=== PATIENT | male | born 1975 | race Caucasian/White ===

== ENCOUNTER 2023-01-30 10:14 | Outpatient (REF) | payer OTHER, SELFPAY ==
[2023-01-30 10:54] LABS: MANUAL DIFF FLAG NO
[2023-01-30 10:57] LABS: Basophils Percent Auto 0.8 % (0-2); Eosinophils Absolute Auto 0.1 X10*3/uL (0.0-0.4); Hematocrit 46.6 % (42.0-52.0); Hemoglobin 15.7 g/dl (14.0-18.0); Imm Gran Abs Auto 0.02 X10*3/uL (0.00-0.03); Imm Gran Pct Auto 0.4 % (0.0-0.4); Lymphocytes Absolute Auto 1.1 X10*3/uL (1.2-4.9); Lymphocytes Percent Auto 20.7 % (20-40); Mean Corpuscular HGB Conc 33.7 g/dl (31.0-36.0); Mean Corpuscular Hemoglobin 30.3 pg (27.0-33.0); Mean Corpuscular Volume 89.8 fL (80.0-98.0); Mean Platelet Volume 9.9 fL (9.4-12.4); Monocytes Absolute Auto 0.5 X10*3/uL (0.1-1.2); Monocytes Percent Auto 10.5 % (2-11); Neutrophils Absolute Auto 3.3 x10*3/uL (2.0-8.3); Neutrophils Percent Auto 65.6 % (45-73); Platelet Count 292 X10*3/uL (160-400); Red Blood Count 5.19 X10*6/uL (4.60-5.80); Red Cell Distribution Width 12.3 % (11.0-16.0); White Blood Count 5.1 X10*3/uL (4.8-10.8)
[2023-01-30 11:05] LABS: Estimated Average Glucose 223 mg/dL; Hemoglobin A1c % 9.4 %
[2023-01-30 11:49] LABS: Alanine Aminotransferase 20 U/L (0-40); Albumin Level 3.9 g/dL (3.5-5.0); Alkaline Phosphatase 91 U/L (39-117); Anion Gap 15 (12-20); Aspartate Amino Transferase 16 U/L (5-37); Blood Urea Nitrogen 35 mg/dL (9-16); Calcium 9.4 mg/dL (8.4-10.2); Carbon Dioxide 25 mmol/L (22-29); Chloride 102 mmol/L (96-108); Cholesterol 171 mg/dL; Estimated Glomerular Filt Rate 33; Glucose Random 170 mg/dL (60-115); HDL Cholesterol 30 mg/dL; LDL Cholesterol Calculated 119 mg/dl; Potassium 4.6 mmol/L (3.3-5.1); Sodium 137 mmol/L (135-145); Triglycerides 110 mg/dL
[2023-01-30 11:52] LABS: Prostate Specific Antigen Scr 0.78 ng/mL (<0.05-4.0); Thyroid Stimulating Hormone 2.31 uIU/mL (0.32-4.0)
== END 2023-01-30 10:15 | disposition home or self-care (01) ==
LOC: HO.10HDL 10:14
PROVIDERS: Visit Provider Internal Medicine
DX: Z00.01 Encounter for general adult medical examination with abnormal findings (principal); Z12.5 Encounter for screening for malignant neoplasm of prostate; I12.9 Hypertensive chronic kidney disease with stage 1 through stage 4 chronic kidney disease, or unspecified chronic kidney disease; E11.22 Type 2 diabetes mellitus with diabetic chronic kidney disease; N18.9 Chronic kidney disease, unspecified
CPT/HCPCS: 36415; 80053; 80061; 83036; 84153; 84443; 85025

== ENCOUNTER 2023-06-26 10:01 | Outpatient (REF) | payer OTHER, SELFPAY ==
[2023-06-26 13:33] LABS: Estimated Average Glucose 117 mg/dL; Hemoglobin A1c % 5.7 % (<6.0)
[2023-06-26 13:53] LABS: Alanine Aminotransferase 15 U/L (0-40); Alkaline Phosphatase 70 U/L (39-117); Anion Gap 13 (12-20); Aspartate Amino Transferase 18 U/L (5-37); Bilirubin Total 1.5 mg/dL (0.0-1.0); Blood Urea Nitrogen 35 mg/dL (9-16); Calcium 9.5 mg/dL (8.4-10.2); Carbon Dioxide 25 mmol/L (22-29); Chloride 101 mmol/L (96-108); Cholesterol 132 mg/dL (<200); Estimated Glomerular Filt Rate 46; Glucose Random 112 mg/dL (60-115); HDL Cholesterol 37 mg/dL (>40); LDL Cholesterol Calculated 73 mg/dL (<100); Sodium 135 mmol/L (135-145); Triglycerides 111 mg/dL (<150)
== END 2023-06-26 10:02 | disposition home or self-care (01) ==
LOC: HO.10HDL 10:01
PROVIDERS: Visit Provider Internal Medicine
DX: E78.00 Pure hypercholesterolemia, unspecified (principal); I12.9 Hypertensive chronic kidney disease with stage 1 through stage 4 chronic kidney disease, or unspecified chronic kidney disease; E11.22 Type 2 diabetes mellitus with diabetic chronic kidney disease; N18.9 Chronic kidney disease, unspecified; M14.679 Charcot's joint, unspecified ankle and foot
CPT/HCPCS: 36415; 80053; 80061; 82043; 82570; 83036

== ENCOUNTER 2023-09-26 09:21 | Outpatient (REF) | payer OTHER, SELFPAY | END 2023-09-26 09:22 | disposition home or self-care (01) | LOC: HO.10HDL 09:21 | PROVIDERS: Visit Provider Internal Medicine | DX: I12.9 Hypertensive chronic kidney disease with stage 1 through stage 4 chronic kidney disease, or unspecified chronic kidney disease (principal); E11.22 Type 2 diabetes mellitus with diabetic chronic kidney disease; N18.9 Chronic kidney disease, unspecified; R80.8 Other proteinuria | CPT/HCPCS: 36415; 80053; 83036 ==

== ENCOUNTER 2023-10-30 02:35 | Emergency (ER) | payer OTHER, SELFPAY ==
--- NOTE | ~2023-10-30 | CT_ITS ---
EXAMINATION: CT ABDOMEN AND PELVIS WITHOUT CONTRAST CLINICAL INFORMATION: Right lower quadrant pain COMPARISON: None available. TECHNIQUE: Multidetector volumetric imaging was performed from the superior aspect of the liver through the pubic symphysis. Sagittal and coronal reformatted images were obtained on the technologist's workstation. This CT examination was performed using dose optimization techniques as appropriate, variously including the following: *Automated exposure control *Adjustment of mA and/or kV according to patient size (this includes techniques or standardized protocols for targeted exams where dose is matched to indication/reason for exam; i.e. extremities or head) *Use of iterative reconstruction technique DLP: 541 mGy-cm FINDINGS: LUNG BASES: The visualized lung bases are unremarkable. LIVER, GALLBLADDER, AND BILIARY TREE: The liver is normal in size, shape, and attenuation. No focal hepatic lesion or biliary ductal dilatation is present. No gallstones but there appears to be a small amount of dependent sludge in the gallbladder. PANCREAS: Unremarkable. SPLEEN: Unremarkable. ADRENAL GLANDS: Unremarkable. KIDNEYS AND URETERS: There is a 3 mm stone, at the right UVJ, causing mild right hydroureter and right hydronephrosis. Punctate vascular calcifications are seen in the right and left renal pelves and there is mild perinephric stranding about the right and left kidney. No suspicious solid mass. There is a 1 mm stone in the lower right kidney and 1 mm stone in the right mid kidney as well. The left ureter is not dilated. No left hydronephrosis. BLADDER: Unremarkable. GASTROINTESTINAL TRACT: No bowel obstruction or right or left lower quadrant inflammatory change. Large stool burden the colon. Minimal mesenteric stranding seen in the lower mesentery and right lower quadrant. Tiny tubular structure retrocecal may reflect the appendix. There is a small hiatal hernia. ABDOMINAL WALL: There is a small ventral umbilical hernia containing fat. LYMPH NODES: Normal. VASCULAR: Aorta atherosclerotic but nonaneurysmal. Vascular calcifications are seen in the upper abdomen, off the branches of the celiac axis and SMA and CHAVA. Query diabetic patient? PELVIC VISCERA: Unremarkable. OSSEOUS STRUCTURES: Degenerative changes in the lumbar spine and at the L5-S1 junction but no destructive lesion or fracture. CT/CT abdomen pelvis wo IV con IMPRESSION: Tiny stone at the right UVJ causing right-sided hydronephrosis. Fleischner guidelines were followed.
[2023-10-30 02:44] VITALS: BP 165/109; PULSE 98; RESP 18; TEMP 36.6; O2SAT 99; BMI 27.6
[2023-10-30 03:31] VITALS: BP 149/95; PULSE 99; RESP 17; TEMP 37.1; O2SAT 99
[2023-10-30 03:43] LABS: MANUAL DIFF FLAG NO
[2023-10-30 03:44] LABS: Basophils Percent Auto 0.4 % (0-2); Eosinophils Percent Auto 0.2 % (0-4); Hematocrit 42.4 % (42.0-52.0); Hemoglobin 13.9 g/dl (14.0-18.0); Imm Gran Abs Auto 0.03 X10*3/uL (0.00-0.03); Imm Gran Pct Auto 0.3 % (0.0-0.4); Lymphocytes Absolute Auto 0.7 X10*3/uL (1.2-4.9); Lymphocytes Percent Auto 6.2 % (20-40); Mean Corpuscular HGB Conc 32.8 g/dl (31.0-36.0); Mean Corpuscular Hemoglobin 30.5 pg (27.0-33.0); Mean Platelet Volume 9.9 fL (9.4-12.4); Monocytes Absolute Auto 0.7 X10*3/uL (0.1-1.2); Monocytes Percent Auto 6.1 % (2-11); Neutrophils Absolute Auto 9.5 x10*3/uL (2.0-8.3); Neutrophils Percent Auto 86.8 % (45-73); Platelet Count 303 X10*3/uL (160-400); Red Blood Count 4.56 X10*6/uL (4.60-5.80); Red Cell Distribution Width 14.1 % (11.0-16.0); White Blood Count 10.9 X10*3/uL (4.8-10.8)
--- OUTSIDE RECORDS SUMMARY | 2023-10-30 03:56 | XMS_ITS | Continuity of Care Document ---
Author Name Unknown Organization [facility] Address [address] [place] [address]- Care Team Providers Care Railway Yard Assistant Name Role Phone Not on Staff, PCP Primary Care Physician Unavail able Encounter [facility] Date(s): 12/25/22 - 01/24/23 [facility] [address] [place] [address]- Attending Physician: Admtr, Ar8 Admitting Physician: Admtr, Ar8 Referring Physician: Admtr, Ar8 Allergies, Adverse Reactions, Alerts Substance Reaction Severity Status penicillins Active Patient Care team information Care Team Personnel Name: Not on Staff, PCP Position: S Physician (General Medicine) Member Role: PCP Care Team Related Persons Name: MARILU ZUNIGA Address: home [address] [place] [address]
--- OUTSIDE RECORDS SUMMARY | 2023-10-30 03:56 | XMS_ITS | Continuity of Care Document ---
Author Name Unknown Organization [facility] Address [address] [place] [address]- Care Team Providers Care Rubber Boots And Shoes Repairer Name Role Phone Veronica Steen MD Primary Care Physician Encounter [facility] Date(s): 06/18/23 - 07/18/23 [facility] [address] [place] [address]- Allergies, Adverse Reactions, Alerts Substance Reaction Severity Status penicillins Active Medications acetaminophen 325 mg oral tablet 975 mg, By Mouth, 3 times a day, Refills 0, Maintenance, 07/08/23 14:04:00 EDT, Partial fill upon patient request if the prescription is for a schedule II opioid drug. Start Date: 07/08/23 Status: Ordered amLODIPine 10 mg oral tablet 10 mg, 1, tablet, By Mouth, Daily, Refills 0, Maintenance, 07/05/23 14:40:00 EDT, Partial fill uponpatient request if the prescription is for a schedule II opioid drug. Start Date: 07/05/23 Status: Ordered Aspirin Tablet 325 mg, By Mouth, Daily, Refills 0, Maintenance, 07/08/23 14:04:00 EDT, Partial fill upon patient request if the prescription is for a schedule II opioid drug. Start Date: 07/08/23 Status: Ordered atorvastatin 20 mg oral tablet 1 tablet = 20 mg, By Mouth, Daily, # 30 tablet, 0 Refills, Maintenance, 07/05/23 14:40:00 EDT, Tablet, Partial fill upon patient request if the prescription is for a schedule II opioid drug. Start Date: 07/05/23 Status: Ordered Januvia 100 mg oral tablet = 100 mg, By Mouth, Daily, # 30 tablet, 0 Refills, Maintenance, 07/05/23 14:39:00 EDT, Tablet, Partial fill upon patient request if the prescription is for a schedule II opioid drug. Start Date: 07/05/23 Status: Ordered metFORMIN 500 mg oral tablet 1 tablet = 500 mg, By Mouth, 2 times a day, # 60 tablet, 0 Refills, Maintenance, 07/05/23 14:39:00 EDT, Tablet, Partial fill upon patient request if the prescription is for a schedule II opioid drug. Start Date: 07/05/23 Status: Ordered oxyCODONE 5 mg oral tablet 5 mg, By Mouth, Every 4 hours, PRN, Refills 0, Tot. Refills 0, Maintenance, Pain , Mild, 07/08/23 14:05:00 EDT, Partial fill upon patient request if the prescription is for a schedule II opioid drug. Start Date: 07/08/23 Status: Ordered Vitamin D3 5000 intl units oral tablet 1 tablet = 5,000 International_Units, By Mouth, Daily, # 30 tablet, 0 Refills, Maintenance, 07/09/23 6:50:00 EDT, Tablet, Partial fill upon patient request if the prescription is for a schedule II opioid drug. Start Date: 07/09/23 Status: Ordered Patient Care team information Care Team Personnel Name: Veronica Steen MD Position: [facility] Outreach Member Role: PCP Address: Address: [address] [place] [address] [address] Veronica Steen MD [address] Name: Tg Agrawal RN Position: S RN Member Role: Primary Care Nurse Name: Brad Hernandez RN Position: S RN Member Role: Primary Care Nurse Name: Jenn Hernandez RN Position: S RN Member Role: Primary Care Nurse Care Team Related Persons Name: MARILU ZUNIGA Address: home [address] [place] [id number]
--- OUTSIDE RECORDS SUMMARY | 2023-10-30 03:56 | XMS_ITS | Continuity of Care Document ---
Author Name Unknown Organization [facility] Address [address] [place] [address]- Care Team Providers Care Test And Balance Engineer Name Role Phone Veronica Steen MD Primary Care Physician Encounter [facility] Date(s): 06/26/23 - 07/27/[address] [address] Attending Physician: Peter Newsome MD Admitting Physician: Peter Newsome MD Allergies, Adverse Reactions, Alerts Substance Reaction Severity [...] opioid drug. Start Date: 07/09/23 Status: Ordered History and physical note * Event Display: History and Physical Hospital Authored Date: Patient Care team information Care Team Personnel Name: Veronica Steen MD Position: [facility] Outreach Member Role: PCP Address: Address: [address] [place] [address] [address] [place] [address]- Name: Tg Agrawal RN Position: S RN Member Role: Primary Care Nurse Name: Brad Hernandez RN Position: S RN Member Role: Primary Care Nurse Name: Jenn Hernandez RN Position: S RN Member Role: Primary Care Nurse Care Team Related Persons Name: PAVANJOHNNIE MARILU Address: home [address] [place] [address]
--- OUTSIDE RECORDS SUMMARY | 2023-10-30 03:56 | XMS_ITS | Continuity of Care Document ---
Author Name Unknown Organization [facility] ter Address [address] [place] [id number] Care Team Providers Care Web Ui Developer Name Role Phone Veronica Steen MD Primary Care Physician Encounter [facility] Date(s): 07/08/23 - 07/09/[address] [address] Discharge Disposition: A-D/C Home Attending Physician: Peter Newsome MD Admitting Physician: Peter Newsome MD Referring Physician: Peter Newsome MD Allergies, Adverse Reactions, Alerts Substance Reaction Severity Status penicillins Active Medications acetaminophen 325 mg oral tablet 975 mg, By Mouth, 3 times a day, Refills 0, Maintenance, 07/08/23 14:04:00 EDT, Partial fill upon patient request if the prescription is for a schedule II opioid drug. Start Date: 07/08/23 Status: Ordered Acetaminophen Tablet 975 mg, Tablet, By Mouth, 07/09/23 9:00:00 EDT Start Date: 07/09/23 Stop Date: 07/09/23 Status: Completed amLODIPine 10 mg oral tablet 10 mg, Tablet, By Mouth, 07/09/23 9:00:00 EDT Start Date: 07/09/23 Stop Date: 07/09/23 Status: Completed amLODIPine 10 mg oral tablet 10 mg, [...] opioid drug. Start Date: 07/08/23 Status: Ordered OxyCODONE IR Tablet 5 mg, Tablet, By Mouth, Every 4 hours, PRN for Pain , Mild, Routine, 07/08/23 13:22:00 EDT Start Date: 07/08/23 Stop Date: 07/09/23 Status: Discontinued Vitamin D3 5000 intl units oral tablet 1 tablet = 5,000 International_Units, By Mouth, Daily, # 30 tablet, 0 Refills, Maintenance, 07/09/23 6:50:00 EDT, Tablet, Partial fill upon patient request if the prescription is for a schedule II opioid drug. Start Date: 07/09/23 Status: Ordered Vital Signs Most recent to oldest [Reference Range]: 1 2 3 Height 173 cm (07/09/23 1:26 PM) 173 cm (07/09/23 6:57 AM) 173 cm (07/09/23 5:34 AM) Weight 87.2 kg (07/08/23 3:30 PM) 86.5 kg (07/08/23 8:49 AM) 86.5 kg (07/05/23 2:53 PM) Oxygen Saturation [94-100 %] 96 % (07/09/23 1:26 PM) 95 % (07/09/23 6:57 AM) 94 % (07/09/23 5:34 AM) Pulse Rate [55-90 bpm] 92 bpm *H* (07/09/23 1:26 PM) 96 bpm *H* (07/09/23 6:57 AM) 91 bpm *H* (07/09/23 5:34 AM) Body Mass Index [18.5-24.99 kg/m2] 29.14 kg/m2 *H* (07/08/23 3:30 PM) 28.9 kg/m2 *H* (07/08/23 8:49 AM) 28.9 kg/m2 *H* (07/05/23 2:53 PM) Blood Pressure [90-138/55-84 mm Hg] 116/68mm Hg (07/09/23 1:26 PM) 137/79mm Hg (07/09/23 7:48 AM) 137/79mm Hg (07/09/23 6:57 AM) Respiratory Rate [16-30 br/min] 18 br/min (07/09/23 1:26 PM) 18 br/min (07/09/23 12:42 PM) 18 br/min (07/09/23 8:49 AM) Temperature [96.8-100.4 DegF] 99.9 DegF (07/09/23 1:26 PM) 99.1 DegF (07/09/23 6:57 AM) 97.9 DegF (07/09/23 5:34 AM) Liters per Minute 1 L/min (07/08/23 3:00 PM) 1 L/min (07/08/23 2:00 PM) 2 L/min (07/08/23 1:30 PM) Mode of Delivery (Oxygen) Room air (07/09/23 1:26 PM) Room air (07/09/23 6:57 AM) Room air (07/09/23 5:34 AM) Blood pressure sites Arm, right (07/09/23 1:26 PM) Arm, left (07/09/23 6:57 AM) Arm, left (07/09/23 5:34 AM) Temperature Route Oral (07/09/23 1:26 PM) Oral (07/09/23 6:57 AM) Oral (07/09/23 5:34 AM) Dry Weight 87.2 kg (07/08/23 3:30 PM) 87.2 kg (07/08/23 8:49 AM) 86.5 kg (07/05/23 2:53 PM) Dry Weight Obtained Via Standing scale (07/08/23 8:49 AM) Patient/family stated (07/05/23 2:53 PM) History and physical note * Event Display: History and Physical Hospital Authored Date: * Event Display: History and Physical Hospital Authored Date: Hospital Progress note * Brad Hernandez RN: PERFORM, SIGN, VERIFY Event Display: Progress Note Hospital Authored Date: [id number] Patient: DANIELA RUIZ Age: 48 years Sex: Male : 1975 Associated Diagnoses: None Author: Brad Hernandez RN Findings Problem Related to Alteration in Musculoskeletal : Alteration in Musculoskeletal Func/new 07/09/2023 10:00 EDT Alteration in Musculoskeletal Related to Mobility, Orthopedic Procedure Goals & Outcomes, Musculoskeletal Affected extremity will maintain color/motion/sensation, Pt able to perform ADL's to best of ability, Pt demonstrates precautions/exercise/ transfers per protocol, Pt will ambulate safely with assistive device, Pt will be free from complications of immobility, Pt will demonstrate ability to participate in ADL's, Pt will report acceptable level of comfort/painrelief Interventions, Musculoskeletal Monitor patients ambulation status, monitor Color/Motion/Sensation, Assist with repositioning, Encourage deep breathing & coughing exercises, Teach & Encourage use of Incentive spirometer, Teach Pt/caregiver on ADL's & adaptive equipment, Teach Pt/caregiver on exercises, Teach pt/caregiver on use of pain scale, Teach Pt/caregiver complications of immobility, Teach Pt/caregiver techniques to increase mobility, Teach Pt/caregiver on safety precautions BH Goals/Interventions, Musculoskeletal Yes Musculoskeletal, Problem Start 07/08/2023 16:52 Reviewed Plan with, Musculoskeletal Patient Patient Progression, Musculoskeletal Pt progressing according to plan . Narrative/Incidental P: Alteration in musculoskeletal I: See interventions listed above E: R foot surgery 07/08 w/ Dr. Campbell. R foot w/ HALEY & splint. +ve wiggle, +ve CMS. Last BM 07/08. NWB RLE, w/ crutches Ax1 OOB. Oxy5 given for pain. POC's monitored. . Evaluation Pt A&O x4. VSS. Medicated per NOV. R foot surgery 07/08 w/ Dr. Campbell. R foot w/ HALEY & splint, CDI. +ve wiggle, +ve CMS. Last BM 07/08. NWB RLE, w/ crutches Ax1 OOB. Oxy5 given for pain. POC's monitored. Plan for d/c home w/ services pending PT/OT eval. All safety maintained. . * Mercedez STRINGER, Peter Barrios: PERFORM Event Display: Progress Note Hospital Authored Date: [id number] Patient: ??DANIELA RUIZ ? Age:??48 Years?Sex:??Male?:??1975?? Subjective Patient comfortable. No overnight events/complaints. He is voiding well. He denies any chest pain or shortness of breath. Review of Systems Otherwise unremarkable Physical Exam Vitals & Measurements T:??97.9?F?? HR:??91??(Peripheral)?? RR:??20?? BP:??125/77?? SpO2:??94%?? HT:??173??cm?? WT:??87.2??kg?? BMI:??29.14?? HR 91-94, 94-95% (RA) RLE: splint clean/dry/intact, baseline peripheral neuropathy, able to flex/extend toes, brisk capillary refill in toes <2 seconds, no pain with passive stretch of toes Assessment/Plan POD#1 s/p right Charcot midfoot/hindfoot realignment arthrodesis, navicular excision, subtalar arthrodesis, NOE 1) PT/OOB 2) NWB/elevate RLE 3) Ecotrin 4) Tight glycemic control, ISS 5) PO pain meds 6) D/c home later today if clears PT Intake and Output Intake and Output Results?? This visit (24 hour periods starting at 07:00 EDT)? 07/08/23 *?? 07/07/23?? 07/06/23?? Total Summary?Intake mL?? 970?? --?? --?Output mL?? 825?? --?? --?Fluid Balance ?? 145?? --?? --?? Intake (2)?Oral Fluids mL?? 720?? --?? --?Other IV mL?? 250?? --?? --?Total?? 970?? --?? --?? Output (1)?Urine Voided mL?? 825?? --?? --?Total?? 825?? --?? --?? Counts (4)?Bladder Scan Volume mL?? 223?? --?? --?Oral Fluids mL?? 720?? --?? --?Post void residual mL?? 448?? --?? --?Urine Voided mL?? 825?? --?? --? * This column has not completed the indicated time period.?? Labs Last 24 Hours No qualifying data available. * Madalyn Suero RN: PERFORM, SIGN, VERIFY Event Display: Progress Note Hospital Authored Date: Patient: DANIELA RUIZ Age: 48 years Sex: Male : 1975 Associated Diagnoses: None Author: Madalyn Suero RN Findings Problem Related to Alteration in Comfort : Alteration in Comfort/new 07/08/2023 22:00 EDT Alteration in Comfort Related to Surgery Goals & Outcomes: Comfort Pt will report acceptable level of comfort & pain control, Pt will state importance of adhering to pain strategy regime, Pt will demonstrate necessary skills to manage pain, Non-verbal indicators will indicate comfort/pain control Interventions Implemented: Comfort Assess pain using appropriate pain scale/tools, Assess aggravating factors & prevent them accordingly, Assess alleviating factors & promote them accordingly Goals/Interventions, Comfort Yes Comfort, Problem Start 07/08/2023 22:24 Reviewed plan with, Comfort Patient Patient Progression, Comfort Plan Initiation Comfort, Problem Ongoing Yes . Alteration in Musculoskeletal : Alteration in Musculoskeletal Func/new 07/08/2023 22:00 EDT Alteration in Musculoskeletal Related to Mobility, Orthopedic Procedure Goals & Outcomes, Musculoskeletal Affected extremity will maintain color/motion/sensation, Pt able to perform ADL's to best of ability, Pt demonstrates precautions/exercise/ transfers per protocol, Pt will ambulate safely with assistive device, Pt will be free from complications of immobility, Pt will demonstrate ability to participate in ADL's, Pt will report acceptable level of comfort/painrelief Interventions, Musculoskeletal Monitor patients ambulation status, monitor Color/Motion/Sensation, Assist with repositioning, Encourage deep breathing & coughing exercises, Teach & Encourage use of Incentive spirometer, Teach Pt/caregiver on exercises, Teach pt/caregiver on use of pain scale, Teach Pt/caregiver complications of immobility, Teach Pt/caregiver techniques to increase mobility, Teach Pt/caregiver on safety precautions, Incision care as ordered Goals/Interventions, Musculoskeletal Yes Musculoskeletal, Problem Start 07/08/2023 16:52 Reviewed Plan with, Musculoskeletal Patient Patient Progression, Musculoskeletal Pt progressing according to plan . Nursing Data Cardiac Data. : Cardiac Data. 07/08/2023 18:40 EDT Cardiovascular WNL . Gastrointestinal Data. : Gastrointestinal Data. 07/08/2023 18:40 EDT Gastrointestinal Symptoms Nausea Last Bowel Movement 07/07/2023 GI WNL except . Genitourinary Data. : Genitourinary Data. 07/08/2023 18:40 EDT Genitourinary Symptoms Other: DTV WNL except . HEENT Data. : HEENT Assessment 07/08/2023 18:40 EDT HEENT, Adult WNL . Integumentary Data. : Integumentary Data. 07/08/2023 18:40 EDT Skin Integrity Not intact Activity Other: NWB RLE Mobility Slightly limited Integumentary WNL except . Musculoskeletal Data. : Musculoskeletal Data. 07/08/2023 18:40 EDT Special Orthopedic Devices Splint(s) Musculoskeletal WNL except . Neurological Data. : Neurological Data. 07/08/2023 18:40 EDT Pain Location Foot, right Pain Intensity 2 1 - 10 Pain Scale Score 2 Quality Aching Pain Interventions Pharmacological, PRN medication Pain relief acceptable Yes Neuro WNL . Patient Care Data. : Patient Care Data. 07/08/2023 18:40 EDT Patient's Stated Goal to go home Pain system assessment Detailed pain assessment Pain Effects on Appetite Mild Pain Effects on Concentration Mild Pain Effects on Daily Life Mild Pain Effects on Emotions Mild Pain Effects on Sleep Mild Pain Aggravating Factors Movement Pain Alleviating Factors Medication Quality Aching Behavioral indicators Facial expression . Respiratory/Pulmonary Data. : Respiratory/Pulmonary Data. 07/08/2023 18:40 EDT Respiratory WNL . Vital Signs : VITAL SIGNS SECTION 07/08/2023 20:21 EDT Early Warning Score 2.00 07/08/2023 20:21 EDT Temperature 98.1 DegF Temperature Route Oral Pulse Rate 91 bpm H Respiratory Rate 20 br/min Systolic Blood Pressure 124 mm Hg Diastolic Blood Pressure 72 mm Hg Blood pressure sites Arm, left Mean Arterial Pressure 89 mm Hg Pulse Pressure 52 mm Hg Oxygen Saturation 93 % L Mode of Delivery (Oxygen) Room air . Pain Data : PAIN SECTION 07/08/2023 18:40 EDT Pain Location Foot, right Pain Intensity 2 1 - 10 Pain Scale Score 2 Pain relief acceptable Yes . Narrative/Incidental Patient has dexcom right upper arm,POC @ 2100,113,refused lantus,claimed does'nt take insulin at home,patient educated and understands the impotance of insulin,BOLA Davis made aware.. Evaluation Right foot surgery 07/[address] Newsome,patient is alert and oriented x4,LS clear,no SOB,encouraged use of IS,abdomen SNT,(+) BS,c/o nausea,no vomiting,PRN PO zofran given with (+) effect,DTV,right lower leg splint/acewrap clean,dry and intact,leg elevated on pillows,toes still numb, (+) sensation,(+) capillary refill,pain 2/10,on scheduled tylenol and PRN oxy IR with (+) effect,C boots to left leg,NWB right leg,turn and reposition,call molina within reach.. Note * Kasey Mcgovern RN: PERFORM Event Display: Discharge/Transfer Note Hospital Authored Date: [id number] Nursing Discharge Note Entered On: 07/09/2023 13:47 EDT Performed On: 07/09/2023 13:47 EDT by Kasey Mcgovern RN Nursing Discharge Note 2 Discharge Time : 07/09/2023 13:46 EDT Discharge Level of Care at Discharge : Home/Snf/Foster Care Patient Left Unit Via : Wheelchair Patient Accompanied Off Unit with : Responsible adult DC Instructions Provided & Signed by Pt : Yes Patient Understands D/C Instructions : Yes Verbalized Understanding of D/C Plan By : Patient Patient Instructions Discharge Signed : Yes Did Pt have Specialty Bed or Wound Vac : No Kasey Mcgovern RN - 07/09/2023 13:47 EDT * Mercedez STRINGER, Peter R: PERFORM Mercedez STRINGER, Peter Barrios: PERFORM, MODIFY Mercedez STRINGER, Peter Barrios: MODIFY Event Display: Discharge/Transfer Note Hospital Authored Date: [id number] Patient: ??DANIELA RUIZ ? Age:??48 Years?Sex:??Male?:??1975?? Admit Date Admission Date: 07/08/2023 Discharge Date 07/09/23 Discharge Diagnoses 1. 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 Chronic transverse tarsal joint dorsal dislocation 3.?Right equinus contracture Hospital Course Patient underwent right midfoot/hindfoot realignment osteotomy and arthrodesis, right navicular excision, right subtalar arthrodesis, and right tendo Achilles lengthening on 07/08/23. ?? Hospital course has been unremarkable. Patient is tolerating oral pain medications and diet without difficulty. Voiding on own. Denies any nausea, vomiting, shortness of breath, or chest pain. Plan is for patient to be discharged home today.?? Objective/Physical Exam on Day of Discharge Vitals & Measurements T:??97.5?F?? HR:??94??(Monitored)?? RR:??11?? BP:??119/82?? SpO2:??94%?? HT:??173??cm?? WT:??86.5??kg?? BMI:??28.9?? Assessment/Plan ?? 1) Non weight bearing on operative extremity?? 2) Ice/elevate above heart operative extremity?? 3) Ecotrin for 30 days for DVT prophylaxis?? 4) Keep splint clean and dry, do not remove or get wet. 5) Follow-up in 1 week at [facility] for dressing/splint change.?? Future Appointments [facility] in 1 week, call for appointment Home Health Face to Face *Denotes mandatory fitzgerald ?? *I certify that this patient is under my care and that I or an allowed non- physician working with me had a face to face encounter with the patient on this date:??07/09/2023 06:52 ?? *The encounter with the patient was in whole, or in part, for the following medical condition, which is the primary diagnosis(es) for home health care:? *Select the indications for the discipline/s that are being arranged for this patient. Nursing (select all that apply): [_] None [_] Medication management (reconciliation, teaching)?? [_] Chronic disease management?? [_] Wound care and treatment?? [x] Home safety evaluation [_] Administer SQ/IM/IV medications?? [_] Cath care?? [_] Drain care?? [_] Trach or GT care?? Other _ Occupation Therapy (select all that apply): [_] None [_] ADL Management [_] Fall prevention training [_] Energy conservation [_] Cognitive training Other _ Physical Therapy (select all that apply): [_] None [x] Functional mobility training [x] Home exercise program to strengthen [_] Increase ROM?? [x] Falls prevention training [_] Home maintenance program for chronic disease Other _ Speech Therapy (select all that apply): [_] None [_] Swallow evaluation and training [_] Speech and language training [_] Cognitive training to process, organize, and/or recall information Other _ ? *Homebound due to (select all that apply): [x] Inability to leave home without assistance/supervision [_] Inability to ambulate without assistance [_] Pain [_] Decreased strength and endurance [_] Unsteady gait [_] Severe SOB and fatigue [_] Impaired transfers [_] Inability to negotiate stairs [x] Limited weight bearing [_] Mental status change? *Physician Signature: Peter Newsome MD ?? *By signing this, I certify that I have personally evaluated the patient and agree with the findings and recommendations as documented above. ? FTF Procedures Performed This Visit Arthrodesis Foot Mid, Right, Foot Fusion/Arthrodesis Subtalar, w/possible, Right, Foot Lengthening Achilles Tendon, Right, Foot Discharge Medications Acetaminophen (acetaminophen 325 mg oral tablet)?975?Milligram?By Mouth?3 times a day Amlodipine (amLODIPine 10 mg oral tablet)?10?Milligram?1?tablet?By Mouth?Daily Aspirin (Aspirin Tablet)?325?Milligram?By Mouth?Daily Atorvastatin (atorvastatin 20 mg oral tablet)?1?tab(s)?20?Milligram?By Mouth?Daily Cholecalciferol (Vitamin D3 5000 intl units oral tablet)?1?tab(s)?5,000?International Unit?By Mouth?Daily Metformin (metFORMIN 500 mg oral tablet)?1?tab(s)?500?Milligram?By Mouth?2 times a day Oxycodone (oxyCODONE 5 mg oral tablet)?5?Milligram?By Mouth?Every 4 hours?as needed?Pain , Mild sitagliptin (Januvia 100 mg oral tablet)?100?Milligram?By Mouth?Daily Labs Last 24 Hours No qualifying data available. Follow-Up Appointments Added Follow Up ?Time Frame ?Comments Peter Steen MD * Hoang FAGAN, Apple: PERFORM Event Display: Patient Education/Instruction Authored Date: [id number] Inpatient Adult Discharge Instructions [address] [address] Name: DANIELA RUIZ : 1975 Visit: 07/08/2023 08:44:00 Current Date: 07/09/2023 13:20 Account: [id number] Inpatient Adult Discharge Instructions We would like to thank you for allowing us to assist you with your healthcare needs. The following includes patient education materials and information regarding your injury/illness. Our entire staffstrives to provide an excellent experience for our patients and their families. PLEASE ENSURE YOU FOLLOW-UP PER THE INSTRUCTIONS BELOW! ?? YOUR OPINION IS IMPORTANT TO US! Please complete the survey you may receive by mail or email. Your feedback will be used to make improvements to the healthcare experiences of our patients and their families. Surveys are administered by [employer] ?? If further treatment with your primary care physician or another doctor is recommended, it is important for you to keep the appointment. Call your primary care physician or return to the Emergency Department immediately if your condition worsens, fails to improve, or new symptoms develop. If you need to find a doctor, you can call [facility] Outreach Program Link for a referral at [phone] or toll free at [phone]) or log in to [email or web address].. ?? [facility], in keeping with [facility] guidance, no longer requires face masks for staff, patientsor visitors in most situations. Similiar to time spent indoors at other locations, there is the chance that you were exposed to repiratory viruses during your time with us (such as flu or COVID-19). If you develop symptoms concerning for a viral respiratory infection, please seek testing (and treatment if indicated) from your medical provider or home test kit. ?? You can view and manage your care through the patient portal or by using a health care rebeka of your choosing. [employer] is a website that allows you to securely view your medical information including your hospital discharge summary, office visit summaries, medications and follow-up visits. You can also request appointments, renew medications, and request access to your medical information using a health care rebeka of your choosing, or just ask a question. You can enroll at [email or web address] or register during your next office visit. You have been discharged from [facility], Patient Care Unit: SW7. If you have any questions regarding these instructions after you leave, please call us and we will be happy to assist you. [facility] Your Care Team Attending Physician Mercedez STRINGER, Peter Barrios Discharging Providers Mercedez STRINGER, Peter Barrios Reason for Admission RIGHT MIDFOOT/HINDFOOT CHARCOT ARTHROPATHY WITH TA Tests Performed Below is a partial list of the tests performed during your hospitalization. You may have had other tests and procedures not included in this list. Please discuss all test results with your provider. GLUCOSE POC Primary Care Provider Enio STRINGER, Veronica Liu Advance Directive Health Care Proxy on File No Discharge Vitals Temperature: 99.1 DegF Height: 173 cm Pulse Rate:??96 bpm??High Weight: 87.2 kg Respiratory Rate: 18 br/min Body Mass Index:??29.14 kg/m2??High Systolic Blood Pressure: 137 mm Hg Body surface area: 2.05 Diastolic Blood Pressure: 79 mm Hg ?? Oxygen Saturation: 95 % ?? Studies Pending All tests and labs ordered during this hospital stay have been completed unless listed below. Please discuss all pending results with your provider listed above in these instructions. ?? No incomplete studies found What to do next Instructions From Your Doctor Discharge Orders Instructions from your Care Team 1) Non weight bearing on operative extremity?? 2) Ice/elevate above heart operative extremity?? 3) Ecotrin for 30 days for DVT prophylaxis?? 4) Keep splint clean and dry, do not remove or get wet. 5) Follow-up in 1 week at [facility] for dressing/splint change.?? You Need to Schedule the Following Appointments Follow Up with??Peter Newsome When:??In 1 week Where: [address] [facility] [place] [address]- Business (1) Follow Up with??Veronica Steen MD When:??In 0 days Where: [address] [place] [address]- Business (1) Discharge Medications DANIELA RUIZ :1975 Visit Date:07/08/2023 Medications: Please continue your medications until treatment is completed or stopped by your provider. Medications not listed below should be discontinued. Discuss any questions related to medications with your provider. What How Much When Instructions Next Dose New Acetaminophen (acetaminophen 325 mg oral tablet) 975 Milligram Oral 3 times a day 07/09 3pm New Aspirin (Aspirin Tablet) 325 Milligram Oral Daily 07/10 AM New Cholecalciferol (Vitamin D3 5000 intl units oral tablet) 1 tab(s) Oral Daily 07/10 AM New Oxycodone (oxyCODONE 5 mg oral tablet) 5 Milligram Oral Every 4 hours as needed for Pain , Mild last dose today 1245 Unchanged Amlodipine (amLODIPine 10 mg oral tablet) 1 tab(s) Oral Daily 07/10 AM Unchanged Atorvastatin (atorvastatin 20 mg oral tablet) 1 tab(s) Oral Daily 07/10 AM Unchanged Metformin (metFORMIN 500 mg oral tablet) 1 tab(s) Oral Twice a day 07/09 PM Unchanged sitagliptin (Januvia 100 mg oral tablet) 100 Milligram Oral Daily 07/10 AM Test Results Below is a partial list of the most recent Laboratory test results done prior to this discharge. You may have had other tests and procedures not included in this list. Please discuss all test resultswith your provider. GLUCOSE POC (07/09/2023) ???Glucose, POC - 149 mg/dL Allergies (NKA means No Known Allergies) penicillins Problems No qualifying data available Education Materials Below is the list of Educational Leaflet Providered with your Discharge Instructions. Valuables and Belongings I fully understand and agree that [facility] accepts no responsibility for all my personal property including clothing, toilet articles, radios, jewelry, dentures, hearing aids, rings, money, or any other property that is in my possession or is brought to me after admission. I understand certain valuables may be placed in a hospital safe for a short period of time. I understand that the hospital is not liable for loss or damage due to accident, fire, or other natural occurrence while said property is in the safe. I accept full responsibility for any personal property that I keep with me, and will not hold the hospital responsible in case of loss or disappearance. I acknowledge that i have been encouraged to send valuables and belongings home. ?? Review of Valuable and Belonging List: With patient Date for Pt to Sign Valuables/Belongings: 07/08/23 09:17:00 ?? Valuables & Belongings ?? Clothes Electronic devices Jewelry Monetary Items Personal devices Miscellaneous Medications (Valuables) Valuables at Bedside Pants, Shirt, Shoes Cell phone ?? Wallet Other: dex com on right upper arm ? Valuables Sent Home ? Valuables Sent to Security ? Other Discharge Information ? Pulmonary Rehab Status?? Pulmonary Rehab Discharge Status?? Respiratory Rate: 18 br/min ? Common Emergency Awareness Tips IS IT A STROKE? Act FAST and Check for these signs: FACE Does the face look uneven? ARM Does one arm drift down? SPEECH Does their speech sound strange? TIME Call at any sign of stroke ?? Heart Attack Signs Chest discomfort: Most heart attacks involve discomfort in the center of the chest and lasts more than a few minutes, or goes away and comes back. It can feel like uncomfortable pressure, squeezing, fullness or pain. Discomfort in upper body: Symptoms can include pain or discomfort in one or both arms, back, neck, jaw or stomach. Shortness of breath: With or without discomfort. Other signs: Breaking out in a cold sweat, nausea, or lightheaded. Remember, MINUTES DO MATTER. If you experience any of these heart attack warning signs, call to get immediate medical attention! ?? Smoking can increase your chances of developing chronic health problems and can cause harmful effects to other family members in your house. If you smoke, you are strongly encouraged to quit. Please call [facility] - [facility] Outreach Program Link at [phone] or [phone] or log in to [email or web address] for referrals to smoking cessation programs. ?? 050 Suicide & Crisis Lifeline is available 15/04 if you or someone you know needs to find a reason to keep living. By calling 427 you'll be connected to a skilled, trained counselor at a crisis center in your area. INPATIENT DISCHARGE INSTRUCTIONS SIGNATURE PAGE DANIELA RUIZ Location:[facility] Registration Date and Time:07/08/2023 08:44 EDT Primary Care Physician: Enio STRINGER, Veronica Liu, Attending Physician: Mercedez STRINGER, Peter Barrios, I DANIELA RUIZ, have received the above patient education materials/instructions and have verbalized understanding. If ambulance or transport services are being used I further acknowledge being given a choice of service. ?? If you need to contact me, please call me at this number: . Patient/Chiller Technician Name: Patient/Chiller Technician Signature: Relationship to Patient: Witness Name/Signature: Date: * Apple Bolton RN: PERFORM Event Display: Patient Education Leaflets Authored Date: [id number] Discharge Instructions for Foot Surgery ?? [id number] Discharge Instructions for Foot Surgery Arrange to have an adult drive you home after surgery. If you had general anesthesia, it may take 1or more days to fully recover. So for at least the next 24 hours: ??? Don't use machinery or power tools. ??? Don't drink alcohol. ??? Don't make any major decisions. Diet Here are some dietary suggestions following surgery:? Start with liquids and light foods, likedry toast, bananas, and applesauce. As you feel up to it, slowly return to your normal diet. ??? Drink at least??6 to??8 glasses of water or other nonalcoholic fluids a day. ??? To prevent nausea, eat before taking narcotic pain medicines. ?? Medicines It's important to follow these directions:? Take all medicines as advised. ??? Take pain medicines on time. Don't wait until the pain is bad before taking your medicines. ??? Don't drink alcoholwhile taking pain medicines. ?? Activity These instructions are to help with your recovery:? Sit or lie down when possible. Put a pillow or 2 under your heel to raise your foot above the level of your heart. ??? Wrap an ice pack or bagof frozen peas in a thin cloth. Place it over your bandaged foot for no longer than 20 minutes. Do this?? 3 times a day. ??? Ask your surgeon when you can resume driving. ??? Wear your surgical shoe as advised if you were given one. ??? Use crutches or a cane as directed. ??? Follow your surgeon's instructions about putting weight on your foot. ?? Bandage and cast care Here are tips to follow:? Ask your provider when you can take a shower. ??? When you can shower, cover the bandage, splint,??or cast with a plastic bag to keep it dry. ??? Don???t remove your bandage until your healthcare provider??tells you to. If your bandage gets wet or dirty, check with your provider. You can likely replace it with a clean, dry one. ?? What to expect It's normal to have the following: ??? Bruising and slight swelling of the foot and toes ??? A small amount of blood on the dressing ?? Call??your healthcare provider Contact your surgeon right away if you have any of the following:? Continuous bleeding throughthe bandage ??? Excessive swelling or increased bleeding ??? Warmth or redness around the dressing or surgical site ??? Fever over 100.4??F (38??C), or as advised by your surgeon ??? Chills ??? Pain u nrelieved by pain medicines ??? Foot feels cold to the touch or numb ??? Increased??pain in your leg or foot ??? Swelling in the calf above the treated foot, ??? Anything unusual that concerns you ?? Call 911 Call 911 if you have either of these: ??? Chest pain ??? Shortness of breath ?? Last Reviewed Date: 2023 ?? [id number] [employer]. All rights reserved. This information is not intended as a substitute for professional medical care. Always follow your healthcare professional's instructions. ?? * Myriam FAGAN, Talya: PERFORM, SIGN, VERIFY Event Display: Patient Education Handout Authored Date: [id number] Patient Care team information Care Team Personnel Name: Veronica Steen MD Position: [facility] Outreach Member Role: PCP Address: Address: [address] [place] [address]- Name: Tg Agrawal RN Position: S RN Member Role: Primary Care Nurse Name: Brad Hernandez RN Position: S RN Member Role: Primary Care Nurse Name: Jenn Hernandez RN Position: S RN Member Role: Primary Care Nurse Care Team Related Persons Name: MARILU ZUNIGA Address: home [address] [place] [address]
[2023-10-30 04:01] LABS: Alanine Aminotransferase 11 U/L (0-40); Alkaline Phosphatase 121 U/L (39-117); Anion Gap 16 (12-20); Aspartate Amino Transferase 16 U/L (5-37); Bilirubin Direct 0.4 mg/dL (0.0-0.5); Bilirubin Total 1.1 mg/dL (0.0-1.0); Blood Urea Nitrogen 55 mg/dL (9-16); Calcium 9.3 mg/dL (8.4-10.2); Carbon Dioxide 22 mmol/L (22-29); Chloride 103 mmol/L (96-108); Creatinine Clr Calc Pharmacy 36.5; Estimated Glomerular Filt Rate 27; Glucose Random 154 mg/dL (60-115); Lipase 26 U/L (8-78); Potassium 4.3 mmol/L (3.3-5.1); Sodium 137 mmol/L (135-145); Total Protein 7.6 g/dL (6.5-8.0)
[2023-10-30 05:16] VITALS: BP 159/108; PULSE 95; RESP 17; TEMP 37; O2SAT 98
--- NOTE | 2023-10-30 05:35 | ED.GENADULT ---
HPI - General Adult General Chief complaint: Abdominal Pain Stated complaint: stomach pain Time Seen by Provider: 10/30/23 05:23 History of Present Illness HPI narrative: The patient is a 48-year-old with type 2 diabetes who developed pain in his right lower quadrant at around 22:00 this evening. He threw up around midnight. He came to the emergency room for evaluation. No fever, sweats, chills. The pain was of abrupt onset. No flank pain or back pain. No nausea or vomiting. He describes the pain as a dull ache. Related Data Allergies Allergy/AdvReac Type Severity Reaction Status Date / Time Penicillins Allergy Hives Verified 10/30/23 02:47 Review of Systems Review of Systems: Yes all other systems are reviewed and are negative [facility] Social History Social History Alcohol intake: never Smoked in Last 30 Days: No Use of substances other than those prescribed or required for medical reasons: No Advance Directives: No Advance Directives Information Provided: No Physical Exam ED Vital Signs: Vital Signs - 24 hr 10/30/23 02:44 10/30/23 03:31 10/30/23 05:16 Temperature 98 F 98.7 F 98.6 F Pulse Rate 98 99 95 Respiratory Rate 18 17 17 Blood Pressure 165/109 H 149/95 H 159/108 H Pulse Oximetry 99 99 98 Oxygen Delivery Method Room Air Room Air Room Air BMI result Body Mass Index 27.6 Const Other: The patient is a 48-year-old man who was awake and alert. He looks somewhat chronically ill. He does not appear in obvious distress. HENMT Other: The face is symmetrical. ?Mucous membranes moist. Eyes Other: Pupils are round equal, conjunctivae are clear, extraocular movements intact Resp Effort & Inspection: normal respiratory effort Auscultation: clear to auscultation bilaterally Cardio Rate: regular rate Rhythm: regular rhythm Heart sounds: S1 normal heart sound present and S2 normal heart sound present GI Other: He has been a soft. There is mild right lower quadrant tenderness. General: Yes no CVA tenderness Back/Spine/Pelvis Back: no CVA tenderness Skin Other: Skin is pale and dry Neuro Other: The patient is awake and alert. His cooperative. He is nontoxic. Face is symmetrical. Speech is clear. Moving his extremities normally. Grossly neurologically intact. Extrem Other: No peripheral edema. Medications Administered Discontinued Medications Generic Name Dose Route Start Last Admin Trade Name Aura PRN Reason Stop Dose Admin Acetaminophen 975 mg 10/30/23 05:34 10/30/23 06:40 Acetaminophen 325 Mg Tablet PO 10/30/23 05:35 Not Given ONCE ONE Sodium Chloride 1,000 mls @ 999 mls/hr 10/30/23 05:45 10/30/23 06:40 Ns IV 10/30/23 06:45 Not Given .Q1H1M [facility] Medical Decision Making Medical Decision Making [facility] Narrative: The patient is a 48-year-old male who presents for abrupt onset right lower quadrant abdominal discomfort. There was no antecedent generalized abdominal pain. There was no migration of pain. The patient did not appear in discomfort or look particularly ill and his tenderness seems fairly mild. He has a minimal white blood count elevation and they mild left shift. CRP is slightly elevated at 1.4. Of more concern was that his creatinine was higher than on previous occasions as was his BUN. My plan had been to give the patient IV fluids. He was given acetaminophen for his discomfort. Prior to the results of the patient's CT scan the patient said that his abdominal pain had resolved and he wanted to be discharged. He did not wish to wait for the results of the CT scan. The patient did not wish to have any IV fluids. He asked to be discharged. He said he would drink fluids at home. The patient was therefore discharged. I reviewed the patient's CT results following day which showed that he had a 3 mm stone at the right UVJ with some hydronephrosis. My assumption is that he passed the stone while he was in the emergency department and this is why his pain resolved. Today (October 31) I attempted to contact the patient at his cell phone, . The call went to [employer]. I left a message explaining that he had had kidney stone and that my assumption is that the kidney stone is passed into his bladder. I encouraged him to drink lot of fluids and follow up with his regular doctor. Lab Data 10/30/23 02:53 10/30/23 02:53 Labs: Lab Results 10/30/23 Range/Units 02:53 WBC 10.9 H (4.8-10.8) X10*3/uL RBC 4.56 L (4.60-5.80) X10*6/uL Hgb 13.9 L (14.0-18.0) g/dl Hct 42.4 (42.0-52.0) % MCV 93.0 (80.0-98.0) fL MCH 30.5 (27.0-33.0) pg MCHC 32.8 (31.0-36.0) g/dl RDW 14.1 (11.0-16.0) % Plt Count 303 (160-400) X10*3/uL MPV 9.9 (9.4-12.4) fL Immature Gran % (Auto) 0.3 (0.0-0.4) % Neut % (Auto) 86.8 H (45-73) % Lymph % (Auto) 6.2 L (20-40) % [place] % (Auto) 6.1 (2-11) % Eos % (Auto) 0.2 (0-4) % Baso % (Auto) 0.4 (0-2) % Lymph # (Auto) 0.7 L (1.2-4.9) X10*3/uL [place] # (Auto) 0.7 (0.1-1.2) X10*3/uL Eos # (Auto) 0.0 (0.0-0.4) X10*3/uL Baso # (Auto) 0.0 (0.0-0.2) X10*3/uL Abs Immat Gran (auto) 0.03 (0.00-0.03) X10*3/uL Absolute Neuts (auto) 9.5 H (2.0-8.3) x10*3/uL Absolute Nucleated RBC 0.000 (0.0-0.012) X10*3/uL Nucleated RBC % (auto) 0.0 (0.0-0.2) /100WBC Sodium 137 (135-145) mmol/L Potassium 4.3 (3.3-5.1) mmol/L Chloride 103 (96-108) mmol/L Carbon Dioxide 22 (22-29) mmol/L Anion Gap 16 (12-20) BUN 55 H (9-16) mg/dL Creatinine 2.53 H (0.5-1.4) mg/dL Estim Creat Clear Calc 36.5 Estimated GFR 27 Random Glucose 154 H (60-115) mg/dL Calcium 9.3 (8.4-10.2) mg/dL Total Bilirubin 1.1 H (0.0-1.0) mg/dL Direct Bilirubin 0.4 (0.0-0.5) mg/dL AST 16 (5-37) U/L ALT 11 (0-40) U/L Alkaline Phosphatase 121 H (39-117) U/L C-Reactive Protein 1.43 H (< or = 0.50) mg/dL Total Protein 7.6 (6.5-8.0) g/dL Albumin 4.0 (3.5-5.0) g/dL Lipase 26 (8-78) U/L Discharge Plan Discharge Clinical Impression: Right sided abdominal pain, Renal insufficiency, Right ureteral calculus Patient Disposition: Home, Self-Care Additional Instructions: Try to drink a lot of fluids on a daily basis going forward. Please contact your primary care doctor's office later today and said that the emergency room physician was concerned about your kidney function and wanted you to get an earlier follow-up appointment and possibly have you referred to a agency operator (a kidney specialist). Return to the emergency room if you feel significantly worse. Referrals: Veronica Steen MD [Primary Care Provider] - (Creatinine somewhat worse.) Interventions: ED Discharge Assessment Last Done: 10/30/23 07:04 Discharge Date/Time: 10/30/23 07:08
[2023-10-30 05:49] LABS: C Reactive Protein 1.43 mg/dL (< or = 0.50)
--- NOTE | 2023-10-30 06:40 | PC.NURSE ---
Addendum entered by Karoline Pitt 10/30/23 06:41: provider made aware Original Note: Pt reports pain free, declined IV and meds ordered by provider.
== END 2023-10-30 07:08 | disposition home or self-care (01) ==
PROVIDERS: Emergency Provider Emergency Medicine; PCP Internal Medicine
DX: N13.2 Hydronephrosis with renal and ureteral calculous obstruction (principal)
CPT/HCPCS: 36415; 74176; 80048; 80076; 83690; 85025; 86140; 99284

== ENCOUNTER 2024-01-16 09:00 | Outpatient (REF) | payer OTHER, SELFPAY ==
[2024-01-16 10:46] LABS: MANUAL DIFF FLAG NO
[2024-01-16 10:53] LABS: Basophils Absolute Auto 0.1 X10*3/uL (0.0-0.2); Basophils Percent Auto 1.6 % (0-2); Eosinophils Absolute Auto 0.2 X10*3/uL (0.0-0.4); Eosinophils Percent Auto 5.6 % (0-4); Hemoglobin 13.6 g/dl (14.0-18.0); Lymphocytes Absolute Auto 0.8 X10*3/uL (1.2-4.9); Lymphocytes Percent Auto 21.1 % (20-40); Mean Corpuscular HGB Conc 33.2 g/dl (31.0-36.0); Mean Corpuscular Hemoglobin 31.1 pg (27.0-33.0); Mean Corpuscular Volume 93.8 fL (80.0-98.0); Mean Platelet Volume 9.7 fL (9.4-12.4); Monocytes Absolute Auto 0.6 X10*3/uL (0.1-1.2); Monocytes Percent Auto 16.3 % (2-11); Neutrophils Absolute Auto 2.1 x10*3/uL (2.0-8.3); Neutrophils Percent Auto 55.4 % (45-73); Platelet Count 242 X10*3/uL (160-400); Red Blood Count 4.37 X10*6/uL (4.60-5.80); Red Cell Distribution Width 15.5 % (11.0-16.0); White Blood Count 3.7 X10*3/uL (4.8-10.8)
[2024-01-16 11:00] LABS: Estimated Average Glucose 146 mg/dL; Hemoglobin A1c % 6.7 % (<6.0)
[2024-01-16 11:24] LABS: Prostate Specific Antigen Scr 0.62 ng/mL (<0.05-4.0)
[2024-01-16 11:26] LABS: Alanine Aminotransferase 17 U/L (0-40); Alkaline Phosphatase 130 U/L (39-117); Anion Gap 11 (12-20); Aspartate Amino Transferase 16 U/L (5-37); Bilirubin Total 1.5 mg/dL (0.0-1.0); Blood Urea Nitrogen 49 mg/dL (9-16); Calcium 8.9 mg/dL (8.4-10.2); Carbon Dioxide 22 mmol/L (22-29); Chloride 107 mmol/L (96-108); Estimated Glomerular Filt Rate 28; Glucose Random 116 mg/dL (60-115); Potassium 4.7 mmol/L (3.3-5.1); Sodium 135 mmol/L (135-145); Total Protein 7.3 g/dL (6.5-8.0)
[2024-01-16 11:48] LABS: Creatinine Urine 93.66 mg/dL
[2024-01-16 11:57] LABS: Microalbum/Creatinine Ratio Ur 1034.5 ug/mg cr (<30)
== END 2024-01-16 09:01 | disposition home or self-care (01) ==
LOC: HO.10HDL 09:00
PROVIDERS: Visit Provider Internal Medicine
DX: E11.22 Type 2 diabetes mellitus with diabetic chronic kidney disease (principal); E11.40 Type 2 diabetes mellitus with diabetic neuropathy, unspecified; I12.9 Hypertensive chronic kidney disease with stage 1 through stage 4 chronic kidney disease, or unspecified chronic kidney disease; R80.8 Other proteinuria; N18.9 Chronic kidney disease, unspecified; Z12.5 Encounter for screening for malignant neoplasm of prostate
CPT/HCPCS: 36415; 80053; 82043; 82570; 83036; 84153; 85025

== ENCOUNTER 2024-04-27 10:11 | Outpatient (REF) | payer OTHER, SELFPAY ==
[2024-04-27 11:01] LABS: Estimated Average Glucose 154 mg/dL
[2024-04-27 11:23] LABS: Alanine Aminotransferase 26 U/L (0-40); Albumin Level 3.8 g/dL (3.5-5.0); Alkaline Phosphatase 166 U/L (39-117); Anion Gap 11 (12-20); Aspartate Amino Transferase 21 U/L (5-37); Bilirubin Total 1.6 mg/dL (0.0-1.0); Blood Urea Nitrogen 50 mg/dL (9-16); Calcium 9.2 mg/dL (8.4-10.2); Carbon Dioxide 23 mmol/L (22-29); Chloride 108 mmol/L (96-108); Estimated Glomerular Filt Rate 27; Glucose Fasting 133 mg/dL (60-99); Potassium 4.7 mmol/L (3.3-5.1); Sodium 137 mmol/L (135-145); Total Protein 7.1 g/dL (6.5-8.0)
== END 2024-04-27 10:12 | disposition home or self-care (01) ==
LOC: HO.10HDL 10:11
PROVIDERS: Visit Provider Internal Medicine
DX: Z00.01 Encounter for general adult medical examination with abnormal findings (principal); E11.22 Type 2 diabetes mellitus with diabetic chronic kidney disease; N18.9 Chronic kidney disease, unspecified; E78.00 Pure hypercholesterolemia, unspecified; N13.0 Hydronephrosis with ureteropelvic junction obstruction; R80.8 Other proteinuria
CPT/HCPCS: 36415; 80053; 83036

== ENCOUNTER 2024-10-07 10:47 | Outpatient (REF) | payer OTHER, SELFPAY ==
--- OUTSIDE RECORDS SUMMARY | 2024-10-07 12:45 | XMS_ITS | Data Portability ---
Author Organization [facility], Main Office Address [address] [place] [address] Care Team Providers Care Homebirth Midwife Name Role Phone RAJESH TREVINO Primary Care Provider ASHA CARRANZA Chief Radiology KWADWO LITTLEJOHN Orthopedic Surgeon [facility] Sap Payroll Consultant Assessment No assessment recorded. Plan of Treatment Reminders Order Date Submit Date Provider Last Modified By Organization Details Last Modified Time Details Appointments None recorde d. Lab vitamin B12, serum 2022 023 [facility], [address], [place], [address], 3 01:08:24 lipid panel, serum 2022 023 [facility], [address], [place], [address], 3 00:43:36 CBC w/ auto diff 2022 023 [facility], [address], [place], [address], 3 16:19:21 TSH, serum or plasma 2022 023 [facility], [address], [place], [address], 3 01:08:25 CMP, serum or plasma 2022 023 [facility], [address], [address], [place], [address], 3 00:43:35 unliste d lab - troponi n T, high sensiti vity 2022 023 [facility], [address], [address], [place], [address], 3 19:53:36 magnesi um, serum or plasma 2022 023 [facility], [address], [address], [place], [address], 3 00:43:37 HbA1c (hemogl obin A1c), blood 2022 023 [facility], [address], [address], [place], [address], 3 16:39:23 microal bumin, urine 2022 023 [facility], [address], [address], [place], [address], 3 19:38:57 hepatit is C virus Ab, serum 2022 023 [facility], [address], [address], [place], [address], 3 12:07:34 Referral gastroe nterolo gist referra l - Needs colon cancer screeni ng 2022 023 qasim [facility], [address] [place], [address], 3 12:06:13 Procedures colonos copy screeni ng (PROC) 2022 023 qasim In-Office Order, Internal Use Only DO Not Attach Compendium DO Not Attach Compendium, Do Not Delete/merge, [id number] 3 12:06:13 Surgeries None recorde d. Imaging electro cardiog hilario 2022 023 qasim In-Office Order, Internal Use Only DO Not Attach Compendium DO Not Attach Compendium, Do Not Delete/merge, [id number] 3 12:06:13 Medication Orders Vitamin B-12 100 mcg tablet 2022 023 [id number], [address] [place], [address], 3 12:06:13 propran olol 10 mg tablet 2022 023 [facility], [address] [place], [address], 3 12:14:48 valsart an 40 mg tablet 2022 023 [id number], [address] [place], [address], 3 07:17:15 Patient TargetsNo targets recorded. Patient Instructions Encounter Date Encounter Id Patient Instructions Last Modified By Organization Details Last Modified Time 05/21/2023 [id number] When You Want to Lose Weight: Care Instructions nbarrows Not available 05/23/2023 15:45:15 Well Visit 50 to 65: Care Instructions nbarrows Not available 05/23/2023 15:45:15 medical record request* - pls get ecg from [facility]. 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 Screening for malignant neoplasm of colon Needs colon cancer screening Referring Physician: Rajesh Trevino, Family Medicine, Encounter Date: 05/21/2023 Results Created Date Observation Date Name Description Value Unit Range Abnormal Flag Note LastModifiedBy Organization Detail LastModifiedTime 05/21/20 23 05/21/2023 COMPL ETE CBC WITH DIFF WBC 7.5 K/mm3 (4.0-1 1.0) Not Available [facility] [address] [place], [address], 05/21/2023 16:19:21 05/21/20 23 05/21/2023 COMPL ETE CBC WITH DIFF RBC 5.46 M/mm3 (4.70- 6.10) Not Available [facility] [address] [place], [address], 05/21/2023 16:19:21 05/21/20 23 05/21/2023 COMPL ETE CBC WITH DIFF HGB 16.2 gm/dL (13.7- 17.1) Not Available [facility] [address] [place] [place], [address], 05/21/2023 16:19:21 05/21/20 23 05/21/2023 COMPL ETE CBC WITH DIFF HCT 50.0 % (40.5- 50.0) Not Available [facility] [address] [place], [address], 05/21/2023 16:19:21 05/21/20 23 05/21/2023 COMPL ETE CBC WITH DIFF MCV 91.6 fL (80.0- 94.0) Not Available [facility] [address] [place], [address], 05/21/2023 16:19:21 05/21/20 23 05/21/2023 COMPL ETE CBC WITH DIFF MCH 29.7 pg (27.0- 34.0) Not Available [facility] [address] [place] [place], [address], 05/21/2023 16:19:21 05/21/20 23 05/21/2023 COMPL ETE CBC WITH DIFF MCHC 32.4 g/dL (33.0- 37.0) low Not Available [facility] [address] [place], [address], 05/21/2023 16:19:21 05/21/20 23 05/21/2023 COMPL ETE CBC WITH DIFF plt 297 K/mm3 (150-4 60) Not Available [facility] [address] [place], [address], 05/21/2023 16:19:21 05/21/20 23 05/21/2023 COMPL ETE CBC WITH DIFF RDW-SD 45.1 fL (<47.0 ) Not Available [facility] [address] [place], [address], 05/21/2023 16:19:21 05/21/20 23 05/21/2023 COMPL ETE CBC WITH DIFF MPV 10.4 fL (9.4-1 2.4) Not Available [facility] [address] [place], [address], 05/21/2023 16:19:21 05/21/20 23 05/21/2023 COMPL ETE CBC WITH DIFF automated NRBC 0.0 #/100 _WBC' s Not Available [facility] [address] [place], [address], 05/21/2023 16:19:21 05/21/20 23 05/21/2023 COMPL ETE CBC WITH DIFF abs. NRBC 0.0 K/mm3 Not Available [facility] [address] [place], [address], 05/21/2023 16:19:21 05/21/20 23 05/21/2023 COMPL ETE CBC WITH DIFF neut # 5.1 K/mm3 (1.3-7 .0) Not Available [facility] [address] [place], [address], 05/21/2023 16:19:21 05/21/20 23 05/21/2023 COMPL ETE CBC WITH DIFF lymph # 1.4 K/mm3 (0.8-3 .1) Not Available [facility] [address] [place], [address], 05/21/2023 16:19:21 05/21/20 23 05/21/2023 COMPL ETE CBC WITH DIFF mono# 0.6 K/mm3 (0.4-1 .3) Not Available [facility] [address] [place], [address], 05/21/2023 16:19:21 05/21/20 23 05/21/2023 COMPL ETE CBC WITH DIFF eo # 0.3 K/mm3 (0.0-0 .4) Not Available [facility] [address] [place], [address], 05/21/2023 16:19:21 05/21/20 23 05/21/2023 COMPL ETE CBC WITH DIFF baso # 0.1 K/mm3 (0.0-0 .1) Not Available [facility] [address] [place], [address], 05/21/2023 16:19:21 05/21/20 23 05/21/2023 COMPL ETE CBC WITH DIFF abs. imm gran 0.0 K/mm3 Not Available [facility] [address] [place], [address], 05/21/2023 16:19:21 05/21/20 23 05/21/2023 COMPL ETE CBC WITH DIFF neut 68.1 % (44-76 ) Not Available [facility] [address] [place], [address], 05/21/2023 16:19:21 05/21/20 23 05/21/2023 COMPL ETE CBC WITH DIFF lymph 18.9 % (15-43 ) Not Available [facility] [address] [place], [address], 05/21/2023 16:19:21 05/21/20 23 05/21/2023 COMPL ETE CBC WITH DIFF monocyte 8.1 % (4.5-1 0.5) Not Available [facility] [address] [place], [address], 05/21/2023 16:19:21 05/21/20 23 05/21/2023 COMPL ETE CBC WITH DIFF eo 3.5 % (0-6) Not Available [facility] [address], [place], [address], 05/21/2023 16:19:21 05/21/20 23 05/21/2023 COMPL ETE CBC WITH DIFF baso 1.1 % (0-2) Not Available [facility] [address], [place], [address], 05/21/2023 16:19:21 05/21/20 23 05/21/2023 COMPL ETE CBC WITH DIFF imm gran 0.3 % Not Available [facility] [address], [place], [address], 05/21/2023 16:19:21 05/21/20 23 05/21/2023 HEMOG LOBIN A1C hemoglobin A1C 5.9 % (4.0-5 .6) high MONIT ORING : In known diabe tic patie nts, hemog lobin A1c targe ts shoul d be discu ssed with healt h care provi sae. DIAGN OSTIC USE: The Ameri can Diabe kim Assoc iatio n (ADA) and the World Healt h Organ izati on (WHO) recom mend the use of HbA1c to diagn ose diabe kim using a thres hold of 6.5%. Patie nts who have an HbA1c betwe en 5.7% and 6.4% are consi dered at incre ased risk for devel oping diabe kim in the futur e. CAUTI ON: False ly low HbA1c resul ts may be obser chuckie in patie nts with hemol ytic anemi a, homoz ygous forms of abnor mal hemog lobin (e.g. SS, CC, SC), pregn hardeep, recen t blood loss or hemog lobin F great er than 7%. Fruct osami ne may be used as an alter princess test in these cases . REFER ENCE: ADA: Stand ards of Medic al Care in Diabe kim 2019, The Journ al of Clini magdalena and Appli ed Resea rch and Educa tion Volum e 43, Suppl ement 1 Not Available [facility] [address] [place], [address], 05/21/2023 16:39:23 05/21/20 23 05/21/2023 URINA RY MICRO ALBUM IN micro-albumi n 1618.0 mg/L (<20) high The urine micro album in test is desig lydia to monit or renal funct ion. When scree meghan for Bence Holland prote inuri a, urine elect ropho resis is recom cristian d. Not Available [facility] [address], [place], [address], 05/21/2023 19:38:57 05/21/20 23 05/21/2023 URINA RY MICRO ALBUM IN malb/creat ratio 650.7 mg/gm (0-20) high Not Available [facility] [address] [place], [address], 05/21/2023 19:38:57 05/21/20 23 05/21/2023 URINA RY MICRO ALBUM IN urine creat for micro albumin 248.7 mg/dL Not Available [facility] [address], [place], [address], 05/21/2023 19:38:57 05/21/20 23 05/21/2023 HIGH SENSI TIVIT Y TROPO TOO T high sensitivity troponin T 101 NG/L (<22) critical high The refer ence range for high sensi tivit y Tropo too T (hs-T nT) is below the 99th perce ntile upper refer ence limit (14 ng/L for femal es and 22 ng/L for males ). The eleva austin resul t above upper refer ence limit is not alway s consi stent with myoca rdial infar ction or injur y. High Sensi tivit y Tropo too T has a non-s pecif ic/no n-sara gnost ic eleva tion in the range of 14 ng/L- 52 ng/L. Inter preta tion is highl y depen dent on clini magdalena prese ntati on and patie nt histo ry. Patie nts with activ e sympt oms, dynam ic EKG mason es and/o r johnie rning clini magdalena prese ntati ons shoul d be consi dered for urgen t evalu ation irres pecti ve of tropo too resul ts. Clear eleva tion of hs-Tn T (> or EQ 53 ng/L) with posit stephanie delta mason e is consi stent with myoca rdial injur y or infar ction . Inter preta tion is highl y depen dent on clini magdalena prese ntati on and patie nt histo ry. Patie nts with renal failu re, chron ic heart failu re, chron ic infec tions and sepsi s tend to run highe r basel ine hs-Tn T level s with signi fican t eleva tions or posit stephanie delta per the ED and In-pa tient bev cols havin g clini magdalena relev ance. Not Available [facility] [address] [place], [address], 05/21/2023 19:53:36 05/21/20 23 05/22/2023 COMPR EHENS STEPHANIE METAB OLIC PANL glucose 144 mg/dL (70-99 ) high Not Available [facility] [address] [place], [address], 05/22/2023 00:43:35 05/21/20 23 05/22/2023 COMPR EHENS STEPHANIE METAB OLIC PANL BUN 37 mg/dL (6-20) high Not Available [facility] [address] [place], [address], 05/22/2023 00:43:35 05/21/20 23 05/22/2023 COMPR EHENS STEPHANIE METAB OLIC PANL creatinine 2.0 mg/dL (0.7-1 .2) high Not Available [facility] [address] [place], [address], 05/22/2023 00:43:35 05/21/20 23 05/22/2023 COMPR EHENS STEPHANIE METAB OLIC PANL sodium 138 mmol/ L (133-1 45) Not Available [facility] [address] [place], [address], 05/22/2023 00:43:35 05/21/2005/22/2023 COMPR EHENS STEPHAINE METAB OLIC PANL potassium 4.1 mmol/ L (3.6-5 .2) Not Available [facility] [address] [place], [address], 05/22/2023 00:43:35 05/21/20 23 05/22/2023 COMPR EHENS STEPHANIE METAB OLIC PANL chloride 101 mmol/ L (98-10 7) Not Available [facility] [address] [place], [address], 05/22/2023 00:43:35 05/21/2005/22/2023 COMPR EHENS STEPHANIE METAB OLIC PANL bicarbonate 25 mmol/ L (22-29 ) Not Available [facility] [address] [place], [address], 05/22/2023 00:43:35 05/21/2005/22/2023 COMPR EHENS STEPHANIE METAB OLIC PANL anion gap 12 (4-17) Not Available [facility] [address] [place], [address], 05/22/2023 00:43:35 05/21/2005/22/2023 COMPR EHENS STEPHANIE METAB OLIC PANL albumin 4.5 gm/dL (3.4-4 .8) Not Available [facility] [address] [place], [address], 05/22/2023 00:43:35 05/21/2005/22/2023 COMPR EHENS STEPHANIE METAB OLIC PANL calcium 9.3 mg/dL (8.6-1 0.5) Not Available [facility] [address] [place], [address], 05/22/2023 00:43:35 05/21/20 23 05/22/2023 COMPR EHENS STEPHANIE METAB OLIC PANL bilirubin,to radha 0.8 mg/dL (0-1.2 ) Not Available [facility] [address], [address], 05/22/2023 00:43:35 05/21/20 23 05/22/2023 COMPR EHENS STEPHANIE METAB OLIC PANL total protein 6.8 gm/dL (6.2-8 .2) Not Available [facility] [address], [address], 05/22/2023 00:43:35 05/21/20 23 05/22/2023 COMPR EHENS STEPHANIE METAB OLIC PANL Ag ratio 2.0 Not Available [facility] [address] [place], [address], 05/22/2023 00:43:35 05/21/20 23 05/22/2023 COMPR EHENS STEPHANIE METAB OLIC PANL AST 13 U/L (0-40) Not Available [facility] [address] [place], [address], 05/22/2023 00:43:35 05/21/20 23 05/22/2023 COMPR EHENS STEPHANIE METAB OLIC PANL alk phos 78 U/L (40-12 9) Not Available [facility] [address], [address], 05/22/2023 00:43:35 05/21/20 23 05/22/2023 COMPR EHENS STEPHANIE METAB OLIC PANL ALT 12 U/L (0-41) Not Available [facility] [address] [place], [address], 05/22/2023 00:43:35 05/21/20 23 05/22/2023 COMPR EHENS STEPHANIE METAB OLIC PANL estimated GFR creatinine 40 mL/mi n/1.7 3_M2 Creat inine based estim ated glome rular filtr ation (eGFR ) in adult s is calcu lated using the Natio nal Kidne y Found ation recom cristian d 2020 CKD-E PI equat ion. Estim ates GFR from serum creat inine , age and sex. Not Available [facility] [address] [place], [address], 05/22/2023 00:43:35 05/21/20 23 05/22/2023 LIPID PANEL cholesterol, total 149 mg/dL (<200) Not Available [facility] [address] [place], [address], 05/22/2023 00:43:36 05/21/20 23 05/22/2023 LIPID PANEL triglyceride 136 mg/dL (<150) Not Available [facility] [address] [place], [address], 05/22/2023 00:43:36 05/21/20 23 05/22/2023 LIPID PANEL HDL chol 39 mg/dL (>39) low Not Available [facility] [address] [place], [address], 05/22/2023 00:43:36 05/21/20 23 05/22/2023 LIPID PANEL LDL cholesterol, calculated 83 mg/dL (0-130 ) Not Available [facility] [address] [place], [address], 05/22/2023 00:43:36 05/21/20 23 05/22/2023 LIPID PANEL non HDL cholesterol (calc) 110 mg/dL (<160) Not Available [facility] [address] [place], [address], 05/22/2023 00:43:36 05/21/20 23 05/22/2023 MAGNE SIUM magnesium 1.7 mg/dL (1.6-2 .3) Not Available [facility] [address] [place], [address], 05/22/2023 00:43:37 05/21/20 23 05/22/2023 VITAM IN B12 vitamin B12 442 pg/mL (232-1 245) Not Available [facility] [address] [place], [address], 05/22/2023 01:08:24 05/21/20 23 05/22/2023 TSH WITH REFLE X TO FT4 TSH 2.50 uIU/m L (0.4-4 .2) Not Available [facility] [address] [place], [address], 05/22/2023 01:08:25 05/21/20 23 05/23/2023 ANTI- HEPAT ITIS C anti-hepatit is C (neg) Non React stephanie Refer ence range : Non React stephanie (NOTE ) HCV antib jayjay alone does not diffe renti ate betwe en previ ously resol chuckie infec tion and activ e infec tion. Equiv ocal and React stephanie HCV antib jayjay resul ts shoul d be follo wed up with an HCV RNA test to suppo rt the diagn osis of activ e HCV infec tion. Test perfo rmed by [facility], [address], [place] [address] Not Available [facility] [address], [place], [address], 05/23/2023 12:07:34 05/21/20 23 05/21/[address] [facility] am No observ ation record ed. ckokar In-Office Order Internal Use Only DO Not Attach Compendium DO Not Attach Compendium, Do Not Delete/merge, [id number] 05/21/2023 17:15:39 05/21/20 elect rocar diogr am No observ ation record ed. ckokar In-Office Order Internal Use Only DO Not Attach Compendium DO Not Attach Compendium, Do Not Delete/merge, [id number] 05/21/2023 17:15:39 Result Notes None recorded. Problems Name Problem SNOMED Code Status Onset Date Resolution Date Notes Provider Name and Address Organization Details Recorded Time Type 2 diabetes mellitus 70965198 Active 2022 EFREN Snider [place] - [facility] 3 10:13:28 Essential hypertension 36518257 Active 2022 Rajesh Trevino MD [address], [place], [address], [facility] 3 10:27:05 Hyperlipidemia 02382380 Active 2022 Rajesh Trevino MD [address], [place], [address], [facility] 3 10:27:59 Body mass index 25-29 - overweight 428798831 Active 2022 Rajesh Trevino MD [address], [place], [address], [facility] 3 10:54:17 Overweight 742514813 Active 2022 Rajesh Trevino MD [address], [place], [address], [facility] 3 10:54:18 Needle phobia 900886388 Active 2022 Rajesh Trevino MD [address], [place], [address], [facility] 3 12:06:55 Problem Notes None recorded. Procedures Surgical History Date Name Laterality Status Provider Name and Address Organization Details Recorded Time 05/21/20 23 Diabetic Foot Exam (Monofilament) completed Rajesh Trevino MD [address], [place], [address], [facility] 05/21/2023 12:08:52 01/08/19 86 Tonsillectomy completed Wilda ng [place] [facility] 05/21/2023 10:15:08 01/08/19 86 Adenoidectomy completed Wilda ng [place] [facility] 05/21/2023 10:15:08 Imaging Results Imaging Date Name Status LastModified by Organization Details LastModified Time 05/21/2023 electrocardiogram completed qasim In-Offi ce Order Internal Use Only DO Not Attach Compendium DO Not Attach Compendium, Do Not Delete/merge, [id number] 05/21/2023 17:15:39 05/21/2023 electrocardiogram completed ckokar In-Offi ce Order Internal Use Only DO Not Attach Compendium DO Not Attach Compendium, Do Not Delete/merge, [id number] 05/21/2023 17:15:39 Procedure Notes None recorded. Medical Equipment None Reported. Allergies Allergen ID Allergen Name Allergen Category Reaction Reaction Severity Criticality Documentation Date Start Date Code Code System Note Provider Name and Address Organization Details Recorded Time 22445 Penicilli n Not available hives Not available Not available 05/21/2023 86525 RxNorm Wilda jiménez MA [facility] 3 10:15:06 Medications Name Sig Start Date Stop Date Status Note LastModified by Organization Details LastModified Time losartan 50 mg tablet TAKE 1 TABLET BY MOUTH DAILY active Not Available Not Available No t Available doxycycli ne hyclate 100 mg capsule TAKE ONE CAPSULE BY MOUTH TWICE A DAY FOR SEVEN DAYS 05/21 completed Not Available Not Available Not Available atorvasta tin 20 mg tablet TAKE 1 TABLET BY MOUTH EVERY DAY active Not Available Not Available No t Available cyanocoba mahnaz (vit B-12) 100 mcg tablet TAKE 1 TABLET BY MOUTH DAILY 2022 active Not Available Not Available Not Avai lable clindamyc in HCl 300 mg capsule TAKE 1 CAPSULE BY MOUTH 4 TIMES A DAY active Not Available Not Available No t Available benzonata te 200 mg capsule TAKE 1 CAPSULE BY MOUTH 3 TIMES A DAY NEEDED FOR COUGH 05/21 completed Not Available Not Available Not Available FreeStyle Lancets 28 gauge USE TO CHECK SUGARS TWICE A DAY 05/21 completed Not Available Not Available Not Available prednison e 20 mg tablet TAKE 1 TABLET BY MOUTH TWICE A DAY 05/21 completed Not Available Not Available Not Available amlodipin e 5 mg tablet TAKE 1 TABLET BY MOUTH EVERY DAY active Not Available Not Available No t Available sulfameth oxazole 800 mg-trimet hoprim 160 mg tablet TAKE 1 TABLET BY MOUTH EVERY 12 HOURS FOR 10 DAYS 05/21 completed Not Available Not Available Not Available acetamino phen 500 mg tablet TAKE 2 TABLETS EVERY 8 HOURS BY ORAL ROUTE FOR 15 DAYS. active Not Available Not Available No t Available propranol ol 10 mg tablet Take 1 tablet every day by oral route as needed for 30 days. 05/21 completed provider changed his mind Not Available Not Available Not Available aspirin 325 mg tablet,de layed release TAKE 1 TABLET BY MOUTH EVERY DAY FOR 30 DAYS active Not Available Not Available No t Available amlodipin e 10 mg tablet TAKE 1 TABLET BY MOUTH EVERY DAY active Not Available Not Available No t Available cephalexi n 500 mg capsule 05/21 completed Not Available Not Available Not Available mupirocin 2 % topical ointment APPLY 3 TIMES A DAY TO AFFECTED AREA X5 DAYS 05/21 completed Not Available Not Available Not Available furosemid e 20 mg tablet TAKE 1 TABLET BY MOUTH DAILY active Not Available Not Available No t Available albuterol sulfate HFA 90 mcg/actua tion aerosol inhaler INHALE 2 PUFFS BY MOUTH 4 TIMES A DAY NEEDED FOR WHEEZING 05/21 completed Not Available Not Available Not Available metformin ER 500 mg tablet,ex tended release 24 hr TAKE 1 TABLET BY MOUTH TWICE A DAY active Not Available Not Available No t Available oxycodone 5 mg tablet TAKE 1 TABLET BY MOUTH EVERY 4 TO 6 HOURS NEEDED FOR 5 DAYS active Not Available Not Available No t Available valsartan 40 mg tablet TAKE 1 TABLET EVERY DAY BY MOUTH IN THE EVENING FOR 60 DAYS. 2022 active Not Available Not Available Not Avai lable Januvia 100 mg tablet TAKE 1 TABLET BY MOUTH EVERY DAY active Not Available Not Available No t Available FreeStyle Lite Meter kit USE TO CHECK SUGARS TWICE A DAY 05/21 completed Not Available Not Available Not Available FreeStyle Lite Strips CHECK SUGARS DAILY DAILY 05/21 completed Not Available Not Available Not Available Tradjenta 5 mg tablet 05/21 completed took for 30 days, but no longer covered Not Available Not Available Not Available Jardiance 25 mg tablet TAKE 1 TABLET BY MOUTH EVERY DAY IN THE MORNING active Not Available Not Available No t Available FreeStyle Dulce 2 Sensor kit APPLY SENSOR DIRECTED . REPLACE EVERY 14 DAYS 05/21 completed Not Available Not Available Not Available Dexcom G7 Sensor device USE TO TEST BLOOD SUGAR. CHANGE SENSOR EVERY 10 DAYS FOR 30 DAYS. active Not Available Not Available No t Available Vitals Date Recorded Body weight Body mass index (BMI) Body height Heart rate Oxygen saturation Oxygen saturation in Arterial blood by Pulse oximetry Body temperature Systolic blood pressure Diastolic blood pressure Systolic blood pressure Diastolic blood pressure Provider Name and Address Organization Details Last Updated DateTime 3 46048.8 1 g 27.7 kg/m2 172.72 cm 109 /min 98 % 98 % 97.8 [degF] 182 mm[Hg] 123 mm[Hg] 152 mm[Hg] 98 mm[Hg] Wilda jiménez MA [facility] 11:01:25 Social History Question Answer Notes LastModified by Organizat ion Details LastModified Time Tobacco Smoking Status Never Smoker EFREN Mcneal [facility] 05/21/2023 10:15:08 What Is Your Level Of Alcohol Consumption? None Information not available 05/21/2023 Is Blood Transfusion Acceptable In An Emergency? Yes Information not available 05/21/2023 What Is Your Level Of Caffeine Consumption? Occasional Sugar-free Soda Information not available 05/21/2023 How Much Tobacco Do You Chew? None Information not available 05/21/2023 Are You Currently Employed? Yes Information not available 05/21/2023 What Type Of Diet Are You Following? DIABETIC Low Carb Diet Information not available 05/21/2023 Which Illicit Or Recreational Drugs Have You Used? 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 Yes Information not available 05/21/2023 How Often Do You Need To Have Someone Help You When You Read Instructions, Pamphlets, Or Other Written Material From Your Doctor Or Pharmacy? Never Information not available 05/21/2023 Have You Served In The ? No Information not available 05/21/2023 How Many Children Do You Have? 1 Jermaine Information not available 05/21/2023 Do You Use Protection During Sex? Always Information not available 05/21/2023 Do You Use Your Seat Belt Or Car Seat Routinely? Yes Information not available 05/21/2023 Are You Sexually Active? Yes Information not available 05/21/2023 Do You Have Smoke And Carbon Monoxide Detectors In Your Home? Yes Information not available 05/21/2023 Are You Passively Exposed To Smoke? No Information not available 05/21/2023 Do You Or Have You Ever Used Smokeless Tobacco? Never Used Smokeless Tobacco Information not available 05/21/2023 How Much Tobacco Do You Smoke? No Information not available 05/21/2023 Do You Use Any Illicit Or Recreational Drugs? No Information not available 05/21/2023 Do You Or Have You Ever Used Any Other Forms Of Tobacco Or Nicotine? No Information not available 05/21/2023 Sex: Male Functional Status Question Answer Note LastModified by Organizat ion Details LastModified Time Are you able to walk? YESASSIST crutches Information not available 05/21/2023 Are you able to care for yourself? Yes Information not available 05/21/2023 What is your exercise level? Occasional on crutches currently; awaiting surgery Information not available 05/21/2023 Mental Status None recorded. Family History Relationship Description Onset Age of this Age Resolved Age Notes LastModified by Organization Details LastModified Time Mother Hypertensive disorder [email or web address] s Not available 05/21/2023 10:15:06 Medical History Condition Response Diabetes Y Hypertension Y Chicken Pox Y Immunizations Vaccine Type Date Status Note Provider Name and Address Organization Details Recorded Time Tdap 01/31/20 19 completed EFREN English [facility] 05/21/2023 11:22:54 COVID-19 vaccine, vector-nr, rS-Ad26, PF, 0.5 mL 05/10/20 21 completed [facility] 11:22:[facility] zoster recombinant 05/21/20 23 cancelled patient objection Rajesh Trevino MD [id number] [address], [place], [phone], [facility] 05/21/2023 12:14:49 Pneumococcal conjugate PCV20, polysaccharide [id number] conjugate, adjuvant, PF 05/21/20 23 cancelled patient objection Rajesh Trevino MD [address] [address], [place], [phone], [facility] 05/21/2023 12:14:49 Past Encounters Encounter ID Performer Location Encounter Start Date Encounter Closed Date Diagnosis/Indication Diagnosis SNOMED-CT Code Diagnosis ICD10 Code Diagnosis Note [id number] Gertrudis Parker Main Office [address] [id number] 05/21/2023 09:53:27 05/21/2023 11:14:59 Fatigue 66179596 R53.83 Z00.00 Hyperlipidemia 52378757 E78.5 Z00.00 Hepatitis C screening 41 2219999 Z11.59 Type 2 sara betes mellitus without complication 294157929 E11.9 Will continue tx for now till a1c follow up 1 mo. Screening for malignant neoplasm of colon 076684737 Z12.11 Long-term drug therapy 255325019 Z79.84 Metformin Use Patient ne w to provider [id number] 57957 Z76.89 Vaccine de clined by patient [id number] 02 Z28.20 Panic attack 088141211 F 41.0 Script for pricillao mat leos. Essential hypertension 92021343 I10 Discussed the importance of a low-sodium diet with the patient, with an emphasis on its role in managing hypertensi on. We also reviewed medication adherence. Interestin gly, the patient was previously prescribed a calcium channel francisco for hypertensi on management , but it's not clear why he isn't on an HALEY inhibitor or ARB, especially given his diabetes. The patient will undergo lab tests today to evaluate renal function. Assuming normal renal function, I plan to initiate treatment with an ARB. We discussed potential side effects, and the patient has been advised to start the ARB tomorrow evening. If his blood pressure remains elevated, he can continue to take his calcium channel francisco (amlodipin e) in addition to the ARB. The patient has been advised to regularly monitor his blood pressure, and I will schedule a follow-up appointmen t in a month. Further counseling on diet and exercise was provided to aid in hypertensi on management . I also advised him to maintain a daily log of his blood pressure readings and provided guidance on proper measuremen t techniques . Lastly, we discussed the red flags indicative of a hypertensi ve emergency and when to seek immediate care at an emergency department . Tachycardia 2975535 R00. 0 The patient presented today with tachycardi a and hypertensi on, which led to an EKG. The EKG showed T-wave inversions , but the patient is currently asymptomat ic. In light of these EKG changes, I plan to order a troponin test to further evaluate any potential cardiac issues. Given that the patient denies calf pain, shortness of breath, and has an oxygen saturation of 98% on room air, the suspicion for a pulmonary embolism (PE) remains low. However, considerin g he has a boot on his leg for a Charcot fracture, I maintain a cautious stance regarding the possibilit y of deep vein thrombosis (DVT), although his mobility and absence of calf tenderness argue against this. I've advised the patient to seek immediate medical attention at the nearest emergency room should he experience symptoms like chest pain, palpitatio ns, or shortness of breath. I don't see a need for a D-dimer test at this time, given his relatively asymptomat ic status. I've requested his previous EKG from [facility] for comparison . If it aligns with today's EKG, it would reduce the likelihood of ischemia, and I would proceed to prescribe propranolo l for his panic attacks, which could also assist in managing his elevated blood pressure and heart rate. For now, we will focus on mind fullness for panic attacks. The patient has been advised to monitor his blood pressure and heart rate at home, and I will provide a prescripti on for a home blood pressure cuff. Body mass index 25-29 - overweight 599950680 Z68.27 Overweight 826325970 E66 .3 - Diet and exercise discussed- Encouraged to loose weight.- Avoid starchy and fatty food- Encouraged use of green vegetables and fruits Adult heal th examination 099072857 Z00.00 Patient was counseled on healthy diet, exercise and nutrition due to Body mass index is 27.7 kg/m??. Last PSADate:Re sult:Plan: will screen per usptf Last Colonoscop y:Date:Res ult:Plan: due, order placed. Vaccines:T dAP: 01/30/19Zos ter rec: declined understand [id number]: declined understand riskInflue nza: yearly flu encouraged Covid: 05/10/2021 JLefty, then Pfizer Bivalent Routine labs today Immunizati on status reviewed. Will screen based on risk factors. Regular dental and ophtho care advised as well as seat belt and sunscreen use. Distracted driving discussed. Medication reconciled .Previous record reviewed. Health Concerns Section Related Observation LastModified by Organization Detai ls LastModified Time None Recorded Concern Status LastModified by Organization Details LastModified Time None Recorded Advance Directives Directive None Recorded Payers Encounter Date Sequence Insurance Name Policy Number Policy Licona Covered Member ID Licona Member ID Guarantor Name 05/21/2023 1 [facility] (O) [id number] [facility] [id number] [facility] Notes Date Note Type Note Provider Name and Address Organization Details Recorded Time 05/21/2023 text/html Patient present for new adult visit The patient is a male who has recently lost 40 pounds by adhering to a low-carbohydrate diet. According to his Dexcom device, his blood sugar levels have remained under 130. Currently, he is wearing a boot on his right lower extremity due to a Charcot fracture and plans to undergo surgery within the next one to two months. During today's visit, the patient is noted to be tachycardic and hypertensive. He attributes these symptoms to significant anxiety when visiting the doctor's office, compounded by a phobia of needles. Despite the elevated heart rate and blood pressure, he denies experiencing any chest pain, palpitations, or shortness of breath. He refers to his symptoms as white coat syndrome. Is not using ASA. OTC/Herbal supplements use: MV, Coq10 Sex hx: active 1 F partner.STI: deniesDrug use: deniesEtoh use: deniestobacco use: deniesspf/derm: uses spf, denies abnormal mole. Dental: Follows every 6mo, tells me up to date.Eye: Follows yearly, has glasses.Diet: low carb.Activity: Limited due, charcot foot fracture on right side follow neos. Gertrudis [facility] 05/23/2023 15:45:18
--- OUTSIDE RECORDS SUMMARY | 2024-10-07 12:45 | XMS_ITS ---
[facility] Name [facility] Organization Unknown History of Medication Use Medication Directions Dispensed Refills Start Date End Date Stat amLODIPine (NORVASC) 5 MG tablet Take 1 tablet (5 mg total) by mouth daily. 01/24/2023 active Januvia 100 MG tablet Take 1 tablet (100 mg total) by mouth daily. 02/17/2023 active FREESTYLE LITE strip CHECK SUGARS DAILY DAILY 02/17/2023 active metFORMIN (GLUCOPHAGE-XR) 500 MG 24 hr tablet 02/17/2023 active cephALEXin (KEFLEX) 500 MG capsule Take 1 capsule (500 mg total) by mouth every 8 (eight) hours around the clock. 01/24/2023 active linagliptin (TRADJENTA) 5 MG Tab Take 1 tablet (5 mg total) by mouth daily. 01/24/2023 aborted atorvastatin (LIPITOR) 20 MG tablet 02/17/2023 active Problems Problem Status Onset Date Problem Type Date of Resoluti on Source Charcot's joint of right foot active 2023-01-30 ProblemAct CCT Gait difficulty active 2023-01-10 ProblemAct CCT Ulcerated, foot, right, with fat layer exposed active 2023-01-30 ProblemAct [facility] Diabetic peripheral neuropathy associated with type 2 diabetes mellitus active 2023-01-17 ProblemAct [facility] CT Traumatic avulsion of nail plate of toe active 2023-03-07 ProblemAct CCT Foot fracture, right, closed, initial encounter active 2023-01-09 ProblemAct CCT
[2024-10-07 12:56] LABS: MANUAL DIFF FLAG NO
[2024-10-07 13:06] LABS: Basophils Absolute Auto 0.1 X10*3/uL (0.0-0.2); Basophils Percent Auto 2.1 % (0-2); Eosinophils Absolute Auto 0.2 X10*3/uL (0.0-0.4); Hematocrit 37.3 % (42.0-52.0); Hemoglobin 12.2 g/dl (14.0-18.0); Imm Gran Abs Auto 0.01 X10*3/uL (0.00-0.03); Imm Gran Pct Auto 0.3 % (0.0-0.4); Lymphocytes Absolute Auto 0.4 X10*3/uL (1.2-4.9); Lymphocytes Percent Auto 11.1 % (20-40); Mean Corpuscular HGB Conc 32.7 g/dl (31.0-36.0); Mean Corpuscular Hemoglobin 30.5 pg (27.0-33.0); Mean Corpuscular Volume 93.3 fL (80.0-98.0); Mean Platelet Volume 9.8 fL (9.4-12.4); Monocytes Absolute Auto 0.5 X10*3/uL (0.1-1.2); Neutrophils Absolute Auto 2.6 x10*3/uL (2.0-8.3); Neutrophils Percent Auto 68.5 % (45-73); Platelet Count 255 X10*3/uL (160-400); Red Cell Distribution Width 16.4 % (11.0-16.0); White Blood Count 3.8 X10*3/uL (4.8-10.8)
[2024-10-07 13:10] LABS: Estimated Average Glucose 134 mg/dL; Hemoglobin A1c % 6.3 % (<6.0); Total Hemoglobin (HGBA1C) 3225.2192 umol/L
[2024-10-07 13:13] LABS: Alanine Aminotransferase 22 U/L (0-40); Albumin Level 3.5 g/dL (3.5-5.0); Alkaline Phosphatase 127 U/L (39-117); Anion Gap 12 (12-20); Aspartate Amino Transferase 30 U/L (5-37); Bilirubin Total 1.2 mg/dL (0.0-1.0); Blood Urea Nitrogen 77 mg/dL (9-16); Calcium 8.6 mg/dL (8.4-10.2); Carbon Dioxide 22 mmol/L (22-29); Chloride 108 mmol/L (96-108); Cholesterol 99 mg/dL (<200); Estimated Glomerular Filt Rate 19; Glucose Random 107 mg/dL (60-115); HDL Cholesterol 45 mg/dL (>40); LDL Cholesterol Calculated 41 mg/dL (<100); Potassium 4.8 mmol/L (3.3-5.1); Sodium 137 mmol/L (135-145); Total Protein 6.6 g/dL (6.5-8.0); Triglycerides 65 mg/dL (<150)
== END 2024-10-07 10:48 | disposition home or self-care (01) ==
LOC: HO.10HDL 10:47
PROVIDERS: Visit Provider Internal Medicine
DX: E11.22 Type 2 diabetes mellitus with diabetic chronic kidney disease (principal); N13.0 Hydronephrosis with ureteropelvic junction obstruction; R60.1 Generalized edema; R80.8 Other proteinuria; Z89.511 Acquired absence of right leg below knee
CPT/HCPCS: 36415; 80053; 80061; 83036; 85025

== ENCOUNTER 2024-10-13 15:53 | Inpatient (IN) | payer OTHER, SELFPAY ==
--- NOTE | ~2024-10-13 | XR_ITS ---
CLINICAL HISTORY: anasarca 1 view chest x-ray Comparison: None Findings: There is pulmonary hypoinflation with adjacent areas of airspace filling within the bilateral lower lungs. The mid and upper lungs are clear. Limited evaluation for pleural fluid. Normal size heart. No acute fracture. IMPRESSION: Pulmonary hypoinflation with adjacent atelectasis and/or infiltrate. This document has been electronically signed by: Michelle Prado MD on 10/13/2024 16:39:43
[2024-10-13 16:04] VITALS: BP 109/68; PULSE 76; RESP 18; TEMP 36.3; O2SAT 95; BMI 39.2
--- NOTE | 2024-10-13 16:05 | ED.GENADULT ---
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 Reports over the past 2-3 weeks he has been experiencing edema to bilateral upper lower extremities as well as his scrotum. Denies any scrotal pain, abdominal pain, nausea or vomiting. Reports that he saw his primary care doctor and was given a new prescription for Lasix 40 mg daily. He states he has not noticed any increase in the amount that he is urinating nor the frequency. He states he typically drinks 3 regular-sized water bottles daily. He denies any associated chest pain or shortness of breath. Related Data Allergies Allergy/AdvReac Type Severity Reaction Status Date / Time Penicillins Allergy Hives Verified 10/13/24 16:06 Review of Systems Review of Systems: Yes all other systems are reviewed and are negative [facility] Past Medical History Attestation statement: The following information was validated with the patient. Source: old records reviewed Social History Social History Alcohol intake: never Advance Directives: No Advance Directives Information Provided: Yes Physical Exam ED Vital Signs: Vital Signs - 24 hr 10/13/24 16:04 10/13/24 20:45 10/14/24 01:19 Temperature 97.4 F 97.7 F 98.2 F Pulse Rate 76 74 72 Respiratory Rate 18 18 18 Blood Pressure 109/68 116/67 127/74 Pulse Oximetry 95 94 93 Oxygen Delivery Method Room Air Room Air Room Air 10/14/24 01:55 Temperature Pulse Rate Respiratory Rate Blood Pressure 125/73 Pulse Oximetry Oxygen Delivery Method BMI result Body Mass Index 39.2 Appearance: Alert.?Oriented to person, place and time. No acute distress.?Normal affect. Eyes: Pupils equal, round and reactive to light.? ENT: Pharynx normal.?? Neck: Normal inspection.? Neck supple.?? CVS: Heart sounds normal. Normal heart rate and rhythm.? Pulses normal.?? Respiratory: No respiratory distress.? Lung sounds with mild expiratory wheezing bilaterally Abdomen: Soft and non-tender. Normoactive bowel sounds. Skin: Skin warm and dry.? Normal skin color.? Normal skin turgor.?? Extremities: Anasarca? No calf ttp? Neuro: Moves all extremities spontaneously. Sensation intact bilaterally. Ambulates with normal steady gait. Course Course Course Narrative: This is a Rapid Medical Examination (RME) performed by Darren Lees PA-C in triage. Full HPI, ROS, assessment and treatment plan per primary provider in the Main ED. 49 yo male with history of DM2, HTN, CKD (baseline SCr 2.5), right BKA who presents to the ER for evaluation of diffuse edema of all extremities and in his scrotum for the last couple of weeks. recently prescribed lasix 40 mg by his PCP with no improvement. no SOB or chest pain. anasarca on exam. recent labs last week showed worsening BUN/Cr 77/3.42. 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 On review he has RYAN on CKD, serum labs from 10/07/2024 with BUN/creatinine 77/3.42, in comparison to today 73/3.55 respectively with GFR of 18, albumin is slightly low at 3.2, BNP 1578 chest x-ray is without pulmonary edema, non auscultation he does not have rales, rather some faint expiratory wheezing. He does admit that he was experiencing some mild cold symptoms yesterday denies underlying history of asthma or COPD. He is not short of breath. He is not experiencing chest pain. He endorses having scrotal edema, but declines physical examination pharmacy self he denies associated pain and this is in conjunction with anasarca, I have lower suspicion for acute testicular emergency. Suspect that his anasarca secondary to progressive renal failure rather than heart failure. He was due to be evaluated by Nephrology today but unfortunately he was late to the appointment and missed this. I feel that he would benefit from IV diuresis given his degree of anasarca. Will speak with hospitalist Dr. Roe regarding hospital admission. Differential Diagnosis Differential Diagnoses: The differential diagnosis associated with the presentation includes (See narrative above) Admission/Observation Consideration of admission/observation: Escalation of care including admission/observation considered (See narrative above) Lab Data MDM Lab Attestation statement: I reviewed the patient's lab results. (See narrative above) 10/13/24 16:47 10/13/24 16:47 Labs: Lab Results 10/13/24 Range/Units 16:47 WBC 2.0 L (4.8-10.8) X10*3/uL RBC 4.05 L (4.60-5.80) X10*6/uL Hgb 12.5 L (14.0-18.0) g/dl Hct 37.6 L (42.0-52.0) % MCV 92.8 (80.0-98.0) fL MCH 30.9 (27.0-33.0) pg MCHC 33.2 (31.0-36.0) g/dl RDW 16.0 (11.0-16.0) % Plt Count 205 (160-400) X10*3/uL MPV 9.2 L (9.4-12.4) fL Immature Gran % (Auto) 0.5 H (0.0-0.4) % Neut % (Auto) 52.1 (45-73) % Lymph % (Auto) 12.2 L (20-40) % [place] % (Auto) 30.6 H (2-11) % Eos % (Auto) 2.6 (0-4) % Baso % (Auto) 2.0 (0-2) % Lymph # (Auto) 0.2 L (1.2-4.9) X10*3/uL [place] # (Auto) 0.6 (0.1-1.2) X10*3/uL Eos # (Auto) 0.1 (0.0-0.4) X10*3/uL Baso # (Auto) 0.0 (0.0-0.2) X10*3/uL Abs Immat Gran (auto) 0.01 (0.00-0.03) X10*3/uL Absolute Neuts (auto) 1.0 L (2.0-8.3) x10*3/uL Absolute Nucleated RBC 0.000 (0.0-0.012) X10*3/uL Nucleated RBC % (auto) 0.0 (0.0-0.2) /100WBC Smear Tech's Comments VERIFIED Sodium 135 (135-145) mmol/L Potassium 4.7 (3.3-5.1) mmol/L Chloride 105 (96-108) mmol/L Carbon Dioxide 18 L (22-29) mmol/L Anion Gap 17 (12-20) BUN 73 H (9-16) mg/dL Creatinine 3.55 H (0.5-1.4) mg/dL Estim Creat Clear Calc 32.4 Estimated GFR 18 Random Glucose 94 (60-115) mg/dL Calcium 8.5 (8.4-10.2) mg/dL Magnesium 2.4 (1.6-2.6) mg/dL Total Bilirubin 0.6 (0.0-1.0) mg/dL Direct Bilirubin 0.4 (0.0-0.5) mg/dL AST 34 (5-37) U/L ALT 18 (0-40) U/L Alkaline Phosphatase 142 H (39-117) U/L Troponin I High Sens 33.1 (<3.5-35.0) ng/L B-Natriuretic Peptide 1578 H (<100) pg/mL Total Protein 6.5 (6.5-8.0) g/dL Albumin 3.2 L (3.5-5.0) g/dL Independent Interpretation I performed an independent interpretation of an: Plain X-Ray (No consolidation or infiltrate, no pleural effusion) Radiology Impression Discussion of test interpretation with radiology: I have reviewed the radiologist's reading. Radiologist Impression: 1 view chest x-ray Comparison: None Findings: There is pulmonary hypoinflation with adjacent areas of airspace filling within the bilateral lower lungs. The mid and upper lungs are clear. Limited evaluation for pleural fluid. Normal size heart. No acute fracture. IMPRESSION: Pulmonary hypoinflation with adjacent atelectasis and/or infiltrate. Independent Historian Clinical information obtained from an independent historian. History obtained from or confirmed by: Parent External Record Review External record reviewed: Outpatient record Discharge Plan Discharge Clinical Impression: Acute kidney injury superimposed on CKD, Renal anasarca Patient Disposition: Admitted As Inpatient Print Language: Kyrgyz
--- NOTE | 2024-10-13 16:06 | ECG_ITS ---
Test Reason : weakness Blood Pressure : */* mmHG Vent. Rate : 73 BPM Atrial Rate : 73 BPM P-R Int : 196 ms QRS Dur : 90 ms QT Int : 420 ms P-R-T Axes : 36 -28 148 degrees QTcB Int : 462 ms Normal sinus rhythm Low voltage QRS Possible Anterolateral infarct , age undetermined Abnormal ECG No previous ECGs available Referred By: Freda Lees Electronically Signed By: FACUNDO OROZCO MD
[2024-10-13 16:51] LABS: Eosinophils Absolute Auto 0.1 X10*3/uL (0.0-0.4); Eosinophils Percent Auto 2.6 % (0-4); Hematocrit 37.6 % (42.0-52.0); Hemoglobin 12.5 g/dl (14.0-18.0); Imm Gran Abs Auto 0.01 X10*3/uL (0.00-0.03); Imm Gran Pct Auto 0.5 % (0.0-0.4); Lymphocytes Absolute Auto 0.2 X10*3/uL (1.2-4.9); Lymphocytes Percent Auto 12.2 % (20-40); MANUAL DIFF FLAG SCAN; Mean Corpuscular HGB Conc 33.2 g/dl (31.0-36.0); Mean Corpuscular Hemoglobin 30.9 pg (27.0-33.0); Mean Corpuscular Volume 92.8 fL (80.0-98.0); Mean Platelet Volume 9.2 fL (9.4-12.4); Monocytes Absolute Auto 0.6 X10*3/uL (0.1-1.2); Monocytes Percent Auto 30.6 % (2-11); Neutrophils Percent Auto 52.1 % (45-73); Platelet Count 205 X10*3/uL (160-400); Red Blood Count 4.05 X10*6/uL (4.60-5.80); SCAN SMEAR FLAG 1
[2024-10-13 17:11] LABS: B Type Natriuretic Peptide 1578 pg/mL (<100)
[2024-10-13 17:12] LABS: Alanine Aminotransferase 18 U/L (0-40); Albumin Level 3.2 g/dL (3.5-5.0); Alkaline Phosphatase 142 U/L (39-117); Anion Gap 17 (12-20); Aspartate Amino Transferase 34 U/L (5-37); Bilirubin Direct 0.4 mg/dL (0.0-0.5); Bilirubin Total 0.6 mg/dL (0.0-1.0); Blood Urea Nitrogen 73 mg/dL (9-16); Calcium 8.5 mg/dL (8.4-10.2); Carbon Dioxide 18 mmol/L (22-29); Chloride 105 mmol/L (96-108); Creatinine Clr Calc Pharmacy 32.4; Estimated Glomerular Filt Rate 18; Glucose Random 94 mg/dL (60-115); Magnesium 2.4 mg/dL (1.6-2.6); Potassium 4.7 mmol/L (3.3-5.1); Sodium 135 mmol/L (135-145); Total Protein 6.5 g/dL (6.5-8.0); Troponin-I High Sensitivity 33.1 ng/L (<3.5-35.0)
[2024-10-13 17:37] LABS: SLIDE REVIEW VERIFIED
[2024-10-13 20:45] VITALS: BP 116/67; PULSE 74; RESP 18; TEMP 36.5; O2SAT 94
[2024-10-14] VITALS (12 sets, daily range): BP systolic 104–135; BP diastolic 62–86; PULSE 67–72; RESP 12–20; TEMP 36.1–36.8; O2SAT 89–95
[2024-10-14] MEDS: Furosemide 100 MG/10 ML VIAL 80 MG IVPUSH (01:55)
[2024-10-14 02:03] LABS: Influenza A PCR POSITIVE (Negative); Influenza B PCR NEGATIVE (Negative); Resp Syncy Virus RNA Qual PCR NEGATIVE (Negative); SARS COV2 PCR INHOUSE NEGATIVE (Negative)
--- NOTE | 2024-10-14 05:54 | P.HPHOSP_ITS ---
History of Present Illness Date of Service: 10/14/24 Attending physician on admission: Steven Roe Chief Complaint: edema Patient is a 49-year-old male with a past medical history significant for type 2 diabetes, HTN, CKD (baseline creatinine 2.5), s/p right BKA for Charcot's foot, who presented to the ED due to increased edema in the upper and lower extremities as well as scrotum for the past 2-3 weeks. He reports he has size PCP recently for this on the and was prescribed Lasix 40 mg p.o. q.d.. He reports no increased urination and no change in the edema since starting this. He did have an appointment with Nephrology yesterday but missed this. He was supposed to follow up with his PCP today regarding the Lasix. He does complain of a mild productive cough with yellow sputum starting yesterday but denies any fever, chills, nausea, vomiting, sore throat or body aches. He does have some mild nasal congestion. He denies any urinary symptoms including dysuria, frequency or urgency. Review of Systems 2 Constitutional: Constitutional: Denies body ache(s), Denies chills, Denies fatigue, Denies fever(s) and Denies headache(s) Eyes: Eyes: Denies change in vision ENT: Denies headache(s), Reports nasal congestion, Denies nasal discharge and Denies sore throat Cardiovascular: Cardiovascular: Denies chest pain, Denies rapid heart rate, Reports leg edema, Denies lightheadedness, Denies dyspnea and Denies dyspnea on exertion Respiratory: Respiratory: Reports chest congestion, Reports cough, Denies dyspnea, Denies dyspnea on exertion and Denies wheezing Gastrointestinal: Gastrointestinal: Denies constipation, Denies diarrhea, Denies nausea and Denies vomiting Genitourinary: Genitourinary: Denies dysuria, Reports scrotal swelling, Denies urinary frequency and Denies urinary urgency Musculoskeletal: Musculoskeletal: Denies myalgias Integumentary/Breasts: Skin/Breast: Denies rash Neurologic: Denies confusion and Denies headache(s) Psychiatric: Psychiatric: Denies confusion Endocrine: Endocrine: Denies fatigue Hematologic/Lymphatic: Hematologic/Lymphatic: Denies easy bleeding and Denies easy bruising Allergic/Immunologic: Allergic/Immunologic: Denies wheezing [facility] Medical History (Updated 10/14/24 @ 06:02 by Ayleen Marie PA-C) Obesity (BMI 35.0-39.9 without comorbidity) Charcot's joint of right foot CKD (chronic kidney disease) HTN (hypertension) T2DM (type 2 diabetes mellitus) Surgical History (Updated 10/14/24 @ 06:00 by Ayleen Marie PA-C) Status post below knee amputation of right lower extremity Social History Alcohol intake: never Advance Directives: No Advance Directives Information Provided: Yes Narrative: No smoking, alcohol or drug use Meds Allergies Allergy/AdvReac Type Severity Reaction Status Date / Time Penicillins Allergy Hives Verified 10/13/24 16:06 Active Medications: Current Medications Acetaminophen (Acetaminophen 325 Mg Tablet) 650 mg PO Q6H PRN PRN Reason: Pain, Mild 1-3,fever,headache Albuterol/Ipratropium (Albuterol/Iprat 2.5/0.5mg 3 Ml Ampul.Neb) 3 ml INHALE Q4H PRN PRN Reason: Shortness of Breath/Wheezing Benzonatate (Benzonatate 100 Mg Capsule) 100 mg PO TID PRN PRN Reason: Cough Calcium Carbonate (Calcium Carbonate 750 Mg Tab.Chew) 750 mg PO Q4H PRN PRN Reason: Heartburn Enoxaparin Sodium (Enoxaparin Sodium 40 Mg/0.4 Ml Syringe) 40 mg SUBCUT Q24H TOI Magnesium Hydroxide (Milk Of Magnesia 30 Ml Oral.Susp) 30 ml PO DAILY PRN PRN Reason: Constipation Melatonin (Melatonin 3 Mg Tablet) 6 mg PO BEDTIME PRN PRN Reason: Insomnia Ondansetron HCl (Ondansetron Hcl 4 Mg/2 Ml Vial) 4 mg IVPUSH Q8H PRN PRN Reason: Nausea and Vomiting Sodium Chloride (0.9 % Sodium Chloride Flush 3 Ml Syringe) 3 ml IVFLUSH QSHIFT [facility] Physical Exam 2 Vital Signs and Narrative: Vital Signs: Last Vital Signs Temp 98.3 F 10/14/24 04:29 Pulse 67 10/14/24 04:29 Resp 14 10/14/24 04:29 BP 109/62 10/14/24 04:29 Pulse Ox 93 10/14/24 04:29 O2 Del Method Room Air 10/14/24 04:29 BMI result Body Mass Index 39.2 General: AOx3, no acute distress Resp: diminished throughout, mild wheezing upper lung ftizgerald bilaterally CVS: S1, S2, RRR GI: +BS, NT, no distention Skin: Warm, dry Neuro: Cranial nerves II-XII grossly intact bilaterally. Motor grossly intact bilaterally Extremities: 1-2+ pitting edema BUE and LLE, RLE s/p BKA Psych: Appropriate affect Const: General: No confusion Orientation/consciousness: No confusion Neuro: General: No confusion Results Labs 10/13/24 16:47 10/13/24 16:47 Labs: Laboratory Results - last 24 hr 10/13/24 10/14/24 16:47 01:22 MCV 92.8 MCH 30.9 MCHC 33.2 RDW 16.0 Plt Count 205 MPV 9.2 L Immature Gran % (Auto) 0.5 H Neut % (Auto) 52.1 Lymph % (Auto) 12.2 L [place] % (Auto) 30.6 H Eos % (Auto) 2.6 Baso % (Auto) 2.0 Lymph # (Auto) 0.2 L [place] # (Auto) 0.6 Eos # (Auto) 0.1 Baso # (Auto) 0.0 Abs Immat Gran (auto) 0.01 Absolute Neuts (auto) 1.0 L Absolute Nucleated RBC 0.000 Nucleated RBC % (auto) 0.0 Smear Tech's Comments VERIFIED Anion Gap 17 Estim Creat Clear Calc 32.4 Estimated GFR 18 Random Glucose 94 Calcium 8.5 Magnesium 2.4 Total Bilirubin 0.6 Direct Bilirubin 0.4 AST 34 ALT 18 Alkaline Phosphatase 142 H Troponin I High Sens 33.1 B-Natriuretic Peptide 1578 H Total Protein 6.5 Albumin 3.2 L Influenza Type A (PCR) POSITIVE A Influenza Type B (PCR) NEGATIVE RSV RNA Qual (PCR) NEGATIVE SARS-CoV-2 RNA (RT-PCR) NEGATIVE Assessment and Plan (1) Anasarca: Status: Acute (2) Acute kidney injury superimposed on CKD: Status: Acute (3) Influenza A: Status: Acute (4) Obesity (BMI 35.0-39.9 without comorbidity): Status: Acute Plan Patient is a 49-year-old male with a past medical history significant for type 2 diabetes, HTN, CKD (baseline creatinine 2.5), s/p right BKA for Charcot's foot, who presented to the ED due to increased edema in the upper and lower extremities as well as scrotum for the past 2-3 weeks. Differential diagnoses includes renal anasarca versus CHF. Anasarca - BNP elevated at 1578 - chest x-ray without pulmonary edema - creatinine elevated at 3.55 (baseline 2.5) - given Lasix 80 mg IV in ED - check UA - echocardiogram - nephrology consult, patient of [facility] - consider cardiology consult based on echocardiogram RYAN on CKD - secondary to hypoperfusion - monitor BMP Influenza A, mildly symptomatic - contact precautions - supportive care Type 2 diabetes - hold p.o. meds (metformin, Januvia, Jardiance) - sliding scale insulin - low sodium/diabetic diet HTN - hold losartan - monitor BPs - patient receiving diuretics Obesity - BMI 39.2 - weight loss encouraged Full code VTE prophylaxis: Lovenox Patient with anasarca and failed outpatient treatment, complicated by RYAN on CKD and influenza a requiring admission for at least 2 midnights stay for IV diuresis, further workup and monitoring. Quality Stroke Does the patient have a stroke diagnosis?: No VTE Prior VTE?: No VTE Risk Level:: Medical - moderate - high VTE Device Contraindication: Treatment Not Indicated VTE Drug Contraindication: N/A - Med Ordered
[2024-10-14 05:59] LABS: Basophils Percent Auto 1.4 % (0-2); Eosinophils Percent Auto 2.7 % (0-4); Hematocrit 37.4 % (42.0-52.0); Hemoglobin 12.4 g/dl (14.0-18.0); Lymphocytes Absolute Auto 0.2 X10*3/uL (1.2-4.9); Lymphocytes Percent Auto 13.5 % (20-40); MANUAL DIFF FLAG SCAN; Mean Corpuscular HGB Conc 33.2 g/dl (31.0-36.0); Mean Corpuscular Hemoglobin 30.8 pg (27.0-33.0); Mean Corpuscular Volume 92.8 fL (80.0-98.0); Mean Platelet Volume 9.8 fL (9.4-12.4); Monocytes Absolute Auto 0.4 X10*3/uL (0.1-1.2); Monocytes Percent Auto 27.7 % (2-11); Neutrophils Absolute Auto 0.8 x10*3/uL (2.0-8.3); Neutrophils Percent Auto 54.7 % (45-73); Platelet Count 205 X10*3/uL (160-400); Red Blood Count 4.03 X10*6/uL (4.60-5.80); SCAN SMEAR FLAG 1
[2024-10-14 06:00] LABS: White Blood Count 1.5 X10*3/uL (4.8-10.8)
[2024-10-14 06:15] LABS: Anion Gap 17 (12-20); Blood Urea Nitrogen 73 mg/dL (9-16); Calcium 8.3 mg/dL (8.4-10.2); Carbon Dioxide 17 mmol/L (22-29); Chloride 106 mmol/L (96-108); Creatinine Clr Calc Pharmacy 33.9; Estimated Glomerular Filt Rate 19; Glucose Random 89 mg/dL (60-115); Potassium 4.6 mmol/L (3.3-5.1); Sodium 135 mmol/L (135-145)
--- NOTE | 2024-10-14 07:00 | CA_ITS ---
Transthoracic Echocardiogram Patient (Last, First, Middle): Michael Garsia, Gender: Male Date of : 1975 Age: 49 Procedure Date: 10/14/2024 Procedure Type: Transthoracic Echocardiogram Location: ER Height: 177.8 cm Weight: 123.38 kg BSA: 2.38 m2 Heart Rate: 71 bpm BP: 120 / 73 mmHg Shank Piece Tacker: ANUJ Referring MD: Steven Roe MD Supervisor [employer]: Alejandro Puga MD Symptoms: CHF Study Quality: Adequate ECG Rhythm: Sinus Conclusions: - 1. Severely reduced LV ejection fraction of 20-25% with grade 2 diastolic dysfunction 2. Moderately dilated right ventricle with visually reduced RV systolic function 3. Biatrial enlargement, right greater than left 4. RV systolic pressure within normal limits with significantly elevated right atrial pressures 5. [id number] pericardial effusion Findings Left Ventricle Normal left ventricular cavity size. There is normal left ventricular wall thickness. The left ventricular systolic function is severely decreased. The visually estimated ejection fraction is between 20-25%. There is severe global hypokinesis. Spectral Doppler is indicative of a restrictive filling pattern. E/E prime ratio is >15, consistent with elevated filling pressures. Evidence suggests grade III (severe) diastolic dysfunction. Right Ventricle Moderately increased right ventricular cavity size. RV systolic function appears depressed Atria The left atrium is mildly dilated. There is no evidence of interatrial shunt. The right atrium is moderately dilated. Aortic Valve Normal aortic valve structure and function. There is no aortic valve stenosis. There is no aortic valve regurgitation. Mitral Valve Normal mitral valve structure and function. There is trace mitral valve regurgitation. There is no mitral valve stenosis. Pulmonic Valve The pulmonic valve is likely normal. Tricuspid Valve Normal tricuspid valve structure. There is mild tricuspid valve regurgitation. Significantly elevated right atrial pressure. There is no evidence of pulmonary hypertension. Great Vessels All visible segments of the aorta are normal in size. The pulmonary artery was not well visualized. Venous The inferior vena cava is severely dilated and does not collapse with inspiration. Pericardium/Pleural There is a circumferential pericardial effusion. There is a left sided pleural effusion. small to moderate pericardial effusion without clear evidence of tamponade Prior Study Comparison No prior study available for comparison. Measurements 2D Linear Measurements IVSd: 1.06 0.6-0.9/0.6-1.0 cm LVIDd: 6.03 3.9-5.3/4.2-5.9 cm LVIDd Index: 2.53 2.4-3.2/2.2-3.1 cm/m2 LVIDs: 5.19 2.0-3.6 cm LVPWd: 0.81 0.7-1.1 cm LA Diam: 4.60 2.7-3.8/3.0-4.0 cm LAIDs Index: 1.93 1.5-2.3 cm/m2 LV Mass: 284.93 67-162/88-224 g LV Mass Index: 119.72 43-95/49-115 g/m2 LVOT Diam: 2.30 3.0+(-)1.3 cm 2D Systolic Function EF 4C: 26.60 >55% EF 2C: 23.80 >55% EF BiP: 24.70 >55% Mitral Valve MV Pk E: 1.05 MV PK A: 0.28 MV Decel Time: 115.00 E/A: 3.70 E'Lateral: 8.51 E'Medial: 4.46 E/E' Med: 23.50 E/E' Lat: 12.30 PHT: 34.00 MVA PHT: 6.47 Decel [place]: 9.11 Aortic Valve AoV Pk [place]: 0.85 AoV Pk Grad: 3.00 SMITH: 2.87 LVOT LVOT Pk [place]: 0.59 LVOT Mn [place]: 0.43 LVOT VTI: 0.14 LVOT Pk Grad: 1.00 LVOT Mn Grad: 1.00 LVOT Diam: 2.30 LVOT Area: 4.15 Diastolic Function MV Pk E: 1.05 MV Pk A: 0.28 E/A: 3.70 E'Medial: 4.46 E/E' Med: 23.50 E' Laterial: 8.51 E/E' Lat: 12.30 Tricuspid Valve TR Pk [place]: 2.43 TR Pk Grad: 24.00 RA Press: 15.00 RVSP: 39.00 Great Vessels Aorta Sinus of Valsalva: 3.70 2.0-3.5 cm Ao Asc: 3.80 2.1-3.4 cm Pulmonary Valve PV Pk [place]: 0.68 Peak PV Grad: 2.00 Updated in Other Vendor System with Status of Final Alejandro Puga MD electronically signed on 10/14/2024 10:12:22 AM with status of Final
[2024-10-14] MEDS: Enoxaparin Sodium 40 MG/0.4 ML SYRINGE SUBCUT (07:24)
[2024-10-14 08:10] LABS: Glucose, Whole Blood 99 mg/dL (60-115)
[2024-10-14 08:51] LABS: SLIDE REVIEW VERIFIED
--- NOTE | 2024-10-14 08:57 | P.CONNP_ITS ---
History of Present Illness Reason for Consult Consult date: 10/14/24 Reason for consult: RYAN Chief Complaint Chief complaint: Pedal Edema History of Present Illness Narrative: 49-year-old male with a history significant for type 2 diabetes, HTN, CKD (baseline creatinine 2.5), s/p right BKA for Charcot's foot, who presented to the ED due to increased edema in the upper and lower extremities as well as scrotum for the past 2-3 weeks. He reports he has size PCP recently for this on the and was prescribed Lasix 40 mg p.o. q.d.. He reports no increased urination and no change in the edema since starting this. He did have an appointment with Nephrology yesterday but missed this. He was supposed to follow up with his PCP today regarding the Lasix. He does complain of a mild productive cough with yellow sputum starting yesterday but denies any fever, chills, nausea, vomiting, sore throat or body aches. He does have some mild nasal congestion. He denies any urinary symptoms including dysuria, frequency or urgency. Review of Systems Constitutional: Denies fever(s) and Denies weight loss Cardiovascular: Denies chest pain Respiratory: Denies cough and Denies hemoptysis Gastrointestinal: Denies abdominal pain, Denies diarrhea and Denies nausea Musculoskeletal: Denies back pain Denies focal weakness PMFSH Past Medical History Medical History Obesity (BMI 35.0-39.9 without comorbidity) Charcot's joint of right foot CKD (chronic kidney disease) HTN (hypertension) T2DM (type 2 diabetes mellitus) Surgical History Surgical History Status post below knee amputation of right lower extremity Social History Social History Household Members: Family Housing: House Do you presently have visiting nurse or other home services: No Alcohol intake: never Patient Tobacco Use Status: Never used Tobacco service: No Meds Allergies Allergy/AdvReac Type Severity Reaction Status Date / Time Penicillins Allergy Hives Verified 10/13/24 16:06 Active Medications: Current Medications Acetaminophen (Acetaminophen 325 Mg Tablet) 650 mg PO Q6H PRN PRN Reason: Pain, Mild 1-3,fever,headache Albuterol/Ipratropium (Albuterol/Iprat 2.5/0.5mg 3 Ml Ampul.Neb) 3 ml INHALE Q4H PRN PRN Reason: Shortness of Breath/Wheezing Benzonatate (Benzonatate 100 Mg Capsule) 100 mg PO TID PRN PRN Reason: Cough Calcium Carbonate (Calcium Carbonate 750 Mg Tab.Chew) 750 mg PO Q4H PRN PRN Reason: Heartburn Enoxaparin Sodium (Enoxaparin Sodium 40 Mg/0.4 Ml Syringe) 40 mg SUBCUT Q24H [facility] Last Admin: 10/14/24 07:24 Dose: 40 mg Glucose (Glucose Gel 15 Gm Gel..Gram.) 15 gm PO Q15M PRN; Protocol PRN Reason: per Hypoglycemia Standing Ord. Dextrose (D10) 250 mls @ 750 mls/hr IV Q15M PRN; Protocol PRN Reason: per Hypoglycemia Standing Ord. Insulin Human Lispro (Insulin Lispro 100 Unit/Ml 3 Ml Vial) [facility]; Protocol Last Admin: 10/14/24 08:11 Dose: Not Given Magnesium Hydroxide (Milk Of Magnesia 30 Ml Oral.Susp) 30 ml PO DAILY PRN PRN Reason: Constipation Melatonin (Melatonin 3 Mg Tablet) 6 mg PO BEDTIME PRN PRN Reason: Insomnia Ondansetron HCl (Ondansetron Hcl 4 Mg/2 Ml Vial) 4 mg IVPUSH Q8H PRN PRN Reason: Nausea and Vomiting Sodium Chloride (0.9 % Sodium Chloride Flush 3 Ml Syringe) 3 ml IVFLUSH [facility] Home Medications ?Medication ?Instructions ?Recorded ?Confirmed ?Last Taken ?Type amlodipine 10 mg tablet 10 mg PO DAILY 10/14/24 10/14/24 10/13/24 History atorvastatin 20 mg tablet 20 mg PO DAILY 10/14/24 10/14/24 10/13/24 History empagliflozin 25 mg tablet 25 mg PO DAILY 10/14/24 10/14/24 10/13/24 History (Jardiance) furosemide 40 mg tablet 40 mg PO DAILY 10/14/24 10/14/24 10/13/24 History losartan 50 mg tablet 50 mg PO DAILY 10/14/24 10/14/24 10/13/24 History metformin 500 mg tablet,extended 500 mg PO DAILY 10/14/24 10/14/24 10/13/24 History release 24 hr sitagliptin 100 mg tablet (Zituvio) 100 mg PO DAILY 10/14/24 10/14/24 10/13/24 History Physical Exam Vital Signs: Last Vital Signs Temp 98.2 F 10/14/24 08:24 Pulse 70 10/14/24 08:24 Resp 20 10/14/24 08:24 BP 111/72 10/14/24 08:24 Pulse Ox 92 10/14/24 08:24 O2 Del Method Room Air 10/14/24 08:24 BMI result Body Mass Index 39.2 Const General: comfortable; No acute distress Orientation/consciousness: patient oriented x3 Eyes General: appearance normal, both eyes and all related structures Visual Fitzgerald: normal visual fitzgerald by confrontation Neck Neck: Yes supple and Yes no JVD Resp Effort & Inspection: normal respiratory effort and respiratory effort not decreased Auscultation: rhonchi Cardio Palpation: no palpable S3 and no palpable S4 Heart sounds: no rubs GI Inspection: Yes normal to inspection Palpation (GI): Soft to palpation Percussion: Yes normal to percussion Auscultation: normal bowel sounds General: Yes no CVA tenderness Back/Spine/Pelvis Back: no CVA tenderness Skin General skin exam: no petechiae and no purpura Neuro General: patient oriented x3 and no focal motor deficits Extrem General: No clubbing and Yes edema Results Lab Results 10/15/24 04:48 10/15/24 04:48 Lab results: Chemistry 10/13/24 10/14/24 16:47 05:47 Sodium 135 135 Potassium 4.7 4.6 Carbon Dioxide 18 L 17 L BUN 73 H 73 H Creatinine 3.55 H 3.40 H Calcium 8.5 8.3 L Hematology 10/13/24 10/14/24 16:47 05:47 WBC 2.0 L 1.5 L Hgb 12.5 L 12.4 L Plt Count 205 205 Assessment and Plan (1) Anasarca: Status: Acute (2) CKD (chronic kidney disease): Status: Acute (3) Acute kidney injury superimposed on CKD: Status: Acute Plan Acute kidney injury superimposed on CKD. He has non nephrotic range proteinuria. Differential diagnosis would include a FSGS/membranous nephropathy. Other possibility including IgA nephropathy should be ruled out. Although he has had diabetes mellitus I doubt that he has diabetic nephropathy to explain the rapid decline in EGFR. He is currently fluid overloaded. No signs or symptoms of uremia. Recommendations Agree with IV Lasix. Keep output more than intake. Keep on low sodium diet. Serologies ordered. He will need a kidney biopsy for a definite diagnosis. Procedures Date of Service Date of Service: 10/15/24
--- NOTE | 2024-10-14 10:39 | PHA.MEDREC ---
Pharmacy Consult ? Medication Reconciliation Pharmacy has completed the medication reconciliation. Spoke to patient who knew medications. He only only takes metformin once daily
--- NOTE | 2024-10-14 10:50 | PC.NURSE ---
Awaiting Lasix gtt per pharmacy at this time.
[2024-10-14] MEDS: Furosemide 40 MG/4 ML VIAL IVPUSH (11:38)
[2024-10-14 11:40] LABS: HBc Num1 0.11 S/CO (0.00-0.79); HBsAGNum1 0.48 S/CO (0.00-0.99); HIV AB/AG Nonreactive (Nonreactive); HIV Num 1 0.13 S/CO (0.00-0.99); Hepatitis B Core Antibody Nonreactive (Nonreactive); Hepatitis B Surface Antigen Negative (Negative); ~HepC Num1 0.11 S/CO (0.00-0.79); ~Hepatitis B Surface Antibody NONREACTIVE (Nonreactive); ~Hepatitis C Antibody Nonreactive (Nonreactive)
[2024-10-14] MEDS: Furosemide 200 MG in 0.9 % Sodium Chloride 80 ML IVCONT (12:29)
[2024-10-14 12:39] LABS: Glucose, Whole Blood 78 mg/dL (60-115)
[2024-10-14 13:24] LABS: Appearance Urine Clear; Color Urine Yellow; Glucose Urine UA 250 mg/dL (Negative); Leukocyte Esterase Urine Negative (Negative); Nitrite Urine Negative (Negative); Urine Blood Negative (Negative); Urine Ketones Negative (Negative); Urine Protein Trace mg/dL (Neg-Trace)
[2024-10-14 13:29] LABS: Bacteria Urine None Seen (None Seen); RBC Urine 0-2 /HPF (0-2); Squamous Epithelial Cell Urine 0-2 /HPF (0-2); WBC Urine 0-5 /HPF (0-5)
[2024-10-14 13:34] LABS: Creatinine Urine 40.57 mg/dL; Total Protein Urine Random 14 mg/dL (<12)
--- NOTE | 2024-10-14 14:04 | P.CONCA_ITS ---
History of Present Illness History of Present Illness Date of Service: 10/14/24 Requesting physician: Simone Couch Consult reason: congestive heart failure Chief complaint: Pedal Edema Narrative: I was consulted to see Michael in cardiology consultation today due to generalized swelling as well as shortness of breath with new findings of severe LV systolic dysfunction. Patient was 49-year-old male who said he was diagnose with diabetes in 2022 and then subsequently had surgery for Charcot foot on the right leg but subsequently had injury and had to have amputation. He has been immobile or minimally active since his surgery in June 2023. He was gained weight. However over the last several weeks he has noticed increasing leg swelling as well as increasing abdominal distension as arm swelling and has notice some shortness of breath on exertion. He thought this was all related to kidney failure. He has had prior history of chronic kidney disease but not further able to elucidate that. He came to the hospital and noted to have flu also noted to have generalized edema and significantly elevated BNP. His renal functions are abnormal with worsening creatinine suggestive of acute kidney injury. Patient is hemodynamically stable. No chest pain. Echocardiogram was done at bedside which she was severely reduced LV ejection fraction which is a new finding. He has no prior history of cardiovascular disease or myocardial infarction. He was also tested positive for flu Review of Systems 2 Constitutional: Constitutional: Reports poor appetite and Reports weight gain Eyes: Eyes: Reports no additional eye complaints Cardiovascular: Cardiovascular: Reports Abdominal Distension, Denies chest pain, Reports leg edema, Denies palpitations and Reports dyspnea on exertion Respiratory: Respiratory: Reports cough and Reports dyspnea on exertion Gastrointestinal: Gastrointestinal: Reports bloating Genitourinary: Genitourinary: Reports no additional male genitourinary complaints Musculoskeletal: Musculoskeletal: Reports other (Diffuse edema) Neurologic: Reports system reviewed and no additional complaints, except as documented Psychiatric: Psychiatric: Reports no additional psychiatric complaints Endocrine: Endocrine: Reports no additional endocrine complaints and Denies palpitations PMFSH Past Medical History Medical History Obesity (BMI 35.0-39.9 without comorbidity) Charcot's joint of right foot CKD (chronic kidney disease) HTN (hypertension) T2DM (type 2 diabetes mellitus) Surgical History Surgical History Status post below knee amputation of right lower extremity Social History Social History Alcohol intake: never Patient Tobacco Use Status: Never used Tobacco Smoked in Last 30 Days: No Use of substances other than those prescribed or required for medical reasons: No Advance Directives: No Advance Directives Information Provided: Yes Nutrition Risks: No Nutritional Risk Meds Allergies Allergy/AdvReac Type Severity Reaction Status Date / Time Penicillins Allergy Hives Verified 10/13/24 16:06 Active Medications: Current Medications Acetaminophen (Acetaminophen 325 Mg Tablet) 650 mg PO Q6H PRN PRN Reason: Pain, Mild 1-3,fever,headache Albuterol/Ipratropium (Albuterol/Iprat 2.5/0.5mg 3 Ml Ampul.Neb) 3 ml INHALE Q4H PRN PRN Reason: Shortness of Breath/Wheezing Atorvastatin Calcium (Atorvastatin Calcium 20 Mg Tablet) 20 mg PO DAILY [facility] Benzonatate (Benzonatate 100 Mg Capsule) 100 mg PO TID PRN PRN Reason: Cough Calcium Carbonate (Calcium Carbonate 750 Mg Tab.Chew) 750 mg PO Q4H PRN PRN Reason: Heartburn Glucose (Glucose Gel 15 Gm Gel..Gram.) 15 gm PO Q15M PRN; Protocol PRN Reason: per Hypoglycemia Standing Ord. Dextrose (D10) 250 mls @ 750 mls/hr IV Q15M PRN; Protocol PRN Reason: per Hypoglycemia Standing Ord. Furosemide 200 mg/ Sodium (Chloride) 100 mls @ 2.5 mls/hr IVCONT .Q24H [facility] Last Admin: 10/14/24 12:29 Dose: 5 mg/hr, 2.5 mls/hr Insulin Human Lispro (Insulin Lispro 100 Unit/Ml 3 Ml Vial) 0 unit SUBCUT QIDACHS [facility]; Protocol Last Admin: 10/14/24 12:38 Dose: Not Given Magnesium Hydroxide (Milk Of Magnesia 30 Ml Oral.Susp) 30 ml PO DAILY PRN PRN Reason: Constipation Melatonin (Melatonin 3 Mg Tablet) 6 mg PO BEDTIME PRN PRN Reason: Insomnia Ondansetron HCl (Ondansetron Hcl 4 Mg/2 Ml Vial) 4 mg IVPUSH Q8H PRN PRN Reason: Nausea and Vomiting Sodium Chloride (0.9 % Sodium Chloride Flush 3 Ml Syringe) 3 ml IVFLUSH QSHIFT TOI Last Admin: 10/14/24 08:57 Dose: Not Given Home Medications ?Medication ?Instructions ?Recorded ?Confirmed ?Last Taken ?Type amlodipine 10 mg tablet 10 mg PO DAILY 10/14/24 10/14/24 10/13/24 History atorvastatin 20 mg tablet 20 mg PO DAILY 10/14/24 10/14/24 10/13/24 History empagliflozin 25 mg tablet 25 mg PO DAILY 10/14/24 10/14/24 10/13/24 History (Jardiance) furosemide 40 mg tablet 40 mg PO DAILY 10/14/24 10/14/24 10/13/24 History losartan 50 mg tablet 50 mg PO DAILY 10/14/24 10/14/24 10/13/24 History metformin 500 mg tablet,extended 500 mg PO DAILY 10/14/24 10/14/24 10/13/24 History release 24 hr sitagliptin 100 mg tablet (Zituvio) 100 mg PO DAILY 10/14/24 10/14/24 10/13/24 History Physical Exam 2 Vital Signs: Vital Signs: Last Vital Signs Temp 98.3 F 10/14/24 12:44 Pulse 72 10/14/24 12:44 Resp 16 10/14/24 12:44 BP 118/80 10/14/24 12:44 Pulse Ox 93 10/14/24 12:44 O2 Del Method Room Air 10/14/24 12:44 BMI result Body Mass Index 39.2 Const: General: cooperative, alert, awake and in distress moderate and respiratory Nutritional Appearance: obese Orientation/consciousness: p atient oriented x3 HEENT: Head: Yes normocephalic and Yes atraumatic Neck: Neck: Yes trachea midline, Yes supple and Yes JVD Resp: Effort & Inspection: decreased respiratory effort Auscultation: c rackles and diminished lung sounds Cardio: Jugular venous distension: JVD Rate: regular rate Rhythm: r egular rhythm Heart sounds: S1 normal heart sound present, S2 normal heart sound present, no click, Gallop heart sound present S3 gallop, no murmurs and no rubs GI: Inspection: Yes distended Auscultation: normal bowel sounds Skin: General skin exam: no rashes or lesions noted Neuro: General: patient oriented x3 and no focal motor deficits Extrem: General: No clubbing, No cyanosis and Yes edema Objective Labs and Meds 10/14/24 05:47 10/14/24 05:47 Lab results: Laboratory Results - last 24 hr 10/13/24 10/14/24 10/14/24 16:47 01:22 05:47 WBC 2.0 L 1.5 L RBC 4.05 L 4.03 L Hgb 12.5 L 12.4 L Hct 37.6 L 37.4 L MCV 92.8 92.8 MCH 30.9 30.8 MCHC 33.2 33.2 RDW 16.0 16.0 Plt Count 205 205 MPV 9.2 L 9.8 Immature Gran % (Auto) 0.5 H 0.0 Neut % (Auto) 52.1 54.7 Lymph % (Auto) 12.2 L 13.5 L [place] % (Auto) 30.6 H 27.7 H Eos % (Auto) 2.6 2.7 Baso % (Auto) 2.0 1.4 Lymph # (Auto) 0.2 L 0.2 L [place] # (Auto) 0.6 0.4 Eos # (Auto) 0.1 0.0 Baso # (Auto) 0.0 0.0 Abs Immat Gran (auto) 0.01 0.00 Absolute Neuts (auto) 1.0 L 0.8 L Absolute Nucleated RBC 0.000 0.000 Nucleated RBC % (auto) 0.0 0.0 Smear Tech's Comments VERIFIED VERIFIED Sodium 135 135 Potassium 4.7 4.6 Chloride 105 106 Carbon Dioxide 18 L 17 L Anion Gap 17 17 BUN 73 H 73 H Creatinine 3.55 H 3.40 H Estim Creat Clear Calc 32.4 33.9 Estimated GFR 18 19 POC Glucose Random Glucose 94 89 Calcium 8.5 8.3 L Magnesium 2.4 Total Bilirubin 0.6 Direct Bilirubin 0.4 AST 34 ALT 18 Alkaline Phosphatase 142 H Troponin I High Sens 33.1 B-Natriuretic Peptide 1578 H Total Protein 6.5 Albumin 3.2 L Urine Color Urine Appearance Urine pH Ur Specific [place] Urine Protein Urine Glucose (UA) Urine Ketones Urine Blood Urine Nitrite Ur Leukocyte Esterase Urine RBC Urine WBC Ur Squamous Epith Cells Urine Bacteria Hyaline Casts U Random Total Protein Ur Random Sodium Urine Creatinine Hep Bs Antigen Hep Bs Antibody Hep B Core Total Ab Hepatitis C Ab (EIA) HIV 1&2 Ab/P24 Ag 4thGn Influenza Type A (PCR) POSITIVE A Influenza Type B (PCR) NEGATIVE RSV RNA Qual (PCR) NEGATIVE SARS-CoV-2 RNA (RT-PCR) NEGATIVE 10/14/24 10/14/24 10/14/24 08:03 10:55 12:35 WBC RBC Hgb Hct MCV MCH MCHC RDW Plt Count MPV Immature Gran % (Auto) Neut % (Auto) Lymph % (Auto) [place] % (Auto) Eos % (Auto) Baso % (Auto) Lymph # (Auto) [place] # (Auto) Eos # (Auto) Baso # (Auto) Abs Immat Gran (auto) Absolute Neuts (auto) Absolute Nucleated RBC Nucleated RBC % (auto) Smear Tech's Comments Sodium Potassium Chloride Carbon Dioxide Anion Gap BUN Creatinine Estim Creat Clear Calc Estimated GFR POC Glucose 99 78 Random Glucose Calcium Magnesium Total Bilirubin Direct Bilirubin AST ALT Alkaline Phosphatase Troponin I High Sens B-Natriuretic Peptide Total Protein Albumin Urine Color Urine Appearance Urine pH Ur Specific [place] Urine Protein Urine Glucose (UA) Urine Ketones Urine Blood Urine Nitrite Ur Leukocyte Esterase Urine RBC Urine WBC Ur Squamous Epith Cells Urine Bacteria Hyaline Casts U Random Total Protein Ur Random Sodium Urine Creatinine Hep Bs Antigen Negative Hep Bs Antibody NONREACTIVE Hep B Core Total Ab Nonreactive Hepatitis C Ab (EIA) Nonreactive HIV 1&2 Ab/P24 Ag 4thGn Nonreactive Influenza Type A (PCR) Influenza Type B (PCR) RSV RNA Qual (PCR) SARS-CoV-2 RNA (RT-PCR) 10/14/24 13:16 WBC RBC Hgb Hct MCV MCH MCHC RDW Plt Count MPV Immature Gran % (Auto) Neut % (Auto) Lymph % (Auto) [place] % (Auto) Eos % (Auto) Baso % (Auto) Lymph # (Auto) [place] # (Auto) Eos # (Auto) Baso # (Auto) Abs Immat Gran (auto) Absolute Neuts (auto) Absolute Nucleated RBC Nucleated RBC % (auto) Smear Tech's Comments Sodium Potassium Chloride Carbon Dioxide Anion Gap BUN Creatinine Estim Creat Clear Calc Estimated GFR POC Glucose Random Glucose Calcium Magnesium Total Bilirubin Direct Bilirubin AST ALT Alkaline Phosphatase Troponin I High Sens B-Natriuretic Peptide Total Protein Albumin Urine Color Yellow Urine Appearance Clear Urine pH 5.0 Ur Specific [place] 1.010 Urine Protein Trace Urine Glucose (UA) 250 H Urine Ketones Negative Urine Blood Negative Urine Nitrite Negative Ur Leukocyte Esterase Negative Urine RBC 0-2 Urine WBC 0-5 Ur Squamous Epith Cells 0-2 Urine Bacteria None Seen Hyaline Casts 3-5 U Random Total Protein 14 H Ur Random Sodium 61.0 Urine Creatinine 40.57 Hep Bs Antigen Hep Bs Antibody Hep B Core Total Ab Hepatitis C Ab (EIA) HIV 1&2 Ab/P24 Ag 4thGn Influenza Type A (PCR) Influenza Type B (PCR) RSV RNA Qual (PCR) SARS-CoV-2 RNA (RT-PCR) Conclusions: - 1. Severely reduced LV ejection fraction of 20-25% with grade 2 diastolic dysfunction 2. Moderately dilated right ventricle with visually reduced RV systolic function 3. Biatrial enlargement, right greater than left 4. RV systolic pressure within normal limits with significantly elevated right atrial pressures 5. [id number] pericardial effusio EKG shows normal sinus rhythm with low-voltage QRS Assessment and Plan (1) Heart failure, systolic, with acute decompensation: Status: Acute Patient comes with diffuse anasarca most likely related to decompensated systolic heart failure with severely reduced LV ejection fraction. Etiology of LV systolic dysfunction unclear could be ischemic given his diabetes and risk factors. However he is markedly fluid overloaded at this point time and in some respiratory compromise. Continue oxygen supplementation therapy. Requires more aggressive diuresis. His renal dysfunction and worsening renal function may be due to cardiorenal syndrome with renal venous congestion as well as poor perfusion. Start on IV Lasix drip with strict intake and output chart needs to be pursued. Would avoid any other change in medications that would avoid beta- francisco to provide worsening of LV function at this point time. Strict intake and output chart needs to be pursued. Monitor renal function closely. Management discussed with him. He understands agrees. Will follow with you Procedures Date of Service Date of Service: 10/14/24
--- NOTE | 2024-10-14 14:26 | PM.EVENT ---
Event Note Date of Service: 10/14/24 Event Note: Patient seen and evaluated Echo showing low EF of 20-25% start Lasix drip Cardiology and nephrology following monitor I\O and BMP he might end up needing dialysis; to do kidney biopsy Leukopenia will need further work up; negative for HIV and Hep./ Time Spent With Patient Time: Total time managing care of this patient today ____ minutes.
--- NOTE | 2024-10-14 19:50 | PC.NURSE ---
patient awake and alert. skin pwd, resp even and non labored. speaking in full, clear sentences. IV lasix infusing per order. awaiting bed assignment for admission
[2024-10-14 20:03] LABS: Glucose, Whole Blood 86 mg/dL (60-115)
[2024-10-14 20:03] LABS: Glucose, Whole Blood 73 mg/dL (60-115)
--- NOTE | 2024-10-14 20:08 | MHC.EDTECH ---
PT given one turkey sandwich, one 7.5oz sugar free jose maria yusuf, and one 4oz cranberry juice
--- NOTE | 2024-10-14 21:42 | MHC.EDTECH ---
PT was 2 person assist to br. PT with unsteady gait. PT voided 500ml in hat places in toilet. PT assisted back to bed, readjusted, boosted in bed and fresh set of vitals taken.
[2024-10-15] VITALS (8 sets, daily range): BP systolic 110–131; BP diastolic 60–77; PULSE 71–78; RESP 14–20; TEMP 36.2–36.5; O2SAT 88–95; BMI 39.2
[2024-10-15 00:52] LABS: Glucose, Whole Blood 87 mg/dL (60-115)
[2024-10-15 05:39] LABS: Basophils Percent Auto 1.2 % (0-2); Eosinophils Absolute Auto 0.3 X10*3/uL (0.0-0.4); Eosinophils Percent Auto 16.4 % (0-4); Hematocrit 37.3 % (42.0-52.0); Hemoglobin 12.3 g/dl (14.0-18.0); Imm Gran Abs Auto 0.01 X10*3/uL (0.00-0.03); Imm Gran Pct Auto 0.6 % (0.0-0.4); Lymphocytes Absolute Auto 0.2 X10*3/uL (1.2-4.9); Lymphocytes Percent Auto 11.7 % (20-40); MANUAL DIFF FLAG SCAN; Mean Corpuscular Hemoglobin 30.8 pg (27.0-33.0); Mean Corpuscular Volume 93.5 fL (80.0-98.0); Mean Platelet Volume 10.1 fL (9.4-12.4); Monocytes Absolute Auto 0.4 X10*3/uL (0.1-1.2); Monocytes Percent Auto 22.2 % (2-11); Neutrophils Absolute Auto 0.8 x10*3/uL (2.0-8.3); Neutrophils Percent Auto 47.9 % (45-73); Platelet Count 190 X10*3/uL (160-400); Red Blood Count 3.99 X10*6/uL (4.60-5.80); Red Cell Distribution Width 15.7 % (11.0-16.0); SCAN SMEAR FLAG 1; White Blood Count 1.7 X10*3/uL (4.8-10.8)
[2024-10-15 05:55] LABS: Anion Gap 15 (12-20); Blood Urea Nitrogen 73 mg/dL (9-16); Carbon Dioxide 19 mmol/L (22-29); Chloride 106 mmol/L (96-108); Creatinine Clr Calc Pharmacy 35.2; Estimated Glomerular Filt Rate 20; Glucose Random 79 mg/dL (60-115); Sodium 136 mmol/L (135-145)
[2024-10-15 05:59] LABS: B Type Natriuretic Peptide 1486 pg/mL (<100)
[2024-10-15 06:02] LABS: SLIDE REVIEW VERIFIED
[2024-10-15 07:45] LABS: Glucose, Whole Blood 72 mg/dL (60-115)
--- NOTE | 2024-10-15 08:01 | PM.HEMONCCN ---
Subjective - Subjective Chief complaint: Consult for: Leukopenia. Patient: new to practice Consult date: 10/15/24 Requesting Physician: Khoa. Primary Care Provider: Veronica Steen MD Family Provider: Veronica Steen MD Medical Summary: DIAGNOSIS: LEUKOPENIA. HPI - Consult Narrative Reason for consult: Consult for: Leukopenia. Narrative: Michael Garsia is a 49 year old gentleman, with a past medical history significant for type 2 diabetes, HTN, CKD (baseline creatinine 2.5), s/p right BKA for Charcot's foot. He presented to the ED due to increased edema in the upper and lower extremities as well as scrotum for the past 2-3 weeks. He reports he has seen PCP recently for this on the and was prescribed Lasix 40 mg p.o. q.d.. He reports no increased urination and no change in the edema since starting this. He did have an appointment with Nephrology yesterday but missed this. He does complain of a mild productive cough with yellow sputum starting yesterday but denies any fever, chills, nausea, vomiting, sore throat or body aches. He does have some mild nasal congestion. He denies any urinary symptoms including dysuria, frequency or urgency. DATABASE: Serial CBC: 10/13/24. WBC 2, HGB 12.5, HCT 37.6, PLT 205. 10/14/2024. WBC 1.5, HGB 12.4, HCT 37.4, PLT 205. 10/15/2024. WBC 1.7, HGB 12.3, HCT 37.3, PLT 190. Peripheral smear: Significant monocytosis. LFTs: 0.6/142/34/18. Medical History: Obesity (BMI 35.0-39.9 without comorbidity) Charcot's joint of right foot CKD (chronic kidney disease) HTN (hypertension) T2DM (type 2 diabetes mellitus) Surgical History: Status post below knee amputation of right lower extremity Social History Alcohol intake: never Advance Directives: No Advance Directives Information Provided: Yes Review of Systems Constitutional: Constitutional: Denies body ache(s), Denies chills, Denies fatigue, Denies fever(s) and Denies headache(s) Eyes: Eyes: Denies change in vision ENT: Denies headache(s), Reports nasal congestion, Denies nasal discharge and Denies sore throat Cardiovascular: Cardiovascular: Denies chest pain, Denies rapid heart rate, Reports leg edema, Denies lightheadedness, Denies dyspnea and Denies dyspnea on exertion Respiratory: Respiratory: Reports chest congestion, Reports cough, Denies dyspnea, Denies dyspnea on exertion and Denies wheezing Gastrointestinal: Gastrointestinal: Denies constipation, Denies diarrhea, Denies nausea and Denies vomiting Genitourinary: Genitourinary: Denies dysuria, Reports scrotal swelling, Denies urinary frequency and Denies urinary urgency Musculoskeletal: Musculoskeletal: Denies myalgias Integumentary/Breasts: Skin/Breast: Denies rash Neurologic: Denies confusion and Denies headache(s) Psychiatric: Psychiatric: Denies confusion Endocrine: Endocrine: Denies fatigue Hematologic/Lymphatic: Hematologic/Lymphatic: Denies easy bleeding and Denies easy bruising Allergic/Immunologic: Allergic/Immunologic: Denies wheezing Review of Systems - Constitutional Reports system reviewed and no additional complaints, except as documented, Reports lack of energy, Reports weight loss - Eyes Reports system reviewed and no additional complaints, except as documented - ENT Reports system reviewed and no additional complaints, except as documented - Cardiovascular Reports system reviewed and no additional complaints, except as documented - Respiratory Reports no additional respiratory complaints - Gastrointestinal Reports system reviewed and no additional complaints, except as documented - Genitourinary Genitourinary: Reports no additional male genitourinary complaints - Musculoskeletal Reports system reviewed and no additional complaints, except as documented - Integumentary/Breasts Skin/Breast: Reports no additional skin complaints - Neurologic Reports system reviewed and no additional complaints, except as documented, Denies confusion, Denies headache(s), Denies focal weakness - Psychiatric Reports system reviewed and no additional complaints, except as documented - Endocrine Reports no additional endocrine complaints - Hematologic/Lymphatic Reports system reviewed and no additional complaints, except as documented - Allergic/Immunologic Reports system reviewed and no additional complaints, except as documented Oncology Screenings - ECOG Performance Status ECOG Performance Status: 2 [facility] Medical History: Medical History (Last Reviewed 10/15/24 @ 08:13 by Heather Mauricio RN) Charcot's joint of right foot CKD (chronic kidney disease) HTN (hypertension) Obesity (BMI 35.0-39.9 without comorbidity) T2DM (type 2 diabetes mellitus) Functional capacity: wheelchair bound Patient : No Surgical History: Surgical History (Last Reviewed 10/15/24 @ 08:13 by Heather Mauricio RN) Status post below knee amputation of right lower extremity Social History: Social History (Last Reviewed 10/14/24 @ 14:10 by Alejandro Puga MD) Living Situation History: Household Members: Family Housing: House Do you presently have visiting nurse or other home services: No Tobacco History: Patient Tobacco Use Status: Never used Tobacco Occupation Assessmet: service: No Home Medications and Allergies Current Medications: Current Medications Acetaminophen (Acetaminophen 325 Mg Tablet) 650 mg PO Q6H PRN PRN Reason: Pain, Mild 1-3,fever,headache Albuterol/Ipratropium (Albuterol/Iprat 2.5/0.5mg 3 Ml Ampul.Neb) 3 ml INHALE Q4H PRN PRN Reason: Shortness of Breath/Wheezing Atorvastatin Calcium (Atorvastatin Calcium 20 Mg Tablet) 20 mg PO DAILY [facility] Benzonatate (Benzonatate 100 Mg Capsule) 100 mg PO TID PRN PRN Reason: Cough Calcium Carbonate (Calcium Carbonate 750 Mg Tab.Chew) 750 mg PO Q4H PRN PRN Reason: Heartburn Glucose (Glucose Gel 15 Gm Gel..Gram.) 15 gm PO Q15M PRN; Protocol PRN Reason: per Hypoglycemia Standing Ord. Dextrose (D10) 250 mls @ 750 mls/hr IV Q15M PRN; Protocol PRN Reason: per Hypoglycemia Standing Ord. Furosemide 200 mg/ Sodium (Chloride) 100 mls @ 2.5 mls/hr IVCONT .Q24H [facility] Last Admin: 10/14/24 12:29 Dose: 5 mg/hr, 2.5 mls/hr Insulin Human Lispro (Insulin Lispro 100 Unit/Ml 3 Ml Vial) 0 unit SUBCUT QIDACHS [facility]; Protocol Last Admin: 10/15/24 07:35 Dose: Not Given Magnesium Hydroxide (Milk Of Magnesia 30 Ml Oral.Susp) 30 ml PO DAILY PRN PRN Reason: Constipation Melatonin (Melatonin 3 Mg Tablet) 6 mg PO BEDTIME PRN PRN Reason: Insomnia Ondansetron HCl (Ondansetron Hcl 4 Mg/2 Ml Vial) 4 mg IVPUSH Q8H PRN PRN Reason: Nausea and Vomiting Sodium Chloride (0.9 % Sodium Chloride Flush 3 Ml Syringe) 3 ml IVFLUSH QSHIFT TOI Last Admin: 10/15/24 01:09 Dose: Not Given Home Medications ?Medication ?Instructions ?Recorded ?Confirmed ?Type amlodipine 10 mg tablet 10 mg PO DAILY 10/14/24 10/14/24 History atorvastatin 20 mg tablet 20 mg PO DAILY 10/14/24 10/14/24 History empagliflozin 25 mg tablet 25 mg PO DAILY 10/14/24 10/14/24 History (Jardiance) furosemide 40 mg tablet 40 mg PO DAILY 10/14/24 10/14/24 History losartan 50 mg tablet 50 mg PO DAILY 10/14/24 10/14/24 History metformin 500 mg tablet,extended 500 mg PO DAILY 10/14/24 10/14/24 History release 24 hr sitagliptin 100 mg tablet (Zituvio) 100 mg PO DAILY 10/14/24 10/14/24 History Allergies Allergy/AdvReac Type Severity Reaction Status Date / Time Penicillins Allergy Hives Verified 10/13/24 16:06 Physical Exam Vital signs: Vital Signs Temp 97.5 F 10/15/24 04:09 Pulse 75 10/15/24 04:09 Resp 15 10/15/24 04:09 BP 114/77 10/15/24 04:09 Pulse Ox 94 10/15/24 04:09 O2 Del Method Nasal Cannula 10/15/24 04:09 O2 Flow Rate 2 10/15/24 04:09 Intake & Output 10/14/24 10/15/24 10/15/24 18:59 06:59 18:59 Intake Total 457 / 457 Output Total 1050 / 2400 1350 / 2400 Balance -1050 / -1943 -893 / -1943 Urine Output (Average ml/kg/hr) 0.71 0.91 Intake: Intake, Oral Amount 457 / 457 Output: Output, Urine Amount 1050 / 2400 1350 / 2400 Other: Urine Bathroom Urine Color Yellow Weight 123.8 kg - Constitutional Present: mild distress - Routine HEENT Exam Head: Present: normal inspection, normocephalic ENT: Present: mucous membranes moist - Routine Neck Exam Present: supple - Routine Respiratory Exam Present: CTAB - Routine Cardiovascular Exam Cardiovascular: Present: RRR, S1, S2 - Routine Abdominal Exam Present: soft, nontender - Routine Extremities Exam Present: nontender Hem/Onc Consult Result - Labs CBC & Chem 7: 10/16/24 06:31 10/18/24 08:15 Labs: Short CBC 10/14/24 10/15/24 Range/Units 05:47 04:48 WBC 1.5 L 1.7 L (4.8-10.8) X10*3/uL Hgb 12.4 L 12.3 L (14.0-18.0) g/dl Hct 37.4 L 37.3 L (42.0-52.0) % Plt Count 205 190 (160-400) X10*3/uL BMP 10/15/24 04:48 Sodium 136 Potassium 4.0 Chloride 106 Carbon Dioxide 19 L BUN 73 H Creatinine 3.27 H Calcium 8.0 L Urine 10/14/24 Range/Units 13:16 Urine Color Yellow Urine Appearance Clear Urine pH 5.0 (5.0-9.0) Ur Specific [place] 1.010 (1.005-1.025) Urine Protein Trace (Neg-Trace) mg/dL Urine Glucose (UA) 250 H (Negative) mg/dL Assessment and Plan Patient Active problem list reviewed?: Yes (1) Leukopenia Status: Acute Assessment and plan: This is a 49-year-old gentleman with history of Charcot's arthropathy and CKD. He presented with generalized edema and a productive cough. He is positive for influenza A. He has been noted to be leukopenic. 10/15/2024. WBC 1.7, HGB 12.3, HCT 37.3, PLT 190. Peripheral smear: Significant monocytosis. LFTs: 0.6/142/34/18. DIFFERENTIAL DIAGNOSIS: 1. AN ACUTE INFECTION: He has a viral infection with influenza A, HIV and hepatitis profiles have been checked and are negative. 2. RELATED TO MEDICATIONS: No obvious meds that could be implicated. 3. COLLAGEN VASCULAR DISORDER: Rheumatoid arthritis or SLE. Lupus can cause leukopenia as well as nephritis. 4. UNDERLYING MYELO INFILTRATIVE DISORDER: MDS versus acute leukemia versus lymphoma versus multiple myeloma. Myeloma can cause leukopenia as well as renal dysfunction. PLAN: I will proceed with further evaluation. Check ESR: 5, and rheumatoid factor:<13. JADE has been drawn. Check an SIEP, and serum free light chain ratio. Check LDH: 225. I will monitor his count carefully over the next couple of days, will proceed with a bone marrow exam if it declines further or does not improve. Thank you for the consult, I will follow along with you, CC: Veronica Steen MD 10/08: Flu symptoms improved. WBC 1.9. Showing an upward trend. Will continue to monitor it. - Time Spent With Patient Time Spent with Patient (in minutes): 30
[2024-10-15 08:56] LABS: Thyroid Stimulating Hormone 3.56 uIU/mL (0.32-4.0)
[2024-10-15 09:10] LABS: Folate 14.4 ng/mL (> or = 4.0); Vitamin B12 1627 pg/mL (200-900)
--- NOTE | 2024-10-15 09:22 | MHC.CM.PN ---
CM met with Patient at bedside. Patient lives in a house with his Parents and he is receiving outpatient PT @ [facility]. Home/resume said services is the Patient's goal and CM has initiated and will follow for dc planning. PCP is Dr. Veronica Steen and Son/Jermaine is HCP. Parents will transport to home at dc.
[2024-10-15] MEDS: 0.9 % Sodium Chloride Flush 3 ML SYRINGE IVFLUSH (09:28)
[2024-10-15] MEDS: Atorvastatin Calcium 20 MG TABLET PO (09:28)
--- NOTE | 2024-10-15 10:03 | PM.PNCARD ---
Subjective Subjective Date of Service: 10/15/24 Principal diagnosis: Decompensated congestive heart failure Interval history: Patient says he has been diuresing well. Negative balance of about 2 L. Hemodynamically stable. No arrhythmias noted. Breathing a little bit better. Renal function shows marginal improvement Review of Systems Constitutional: Reports no additional constitutional complaints Cardiovascular: Reports Abdominal Distension, Reports leg edema, Denies lightheadedness, Denies Loss of Consciousness, Denies palpitations and Reports dyspnea on exertion Respiratory: Reports dyspnea on exertion Endocrine: Denies palpitations Physical Exam Vital Signs: Last Vital Signs Temp 97.6 F 10/15/24 08:00 Pulse 72 10/15/24 08:00 Resp 18 10/15/24 08:00 BP 117/68 10/15/24 08:00 Pulse Ox 95 10/15/24 08:00 O2 Del Method Nasal Cannula 10/15/24 08:00 O2 Flow Rate 2 10/15/24 08:00 BMI result Body Mass Index 39.2 Const General: cooperative, alert, awake and in distress moderate and respiratory Nutritional Appearance: obese Orientation/consciousness: patient oriented x3 HEENT Head: Yes normocephalic and Yes atraumatic Neck Neck: Yes trachea midline, Yes supple and Yes JVD Resp Effort & Inspection: decreased respiratory effort Auscultation: crackles and diminished lung sounds Cardio Jugular venous distension: JVD Rate: regular rate Rhythm: regular rhythm Heart sounds: S1 normal heart sound present, S2 normal heart sound present, no click, Gallop heart sound present S3 gallop, no murmurs and no rubs GI Inspection: Yes distended Auscultation: normal bowel sounds Skin General skin exam: no rashes or lesions noted Neuro General: patient oriented x3 and no focal motor deficits Extrem General: No clubbing, No cyanosis and Yes edema Objective Labs and Meds 10/15/24 04:48 10/15/24 04:48 Lab results: Laboratory Results - last 24 hr 10/13/24 10/14/24 10/14/24 16:47 10:55 10:59 WBC RBC Hgb Hct MCV MCH MCHC RDW Plt Count MPV Immature Gran % (Auto) Neut % (Auto) Lymph % (Auto) [place] % (Auto) Eos % (Auto) Baso % (Auto) Lymph # (Auto) [place] # (Auto) Eos # (Auto) Baso # (Auto) Abs Immat Gran (auto) Absolute Neuts (auto) Absolute Nucleated RBC Nucleated RBC % (auto) Smear Tech's Comments Smear Path Review Sodium Potassium Chloride Carbon Dioxide Anion Gap BUN Creatinine Estim Creat Clear Calc Estimated GFR POC Glucose Random Glucose Calcium B-Natriuretic Peptide Vitamin B12 1627 H Folate 14.4 TSH Urine Color Urine Appearance Urine pH Ur Specific [place] Urine Protein Urine Glucose (UA) Urine Ketones Urine Blood Urine Nitrite Ur Leukocyte Esterase Urine RBC Urine WBC Ur Squamous Epith Cells Urine Bacteria Hyaline Casts U Random Total Protein Ur Random Sodium Urine Creatinine Hep Bs Antigen Negative Hep Bs Antibody NONREACTIVE Hep B Core Total Ab Nonreactive Hepatitis C Ab (EIA) Nonreactive HIV 1&2 Ab/P24 Ag 4thGn Nonreactive 10/14/24 10/14/24 10/14/24 12:35 13:16 17:34 WBC RBC Hgb Hct MCV MCH MCHC RDW Plt Count MPV Immature Gran % (Auto) Neut % (Auto) Lymph % (Auto) [place] % (Auto) Eos % (Auto) Baso % (Auto) Lymph # (Auto) [place] # (Auto) Eos # (Auto) Baso # (Auto) Abs Immat Gran (auto) Absolute Neuts (auto) Absolute Nucleated RBC Nucleated RBC % (auto) Smear Tech's Comments Smear Path Review Sodium Potassium Chloride Carbon Dioxide Anion Gap BUN Creatinine Estim Creat Clear Calc Estimated GFR POC Glucose 78 86 Random Glucose Calcium B-Natriuretic Peptide Vitamin B12 Folate TSH Urine Color Yellow Urine Appearance Clear Urine pH 5.0 Ur Specific [place] 1.010 Urine Protein Trace Urine Glucose (UA) 250 H Urine Ketones Negative Urine Blood Negative Urine Nitrite Negative Ur Leukocyte Esterase Negative Urine RBC 0-2 Urine WBC 0-5 Ur Squamous Epith Cells 0-2 Urine Bacteria None Seen Hyaline Casts 3-5 U Random Total Protein 14 H Ur Random Sodium 61.0 Urine Creatinine 40.57 Hep Bs Antigen Hep Bs Antibody Hep B Core Total Ab Hepatitis C Ab (EIA) HIV 1&2 Ab/P24 Ag 4thGn 10/14/24 10/15/24 10/15/24 19:58 00:45 04:48 WBC 1.7 L RBC 3.99 L Hgb 12.3 L Hct 37.3 L MCV 93.5 MCH 30.8 MCHC 33.0 RDW 15.7 Plt Count 190 MPV 10.1 Immature Gran % (Auto) 0.6 H Neut % (Auto) 47.9 Lymph % (Auto) 11.7 L [place] % (Auto) 22.2 H Eos % (Auto) 16.4 H Baso % (Auto) 1.2 Lymph # (Auto) 0.2 L [place] # (Auto) 0.4 Eos # (Auto) 0.3 Baso # (Auto) 0.0 Abs Immat Gran (auto) 0.01 Absolute Neuts (auto) 0.8 L Absolute Nucleated RBC 0.000 Nucleated RBC % (auto) 0.0 Smear Tech's Comments VERIFIED Smear Path Review Sodium 136 Potassium 4.0 Chloride 106 Carbon Dioxide 19 L Anion Gap 15 BUN 73 H Creatinine 3.27 H Estim Creat Clear Calc 35.2 Estimated GFR 20 POC Glucose 73 87 Random Glucose 79 Calcium 8.0 L B-Natriuretic Peptide Vitamin B12 Folate TSH 3.56 Urine Color Urine Appearance Urine pH Ur Specific [place] Urine Protein Urine Glucose (UA) Urine Ketones Urine Blood Urine Nitrite Ur Leukocyte Esterase Urine RBC Urine WBC Ur Squamous Epith Cells Urine Bacteria Hyaline Casts U Random Total Protein Ur Random Sodium Urine Creatinine Hep Bs Antigen Hep Bs Antibody Hep B Core Total Ab Hepatitis C Ab (EIA) HIV 1&2 Ab/P24 Ag 4thGn 10/15/24 10/15/24 04:49 07:31 WBC RBC Hgb Hct MCV MCH MCHC RDW Plt Count MPV Immature Gran % (Auto) Neut % (Auto) Lymph % (Auto) [place] % (Auto) Eos % (Auto) Baso % (Auto) Lymph # (Auto) [place] # (Auto) Eos # (Auto) Baso # (Auto) Abs Immat Gran (auto) Absolute Neuts (auto) Absolute Nucleated RBC Nucleated RBC % (auto) Smear Tech's Comments Smear Path Review Sodium Potassium Chloride Carbon Dioxide Anion Gap BUN Creatinine Estim Creat Clear Calc Estimated GFR POC Glucose 72 Random Glucose Calcium B-Natriuretic Peptide 1486 H Vitamin B12 Folate TSH Urine Color Urine Appearance Urine pH Ur Specific [place] Urine Protein Urine Glucose (UA) Urine Ketones Urine Blood Urine Nitrite Ur Leukocyte Esterase Urine RBC Urine WBC Ur Squamous Epith Cells Urine Bacteria Hyaline Casts U Random Total Protein Ur Random Sodium Urine Creatinine Hep Bs Antigen Hep Bs Antibody Hep B Core Total Ab Hepatitis C Ab (EIA) HIV 1&2 Ab/P24 Ag 4thGn Progress Note: A&P Assessment and plan (1) Heart failure, systolic, with acute decompensation: Status: Acute Assessment and Plan: Heart failure with reduced ejection fraction with severely reduced LV ejection fraction of unclear etiology question ischemic. Responding well to IV diuresis with Lasix drip. Continue Lasix drip. Continue IV diuresis up to 1.5-2 L. continue to monitor his renal function. Continue monitor electrolytes and replace as needed. Continue strict intake output chart management. Once kidney function started improving as expected will probably initiate other neurohormonal modulators for now continue medical therapy. He is significantly fluid overloaded and require few days for IV diuresis. Will continue to follow with you Time Spent With Patient Time: Total time managing care of this patient today ____ minutes. Progress Note: Quality Stroke Does the patient have a stroke diagnosis?: No Procedures Date of Service Date of Service: 10/15/24
[2024-10-15 11:31] LABS: Glucose, Whole Blood 82 mg/dL (60-115)
[2024-10-15] MEDS: Furosemide 200 MG in 0.9 % Sodium Chloride 80 ML IVCONT (11:48)
--- NOTE | 2024-10-15 12:11 | P.PNIM_ITS ---
Subjective Subjective Date of Service: 10/15/24 Physical Exam 2 Vital Signs: Vital Signs: Last Vital Signs Temp 97.6 F 10/15/24 08:00 Pulse 72 10/15/24 08:00 Resp 18 10/15/24 08:00 BP 117/68 10/15/24 08:00 Pulse Ox 95 10/15/24 08:00 O2 Del Method Nasal Cannula 10/15/24 08:00 O2 Flow Rate 2 10/15/24 08:00 BMI result Body Mass Index 39.2 Objective Data Active Medications Acetaminophen (Acetaminophen 325 Mg Tablet) 650 mg PO Q6H PRN PRN Reason: Pain, Mild 1-3,fever,headache Albuterol/Ipratropium (Albuterol/Iprat 2.5/0.5mg 3 Ml Ampul.Neb) 3 ml INHALE Q4H PRN PRN Reason: Shortness of Breath/Wheezing Atorvastatin Calcium (Atorvastatin Calcium 20 Mg Tablet) 20 mg PO DAILY [facility] Last Admin: 10/15/24 09:28 Dose: 20 mg Documented By: YASMEEN Benzonatate (Benzonatate 100 Mg Capsule) 100 mg PO TID PRN PRN Reason: Cough Calcium Carbonate (Calcium Carbonate 750 Mg Tab.Chew) 750 mg PO Q4H PRN PRN Reason: Heartburn Glucose (Glucose Gel 15 Gm Gel..Gram.) 15 gm PO Q15M PRN; Protocol PRN Reason: per Hypoglycemia Standing Ord. Dextrose (D10) 250 mls @ 750 mls/hr IV Q15M PRN; Protocol PRN Reason: per Hypoglycemia Standing Ord. Furosemide 200 mg/ Sodium (Chloride) 100 mls @ 2.5 mls/hr IVCONT .Q24H [facility] Last Admin: 10/15/24 11:48 Dose: 5 mg/hr, 2.5 mls/hr Documented By: YASMEEN Insulin Human Lispro (Insulin Lispro 100 Unit/Ml 3 Ml Vial) 0 unit SUBCUT QIDACHS [facility]; Protocol Last Admin: 10/15/24 11:34 Dose: Not Given Documented By: YASMEEN Non-Admin Reason: No Insulin Coverage Magnesium Hydroxide (Milk Of Magnesia 30 Ml Oral.Susp) 30 ml PO DAILY PRN PRN Reason: Constipation Melatonin (Melatonin 3 Mg Tablet) 6 mg PO BEDTIME PRN PRN Reason: Insomnia Ondansetron HCl (Ondansetron Hcl 4 Mg/2 Ml Vial) 4 mg IVPUSH Q8H PRN PRN Reason: Nausea and Vomiting Sodium Chloride (0.9 % Sodium Chloride Flush 3 Ml Syringe) 3 ml IVFLUSH QSHIFT [facility] Last Admin: 10/15/24 09:28 Dose: 3 ml Documented By: YASMEEN Labs 10/15/24 04:48 10/15/24 04:48 Labs: Laboratory Results - last 24 hr 10/13/24 10/14/24 10/14/24 16:47 10:59 12:35 MCV MCH MCHC RDW Plt Count MPV Immature Gran % (Auto) Neut % (Auto) Lymph % (Auto) [place] % (Auto) Eos % (Auto) Baso % (Auto) Lymph # (Auto) [place] # (Auto) Eos # (Auto) Baso # (Auto) Abs Immat Gran (auto) Absolute Neuts (auto) Absolute Nucleated RBC Nucleated RBC % (auto) Smear Tech's Comments Smear Path Review Anion Gap Estim Creat Clear Calc Estimated GFR POC Glucose 78 Random Glucose Calcium B-Natriuretic Peptide Vitamin B12 1627 H Folate 14.4 TSH Urine Color Urine Appearance Urine pH Ur Specific [place] Urine Protein Urine Glucose (UA) Urine Ketones Urine Blood Urine Nitrite Ur Leukocyte Esterase Urine RBC Urine WBC Ur Squamous Epith Cells Urine Bacteria Hyaline Casts U Random Total Protein Ur Random Sodium Urine Creatinine 10/14/24 10/14/24 10/14/24 13:16 17:34 19:58 MCV MCH MCHC RDW Plt Count MPV Immature Gran % (Auto) Neut % (Auto) Lymph % (Auto) [place] % (Auto) Eos % (Auto) Baso % (Auto) Lymph # (Auto) [place] # (Auto) Eos # (Auto) Baso # (Auto) Abs Immat Gran (auto) Absolute Neuts (auto) Absolute Nucleated RBC Nucleated RBC % (auto) Smear Tech's Comments Smear Path Review Anion Gap Estim Creat Clear Calc Estimated GFR POC Glucose 86 73 Random Glucose Calcium B-Natriuretic Peptide Vitamin B12 Folate TSH Urine Color Yellow Urine Appearance Clear Urine pH 5.0 Ur Specific [place] 1.010 Urine Protein Trace Urine Glucose (UA) 250 H Urine Ketones Negative Urine Blood Negative Urine Nitrite Negative Ur Leukocyte Esterase Negative Urine RBC 0-2 Urine WBC 0-5 Ur Squamous Epith Cells 0-2 Urine Bacteria None Seen Hyaline Casts 3-5 U Random Total Protein 14 H Ur Random Sodium 61.0 Urine Creatinine 40.57 10/15/24 10/15/24 10/15/24 00:45 04:48 04:49 MCV 93.5 MCH 30.8 MCHC 33.0 RDW 15.7 Plt Count 190 MPV 10.1 Immature Gran % (Auto) 0.6 H Neut % (Auto) 47.9 Lymph % (Auto) 11.7 L [place] % (Auto) 22.2 H Eos % (Auto) 16.4 H Baso % (Auto) 1.2 Lymph # (Auto) 0.2 L [place] # (Auto) 0.4 Eos # (Auto) 0.3 Baso # (Auto) 0.0 Abs Immat Gran (auto) 0.01 Absolute Neuts (auto) 0.8 L Absolute Nucleated RBC 0.000 Nucleated RBC % (auto) 0.0 Smear Tech's Comments VERIFIED Smear Path Review Anion Gap 15 Estim Creat Clear Calc 35.2 Estimated GFR 20 POC Glucose 87 Random Glucose 79 Calcium 8.0 L B-Natriuretic Peptide 1486 H Vitamin B12 Folate TSH 3.56 Urine Color Urine Appearance Urine pH Ur Specific [place] Urine Protein Urine Glucose (UA) Urine Ketones Urine Blood Urine Nitrite Ur Leukocyte Esterase Urine RBC Urine WBC Ur Squamous Epith Cells Urine Bacteria Hyaline Casts U Random Total Protein Ur Random Sodium Urine Creatinine 10/15/24 10/15/24 07:31 11:19 MCV MCH MCHC RDW Plt Count MPV Immature Gran % (Auto) Neut % (Auto) Lymph % (Auto) [place] % (Auto) Eos % (Auto) Baso % (Auto) Lymph # (Auto) [place] # (Auto) Eos # (Auto) Baso # (Auto) Abs Immat Gran (auto) Absolute Neuts (auto) Absolute Nucleated RBC Nucleated RBC % (auto) Smear Tech's Comments Smear Path Review Anion Gap Estim Creat Clear Calc Estimated GFR POC Glucose 72 82 Random Glucose Calcium B-Natriuretic Peptide Vitamin B12 Folate TSH Urine Color Urine Appearance Urine pH Ur Specific [place] Urine Protein Urine Glucose (UA) Urine Ketones Urine Blood Urine Nitrite Ur Leukocyte Esterase Urine RBC Urine WBC Ur Squamous Epith Cells Urine Bacteria Hyaline Casts U Random Total Protein Ur Random Sodium Urine Creatinine Assessment and Plan (1) Leukopenia: Status: Acute (2) Heart failure, systolic, with acute decompensation: Status: Acute (3) Anasarca: Status: Acute (4) Acute kidney injury superimposed on CKD: Status: Acute (5) Influenza A: Status: Acute Plan Patient is a 49-year-old male with a past medical history significant for type 2 diabetes, HTN, CKD (baseline creatinine 2.5), s/p right BKA for Charcot's foot, who presented to the ED due to increased edema in the upper and lower extremities as well as scrotum for the past 2-3 weeks. Differential diagnoses includes renal anasarca versus CHF. Anasarca 2/2 acute systolic CHF Echo showing low EF of 20-25% Cardiology following, diuresis for now Continue lasix drip I\O follow BNP RYAN on CKD secondary to hypoperfusion\FSGN\MDS Nephrology following, consider biopsy stable Cr , making urine monitor BMP and need for dialysis Influenza A, mildly symptomatic contact precautions supportive care Leukopenia concern if worsens by Flu A but was trending down RA, SLE or MDS check ESR, RA, SIEP, Free light chain and LDH Hematology team following; consider bone marrow if no improvement\declines more Type 2 diabetes hold p.o. meds (metformin, Januvia, Jardiance) sliding scale insulin low sodium/diabetic diet HTN hold losartan Obesity BMI 39.2 weight loss encouraged Full code VTE prophylaxis: Patient with anasarca and failed outpatient treatment, complicated by RYAN on CKD , Heart failure and influenza a requiring overnight stay for IV diuresis, further workup and monitoring. Quality Stroke Does the patient have a stroke diagnosis?: No VTE Prior VTE?: No VTE Risk Level:: Medical - moderate - high VTE Device Contraindication: Treatment Not Indicated VTE Drug Contraindication: N/A - Med Ordered
[2024-10-15 12:37] LABS: Lactate Dehydrogenase 225 U/L (118-273)
[2024-10-15 13:10] LABS: Erythrocyte Sedimentation Rate 5 MM/HR (0-15)
[2024-10-15 13:50] LABS: Rheumatoid Factor < 13.0 IU/mL (<15.0)
--- NOTE | 2024-10-15 15:08 | P.PNNP_ITS ---
Subjective Subjective Date of Service: 10/15/24 Principal diagnosis: Decompensated congestive heart failure Interval history: Events noted On Lasix drip. Family at bedside Nonoliguric Physical Exam 2 Vital Signs: Vital Signs: Last Vital Signs Temp 97.3 F 10/15/24 12:00 Pulse 73 10/15/24 12:00 Resp 18 10/15/24 12:00 BP 113/60 10/15/24 12:00 Pulse Ox 93 10/15/24 12:42 O2 Del Method Nasal Cannula 10/15/24 12:42 O2 Flow Rate 4 10/15/24 12:42 BMI result Body Mass Index 39.2 Const: General: comfortable; No acute distress Orientation/consciousness: p atient oriented x3 Eyes: General: appearance normal, both eyes and all related structures V isual Fitzgerald: normal visual fitzgerald by confrontation Neck: Neck: Yes supple and Yes no JVD Resp: Effort & Inspection: normal respiratory effort and respiratory effort not decreased Auscultation: rhonchi Cardio: Palpation: no palpable S3 and no palpable S4 Heart sounds: no rubs GI: Inspection: Yes normal to inspection Palpation (GI): Soft to palpation Percussion: Yes normal to percussion Auscultation: normal bowel sounds : General: Yes no CVA tenderness Back/Spine/Pelvis: Back: no CVA tenderness Skin: General skin exam: no petechiae and no purpura Neuro: General: patient oriented x3 and no focal motor deficits Extrem: General: No clubbing and Yes edema Objective Data Labs 10/15/24 04:48 10/15/24 04:48 Labs: Laboratory Results - last 24 hr 10/13/24 10/14/24 10/14/24 16:47 10:59 17:34 WBC RBC Hgb Hct MCV MCH MCHC RDW Plt Count MPV Immature Gran % (Auto) Neut % (Auto) Lymph % (Auto) [place] % (Auto) Eos % (Auto) Baso % (Auto) Lymph # (Auto) [place] # (Auto) Eos # (Auto) Baso # (Auto) Abs Immat Gran (auto) Absolute Neuts (auto) Absolute Nucleated RBC Nucleated RBC % (auto) Smear Tech's Comments Smear Path Review ESR Sodium Potassium Chloride Carbon Dioxide Anion Gap BUN Creatinine Estim Creat Clear Calc Estimated GFR POC Glucose 86 Random Glucose Calcium Lactate Dehydrogenase B-Natriuretic Peptide Vitamin B12 1627 H Folate 14.4 TSH Rheumatoid Factor 10/14/24 10/15/24 10/15/24 19:58 00:45 04:48 WBC 1.7 L RBC 3.99 L Hgb 12.3 L Hct 37.3 L MCV 93.5 MCH 30.8 MCHC 33.0 RDW 15.7 Plt Count 190 MPV 10.1 Immature Gran % (Auto) 0.6 H Neut % (Auto) 47.9 Lymph % (Auto) 11.7 L [place] % (Auto) 22.2 H Eos % (Auto) 16.4 H Baso % (Auto) 1.2 Lymph # (Auto) 0.2 L [place] # (Auto) 0.4 Eos # (Auto) 0.3 Baso # (Auto) 0.0 Abs Immat Gran (auto) 0.01 Absolute Neuts (auto) 0.8 L Absolute Nucleated RBC 0.000 Nucleated RBC % (auto) 0.0 Smear Tech's Comments VERIFIED Smear Path Review ESR 5 Sodium 136 Potassium 4.0 Chloride 106 Carbon Dioxide 19 L Anion Gap 15 BUN 73 H Creatinine 3.27 H Estim Creat Clear Calc 35.2 Estimated GFR 20 POC Glucose 73 87 Random Glucose 79 Calcium 8.0 L Lactate Dehydrogenase 225 B-Natriuretic Peptide Vitamin B12 Folate TSH 3.56 Rheumatoid Factor 10/15/24 10/15/24 10/15/24 04:49 07:31 11:19 WBC RBC Hgb Hct MCV MCH MCHC RDW Plt Count MPV Immature Gran % (Auto) Neut % (Auto) Lymph % (Auto) [place] % (Auto) Eos % (Auto) Baso % (Auto) Lymph # (Auto) [place] # (Auto) Eos # (Auto) Baso # (Auto) Abs Immat Gran (auto) Absolute Neuts (auto) Absolute Nucleated RBC Nucleated RBC % (auto) Smear Tech's Comments Smear Path Review ESR Sodium Potassium Chloride Carbon Dioxide Anion Gap BUN Creatinine Estim Creat Clear Calc Estimated GFR POC Glucose 72 82 Random Glucose Calcium Lactate Dehydrogenase B-Natriuretic Peptide 1486 H Vitamin B12 Folate TSH Rheumatoid Factor 10/15/24 13:25 WBC RBC Hgb Hct MCV MCH MCHC RDW Plt Count MPV Immature Gran % (Auto) Neut % (Auto) Lymph % (Auto) [place] % (Auto) Eos % (Auto) Baso % (Auto) Lymph # (Auto) [place] # (Auto) Eos # (Auto) Baso # (Auto) Abs Immat Gran (auto) Absolute Neuts (auto) Absolute Nucleated RBC Nucleated RBC % (auto) Smear Tech's Comments Smear Path Review ESR Sodium Potassium Chloride Carbon Dioxide Anion Gap BUN Creatinine Estim Creat Clear Calc Estimated GFR POC Glucose Random Glucose Calcium Lactate Dehydrogenase B-Natriuretic Peptide Vitamin B12 Folate TSH Rheumatoid Factor < 13.0 Procedures Date of Service Date of Service: 10/15/24 Assessment & Plan Assessment and plan (1) Anasarca: Status: Acute (2) CKD (chronic kidney disease): Status: Acute (3) Acute kidney injury superimposed on CKD: Status: Acute Plan Acute kidney injury superimposed on CKD. He has non nephrotic range proteinuria. Differential diagnosis would include a FSGS/membranous nephropathy. Other possibility including IgA nephropathy should be ruled out. Although he has had diabetes mellitus I doubt that he has diabetic nephropathy to explain the rapid decline in EGFR. He is currently fluid overloaded. No signs or symptoms of uremia. Recommendations Agree with IV Lasix. Keep output more than intake. Keep on low sodium diet. Serologies ordered. He will need a kidney biopsy for a definite diagnosis. Time Spent With Patient Time: Total time managing care of this patient today ____ minutes. Progress Note: Quality Stroke Does the patient have a stroke diagnosis?: No
[2024-10-15 16:26] LABS: Glucose, Whole Blood 92 mg/dL (60-115)
[2024-10-15 21:24] LABS: Glucose, Whole Blood 109 mg/dL (60-115)
[2024-10-16] VITALS: BP 118/76; PULSE 79; RESP 16; TEMP 36.4; O2SAT 94
[2024-10-16 03:32] VITALS: BP 122/70; PULSE 76; RESP 18; TEMP 36.8; O2SAT 93
[2024-10-16 07:29] LABS: Basophils Percent Auto 1.1 % (0-2); Eosinophils Absolute Auto 0.3 X10*3/uL (0.0-0.4); Eosinophils Percent Auto 13.8 % (0-4); Hematocrit 37.6 % (42.0-52.0); Hemoglobin 12.5 g/dl (14.0-18.0); Imm Gran Abs Auto 0.01 X10*3/uL (0.00-0.03); Imm Gran Pct Auto 0.5 % (0.0-0.4); Lymphocytes Absolute Auto 0.3 X10*3/uL (1.2-4.9); Lymphocytes Percent Auto 15.3 % (20-40); MANUAL DIFF FLAG SCAN; Mean Corpuscular HGB Conc 33.2 g/dl (31.0-36.0); Mean Corpuscular Hemoglobin 30.5 pg (27.0-33.0); Mean Corpuscular Volume 91.7 fL (80.0-98.0); Mean Platelet Volume 10.1 fL (9.4-12.4); Monocytes Absolute Auto 0.3 X10*3/uL (0.1-1.2); Monocytes Percent Auto 17.5 % (2-11); Neutrophils Percent Auto 51.8 % (45-73); Platelet Count 170 X10*3/uL (160-400); Red Cell Distribution Width 15.7 % (11.0-16.0); SCAN SMEAR FLAG 1
[2024-10-16 07:29] LABS: Glucose, Whole Blood 88 mg/dL (60-115)
[2024-10-16 07:30] LABS: White Blood Count 1.9 X10*3/uL (4.8-10.8)
[2024-10-16 07:38] LABS: Anion Gap 15 (12-20); Blood Urea Nitrogen 68 mg/dL (9-16); Calcium 7.8 mg/dL (8.4-10.2); Carbon Dioxide 20 mmol/L (22-29); Chloride 106 mmol/L (96-108); Creatinine Clr Calc Pharmacy 37.8; Estimated Glomerular Filt Rate 22; Glucose Random 76 mg/dL (60-115); Potassium 3.7 mmol/L (3.3-5.1); Sodium 137 mmol/L (135-145)
[2024-10-16 07:45] LABS: B Type Natriuretic Peptide 1782 pg/mL (<100)
[2024-10-16 08:00] VITALS: BP 119/64; PULSE 76; TEMP 36.6; O2SAT 93
[2024-10-16 08:00] LABS: SLIDE REVIEW VERIFIED
[2024-10-16] MEDS: Atorvastatin Calcium 20 MG TABLET PO (08:21)
--- NOTE | 2024-10-16 09:55 | P.PNCA_ITS ---
Subjective Subjective Date of Service: 10/16/24 Principal diagnosis: Decompensated congestive heart failure Interval history: Patient was doing a lot better. Overnight negative balance of 2.8 L. Creatinine is gradually improving. He said his shortness of breath today appears to be better. Denies any palpitation. Had an episode of nonsustained VT overnight. Review of Systems Constitutional: Reports fatigue Cardiovascular: Reports Abdominal Distension, Denies chest pain, Denies rapid heart rate, Reports leg edema, Denies lightheadedness, Denies Loss of Consciousness and Reports dyspnea Respiratory: Reports no additional respiratory complaints and Reports dyspnea Skin/Breast: Reports system reviewed and no additional complaints, except as docu Reports system reviewed and no additional complaints, except as documented Endocrine: Reports fatigue Physical Exam Vital Signs: Last Vital Signs Temp 97.8 F 10/16/24 08:00 Pulse 76 10/16/24 08:00 Resp 18 10/16/24 03:32 BP 119/64 10/16/24 08:00 Pulse Ox 93 10/16/24 08:00 O2 Del Method Nasal Cannula 10/16/24 08:00 O2 Flow Rate 4 10/16/24 08:00 BMI result Body Mass Index 39.2 Const General: cooperative, alert, awake and in distress moderate and respiratory Nutritional Appearance: obese Orientation/consciousness: patient oriented x3 HEENT Head: Yes normocephalic and Yes atraumatic Neck Neck: Yes trachea midline, Yes supple and Yes JVD Resp Effort & Inspection: decreased respiratory effort Auscultation: crackles and diminished lung sounds Cardio Jugular venous distension: JVD Rate: regular rate Rhythm: regular rhythm Heart sounds: S1 normal heart sound present, S2 normal heart sound present, no click, Gallop heart sound present S3 gallop, no murmurs and no rubs GI Inspection: Yes distended Auscultation: normal bowel sounds Skin General skin exam: no rashes or lesions noted Neuro General: patient oriented x3 and no focal motor deficits Extrem General: No clubbing, No cyanosis and Yes edema Objective Labs and Meds 10/16/24 06:31 10/16/24 06:31 Lab results: Laboratory Results - last 24 hr 10/15/24 10/15/24 10/15/24 04:48 11:19 13:25 WBC RBC Hgb Hct MCV MCH MCHC RDW Plt Count MPV Immature Gran % (Auto) Neut % (Auto) Lymph % (Auto) [place] % (Auto) Eos % (Auto) Baso % (Auto) Lymph # (Auto) [place] # (Auto) Eos # (Auto) Baso # (Auto) Abs Immat Gran (auto) Absolute Neuts (auto) Absolute Nucleated RBC Nucleated RBC % (auto) Smear Tech's Comments ESR 5 Sodium Potassium Chloride Carbon Dioxide Anion Gap BUN Creatinine Estim Creat Clear Calc Estimated GFR POC Glucose 82 Random Glucose Calcium Lactate Dehydrogenase 225 B-Natriuretic Peptide Rheumatoid Factor < 13.0 10/15/24 10/15/24 10/16/24 16:22 19:57 06:31 WBC 1.9 L RBC 4.10 L Hgb 12.5 L Hct 37.6 L MCV 91.7 MCH 30.5 MCHC 33.2 RDW 15.7 Plt Count 170 MPV 10.1 Immature Gran % (Auto) 0.5 H Neut % (Auto) 51.8 Lymph % (Auto) 15.3 L [place] % (Auto) 17.5 H Eos % (Auto) 13.8 H Baso % (Auto) 1.1 Lymph # (Auto) 0.3 L [place] # (Auto) 0.3 Eos # (Auto) 0.3 Baso # (Auto) 0.0 Abs Immat Gran (auto) 0.01 Absolute Neuts (auto) 1.0 L Absolute Nucleated RBC 0.000 Nucleated RBC % (auto) 0.0 Smear Tech's Comments VERIFIED ESR Sodium 137 Potassium 3.7 Chloride 106 Carbon Dioxide 20 L Anion Gap 15 BUN 68 H Creatinine 3.05 H Estim Creat Clear Calc 37.8 Estimated GFR 22 POC Glucose 92 109 Random Glucose 76 Calcium 7.8 L Lactate Dehydrogenase B-Natriuretic Peptide 1782 H Rheumatoid Factor 10/16/24 07:24 WBC RBC Hgb Hct MCV MCH MCHC RDW Plt Count MPV Immature Gran % (Auto) Neut % (Auto) Lymph % (Auto) [place] % (Auto) Eos % (Auto) Baso % (Auto) Lymph # (Auto) [place] # (Auto) Eos # (Auto) Baso # (Auto) Abs Immat Gran (auto) Absolute Neuts (auto) Absolute Nucleated RBC Nucleated RBC % (auto) Smear Tech's Comments ESR Sodium Potassium Chloride Carbon Dioxide Anion Gap BUN Creatinine Estim Creat Clear Calc Estimated GFR POC Glucose 88 Random Glucose Calcium Lactate Dehydrogenase B-Natriuretic Peptide Rheumatoid Factor Progress Note: A&P Assessment and plan (1) Heart failure, systolic, with acute decompensation: Status: Acute Assessment and Plan: Acute heart failure with significant LV systolic dysfunction causing cardiorenal syndrome with worsening renal function clinically still significantly fluid overloaded. Continue IV diuresis with Lasix drip with gradual diuresis at currently prescribed. Creatinine is gradually improving. Continue strict intake and output chart continue monitor renal function as well as BNP. BNP still elevated. Will hold off on any neurohormonal modulators till his kidney function shows improvement. Noted to have nonsustained ventricular tachycardia most likely require vest defibrillator on discharge. Out of bed to chair. Incentive spirometry was discussed. Will follow with him Time Spent With Patient Time: Total time managing care of this patient today ____ minutes. Progress Note: Quality Stroke Does the patient have a stroke diagnosis?: No Procedures Date of Service Date of Service: 10/16/24
[2024-10-16 11:17] LABS: Magnesium 2.2 mg/dL (1.6-2.6)
[2024-10-16] MEDS: Magnesium Oxide 400 MG TABLET PO ×2 (11:20→16:27)
[2024-10-16] MEDS: Potassium Chloride ER 20 MEQ TAB.ER.PRT 40 MEQ PO (11:20)
[2024-10-16 11:28] LABS: INTERNATIONAL NORM RATIO 1.1 (0.9-1.1); Prothrombin Time 12.9 SEC (10.9-12.4)
[2024-10-16] MEDS: Furosemide 200 MG in 0.9 % Sodium Chloride 80 ML IVCONT (11:32)
[2024-10-16 11:36] LABS: Glucose, Whole Blood 78 mg/dL (60-115)
[2024-10-16 12:00] VITALS: BP 144/68; PULSE 76; RESP 18; TEMP 36.6; O2SAT 89
[2024-10-16 12:28] LABS: Anti Glomerular Basement Memb <1.0 AI; Myeloperoxidase Antibody <1.0 AI; Proteinase 3 PR3 Antibodies <1.0 AI
--- NOTE | 2024-10-16 13:09 | HO.PM.IMPN ---
Subjective Subjective Date of Service: 10/16/24 Interval History: seen and evaluated this morning feels little anxious making good amount of urine Cr improving no other events Review of Systems Review of Systems: Yes all other systems are reviewed and are negative Physical Exam Vital Signs: Vital Signs: Last Vital Signs Temp 97.9 F 10/16/24 12:00 Pulse 76 10/16/24 12:00 Resp 18 10/16/24 12:00 BP 144/68 H 10/16/24 12:00 Pulse Ox 89 L 10/16/24 12:00 O2 Del Method Nasal Cannula 10/16/24 12:00 O2 Flow Rate 4 10/16/24 12:00 BMI result Body Mass Index 39.2 Const: Other: Constitutional : Awake, interactive, not in distress Neck : Normal inspection, Supple Cardiovascular : RRR, elevated JVP, +2 lower extremity edema, scrotal swelling Respiratory : fair bilateral air entry, basal fine crackles Gastrointestinal: soft, lax, Normal bowel sounds, Non tender Skin : Warm, Dry Extremities: Rt BKA Neurological : Alert & oriented x3, No focal deficit Objective Data Active Medications Acetaminophen (Acetaminophen 325 Mg Tablet) 650 mg PO Q6H PRN PRN Reason: Pain, Mild 1-3,fever,headache Albuterol/Ipratropium (Albuterol/Iprat 2.5/0.5mg 3 Ml Ampul.Neb) 3 ml INHALE Q4H PRN PRN Reason: Shortness of Breath/Wheezing Atorvastatin Calcium (Atorvastatin Calcium 20 Mg Tablet) 20 mg PO DAILY [facility] Last Admin: 10/16/24 08:21 Dose: 20 mg Documented By: YASMEEN Benzonatate (Benzonatate 100 Mg Capsule) 100 mg PO TID PRN PRN Reason: Cough Calcium Carbonate (Calcium Carbonate 750 Mg Tab.Chew) 750 mg PO Q4H PRN PRN Reason: Heartburn Glucose (Glucose Gel 15 Gm Gel..Gram.) 15 gm PO Q15M PRN; Protocol PRN Reason: per Hypoglycemia Standing Ord. Heparin Sodium (Porcine) (Heparin Sodium,Porcine 5,000 Unit/Ml Vial) 5,000 unit SUBCUT Q12H [facility] Last Admin: 10/16/24 11:27 Dose: Not Given Documented By: YASMEEN Non-Admin Reason: Patient Refused Dextrose (D10) 250 mls @ 750 mls/hr IV Q15M PRN; Protocol PRN Reason: per Hypoglycemia Standing Ord. Furosemide 200 mg/ Sodium (Chloride) 100 mls @ 2.5 mls/hr IVCONT .Q24H [facility] Last Admin: 10/16/24 11:32 Dose: 5 mg/hr, 2.5 mls/hr Documented By: YASMEEN Insulin Human Lispro (Insulin Lispro 100 Unit/Ml 3 Ml Vial) 0 unit SUBCUT QIDACHS [facility]; Protocol Last Admin: 10/16/24 11:36 Dose: Not Given Documented By: YASMEEN Non-Admin Reason: No Insulin Coverage Lorazepam (Lorazepam 0.5 Mg Tablet) 0.25 mg PO Q8H PRN PRN Reason: anxiety/restlessness Magnesium Hydroxide (Milk Of Magnesia 30 Ml Oral.Susp) 30 ml PO DAILY PRN PRN Reason: Constipation Magnesium Oxide (Magnesium Oxide 400 Mg Tablet) 400 mg PO BIDPC [facility] Last Admin: 10/16/24 11:20 Dose: 400 mg Documented By: YASMEEN Melatonin (Melatonin 3 Mg Tablet) 6 mg PO BEDTIME PRN PRN Reason: Insomnia Ondansetron HCl (Ondansetron Hcl 4 Mg/2 Ml Vial) 4 mg IVPUSH Q8H PRN PRN Reason: Nausea and Vomiting Sodium Chloride (0.9 % Sodium Chloride Flush 3 Ml Syringe) 3 ml IVFLUSH QSHIFT [facility] Last Admin: 10/16/24 07:40 Dose: Not Given Documented By: YASMEEN Non-Admin Reason: IV Running Labs 10/16/24 06:31 10/16/24 06:31 Labs: Laboratory Results - last 24 hr 10/15/24 10/15/24 10/15/24 04:48 13:25 16:22 MCV MCH MCHC RDW Plt Count MPV Immature Gran % (Auto) Neut % (Auto) Lymph % (Auto) [place] % (Auto) Eos % (Auto) Baso % (Auto) Lymph # (Auto) [place] # (Auto) Eos # (Auto) Baso # (Auto) Abs Immat Gran (auto) Absolute Neuts (auto) Absolute Nucleated RBC Nucleated RBC % (auto) Smear Tech's Comments ESR 5 PT INR Anion Gap Estim Creat Clear Calc Estimated GFR POC Glucose 92 Random Glucose Calcium Magnesium B-Natriuretic Peptide Rheumatoid Factor < 13.0 Proteinase 3 (PR3) Ab <1.0 Myeloperoxidase Ab <1.0 Glomerular Base Memb Ab <1.0 10/15/24 10/16/24 10/16/24 19:57 06:31 07:24 MCV 91.7 MCH 30.5 MCHC 33.2 RDW 15.7 Plt Count 170 MPV 10.1 Immature Gran % (Auto) 0.5 H Neut % (Auto) 51.8 Lymph % (Auto) 15.3 L [place] % (Auto) 17.5 H Eos % (Auto) 13.8 H Baso % (Auto) 1.1 Lymph # (Auto) 0.3 L [place] # (Auto) 0.3 Eos # (Auto) 0.3 Baso # (Auto) 0.0 Abs Immat Gran (auto) 0.01 Absolute Neuts (auto) 1.0 L Absolute Nucleated RBC 0.000 Nucleated RBC % (auto) 0.0 Smear Tech's Comments VERIFIED ESR PT INR Anion Gap 15 Estim Creat Clear Calc 37.8 Estimated GFR 22 POC Glucose 109 88 Random Glucose 76 Calcium 7.8 L Magnesium 2.2 B-Natriuretic Peptide 1782 H Rheumatoid Factor Proteinase 3 (PR3) Ab Myeloperoxidase Ab Glomerular Base Memb Ab 10/16/24 10/16/24 11:16 11:32 MCV MCH MCHC RDW Plt Count MPV Immature Gran % (Auto) Neut % (Auto) Lymph % (Auto) [place] % (Auto) Eos % (Auto) Baso % (Auto) Lymph # (Auto) [place] # (Auto) Eos # (Auto) Baso # (Auto) Abs Immat Gran (auto) Absolute Neuts (auto) Absolute Nucleated RBC Nucleated RBC % (auto) Smear Tech's Comments ESR PT 12.9 H INR 1.1 Anion Gap Estim Creat Clear Calc Estimated GFR POC Glucose 78 Random Glucose Calcium Magnesium B-Natriuretic Peptide Rheumatoid Factor Proteinase 3 (PR3) Ab Myeloperoxidase Ab Glomerular Base Memb Ab Assessment and Plan (1) Leukopenia: Status: Acute (2) Heart failure, systolic, with acute decompensation: Status: Acute (3) Anasarca: Status: Acute (4) Acute kidney injury superimposed on CKD: Status: Acute (5) Influenza A: Status: Acute Plan Patient is a 49-year-old male with a past medical history significant for type 2 diabetes, HTN, CKD (baseline creatinine 2.5), s/p right BKA for Charcot's foot, who presented to the ED due to increased edema in the upper and lower extremities as well as scrotum for the past 2-3 weeks. Differential diagnoses includes renal anasarca versus CHF. Anasarca 2/2 acute systolic CHF Echo showing low EF of 20-25% Cardiology following, diuresis for now Continue lasix drip I\O follow BNP NSVT keep K>4m, Mg >2 discussed with cardiology; hold on medications for now, will likely need a Vest on discharge possible [facility] transfer for angiogram RYAN on CKD secondary to cardiorenal\hypoperfusion\FSGN\MDS No need of HD Nephrology following, to biopsy of kidney by Saturday stable Cr , making urine monitor BMP Influenza A, mildly symptomatic contact precautions supportive care Leukopenia concern if worsens by Flu A but was trending down negative RA, SLE or MDS low ESR, normal RA and LDH pending SIEP, Free light chain Hematology team following; consider bone marrow if no improvement\declines more Type 2 diabetes hold p.o. meds (metformin, Januvia, Jardiance) sliding scale insulin low sodium/diabetic diet HTN hold losartan Obesity BMI 39.2 weight loss encouraged Full code VTE prophylaxis: Patient with anasarca and failed outpatient treatment, complicated by RYAN on CKD , Heart failure and influenza a requiring overnight stay for IV diuresis, further workup and monitoring. Quality Stroke Does the patient have a stroke diagnosis?: No VTE Prior VTE?: No VTE Risk Level:: Medical - moderate - high VTE Device Contraindication: Treatment Not Indicated VTE Drug Contraindication: N/A - Med Ordered
[2024-10-16] MEDS: LORazepam 0.5 MG TABLET 0.25 MG PO ×2 (13:20→21:49)
[2024-10-16] MEDS: Acetaminophen 325 MG TABLET 650 MG PO (13:20)
--- NOTE | 2024-10-16 15:11 | MHC.CM.PN ---
EMR REVIEWED, PT NOT MEDICALLY CLEARED FOR DC D/Y NEED FOR CONTINUED IV DIURESES AND KIDNEY BIOPSY SCHEDULED FOR THURSDAY 10/19, NO PLAN FOR DC AT THIS TIME, CM WILL CONT TO FOLLOW DC NEEDS.
[2024-10-16 16:00] VITALS: BP 121/67; PULSE 84; RESP 18; TEMP 36.9; O2SAT 93
[2024-10-16] MEDS: 0.9 % Sodium Chloride Flush 3 ML SYRINGE IVFLUSH (16:27)
[2024-10-16 16:29] LABS: Glucose, Whole Blood 107 mg/dL (60-115)
--- NOTE | 2024-10-16 18:23 | P.PNNP_ITS ---
Subjective Subjective Date of Service: 10/16/24 Principal diagnosis: Decompensated congestive heart failure Interval history: seen and evaluated this morning feels little anxious making good amount of urine Cr improving no other events Family at bedside Physical Exam 2 Vital Signs: Vital Signs: Last Vital Signs Temp 98.4 F 10/16/24 16:00 Pulse 84 10/16/24 16:00 Resp 18 10/16/24 16:00 BP 121/67 10/16/24 16:00 Pulse Ox 93 10/16/24 16:00 O2 Del Method Nasal Cannula 10/16/24 16:00 O2 Flow Rate 4 10/16/24 16:00 BMI result Body Mass Index 39.2 Awake. Comfortable. Neck is supple. Mucosa moist. Lungs bilateral scattered rhonchi. Heart S1-S2 heard no gallop. Abdomen soft. Extremities 3+ edema. No involuntary movements. No myoclonus. Objective Data Labs 10/16/24 06:31 10/16/24 06:31 Labs: Laboratory Results - last 24 hr 10/15/24 10/15/24 10/16/24 04:48 19:57 06:31 WBC 1.9 L RBC 4.10 L Hgb 12.5 L Hct 37.6 L MCV 91.7 MCH 30.5 MCHC 33.2 RDW 15.7 Plt Count 170 MPV 10.1 Immature Gran % (Auto) 0.5 H Neut % (Auto) 51.8 Lymph % (Auto) 15.3 L [place] % (Auto) 17.5 H Eos % (Auto) 13.8 H Baso % (Auto) 1.1 Lymph # (Auto) 0.3 L [place] # (Auto) 0.3 Eos # (Auto) 0.3 Baso # (Auto) 0.0 Abs Immat Gran (auto) 0.01 Absolute Neuts (auto) 1.0 L Absolute Nucleated RBC 0.000 Nucleated RBC % (auto) 0.0 Smear Tech's Comments VERIFIED PT INR Sodium 137 Potassium 3.7 Chloride 106 Carbon Dioxide 20 L Anion Gap 15 BUN 68 H Creatinine 3.05 H Estim Creat Clear Calc 37.8 Estimated GFR 22 POC Glucose 109 Random Glucose 76 Calcium 7.8 L Magnesium 2.2 B-Natriuretic Peptide 1782 H Proteinase 3 (PR3) Ab <1.0 Myeloperoxidase Ab <1.0 Glomerular Base Memb Ab <1.0 10/16/24 10/16/24 10/16/24 07:24 11:16 11:32 WBC RBC Hgb Hct MCV MCH MCHC RDW Plt Count MPV Immature Gran % (Auto) Neut % (Auto) Lymph % (Auto) [place] % (Auto) Eos % (Auto) Baso % (Auto) Lymph # (Auto) [place] # (Auto) Eos # (Auto) Baso # (Auto) Abs Immat Gran (auto) Absolute Neuts (auto) Absolute Nucleated RBC Nucleated RBC % (auto) Smear Tech's Comments PT 12.9 H INR 1.1 Sodium Potassium Chloride Carbon Dioxide Anion Gap BUN Creatinine Estim Creat Clear Calc Estimated GFR POC Glucose 88 78 Random Glucose Calcium Magnesium B-Natriuretic Peptide Proteinase 3 (PR3) Ab Myeloperoxidase Ab Glomerular Base Memb Ab 10/16/24 16:25 WBC RBC Hgb Hct MCV MCH MCHC RDW Plt Count MPV Immature Gran % (Auto) Neut % (Auto) Lymph % (Auto) [place] % (Auto) Eos % (Auto) Baso % (Auto) Lymph # (Auto) [place] # (Auto) Eos # (Auto) Baso # (Auto) Abs Immat Gran (auto) Absolute Neuts (auto) Absolute Nucleated RBC Nucleated RBC % (auto) Smear Tech's Comments PT INR Sodium Potassium Chloride Carbon Dioxide Anion Gap BUN Creatinine Estim Creat Clear Calc Estimated GFR POC Glucose 107 Random Glucose Calcium Magnesium B-Natriuretic Peptide Proteinase 3 (PR3) Ab Myeloperoxidase Ab Glomerular Base Memb Ab Procedures Date of Service Date of Service: 10/16/24 Assessment & Plan Assessment and plan (1) Anasarca: Status: Acute (2) CKD (chronic kidney disease): Status: Acute (3) Acute kidney injury superimposed on CKD: Status: Acute Plan Acute kidney injury superimposed on CKD. No significant proteinuria. Therefore FSGS/membranous nephropathy are unlikely UA is benign with out sediments Tubular injury due to hypoperfusion in a setting of heart failure Although he has had diabetes mellitus I doubt that he has diabetic nephropathy to explain the rapid decline in EGFR. He is currently fluid overloaded. No signs or symptoms of uremia. Recommendations Agree with IV Lasix. Keep output more than intake. Keep on low sodium diet. Serologies ordered - results pending Discussed with cardiology - Pt likely transferred to [facility] for cardiac cath HE is at risk for ongoing renal injury from IV contrast. But risks outweigh benefits Ok to hold biopsy until coronary angiogram in complete Time Spent With Patient Time: Total time managing care of this patient today ____ minutes. Progress Note: Quality Stroke Does the patient have a stroke diagnosis?: No
[2024-10-16 19:30] VITALS: BP 129/72; PULSE 79; RESP 18; TEMP 36.2; O2SAT 91
[2024-10-16 20:39] LABS: Glucose, Whole Blood 107 mg/dL (60-115)
[2024-10-17] VITALS (7 sets, daily range): BP systolic 118–133; BP diastolic 67–82; PULSE 72–85; RESP 18–22; TEMP 36.4–36.9; O2SAT 91–95
[2024-10-17 07:10] LABS: Glucose, Whole Blood 86 mg/dL (60-115)
[2024-10-17] MEDS: Atorvastatin Calcium 20 MG TABLET PO (08:29)
[2024-10-17] MEDS: 0.9 % Sodium Chloride Flush 3 ML SYRINGE IVFLUSH ×2 (08:29→16:28)
[2024-10-17] MEDS: Magnesium Oxide 400 MG TABLET PO ×2 (08:29→16:27)
[2024-10-17 10:56] LABS: Anion Gap 13 (12-20); Blood Urea Nitrogen 69 mg/dL (9-16); Calcium 7.5 mg/dL (8.4-10.2); Carbon Dioxide 21 mmol/L (22-29); Chloride 107 mmol/L (96-108); Creatinine Clr Calc Pharmacy 40.1; Estimated Glomerular Filt Rate 23; Glucose Random 126 mg/dL (60-115); Potassium 3.9 mmol/L (3.3-5.1); Sodium 137 mmol/L (135-145)
[2024-10-17 11:02] LABS: Glucose, Whole Blood 133 mg/dL (60-115)
[2024-10-17 11:02] LABS: B Type Natriuretic Peptide 1914 pg/mL (<100)
[2024-10-17] MEDS: Benzonatate 100 MG CAPSULE PO ×2 (11:55→21:02)
[2024-10-17] MEDS: Furosemide 40 MG/4 ML VIAL IVPUSH (11:55)
[2024-10-17] MEDS: metOLazone 2.5 MG TABLET PO (11:56)
--- NOTE | 2024-10-17 12:11 | PM.PNCARD ---
Subjective Subjective Date of Service: 10/17/24 Principal diagnosis: Decompensated congestive heart failure Interval history: Patient says he has been diuresing okay although intake and output chart suggest positive balance. Patient says breathing is better although still remains fluid overloaded. Blood pressure is stable. Creatinine this morning has improved. BNP still remains significantly elevated Review of Systems Constitutional: Reports no additional constitutional complaints Cardiovascular: Reports leg edema, Reports dyspnea on exertion and Reports orthopnea Respiratory: Reports dyspnea on exertion Gastrointestinal: Reports no additional gastrointestinal complaints Reports system reviewed and no additional complaints, except as documented Physical Exam Vital Signs: Last Vital Signs Temp 97.6 F 10/17/24 11:04 Pulse 72 10/17/24 11:04 Resp 20 10/17/24 11:04 BP 118/82 10/17/24 11:04 Pulse Ox 94 10/17/24 11:04 O2 Del Method Nasal Cannula 10/17/24 11:04 O2 Flow Rate 4 10/17/24 11:04 BMI result Body Mass Index 39.2 Const General: cooperative, alert, awake and in distress moderate and respiratory Nutritional Appearance: obese Orientation/consciousness: patient oriented x3 HEENT Head: Yes normocephalic and Yes atraumatic Neck Neck: Yes trachea midline, Yes supple and Yes JVD Resp Effort & Inspection: decreased respiratory effort Auscultation: crackles and diminished lung sounds Cardio Jugular venous distension: JVD Rate: regular rate Rhythm: regular rhythm Heart sounds: S1 normal heart sound present, S2 normal heart sound present, no click, Gallop heart sound present S3 gallop, no murmurs and no rubs GI Inspection: Yes distended Auscultation: normal bowel sounds Skin General skin exam: no rashes or lesions noted Neuro General: patient oriented x3 and no focal motor deficits Extrem General: No clubbing, No cyanosis and Yes edema Objective Labs and Meds 10/16/24 06:31 10/17/24 10:19 Lab results: Laboratory Results - last 24 hr 10/15/24 10/16/24 10/16/24 04:48 16:25 20:24 Sodium Potassium Chloride Carbon Dioxide Anion Gap BUN Creatinine Estim Creat Clear Calc Estimated GFR POC Glucose 107 107 Random Glucose Calcium B-Natriuretic Peptide Proteinase 3 (PR3) Ab <1.0 Myeloperoxidase Ab <1.0 Glomerular Base Memb Ab <1.0 0110/17/24 10/17/24 07:04 10:19 10:58 Sodium 137 Potassium 3.9 Chloride 107 Carbon Dioxide 21 L Anion Gap 13 BUN 69 H Creatinine 2.87 H Estim Creat Clear Calc 40.1 Estimated GFR 23 POC Glucose 86 133 H Random Glucose 126 H Calcium 7.5 L B-Natriuretic Peptide 1914 H Proteinase 3 (PR3) Ab Myeloperoxidase Ab Glomerular Base Memb Ab Progress Note: A&P Assessment and plan (1) Heart failure, systolic, with acute decompensation: Status: Acute Assessment and Plan: Heart failure with severe LV systolic dysfunction of unclear etiology question ischemic given his longstanding diabetes. Improving renal function with diuresis although diuresis as tapered off. Will booster diuresis with metolazone today. Strict intake and output chart needs to be pursued. Continue monitor renal function as well as BNP. Continue to replace electrolytes as needed. Will need ischemic workup once his heart failure is better optimized in his creatinine improves. Discussed with Nephrology team as well as hospitalist team. Will hold off on any other neurohormonal modulators at this point in time given his kidney function. If kidney function improves and gets back to baseline will consider adding ARNI therapy. Hold off on beta-francisco therapy at this point time. Will follow with you Time Spent With Patient Time: Total time managing care of this patient today ____ minutes. Progress Note: Quality Stroke Does the patient have a stroke diagnosis?: No Procedures Date of Service Date of Service: 10/17/24
[2024-10-17] MEDS: Furosemide 200 MG in 0.9 % Sodium Chloride 80 ML IVCONT (12:21)
--- NOTE | 2024-10-17 13:37 | HO.PM.IMPN ---
Subjective Subjective Date of Service: 10/17/24 Interval History: seen and evaluated this morning making fair amount of urine Cr improving no other events Review of Systems Review of Systems: Yes all other systems are reviewed and are negative Physical Exam Vital Signs: Vital Signs: Last Vital Signs Temp 97.6 F 10/17/24 11:04 Pulse 72 10/17/24 11:04 Resp 20 10/17/24 11:04 BP 118/82 10/17/24 11:04 Pulse Ox 94 10/17/24 11:04 O2 Del Method Nasal Cannula 10/17/24 11:04 O2 Flow Rate 4 10/17/24 11:04 BMI result Body Mass Index 39.2 Const: Other: Constitutional : Awake, interactive, not in distress Neck : Normal inspection, Supple Cardiovascular : RRR, elevated JVP, +2 lower extremity edema, scrotal swelling Respiratory : fair bilateral air entry, basal fine crackles Gastrointestinal: soft, lax, Normal bowel sounds, Non tender Skin : Warm, Dry Extremities: Rt BKA Neurological : Alert & oriented x3, No focal deficit Objective Data Active Medications Acetaminophen (Acetaminophen 325 Mg Tablet) 650 mg PO Q6H PRN PRN Reason: Pain, Mild 1-3,fever,headache Last Admin: 10/16/24 13:20 Dose: 650 mg Documented By: YASMEEN Albuterol/Ipratropium (Albuterol/Iprat 2.5/0.5mg 3 Ml Ampul.Neb) 3 ml INHALE Q4H PRN PRN Reason: Shortness of Breath/Wheezing Atorvastatin Calcium (Atorvastatin Calcium 20 Mg Tablet) 20 mg PO DAILY [facility] Last Admin: 10/17/24 08:29 Dose: 20 mg Documented By: SAMSON Benzonatate (Benzonatate 100 Mg Capsule) 100 mg PO TID PRN PRN Reason: Cough Last Admin: 10/17/24 11:55 Dose: 100 mg Documented By: SAMSON Calcium Carbonate (Calcium Carbonate 750 Mg Tab.Chew) 750 mg PO Q4H PRN PRN Reason: Heartburn Glucose (Glucose Gel 15 Gm Gel..Gram.) 15 gm PO Q15M PRN; Protocol PRN Reason: per Hypoglycemia Standing Ord. Heparin Sodium (Porcine) (Heparin Sodium,Porcine 5,000 Unit/Ml Vial) 5,000 unit SUBCUT Q12H [facility] Last Admin: 10/17/24 11:58 Dose: Not Given Documented By: SAMSON Non-Admin Reason: Patient Refused Dextrose (D10) 250 mls @ 750 mls/hr IV Q15M PRN; Protocol PRN Reason: per Hypoglycemia Standing Ord. Furosemide 200 mg/ Sodium (Chloride) 100 mls @ 2.5 mls/hr IVCONT .Q24H [facility] Last Admin: 10/17/24 12:21 Dose: 5 mg/hr, 2.5 mls/hr Documented By: SAMSON Insulin Human Lispro (Insulin Lispro 100 Unit/Ml 3 Ml Vial) 0 unit SUBCUT QIDACHS [facility]; Protocol Last Admin: 10/17/24 11:06 Dose: Not Given Documented By: SAMSON Non-Admin Reason: No Insulin Coverage Lorazepam (Lorazepam 0.5 Mg Tablet) 0.25 mg PO Q8H PRN PRN Reason: anxiety/restlessness Last Admin: 10/16/24 21:49 Dose: 0.25 mg Documented By: MARCELA Magnesium Hydroxide (Milk Of Magnesia 30 Ml Oral.Susp) 30 ml PO DAILY PRN PRN Reason: Constipation Magnesium Oxide (Magnesium Oxide 400 Mg Tablet) 400 mg PO BIDPC [facility] Last Admin: 10/17/24 08:29 Dose: 400 mg Documented By: SAMSON Melatonin (Melatonin 3 Mg Tablet) 6 mg PO BEDTIME PRN PRN Reason: Insomnia Ondansetron HCl (Ondansetron Hcl 4 Mg/2 Ml Vial) 4 mg IVPUSH Q8H PRN PRN Reason: Nausea and Vomiting Sodium Chloride (0.9 % Sodium Chloride Flush 3 Ml Syringe) 3 ml IVFLUSH QSHIFT [facility] Last Admin: 10/17/24 08:29 Dose: 3 ml Documented By: SAMSON Labs 10/16/24 06:31 10/17/24 10:19 Labs: Laboratory Results - last 24 hr 10/16/24 10/16/24 10/17/24 16:25 20:24 07:04 Anion Gap Estim Creat Clear Calc Estimated GFR POC Glucose 107 107 86 Random Glucose Calcium B-Natriuretic Peptide 10/17/24 10/17/24 10:19 10:58 Anion Gap 13 Estim Creat Clear Calc 40.1 Estimated GFR 23 POC Glucose 133 H Random Glucose 126 H Calcium 7.5 L B-Natriuretic Peptide 1914 H Assessment and Plan (1) Leukopenia: Status: Acute (2) Heart failure, systolic, with acute decompensation: Status: Acute (3) Anasarca: Status: Acute (4) Acute kidney injury superimposed on CKD: Status: Acute Plan Patient is a 49-year-old male with a past medical history significant for type 2 diabetes, HTN, CKD (baseline creatinine 2.5), s/p right BKA for Charcot's foot, who presented to the ED due to increased edema in the upper and lower extremities as well as scrotum for the past 2-3 weeks. Differential diagnoses includes renal anasarca versus CHF. Anasarca 2/2 acute systolic CHF Echo showing low EF of 20-25% Continue lasix drip Add Metolazone 2.5 water restriction Cardiology following, diuresis for now I\O follow BNP NSVT No recurrence keep K>4m, Mg >2 discussed with cardiology; hold on medications for now, will likely need a Vest on discharge possible [facility] transfer for angiogram RYAN on CKD secondary to cardiorenal most likely Cr improving No need of HD Nephrology following, to biopsy of kidney by Saturday monitor BMP Influenza A, mildly symptomatic contact precautions supportive care Leukopenia concern if worsens by Flu A but was trending down negative RA, SLE or MDS low ESR, normal RA and LDH pending SIEP, Free light chain Hematology team following; consider bone marrow if no improvement\declines more Type 2 diabetes hold p.o. meds (metformin, Januvia, Jardiance) sliding scale insulin low sodium/diabetic diet HTN hold losartan Obesity BMI 39.2 weight loss encouraged Full code VTE prophylaxis: Patient with anasarca and failed outpatient treatment, complicated by RYAN on CKD , Heart failure and influenza a requiring overnight stay for IV diuresis, further workup and monitoring. Quality Stroke Does the patient have a stroke diagnosis?: No VTE Prior VTE?: No VTE Risk Level:: Medical - moderate - high VTE Device Contraindication: Treatment Not Indicated VTE Drug Contraindication: N/A - Med Ordered
[2024-10-17 16:38] LABS: Glucose, Whole Blood 131 mg/dL (60-115)
[2024-10-17] MEDS: LORazepam 0.5 MG TABLET 0.25 MG PO (21:02)
[2024-10-17 21:07] LABS: Glucose, Whole Blood 144 mg/dL (60-115)
[2024-10-18 03:29] VITALS: BP 131/74; PULSE 82; RESP 18; TEMP 36.7; O2SAT 94
[2024-10-18 06:56] LABS: Glucose, Whole Blood 90 mg/dL (60-115)
[2024-10-18 07:02] VITALS: BP 120/71; PULSE 80; RESP 20; TEMP 36.8; O2SAT 97
[2024-10-18] MEDS: Magnesium Oxide 400 MG TABLET PO ×2 (07:33→15:56)
[2024-10-18] MEDS: Atorvastatin Calcium 20 MG TABLET PO (07:34)
[2024-10-18] MEDS: 0.9 % Sodium Chloride Flush 3 ML SYRINGE IVFLUSH ×3 (07:34→21:41)
[2024-10-18] MEDS: Benzonatate 100 MG CAPSULE PO ×3 (07:34→21:37)
[2024-10-18 09:32] LABS: Anion Gap 14 (12-20); Blood Urea Nitrogen 63 mg/dL (9-16); Calcium 7.9 mg/dL (8.4-10.2); Carbon Dioxide 23 mmol/L (22-29); Chloride 103 mmol/L (96-108); Creatinine Clr Calc Pharmacy 41.1; Estimated Glomerular Filt Rate 24; Glucose Random 91 mg/dL (60-115); Potassium 3.2 mmol/L (3.3-5.1); Sodium 137 mmol/L (135-145)
[2024-10-18 09:43] LABS: B Type Natriuretic Peptide 2487 pg/mL (<100)
[2024-10-18 10:51] LABS: Glucose, Whole Blood 169 mg/dL (60-115)
[2024-10-18 11:05] VITALS: BP 118/68; PULSE 81; RESP 20; TEMP 36.4; O2SAT 92
[2024-10-18] MEDS: Furosemide 200 MG in 0.9 % Sodium Chloride 80 ML IVCONT (11:12)
[2024-10-18] MEDS: Insulin Lispro 100 UNIT/ML 3 ML VIAL SUBCUT ×2 (11:15→16:51)
[2024-10-18] MEDS: metOLazone 2.5 MG TABLET PO ×2 (11:15→15:56)
--- NOTE | 2024-10-18 11:35 | HO.PM.IMPN ---
Subjective Subjective Date of Service: 10/18/24 Interval History: seen and evaluated this morning making fair amount of urine Cr improving no other events Review of Systems Review of Systems: Yes all other systems are reviewed and are negative Physical Exam Vital Signs: Vital Signs: Last Vital Signs Temp 97.5 F 10/18/24 11:05 Pulse 81 10/18/24 11:05 Resp 20 10/18/24 11:05 BP 118/68 10/18/24 11:05 Pulse Ox 92 10/18/24 11:05 O2 Del Method Nasal Cannula 10/18/24 11:05 O2 Flow Rate 2 10/18/24 11:05 BMI result Body Mass Index 39.2 Const: Other: Constitutional : Awake, interactive, not in distress Neck : Normal inspection, Supple Cardiovascular : RRR, elevated JVP, +2 lower extremity edema, scrotal swelling Respiratory : fair bilateral air entry, basal fine crackles Gastrointestinal: soft, lax, Normal bowel sounds, Non tender Skin : Warm, Dry Extremities: Rt BKA Neurological : Alert & oriented x3, No focal deficit Objective Data Active Medications Acetaminophen (Acetaminophen 325 Mg Tablet) 650 mg PO Q6H PRN PRN Reason: Pain, Mild 1-3,fever,headache Last Admin: 10/16/24 13:20 Dose: 650 mg Documented By: YASMEEN Albuterol/Ipratropium (Albuterol/Iprat 2.5/0.5mg 3 Ml Ampul.Neb) 3 ml INHALE Q4H PRN PRN Reason: Shortness of Breath/Wheezing Atorvastatin Calcium (Atorvastatin Calcium 20 Mg Tablet) 20 mg PO DAILY [facility] Last Admin: 10/18/24 07:34 Dose: 20 mg Documented By: SAMSON Benzonatate (Benzonatate 100 Mg Capsule) 100 mg PO TID PRN PRN Reason: Cough Last Admin: 10/18/24 07:34 Dose: 100 mg Documented By: SAMSON Calcium Carbonate (Calcium Carbonate 750 Mg Tab.Chew) 750 mg PO Q4H PRN PRN Reason: Heartburn Glucose (Glucose Gel 15 Gm Gel..Gram.) 15 gm PO Q15M PRN; Protocol PRN Reason: per Hypoglycemia Standing Ord. Heparin Sodium (Porcine) (Heparin Sodium,Porcine 5,000 Unit/Ml Vial) 5,000 unit SUBCUT Q12H [facility] Last Admin: 10/18/24 10:34 Dose: Not Given Documented By: SAMSON Non-Admin Reason: Patient Refused Dextrose (D10) 250 mls @ 750 mls/hr IV Q15M PRN; Protocol PRN Reason: per Hypoglycemia Standing Ord. Furosemide 200 mg/ Sodium (Chloride) 100 mls @ 2.5 mls/hr IVCONT .Q24H [facility] Last Admin: 10/18/24 11:12 Dose: 5 mg/hr, 2.5 mls/hr Documented By: SAMSON Insulin Human Lispro (Insulin Lispro 100 Unit/Ml 3 Ml Vial) 0 unit SUBCUT QIDACHS [facility]; Protocol Last Admin: 10/18/24 11:15 Dose: 2 unit Documented By: SAMSON Loperamide HCl (Loperamide Hcl 2 Mg Capsule) 2 mg PO Q4H PRN PRN Reason: Diarrhea Lorazepam (Lorazepam 0.5 Mg Tablet) 0.25 mg PO Q8H PRN PRN Reason: anxiety/restlessness Last Admin: 10/17/24 21:02 Dose: 0.25 mg Documented By: MARCELA Magnesium Hydroxide (Milk Of Magnesia 30 Ml Oral.Susp) 30 ml PO DAILY PRN PRN Reason: Constipation Magnesium Oxide (Magnesium Oxide 400 Mg Tablet) [facility] Last Admin: 10/18/24 07:33 Dose: 400 mg Documented By: SAMSON Melatonin (Melatonin 3 Mg Tablet) 6 mg PO BEDTIME PRN PRN Reason: Insomnia Ondansetron HCl (Ondansetron Hcl 4 Mg/2 Ml Vial) 4 mg IVPUSH Q8H PRN PRN Reason: Nausea and Vomiting Sodium Chloride (0.9 % Sodium Chloride Flush 3 Ml Syringe) 3 ml IVFLUSH QSHIFT [facility] Last Admin: 10/18/24 07:34 Dose: 3 ml Documented By: SAMSON Labs 10/16/24 06:31 10/18/24 08:15 Labs: Laboratory Results - last 24 hr 10/17/24 10/17/24 10/18/24 16:35 20:49 06:53 Anion Gap Estim Creat Clear Calc Estimated GFR POC Glucose 131 H 144 H 90 Random Glucose Calcium B-Natriuretic Peptide Blood Type Antibody Screen 10/18/24 10/18/24 10/18/24 08:14 08:15 10:47 Anion Gap 14 Estim Creat Clear Calc 41.1 Estimated GFR 24 POC Glucose 169 H Random Glucose 91 Calcium 7.9 L B-Natriuretic Peptide 2487 H Blood Type AB Positive Antibody Screen NEGATIVE Assessment and Plan (1) Leukopenia: Status: Acute (2) Heart failure, systolic, with acute decompensation: Status: Acute (3) Anasarca: Status: Acute (4) Acute kidney injury superimposed on CKD: Status: Acute Plan Patient is a 49-year-old male with a past medical history significant for type 2 diabetes, HTN, CKD (baseline creatinine 2.5), s/p right BKA for Charcot's foot, who presented to the ED due to increased edema in the upper and lower extremities as well as scrotum for the past 2-3 weeks. Differential diagnoses includes renal anasarca versus CHF. Anasarca 2/2 acute systolic CHF Echo showing low EF of 20-25% Continue lasix drip give more Metolazone 2.5 water restriction Cardiology following, diuresis for now I\O follow BNP NSVT No recurrence keep K>4m, Mg >2 discussed with cardiology; hold on medications for now, will likely need a Vest on discharge possible [facility] transfer for angiogram RYAN on CKD secondary to cardiorenal most likely Cr improving No need of HD Nephrology following, to biopsy of kidney by Saturday monitor BMP Influenza A, mildly symptomatic contact precautions supportive care Leukopenia concern if worsens by Flu A but was trending down negative RA, SLE or MDS low ESR, normal RA and LDH pending SIEP, Free light chain Hematology team following; consider bone marrow if no improvement\declines more Type 2 diabetes hold p.o. meds (metformin, Januvia, Jardiance) sliding scale insulin low sodium/diabetic diet HTN hold losartan Obesity BMI 39.2 weight loss encouraged Full code VTE prophylaxis: Patient with anasarca and failed outpatient treatment, complicated by RYAN on CKD , Heart failure and influenza a requiring overnight stay for IV diuresis, further workup and monitoring. Quality Stroke Does the patient have a stroke diagnosis?: No VTE Prior VTE?: No VTE Risk Level:: Medical - moderate - high VTE Device Contraindication: Treatment Not Indicated VTE Drug Contraindication: N/A - Med Ordered
--- NOTE | 2024-10-18 12:29 | PM.PNCARD ---
Subjective Subjective Date of Service: 10/18/24 Principal diagnosis: Decompensated congestive heart failure Interval history: Patient has been diuresing a negative balance of 2600 cc and said he has been diuresing better and shortness of breath is improved. Although BNP is further elevated. Creatinine in his marginally improved. Clinically still appears to be significantly fluid overloaded. Review of Systems Constitutional: Reports fatigue and Reports weakness Eyes: Reports no additional eye complaints Cardiovascular: Denies chest pain, Denies rapid heart rate, Reports leg edema, Denies Loss of Consciousness, Reports dyspnea and Reports dyspnea on exertion Respiratory: Reports no additional respiratory complaints, Reports dyspnea and Reports dyspnea on exertion Gastrointestinal: Reports no additional gastrointestinal complaints Reports weakness Psychiatric: Reports anxiety Endocrine: Reports fatigue Physical Exam Vital Signs: Last Vital Signs Temp 97.5 F 10/18/24 11:05 Pulse 81 10/18/24 11:05 Resp 20 10/18/24 11:05 BP 118/68 10/18/24 11:05 Pulse Ox 92 10/18/24 11:05 O2 Del Method Nasal Cannula 10/18/24 11:05 O2 Flow Rate 2 10/18/24 11:05 BMI result Body Mass Index 39.2 Const General: cooperative, alert, awake and in distress moderate and respiratory Nutritional Appearance: obese Orientation/consciousness: patient oriented x3 HEENT Head: Yes normocephalic and Yes atraumatic Neck Neck: Yes trachea midline, Yes supple and Yes JVD Resp Effort & Inspection: decreased respiratory effort Auscultation: crackles and diminished lung sounds Cardio Jugular venous distension: JVD Rate: regular rate Rhythm: regular rhythm Heart sounds: S1 normal heart sound present, S2 normal heart sound present, no click, Gallop heart sound present S3 gallop, no murmurs and no rubs GI Inspection: Yes distended Auscultation: normal bowel sounds Skin General skin exam: no rashes or lesions noted Neuro General: patient oriented x3 and no focal motor deficits Extrem General: No clubbing, No cyanosis and Yes edema Objective Labs and Meds 10/16/24 06:31 10/18/24 08:15 Lab results: Laboratory Results - last 24 hr 10/17/24 10/17/24 10/18/24 16:35 20:49 06:53 Sodium Potassium Chloride Carbon Dioxide Anion Gap BUN Creatinine Estim Creat Clear Calc Estimated GFR POC Glucose 131 H 144 H 90 Random Glucose Calcium B-Natriuretic Peptide Blood Type Antibody Screen 10/18/24 10/18/24 10/18/24 08:14 08:15 10:47 Sodium 137 Potassium 3.2 L Chloride 103 Carbon Dioxide 23 Anion Gap 14 BUN 63 H Creatinine 2.80 H Estim Creat Clear Calc 41.1 Estimated GFR 24 POC Glucose 169 H Random Glucose 91 Calcium 7.9 L B-Natriuretic Peptide 2487 H Blood Type AB Positive Antibody Screen NEGATIVE Progress Note: A&P Assessment and plan (1) Heart failure, systolic, with acute decompensation: Status: Acute Assessment and Plan: Decompensated congestive heart failure with slow improvement despite diuresis. Continue aggressive diuresis. Agree with metolazone addition again today. Strict intake and output chart needs to be pursued. Renal function improving but not at a rate that will be expected. Would add hydralazine 10 mg b.i.d. and Isordil 5 mg b.i.d. as vasodilators therapy. I think he requires further workup once he is more stabilized and euvolemic for cardiac catheterization to evaluate coronary anatomy as long as his renal function continues to improve. Continue monitor renal function and replace electrolytes as needed. Management was discussed with him and his parents were present at bedside. He remains anxious about needing further procedures. Discussed with Nephrology about postponing his renal biopsy till his cardiac workup has been completed. Will follow with you Time Spent With Patient Time: Total time managing care of this patient today ____ minutes. Progress Note: Quality Stroke Does the patient have a stroke diagnosis?: No Procedures Date of Service Date of Service: 10/18/24
[2024-10-18 15:55] VITALS: BP 129/73; PULSE 81; RESP 18; TEMP 36.2; O2SAT 90
[2024-10-18] MEDS: Loperamide HCl 2 MG CAPSULE PO (15:55)
[2024-10-18] MEDS: Acetaminophen 325 MG TABLET 650 MG PO (15:57)
[2024-10-18 16:35] LABS: Glucose, Whole Blood 153 mg/dL (60-115)
[2024-10-18 19:42] VITALS: BP 132/78; PULSE 81; RESP 18; TEMP 36.5; O2SAT 94
[2024-10-18] MEDS: LORazepam 0.5 MG TABLET 0.25 MG PO (21:37)
[2024-10-19] VITALS (7 sets, daily range): BP systolic 121–138; BP diastolic 70–86; PULSE 78–89; RESP 18–20; TEMP 36.2–37.2; O2SAT 92–96
[2024-10-19 07:02] LABS: B Type Natriuretic Peptide 2656 pg/mL (<100)
[2024-10-19 07:09] LABS: Glucose, Whole Blood 146 mg/dL (60-115)
[2024-10-19 07:20] LABS: Anion Gap 14 (12-20); Blood Urea Nitrogen 60 mg/dL (9-16); Calcium 7.8 mg/dL (8.4-10.2); Carbon Dioxide 25 mmol/L (22-29); Chloride 103 mmol/L (96-108); Creatinine Clr Calc Pharmacy 44.7; Estimated Glomerular Filt Rate 26; Glucose Random 92 mg/dL (60-115); Sodium 139 mmol/L (135-145)
[2024-10-19 07:25] LABS: Glucose, Whole Blood 91 mg/dL (60-115)
[2024-10-19] MEDS: Benzonatate 100 MG CAPSULE PO ×2 (08:47→21:23)
[2024-10-19] MEDS: Atorvastatin Calcium 20 MG TABLET PO (08:47)
[2024-10-19] MEDS: metOLazone 2.5 MG TABLET PO (08:47)
[2024-10-19] MEDS: Magnesium Oxide 400 MG TABLET PO ×2 (08:47→16:25)
[2024-10-19] MEDS: Loperamide HCl 2 MG CAPSULE PO (08:47)
[2024-10-19] MEDS: 0.9 % Sodium Chloride Flush 3 ML SYRINGE IVFLUSH ×2 (08:48→16:25)
[2024-10-19 08:58] LABS: Complement C3 111 mg/dL (82-185)
--- NOTE | 2024-10-19 10:17 | P.PNCA_ITS ---
Subjective Subjective Date of Service: 10/19/24 Principal diagnosis: Decompensated congestive heart failure Interval history: Patient states he feels okay. Discussed about transferred to [facility] but he states he would not want to go today. Shortness of breath is improving. Review of Systems Review of Systems Yes all other systems are reviewed and are negative Constitutional: Reports as per HPI and Reports no additional constitutional complaints Eyes: Reports as per HPI and Denies no additional eye complaints Denies system reviewed and no additional complaints, except as documented and Reports as per HPI Cardiovascular: Reports as per HPI, Reports no additional cardiovascular complaints, Denies acrocyanosis, Denies cool extremities, Denies chest pain, Denies leg edema, Denies lightheadedness, Denies palpitations and Reports dyspnea Respiratory: Reports as per HPI, Denies no additional respiratory complaints and Reports dyspnea Gastrointestinal: Reports as per HPI and Denies no additional gastrointestinal complaints Genitourinary: Reports no additional male genitourinary complaints and Reports as per HPI Musculoskeletal: Reports no additional musculoskeletal complaints and Reports as per HPI Skin/Breast: Reports system reviewed and no additional complaints, except as docu Reports system reviewed and no additional complaints, except as documented and Reports as per HPI Psychiatric: Reports no additional psychiatric complaints and Reports as per HPI Endocrine: Reports no additional endocrine complaints, Reports as per HPI and Denies palpitations Hematologic/Lymphatic: Reports no additional hematologic/lymphatic complaints and Reports as per HPI Allergic/Immunologic: Reports no additional allergic/immunologic complaints and Reports as per HPI Physical Exam Vital Signs: Last Vital Signs Temp 97.9 F 10/19/24 07:53 Pulse 80 10/19/24 07:53 Resp 18 10/19/24 07:53 BP 138/80 10/19/24 07:53 Pulse Ox 96 10/19/24 07:53 O2 Del Method Nasal Cannula 10/19/24 07:53 O2 Flow Rate 4 10/19/24 07:53 BMI result Body Mass Index 39.2 Const General: comfortable and no acute distress Orientation/consciousness: patient oriented x3 HEENT Other: Unremarkable Head: Yes normal to inspection Neck Neck: Yes normal visual inspection Chest Chest palpation & inspection: normal inspection of the chest Resp Auscultation: crackles Cardio Palpation: normal PMI Heart sounds: S1 normal heart sound present, S2 normal heart sound present, no gallops, no murmurs and no rubs GI Palpation (GI): Soft to palpation Back/Spine/Pelvis Other: unremarkable Skin General skin exam: no rashes or lesions noted Neuro General: patient oriented x3 Extrem Other: R BKA. General: Yes edema Psych Mental Status: mental status grossly normal Objective Labs and Meds 10/16/24 06:31 10/19/24 06:00 Lab results: Laboratory Results - last 24 hr 10/15/24 10/18/24 10/18/24 04:48 10:47 16:16 Sodium Potassium Chloride Carbon Dioxide Anion Gap BUN Creatinine Estim Creat Clear Calc Estimated GFR POC Glucose 169 H 153 H Random Glucose Calcium B-Natriuretic Peptide Complement C3 111 Complement C4 20 10/18/24 10/19/24 10/19/24 20:26 06:00 07:16 Sodium 139 Potassium 3.0 L Chloride 103 Carbon Dioxide 25 Anion Gap 14 BUN 60 H Creatinine 2.58 H Estim Creat Clear Calc 44.7 Estimated GFR 26 POC Glucose 146 H 91 Random Glucose 92 Calcium 7.8 L B-Natriuretic Peptide 2656 H Complement C3 Complement C4 Progress Note: A&P Assessment and plan (1) Acute combined systolic and diastolic CHF, NYHA class 3: Status: Acute (2) Acute right heart failure: Status: Acute Plan In the recent echocardiogram, LVEF is 20 25%. Advanced diastolic dysfunction. Reduced RV function. With regard to renal function, most recently 2.58. It has been as much as 3.5. Cardiac BNP elevated at 2656. It seems higher than what it was few days ago. Clinically, appears still volume overloaded. Diuretic drip. Per input/output data, he is -12 L. We will continue to monitor renal function. Discussed with patient about transferred to [facility] for cardiac catheterization but he is refusing to go today. We will check with Interventional regarding timing of the procedure because of kidney issues. Per Dr. Good, no major objections for the procedure although there is increased risk of nephropathy from contrast. Time Spent With Patient Time: Total time managing care of this patient today ____ minutes. Progress Note: Quality Stroke Does the patient have a stroke diagnosis?: No Procedures Date of Service Date of Service: 10/19/24
--- NOTE | 2024-10-19 10:56 | MHC.CM.PN ---
EMR REVIEWED, PT W/RYAN REMAINS ON LASIX DRIP, PLAN FOR KIDNEY BIOPSY, [facility] REFERRAL PLACED, CM WILL CONT TO FOLLOW DC NEEDS.
[2024-10-19 11:29] LABS: Glucose, Whole Blood 167 mg/dL (60-115)
[2024-10-19] MEDS: Insulin Lispro 100 UNIT/ML 3 ML VIAL SUBCUT (11:34)
[2024-10-19] MEDS: Furosemide 200 MG in 0.9 % Sodium Chloride 80 ML IVCONT (11:34)
[2024-10-19 11:53] LABS: Prot Elec - Alpha1 0.3 g/dL (0.2-0.3); Prot Elec - Alpha2 0.7 g/dL (0.5-0.9); Prot Elec - Beta 1 0.4 g/dL (0.4-0.6); Prot Elec - Beta 2 0.4 g/dL (0.2-0.5); Prot Elec - Gamma 0.9 g/dL (0.8-1.7); Prot Elec - Total Protein 5.6 g/dL (6.1-8.1)
--- NOTE | 2024-10-19 11:56 | PM.PNNEP ---
Subjective Subjective Date of Service: 10/19/24 Principal diagnosis: Decompensated congestive heart failure Interval history: Events noted. Responding well to Lasix drip. Creatinine is trending down. Physical Exam Vital Signs: Vital Signs: Last Vital Signs Temp 97.8 F 10/19/24 11:42 Pulse 80 10/19/24 11:42 Resp 20 10/19/24 11:42 BP 134/77 10/19/24 11:42 Pulse Ox 95 10/19/24 11:42 O2 Del Method Nasal Cannula 10/19/24 11:42 O2 Flow Rate 2 10/19/24 11:42 BMI result Body Mass Index 39.2 Const: General: comfortable; No acute distress Orientation/consciousness: patient oriented x3 Eyes: General: appearance normal, both eyes and all related structures Visual Fitzgerald: normal visual fitzgerald by confrontation Neck: Neck: Yes supple and Yes no JVD Resp: Effort & Inspection: normal respiratory effort and respiratory effort not decreased Auscultation: rhonchi Cardio: Palpation: no palpable S3 and no palpable S4 Heart sounds: no rubs GI: Inspection: Yes normal to inspection Palpation (GI): Soft to palpation Percussion: Yes normal to percussion Auscultation: normal bowel sounds : General: Yes no CVA tenderness Back/Spine/Pelvis: Back: no CVA tenderness Skin: General skin exam: no petechiae and no purpura Neuro: General: patient oriented x3 and no focal motor deficits Extrem: General: No clubbing and Yes edema Objective Data Labs 10/16/24 06:31 10/19/24 06:00 Labs: Laboratory Results - last 24 hr 10/15/24 10/18/24 10/18/24 04:48 16:16 20:26 Sodium Potassium Chloride Carbon Dioxide Anion Gap BUN Creatinine Estim Creat Clear Calc Estimated GFR POC Glucose 153 H 146 H Random Glucose Calcium B-Natriuretic Peptide Total Protein (PEP) 5.6 L Albumin (PEP) 3.0 L Oeqbc-1-Ngbekgsgk 0.3 Fytml-2-Qowxgzygp 0.7 Dcgx-6-Cbierilt 0.4 Ohho-5-Rfggpyek 0.4 Gamma Globulins 0.9 PEP Interpretation SEE NOTE Complement C3 111 Complement C4 20 10/19/24 10/19/24 10/19/24 06:00 07:16 11:23 Sodium 139 Potassium 3.0 L Chloride 103 Carbon Dioxide 25 Anion Gap 14 BUN 60 H Creatinine 2.58 H Estim Creat Clear Calc 44.7 Estimated GFR 26 POC Glucose 91 167 H Random Glucose 92 Calcium 7.8 L B-Natriuretic Peptide 2656 H Total Protein (PEP) Albumin (PEP) Hwmbi-6-Ihzpkrnra Cuqsf-1-Pszrajoxc Ppur-4-Ofkpueef Oalx-1-Lukmpiik Gamma Globulins PEP Interpretation Complement C3 Complement C4 Procedures Date of Service Date of Service: 10/19/24 Assessment & Plan Assessment and plan (1) Anasarca: Status: Acute (2) CKD (chronic kidney disease): Status: Acute (3) Acute kidney injury superimposed on CKD: Status: Acute Plan Acute kidney injury superimposed on CKD. No significant proteinuria. Therefore FSGS/membranous nephropathy are unlikely UA is benign with out sediments Tubular injury due to hypoperfusion in a setting of heart failure Although he has had diabetes mellitus I doubt that he has diabetic nephropathy to explain the rapid decline in EGFR. He is currently fluid overloaded. No signs or symptoms of uremia. Recommendations Agree with IV Lasix. Keep output more than intake. Keep on low sodium diet. Serologies have been negative so far and with a bland urine sediment glomerular nephritis/interstitial disease seem less likely at this point. Shall hold off on kidney biopsy for the time being Discussed with cardiology - Pt likely transferred to [facility] for cardiac cath He is at risk for ongoing renal injury from IV contrast. But risks outweigh benefits Time Spent With Patient Time: Total time managing care of this patient today ____ minutes. Progress Note: Quality Stroke Does the patient have a stroke diagnosis?: No
--- NOTE | 2024-10-19 14:12 | HO.PM.IMPN ---
Subjective Subjective Date of Service: 10/19/24 Interval History: seen and evaluated this morning making good amount of urine overnight , fluid restrictions Cr improving no other events Review of Systems Review of Systems: Yes all other systems are reviewed and are negative Physical Exam Vital Signs: Vital Signs: Last Vital Signs Temp 97.8 F 10/19/24 11:42 Pulse 80 10/19/24 11:42 Resp 20 10/19/24 11:42 BP 134/77 10/19/24 11:42 Pulse Ox 95 10/19/24 11:42 O2 Del Method Nasal Cannula 10/19/24 11:42 O2 Flow Rate 2 10/19/24 11:42 BMI result Body Mass Index 39.2 Const: Other: Constitutional : Awake, interactive, not in distress Neck : Normal inspection, Supple Cardiovascular : RRR, elevated JVP, +2 lower extremity edema, significant scrotal swelling Respiratory : fair bilateral air entry, basal fine crackles Gastrointestinal: soft, lax, Normal bowel sounds, Non tender Skin : Warm, Dry Extremities: Rt BKA Neurological : Alert & oriented x3, No focal deficit Objective Data Active Medications Acetaminophen (Acetaminophen 325 Mg Tablet) 650 mg PO Q6H PRN PRN Reason: Pain, Mild 1-3,fever,headache Last Admin: 10/18/24 15:57 Dose: 650 mg Documented By: SAMSON Albuterol/Ipratropium (Albuterol/Iprat 2.5/0.5mg 3 Ml Ampul.Neb) 3 ml INHALE Q4H PRN PRN Reason: Shortness of Breath/Wheezing Atorvastatin Calcium (Atorvastatin Calcium 20 Mg Tablet) 20 mg PO DAILY [facility] Last Admin: 10/19/24 08:47 Dose: 20 mg Documented By: SAMSON Benzonatate (Benzonatate 100 Mg Capsule) 100 mg PO TID PRN PRN Reason: Cough Last Admin: 10/19/24 08:47 Dose: 100 mg Documented By: SAMSON Calcium Carbonate (Calcium Carbonate 750 Mg Tab.Chew) 750 mg PO Q4H PRN PRN Reason: Heartburn Glucose (Glucose Gel 15 Gm Gel..Gram.) 15 gm PO Q15M PRN; Protocol PRN Reason: per Hypoglycemia Standing Ord. Heparin Sodium (Porcine) (Heparin Sodium,Porcine 5,000 Unit/Ml Vial) 5,000 unit SUBCUT Q12H [facility] Last Admin: 10/19/24 11:29 Dose: Not Given Documented By: SAMSON Non-Admin Reason: Patient Refused Dextrose (D10) 250 mls @ 750 mls/hr IV Q15M PRN; Protocol PRN Reason: per Hypoglycemia Standing Ord. Furosemide 200 mg/ Sodium (Chloride) 100 mls @ 2.5 mls/hr IVCONT .Q24H [facility] Last Admin: 10/19/24 11:34 Dose: 5 mg/hr, 2.5 mls/hr Documented By: SAMSON Insulin Human Lispro (Insulin Lispro 100 Unit/Ml 3 Ml Vial) 0 unit SUBCUT QIDACHS [facility]; Protocol Last Admin: 10/19/24 11:34 Dose: 2 unit Documented By: SAMSON Loperamide HCl (Loperamide Hcl 2 Mg Capsule) 2 mg PO Q4H PRN PRN Reason: Diarrhea Last Admin: 10/19/24 08:47 Dose: 2 mg Documented By: SAMSON Lorazepam (Lorazepam 0.5 Mg Tablet) 0.25 mg PO Q8H PRN PRN Reason: anxiety/restlessness Last Admin: 10/18/24 21:37 Dose: 0.25 mg Documented By: CESAR Magnesium Hydroxide (Milk Of Magnesia 30 Ml Oral.Susp) 30 ml PO DAILY PRN PRN Reason: Constipation [facility] ([facility] 400 Mg Tablet) [facility] Last Admin: 10/19/24 08:47 Dose: 400 mg Documented By: SAMSON Melatonin (Melatonin 3 Mg Tablet) 6 mg PO BEDTIME PRN PRN Reason: Insomnia Ondansetron HCl (Ondansetron Hcl 4 Mg/2 Ml Vial) 4 mg IVPUSH Q8H PRN PRN Reason: Nausea and Vomiting Sodium Chloride (0.9 % Sodium Chloride Flush 3 Ml Syringe) 3 ml IVFLUSH QSHIFT [facility] Last Admin: 10/19/24 08:48 Dose: 3 ml Documented By: SAMSON Labs 10/16/24 06:31 10/19/24 06:00 Labs: Laboratory Results - last 24 hr 10/15/24 10/18/24 10/18/24 04:48 16:16 20:26 Anion Gap Estim Creat Clear Calc Estimated GFR POC Glucose 153 H 146 H Random Glucose Calcium B-Natriuretic Peptide Total Protein (PEP) 5.6 L Albumin (PEP) 3.0 L Xzqeu-5-Zzfvxrker 0.3 Oavqx-2-Rygcpezeu 0.7 Bgyw-2-Fkcoxuia 0.4 Aebn-8-Hsotokzi 0.4 Gamma Globulins 0.9 PEP Interpretation SEE NOTE Complement C3 111 Complement C4 20 10/19/24 10/19/24 10/19/24 06:00 07:16 11:23 Anion Gap 14 Estim Creat Clear Calc 44.7 Estimated GFR 26 POC Glucose 91 167 H Random Glucose 92 Calcium 7.8 L B-Natriuretic Peptide 2656 H Total Protein (PEP) Albumin (PEP) Aqvng-9-Cqkstyfys Qmlcr-2-Pdculbyae Vaxs-4-Agbszxbx Uprw-5-Brxyxhrv Gamma Globulins PEP Interpretation Complement C3 Complement C4 Assessment and Plan (1) Acute right heart failure: Status: Acute (2) Acute combined systolic and diastolic CHF, NYHA class 3: Status: Acute (3) Leukopenia: Status: Acute (4) Heart failure, systolic, with acute decompensation: Status: Acute Plan Patient is a 49-year-old male with a past medical history significant for type 2 diabetes, HTN, CKD (baseline creatinine 2.5), s/p right BKA for Charcot's foot, who presented to the ED due to increased edema in the upper and lower extremities as well as scrotum for the past 2-3 weeks. Differential diagnoses includes renal anasarca versus CHF. Anasarca 2/2 acute systolic CHF Echo showing low EF of 20-25% Continue lasix drip Metolazone 2.5 water restriction Cardiology following, diuresis for now I\O follow BNP Acute hypokalemia give PO replacement follow BMP NSVT No recurrence keep K>4m, Mg >2 discussed with cardiology; hold on medications for now, will likely need a Vest on discharge possible [facility] transfer for angiogram tomorrow\Sat. RYAN on CKD secondary to cardiorenal most likely Cr improving No need of HD Nephrology following, to biopsy of kidney by Saturday monitor BMP Influenza A, mildly symptomatic contact precautions supportive care Leukopenia concern if worsens by Flu A but was trending down negative RA, SLE or MDS low ESR, normal RA and LDH pending SIEP, Free light chain Hematology team following; consider bone marrow if no improvement\declines more Type 2 diabetes hold p.o. meds (metformin, Januvia, Jardiance) sliding scale insulin low sodium/diabetic diet HTN hold losartan Obesity BMI 39.2 weight loss encouraged Full code VTE prophylaxis: Patient with anasarca and failed outpatient treatment, complicated by RYAN on CKD , Heart failure and influenza a requiring overnight stay for IV diuresis, further workup and monitoring. Quality Stroke Does the patient have a stroke diagnosis?: No VTE Prior VTE?: No VTE Risk Level:: Medical - moderate - high VTE Device Contraindication: Treatment Not Indicated VTE Drug Contraindication: N/A - Med Ordered
--- NOTE | 2024-10-19 14:23 | P.CDIM_ITS ---
PROVIDER RESPONSE TEXT: To clarify, the appropriate diagnosis supported by the clinical indicators: CKD, stage 4 QUERY TEXT: PHYSICIAN'S DOCUMENTATION REQUEST Date of Query: 10/19/2024 07:53 AM EST Patient Name: DANIELA RUIZ Admit Date: 10/14/2024 Dear Simone Couch MD, A review of the medical record indicates additional documentation may be needed. Please review below and update the documentation accordingly. Clinical Indicators: RYAN on CKD creatinine 2.58, GFR 24 dyspnea on exertion and anasarca, fatigue, weakness Please clarify which of the following accurately represents the patient's CKD stage: CKD, stage 1 CKD, stage 2 CKD, stage 3 CKD, stage 4 CKD, stage 5 Other (explain) Clinically unable to determine (explain) Thank you, Tosha Coley RN Use of terms such as suspected, likely, concern for, or probable (associated with a specific diagnosi s that is being evaluated, monitored, or treated as if it exists) are acceptable and can be coded in the inpatient se tting, when documented at the time of discharge. Please use your independent medical judgment in providing your response. THIS QUERY IS PART OF THE PERMANENT MEDICAL RECORD
[2024-10-19] MEDS: Potassium Chloride Packet 20 MEQ PACKET 40 MEQ PO ×2 (16:25→18:28)
[2024-10-19 16:30] LABS: Glucose, Whole Blood 117 mg/dL (60-115)
[2024-10-19 20:17] LABS: Glucose, Whole Blood 132 mg/dL (60-115)
[2024-10-19] MEDS: LORazepam 0.5 MG TABLET 0.25 MG PO (21:23)
[2024-10-20 03:12] VITALS: BP 136/78; PULSE 87; RESP 20; TEMP 37.6; O2SAT 95
[2024-10-20 07:00] LABS: Glucose, Whole Blood 120 mg/dL (60-115)
[2024-10-20 07:13] VITALS: BP 128/71; PULSE 84; RESP 20; TEMP 37.1; O2SAT 95
[2024-10-20 08:30] LABS: B Type Natriuretic Peptide 3190 pg/mL (<100)
[2024-10-20 08:38] LABS: Anion Gap 13 (12-20); Blood Urea Nitrogen 57 mg/dL (9-16); Calcium 7.9 mg/dL (8.4-10.2); Carbon Dioxide 27 mmol/L (22-29); Chloride 101 mmol/L (96-108); Creatinine Clr Calc Pharmacy 46.5; Estimated Glomerular Filt Rate 28; Glucose Random 115 mg/dL (60-115); Potassium 3.3 mmol/L (3.3-5.1); Sodium 138 mmol/L (135-145)
[2024-10-20] MEDS: Acetaminophen 325 MG TABLET 650 MG PO (09:23)
[2024-10-20] MEDS: 0.9 % Sodium Chloride Flush 3 ML SYRINGE IVFLUSH (09:23)
[2024-10-20] MEDS: Benzonatate 100 MG CAPSULE PO (09:23)
[2024-10-20] MEDS: Atorvastatin Calcium 20 MG TABLET PO (09:23)
[2024-10-20] MEDS: Magnesium Oxide 400 MG TABLET PO (09:23)
--- NOTE | 2024-10-20 09:41 | P.PNCA_ITS ---
Subjective Subjective Date of Service: 10/20/24 Principal diagnosis: Decompensated congestive heart failure Interval history: He states that he feels okay. Slowly improving. He has diuresed a lot. Still on diuretic drip. Review of Systems Review of Systems Yes all other systems are reviewed and are negative Constitutional: Reports as per HPI and Reports no additional constitutional complaints Eyes: Reports as per HPI and Denies no additional eye complaints Denies system reviewed and no additional complaints, except as documented and Reports as per HPI Cardiovascular: Reports as per HPI, Reports no additional cardiovascular complaints, Denies acrocyanosis, Denies cool extremities, Denies chest pain, Reports leg edema, Denies lightheadedness, Denies palpitations and Reports dyspnea Respiratory: Reports as per HPI, Denies no additional respiratory complaints and Reports dyspnea Gastrointestinal: Reports as per HPI and Denies no additional gastrointestinal complaints Genitourinary: Reports no additional male genitourinary complaints and Reports as per HPI Musculoskeletal: Reports no additional musculoskeletal complaints and Reports as per HPI Skin/Breast: Reports system reviewed and no additional complaints, except as docu Reports system reviewed and no additional complaints, except as documented and Reports as per HPI Psychiatric: Reports no additional psychiatric complaints and Reports as per HPI Endocrine: Reports no additional endocrine complaints, Reports as per HPI and Denies palpitations Hematologic/Lymphatic: Reports no additional hematologic/lymphatic complaints and Reports as per HPI Allergic/Immunologic: Reports no additional allergic/immunologic complaints and Reports as per HPI Physical Exam Vital Signs: Last Vital Signs Temp 98.7 F 10/20/24 07:13 Pulse 84 10/20/24 07:13 Resp 20 10/20/24 07:13 BP 128/71 10/20/24 07:13 Pulse Ox 95 10/20/24 07:13 O2 Del Method Nasal Cannula 10/20/24 07:13 O2 Flow Rate 2 10/20/24 07:13 BMI result Body Mass Index 39.2 Const General: comfortable and no acute distress Orientation/consciousness: patient oriented x3 HEENT Other: Unremarkable Head: Yes normal to inspection Neck Neck: Yes normal visual inspection Chest Chest palpation & inspection: normal inspection of the chest Resp Auscultation: crackles Cardio Palpation: normal PMI Heart sounds: S1 normal heart sound present, S2 normal heart sound present, no gallops, no murmurs and no rubs GI Palpation (GI): Soft to palpation Back/Spine/Pelvis Other: unremarkable Skin General skin exam: no rashes or lesions noted Neuro General: patient oriented x3 Extrem Other: R BKA. General: Yes edema Psych Mental Status: mental status grossly normal Objective Labs and Meds 10/16/24 06:31 10/20/24 06:37 Lab results: Laboratory Results - last 24 hr 10/15/24 10/19/24 10/19/24 04:48 11:23 16:24 Sodium Potassium Chloride Carbon Dioxide Anion Gap BUN Creatinine Estim Creat Clear Calc Estimated GFR POC Glucose 167 H 117 H Random Glucose Calcium B-Natriuretic Peptide Total Protein (PEP) 5.6 L Albumin (PEP) 3.0 L Aubwb-2-Pxocydirr 0.3 Bwrlm-7-Unabnjcly 0.7 Uhqh-8-Vpuitmyx 0.4 Mbjd-4-Mvwiphyy 0.4 Gamma Globulins 0.9 PEP Interpretation SEE NOTE 10/19/24 10/20/24 10/20/24 20:05 06:37 06:57 Sodium 138 Potassium 3.3 Chloride 101 Carbon Dioxide 27 Anion Gap 13 BUN 57 H Creatinine 2.48 H Estim Creat Clear Calc 46.5 Estimated GFR 28 POC Glucose 132 H 120 H Random Glucose 115 Calcium 7.9 L B-Natriuretic Peptide 3190 H Total Protein (PEP) Albumin (PEP) Afona-0-Aegzkbeox Dmpkj-4-Easogtejd Zdxk-0-Mqfnlefd Silh-9-Ccrvaixg Gamma Globulins PEP Interpretation Progress Note: A&P Assessment and plan (1) Acute combined systolic and diastolic CHF, NYHA class 3: Status: Acute (2) Acute right heart failure: Status: Acute Plan In the recent echocardiogram, LVEF is 20-25%. Advanced diastolic dysfunction. Reduced RV function. Today's creatinine is 2.48. It is slowly improving. Cardiac BNP is still high. Clinically, appears still volume overloaded, but improved a lot. Per input/output data, he is -16 L. Can stop the Lasix drip and switch him to b.i.d. dosing for now. Continue to monitor kidney function. Discussed with Dr. Good yesterday; may proceed with cardiac catheterization accepting the risk of contrast induced nephropathy. Also discussed with . Transferred to [facility] for C/RHC. Time Spent With Patient Time: Total time managing care of this patient today ____ minutes. Progress Note: Quality Stroke Does the patient have a stroke diagnosis?: No Procedures Date of Service Date of Service: 10/20/24
[2024-10-20 10:50] LABS: Glucose, Whole Blood 163 mg/dL (60-115)
[2024-10-20 10:51] VITALS: BP 119/81; PULSE 86; RESP 20; TEMP 37.2; O2SAT 92
[2024-10-20] MEDS: metOLazone 2.5 MG TABLET PO (11:21)
[2024-10-20] MEDS: Insulin Lispro 100 UNIT/ML 3 ML VIAL SUBCUT (11:21)
[2024-10-20] MEDS: Furosemide 100 MG/10 ML VIAL 60 MG IVPUSH (11:22)
--- NOTE | 2024-10-20 11:52 | P.DS_ITS ---
DS: Providers Provider Date of Service: 10/20/24 Date of admission: 10/14/24 05:19 Date of discharge: 10/20/24 Primary care physician: Veronica Steen MD Consults: 10/14/24 05:18 Consult to Nephrology Routine Consulting Provider: [facility] Reason for consultation: RYAN on CKD 10/14/24 10:37 Consult to Cardiology Routine Consulting Provider: [facility] Reason for consultation: Anasarca, heart failure 10/15/24 07:45 Consult to Hematology / Oncology Routine Consulting Provider: [facility] Reason for consultation: neutropenia, need for prophylaxis Abx and bone marrow biopsy ? DS: Diagnosis Discharge Diagnosis (1) Acute combined systolic and diastolic CHF, NYHA class 3: Status: Acute (2) Acute right heart failure: Status: Acute (3) Acute kidney injury superimposed on CKD: Status: Acute (4) Influenza A: Status: Acute (5) Leukopenia: Status: Acute (6) Heart failure, systolic, with acute decompensation: Status: Acute (7) Anasarca: Status: Acute DS: Summary Hospital Course Hospital Course: Admission note HPI Patient is a 49-year-old male with a past medical history significant for type 2 diabetes, HTN, CKD (baseline creatinine 2.5), s/p right BKA for Charcot's foot, who presented to the ED due to increased edema in the upper and lower extremities as well as scrotum for the past 2-3 weeks. He reports he has size PCP recently for this on the and was prescribed Lasix 40 mg p.o. q.d.. He reports no increased urination and no change in the edema since starting this. He did have an appointment with Nephrology yesterday but missed this. He was supposed to follow up with his PCP today regarding the Lasix. He does complain of a mild productive cough with yellow sputum starting yesterday but denies any fever, chills, nausea, vomiting, sore throat or body aches. He does have some mild nasal congestion. He denies any urinary symptoms including dysuria, frequency or urgency. Hospital course The patient was admitted and treated for the following: # Anasarca secondary to acute systolic CHF. Echo showing low EF of 20-25%. Treated with lasix drip with over 15L negative balance over the course of hospital stay. Switched to Lasix 60 mg bid this morning. He was getting daily Metolazone 2.5mg as well and was placed on water restriction. still having signficant scrotal edema. Cardiology followed the patient and recommended diuresis and transfer to [facility] for angiogram. # One run of NSVT , asymptomatic, No recurrence. kept K>4m, Mg >2. discussed with cardiology; hold on medications for now, will likely need a Vest on discharge # RYAN on CKD3 at time of admission. Baseline Cr around 2.4 from 04/2024. presented with Cr of 3.4. secondary to cardiorenal most likely as Cr improved with diuresis. No need of HD. Nephrology following, to biopsy of kidney to be done as outpatinet. # Influenza A, mildly symptomatic. contact precautions. supportive care. did not receive Tamiflu. # Leukopenia concern if worsens by Flu A but was trending down since December 2023. negative RA, SLE or MDS. low ESR, normal RA and LDH pending SIEP, Free light chain. Hematology team following; consider bone marrow if no improvement\declines more. Discharge plan Transfer to [facility] for angiogram Time Attestation Discharge Coordination Time (in mins): 43 Quality: Safe Use of Opioids Does Pt have an Active Cancer Diagnosis on the Problem List?: No Quality: Stroke Does the patient have a stroke diagnosis?: No Physical Exam Vital Signs: Vital Signs: Last Vital Signs Temp 98.9 F 10/20/24 10:51 Pulse 86 10/20/24 10:51 Resp 20 10/20/24 10:51 BP 119/81 10/20/24 10:51 Pulse Ox 92 10/20/24 10:51 O2 Del Method Nasal Cannula 10/20/24 10:51 O2 Flow Rate 2 10/20/24 10:51 BMI result Body Mass Index 39.2 Const: Other: Constitutional : Awake, interactive, not in distress Neck : Normal inspection, Supple Cardiovascular : RRR, elevated JVP, +1 lower extremity edema, significant scrot al swelling Respiratory : fair bilateral air entry, basal fine crackles Gastrointestinal: soft, lax, Normal bowel sounds, Non tender Skin : Warm, Dry Extremities: Rt BKA Neurological : Alert & oriented x3, No focal deficit DS: Data Data Completed and Pending Labs on day of discharge: Laboratory Results - last 24 hr 10/15/24 10/19/24 10/19/24 04:48 16:24 20:05 Sodium Potassium Chloride Carbon Dioxide Anion Gap BUN Creatinine Estim Creat Clear Calc Estimated GFR POC Glucose 117 H 132 H Random Glucose Calcium B-Natriuretic Peptide Total Protein (PEP) 5.6 L Albumin (PEP) 3.0 L Hxvib-6-Vvluptftb 0.3 Ybees-6-Shtegxxng 0.7 Oite-0-Kffnjtwv 0.4 Nytc-1-Dxuhjyhc 0.4 Gamma Globulins 0.9 Abnorm Protein Band 1 TNP Abnorm Protein Band 2 TNP Abnorm Protein Band 3 TNP PEP Interpretation SEE NOTE 10/20/24 10/20/24 10/20/24 06:37 06:57 10:46 Sodium 138 Potassium 3.3 Chloride 101 Carbon Dioxide 27 Anion Gap 13 BUN 57 H Creatinine 2.48 H Estim Creat Clear Calc 46.5 Estimated GFR 28 POC Glucose 120 H 163 H Random Glucose 115 Calcium 7.9 L B-Natriuretic Peptide 3190 H Total Protein (PEP) Albumin (PEP) Mecgk-8-Yiwnyivbo Vdpwp-9-Gicammwhw Trhp-6-Ayqgctzu Cpnw-5-Ddcchbjk Gamma Globulins Abnorm Protein Band 1 Abnorm Protein Band 2 Abnorm Protein Band 3 PEP Interpretation Imaging Chest x-ray: Radiologist's impression: CXR IMPRESSION: Pulmonary hypoinflation with adjacent atelectasis and/or infiltrate. This document has been electronically signed by: Michelle Prado MD on 10/13/2024 16:39:43 Discharge Plan Discharge Anticipated Discharge Date/Time: 10/20/24 11:49 Patient Disposition: Xfer Acute Care Hospital Discharge Diagnosis: Heart failure Acute renal failure Anasarca Flu A Referrals: Veronica Steen MD [Primary Care Provider] - 1 Week Discharge Medications: Continued furosemide 40 mg tablet 40 mg PO DAILY atorvastatin 20 mg tablet 20 mg PO DAILY metformin 500 mg tablet extended release 24 hr 500 mg PO DAILY sitagliptin [Zituvio] 100 mg tablet 100 mg PO DAILY Jardiance 25 mg tablet 25 mg PO DAILY Held amlodipine 10 mg tablet 10 mg PO DAILY Hold Instructions: While Inpatient losartan 50 mg tablet 50 mg PO DAILY Hold Instructions: While Inpatient Discharge Orders: Discharge Order (Routine); Ordered 10/20/24 Ordered By: Simone Couch Diet: Low salt diet Activity on Discharge: As tolerated Stand Alone Forms: Patient Portal Discharge page Print Language: Occitan Care Plan Goals: Transfer to [facility] for angiogram Health Concerns: New onset heart failure Acute renal failure Anasarca Plan of Treatment: Mara Assessment: as above
[2024-10-20 13:40] LABS: Anti Nuclear Antibody Screen NEGATIVE (NEGATIVE)
[2024-10-20 15:28] LABS: IgA 403 mg/dL (47-310); IgG 1064 mg/dL (600-1640); IgM 59 mg/dL (50-300)
--- NOTE | 2024-10-20 16:08 | MHC.CM.PN ---
Pt was transferred to [facility] for a cardiac cath.
[2024-10-22 16:58] LABS: Kappa, Serum 283 mg/dL (176-443); Kappa/Lambda Ratio, Serum 1.99 (1.29-2.55); Lambda, Serum 142 mg/dL (91-240)
== END 2024-10-20 12:00 | disposition short-term general hospital (02) | DRG 291 ==
LOC: HO.ED 10-14 02:04 → HO.EDOVER 10-14 05:22 → HO.IMC 10-15 07:33
PROVIDERS: Internal Medicine Hypertension Specialist; Internal Medicine Medical Oncology; Nurse Practitioner Family; Physician Assistant; Physician Assistant Surgical; Admitting Provider Student in an Organized Health Care Education/Training Program; Emergency Provider Emergency Medicine; PCP Internal Medicine; Visit Provider Student in an Organized Health Care Education/Training Program
DX: I13.0 Hypertensive heart and chronic kidney disease with heart failure and stage 1 through stage 4 chronic kidney disease, or unspecified chronic kidney disease (principal); I50.23 Acute on chronic systolic (congestive) heart failure; N17.9 Acute kidney failure, unspecified; N18.4 Chronic kidney disease, stage 4 (severe); I47.20 Ventricular tachycardia, unspecified; D72.819 Decreased white blood cell count, unspecified; J10.1 Influenza due to other identified influenza virus with other respiratory manifestations; E66.9 Obesity, unspecified; Z68.39 Body mass index [BMI] 39.0-39.9, adult; E11.22 Type 2 diabetes mellitus with diabetic chronic kidney disease; Z89.511 Acquired absence of right leg below knee; Z20.822 Contact with and (suspected) exposure to COVID-19; Z79.84 Long term (current) use of oral hypoglycemic drugs; Z79.899 Other long term (current) drug therapy
CPT/HCPCS: 0241U; 36415; 71045; 80048; 80076; 81001; 82570; 82607; 82746; 82784; 82947; 83520; 83615; 83735; 83880; 83883; 84156; 84165; 84300; 84443; 84484; 85025; 85610; 85652; 86021; 86038; 86160; 86334; 86431; 86704; 86706; 86803; 86850; 86900; 86901; 87340; 87389; 93005; 93306; 99285; J1650; J1940; Q9957

== ENCOUNTER → 2024-10-13 16:06 | Outpatient (BNV) | payer OTHER, SELFPAY | PROVIDERS: Admitting Provider Student in an Organized Health Care Education/Training Program; Emergency Provider Emergency Medicine; PCP Internal Medicine; Visit Provider Internal Medicine Cardiovascular Disease | DX: R53.1 Weakness (principal) | CPT/HCPCS: 93010 ==

== ENCOUNTER → 2024-10-13 16:09 | Outpatient (BNV) | payer OTHER, SELFPAY | PROVIDERS: PCP Internal Medicine; Visit Provider Radiology Diagnostic Radiology | DX: R60.1 Generalized edema (principal) | CPT/HCPCS: 71045 ==

== ENCOUNTER 2024-10-14 05:19 | Outpatient (BNV) | payer OTHER, SELFPAY | END 2024-10-14 07:00 | PROVIDERS: Admitting Provider Student in an Organized Health Care Education/Training Program; Emergency Provider Emergency Medicine; PCP Internal Medicine; Visit Provider Internal Medicine Cardiovascular Disease | DX: I50.30 Unspecified diastolic (congestive) heart failure (principal); I36.1 Nonrheumatic tricuspid (valve) insufficiency | CPT/HCPCS: 93306 ==

== ENCOUNTER → 2024-10-14 05:19 | Outpatient (BNV) | payer OTHER, SELFPAY | PROVIDERS: Admitting Provider Student in an Organized Health Care Education/Training Program; Emergency Provider Emergency Medicine; PCP Internal Medicine; Visit Provider Physician Assistant | DX: I50.41 Acute combined systolic (congestive) and diastolic (congestive) heart failure (principal); I50.811 Acute right heart failure; N17.9 Acute kidney failure, unspecified; N18.9 Chronic kidney disease, unspecified; J10.1 Influenza due to other identified influenza virus with other respiratory manifestations; D72.819 Decreased white blood cell count, unspecified; I50.23 Acute on chronic systolic (congestive) heart failure; R60.1 Generalized edema | CPT/HCPCS: 99232; 99233; 99239 ==

== ENCOUNTER → 2024-10-14 05:19 | Outpatient (BNV) | payer OTHER, SELFPAY | PROVIDERS: Admitting Provider Student in an Organized Health Care Education/Training Program; Emergency Provider Emergency Medicine; PCP Internal Medicine; Visit Provider Internal Medicine Cardiovascular Disease | DX: I50.23 Acute on chronic systolic (congestive) heart failure (principal) | CPT/HCPCS: 99222 ==

== ENCOUNTER → 2024-10-14 05:19 | Outpatient (BNV) | payer OTHER, SELFPAY | PROVIDERS: Admitting Provider Student in an Organized Health Care Education/Training Program; Emergency Provider Emergency Medicine; PCP Internal Medicine; Visit Provider Internal Medicine Medical Oncology | DX: D72.819 Decreased white blood cell count, unspecified (principal) | CPT/HCPCS: 99222 ==

== ENCOUNTER → 2024-10-14 05:19 | Outpatient (BNV) | payer OTHER, SELFPAY | PROVIDERS: Admitting Provider Student in an Organized Health Care Education/Training Program; Emergency Provider Emergency Medicine; PCP Internal Medicine; Visit Provider Internal Medicine Hypertension Specialist | DX: R60.1 Generalized edema (principal); N18.9 Chronic kidney disease, unspecified; N17.9 Acute kidney failure, unspecified | CPT/HCPCS: 99223; 99232; 99233 ==

== ENCOUNTER → 2024-10-22 23:59 | Outpatient (BNV) | payer OTHER, SELFPAY | PROVIDERS: PCP Internal Medicine; Visit Provider Internal Medicine Cardiovascular Disease | DX: I50.20 Unspecified systolic (congestive) heart failure (principal) | CPT/HCPCS: 93458; 99152 ==

== ENCOUNTER 2024-12-07 15:17 | Outpatient (AMB) | payer OTHER, SELFPAY ==
--- NOTE | 2024-12-07 15:22 | A.OFFVIS_ITS ---
Vital Signs 12/07/24 15:23 Height 5 ft 10 in Weight 165 lb 5.547 oz BMI 23.7 BP 120/80 Blood Pressure Location Lt brachial Position Sitting Pulse 58 Intake Visit Reasons: fu Cardiac Cath- [facility] Intake Note: Follow-up after cardiac cath [employer] A[employer] Required: No Allergies Penicillins Allergy (Verified 10/13/24 16:06) Hives Medication List - Last Reconciled 12/07/24 by Alejandro Puga MD atorvastatin mg PO DAILY empagliflozin (Jardiance) 25 mg PO DAILY losartan 50 mg PO DAILY metoprolol succinate ER mg PO DAILY sitagliptin (Zituvio) 100 mg PO DAILY torsemide 20 mg PO DAILY HPI Comments Details: Albaro comes after a longer gap than expected after his hospitalization for severe decompensated congestive heart failure with markedly reduced LV ejection fraction 20-25% with right heart failure syndrome. He subsequently was transferred for cardiac catheterization which showed diffuse diagonal as well as distal LAD disease and moderate disease in the RCA and LCX, not consistent with ischemic cardiomyopathy but more consistent with nonischemic cardiomyopathy. Since then he has been managed with medical therapy and says overall oz lost about more than 100 lb. He has done very well and his shortness of breath significantly improved. He has been monitoring his weight on a regular basis various between 169-170 lb. He is not have it any abdominal distension, leg edema, orthopnea, PND. No exertional chest pain. Taking all his medications. His torsemide was reduced by Nephrology from 40-20 mg and he has done well on it. He denies any prolonged palpitation irregular heartbeat. No lightheadedness, syncope. No exertional chest pain. [facility] Medical History Obesity (BMI 35.0-39.9 without comorbidity) Charcot's joint of right foot CKD (chronic kidney disease) HTN (hypertension) T2DM (type 2 diabetes mellitus) Surgical History Status post below knee amputation of right lower extremity Social History Household Members: Family Housing: House Do you presently have visiting nurse or other home services: No Alcohol intake: never Patient Tobacco Use Status: Never used Tobacco service: No Review of Systems Const Denies chills, Denies fatigue, Denies fever(s), Denies frequent falls, Denies weakness, Denies weight gain and Denies weight loss ENT Denies dizziness Card Denies chest pain, Denies leg edema, Denies lightheadedness, Denies palpitations, Denies dyspnea, Denies dyspnea on exertion, Denies orthopnea and Denies other (loss of consciousness) Resp Denies cough, Denies dyspnea and Denies dyspnea on exertion GI Denies hematochezia and Denies change in stool character Musc Denies abnormal gait, Denies muscle weakness, Denies numbness, Denies radiating pain into limb and Denies tingling Neuro Denies abnormal gait, Denies dizziness, Denies frequent falls, Denies numbness, Denies tingling and Denies weakness Endo Denies fatigue and Denies palpitations Physical Exam Vital Signs: Last Vital Signs Pulse 58 12/07/24 15:23 BP 120/80 12/07/24 15:23 BMI result Body Mass Index 23.7 Const General: cooperative, comfortable, no acute distress, alert and awake Nutritional Appearance: thin Orientation/consciousness: patient oriented x3 Limitations: no limitations Neck Neck: Yes trachea midline, Yes supple and Yes no JVD Resp Effort & Inspection: normal respiratory effort Auscultation: clear to auscultation bilaterally Cardio Jugular venous distension: no JVD Palpation: abnormal PMI displaced PMI Rate: regular rate Rhythm: regular rhythm Heart sounds: S1 normal heart sound present, S2 normal heart sound present, no click, no gallops and no murmurs GI Auscultation: normal bowel sounds Skin General skin exam: no rashes or lesions noted Neuro General: patient oriented x3 and no focal motor deficits Extrem General: Yes no clubbing, cyanosis or edema (Right below-knee amputation with prosthesis) Assessment & Plan Assessment & Plan (1) Heart failure with reduced ejection fraction: Code(s): I50.20 - Unspecified systolic (congestive) heart failure Category: Medical Plan: Heart failure with reduced ejection fraction admission with severe heart failure syndrome with predominantly right-sided heart failure syndrome with anasarca has doing extremely well and has lost over 100 lb as per him. Currently appears to be euvolemic and well compensated. Continue current torsemide dose but may require further reduction torsemide dose. For now continue metoprolol, can not maximize due to low heart rate. Continue Jardiance as well for neurohormonal modulation. Will switch his losartan to Entresto therapy for better outcomes data. Advised to follow-up blood pressure at home. Daily weight monitoring avoidance salt loading was discussed. Heart failure management discussed in details. I would follow-up with limited echocardiogram in 5 weeks time. If he has persistent severe LV systolic dysfunction may require defibrillator therapy for primary prevention. This was discussed with him as well. Also suggest cardiac rehab although he said he is currently having a misread it prosthesis and would like to have a benefitted prosthesis prior to pursuing cardiac rehab which is reasonable. Follow up in the clinic in 6 weeks time. (2) CAD (coronary artery disease): Code(s): I25.10 - Atherosclerotic heart disease of [place] coronary artery without angina pectoris Category: Medical Plan: CAD with diffuse disease atherosclerotic diabetic disease. Continue aggressive medical therapy. Low-dose aspirin therapy for life. Continue aggressive diabetes management goal hemoglobin A1c less than 7%. Continue high-intensity statin therapy with target goal LDL closer to 55 mg/dL. Advised lipid panel next week. No interventions required for management of CAD. Will follow up in the clinic in 6 weeks time, sooner p.r.n.. Thank you for allowing me to partake in his care Orders: Orders CA Echo Limited 5 Weeks I42.9 - Cardiomyopathy, unspecified, I50.20 - Unspecified systolic (congestive) heart failure Lipid Panel 1 Week I25.10 - Atherosclerotic heart disease of [place] coronary artery without angina pectoris Basic Metabolic Panel 1 Week I50.20 - Unspecified systolic (congestive) heart failure B Type Natriuretic Peptide 1 Week I50.20 - Unspecified systolic (congestive) heart failure Medications: New sacubitril-valsartan 24-26 mg (Entresto) 1 tab PO BID 60 tabs 5RF Coding Level of Care Code Est Pt Level 4 (31732) Complex EM visit Add On G2211 Diagnoses Heart failure with reduced ejection fraction I50.20 CAD (coronary artery disease) I25.10
[2024-12-07 15:23] VITALS: BP 120/80; PULSE 58; BMI 23.7
--- OUTSIDE RECORDS SUMMARY | 2024-12-07 17:48 | XMS_ITS | Data Portability ---
Author Organization [facility], Main Office Address [address] [place] [address] Care Team Providers Care Patient Services Assistant Name Role Phone RAJESH TREVINO Primary Care Provider ASHA CARRANZA Photographer Finish KWADWO LITTLEJOHN Orthopedic Surgeon [facility] Roof Truss Builder [phone] Assessment No assessment recorded. Plan of Treatment Reminders Order Date Submit Date Provider Last Modified By Organization Details Last Modified Time Details Appointments None recorde d. Lab vitamin B12, serum 2022 023 [facility], [address], [place], [address], 3 01:08:24 lipid panel, serum 2022 023 [facility], [address], [place], [address], 3 00:43:36 CBC w/ auto diff 2022 023 [facility], [address], [place], [address], 3 16:19:21 TSH, serum or plasma 2022 023 [facility], [address], [place], [address], 3 01:08:25 CMP, serum or plasma 2022 023 [facility], [address], [address], [place], [address], 3 00:43:35 unliste d lab - troponi n T, high sensiti vity 2022 023 [facility], [address], [address], [place], [address], 3 19:53:36 magnesi um, serum or plasma 2022 023 [facility], [address], [address], [place], [address], 3 00:43:37 HbA1c (hemogl obin A1c), blood 2022 023 [facility], [address], [address], [place], [address], 3 16:39:23 microal bumin, urine 2022 023 [facility], [address], [address], [place], [address], 3 19:38:57 hepatit is C virus Ab, serum 2022 023 [facility], [address], [address], [place], [address], 3 12:07:34 Referral gastroe nterolo gist referra l - Needs colon cancer screeni ng 2022 023 qasim [facility], [address] [place], [address], 3 12:06:13 Procedures colonos copy screeni ng (PROC) 2022 023 qasim In-Office Order, Internal Use Only DO Not Attach Compendium DO Not Attach Compendium, Do Not Delete/merge, [id number] 3 12:06:13 Surgeries None recorde d. Imaging electro cardiog hilario 2022 023 qasim In-Office Order, Internal Use Only DO Not Attach Compendium DO Not Attach Compendium, Do Not Delete/merge, [id number] 3 12:06:13 Medication Orders Vitamin B-12 100 mcg tablet 2022 023 [facility], [address] [place], [address], 3 12:06:13 propran olol 10 mg tablet 2022 023 [facility], [address] [place], [address], 3 12:14:48 valsart an 40 mg tablet [address] [facility], [address] [place], [address], 3 07:17:15 Patient TargetsNo targets recorded. Patient Instructions Encounter Date Encounter Id Patient Instructions Last Modified By Organization Details Last Modified Time 05/21/2023 [id number] When You Want to Lose Weight: Care Instructions nbarrows Not available 05/23/2023 15:45:15 Well Visit 50 to 65: Care Instructions nbarrows Not available 05/23/2023 15:45:15 medical record request* - pls get ecg from [facility]. ty pbonilla1 Not available 05/22/2023 15:08:50 learning about colon cancer qasim Not available 05/21/2023 12:06:13 Reason for Referral Child Therapist Referral for Screening for malignant neoplasm of colon Needs colon cancer screening Referring Physician: Rajesh Trevino, Family Medicine, Encounter Date: 05/21/2023 Results Created Date Observation Date Name Description Value Unit Range Abnormal Flag Note LastModifiedBy Organization Detail LastModifiedTime 05/21/20 23 05/21/2023 COMPL ETE CBC WITH DIFF WBC 7.5 K/mm3 (4.0-1 1.0) Not Available [facility] (Centralized Electronic Ordering - All Locations) Patient Can Go To The Location Of Their Choice, 05/21/2023 16:19:21 05/21/2005/21/2023 COMPL ETE CBC WITH DIFF RBC 5.46 M/mm3 (4.70- 6.10) Not Available [facility] (Centralized Electronic Ordering - All Locations) Patient Can Go To The Location Of Their Choice, 05/21/2023 16:19:21 05/21/2005/21/2023 COMPL ETE CBC WITH DIFF HGB 16.2 gm/dL (13.7- 17.1) Not Available [facility] (Centralized Electronic Ordering - All Locations) Patient Can Go To The Location Of Their Choice, 05/21/2023 16:19:21 05/21/2005/21/2023 COMPL ETE CBC WITH DIFF HCT 50.0 % (40.5- 50.0) Not Available [facility] (Centralized Electronic Ordering - All Locations) Patient Can Go To The Location Of Their Choice, 05/21/2023 16:19:21 05/21/2005/21/2023 COMPL ETE CBC WITH DIFF MCV 91.6 fL (80.0- 94.0) Not Available [facility] (Centralized Electronic Ordering - All Locations) Patient Can Go To The Location Of Their Choice, 05/21/2023 16:19:21 05/21/2005/21/2023 COMPL ETE CBC WITH DIFF MCH 29.7 pg (27.0- 34.0) Not Available [facility] (Centralized Electronic Ordering - All Locations) Patient Can Go To The Location Of Their Choice, 05/21/2023 16:19:21 05/21/2005/21/2023 COMPL ETE CBC WITH DIFF MCHC 32.4 g/dL (33.0- 37.0) low Not Available [facility] (Centralized Electronic Ordering - All Locations) Patient Can Go To The Location Of Their Choice, 05/21/2023 16:19:21 05/21/2005/21/2023 COMPL ETE CBC WITH DIFF plt 297 K/mm3 (150-4 60) Not Available [facility] (Centralized Electronic Ordering - All Locations) Patient Can Go To The Location Of Their Choice, 05/21/2023 16:19:21 05/21/2005/21/2023 COMPL ETE CBC WITH DIFF RDW-SD 45.1 fL (<47.0 ) Not Available [facility] (Centralized Electronic Ordering - All Locations) Patient Can Go To The Location Of Their Choice, 05/21/2023 16:19:05/21/2005/21/2023 COMPL ETE CBC WITH DIFF MPV 10.4 fL (9.4-1 2.4) Not Available [facility] (Centralized Electronic Ordering - All Locations) Patient Can Go To The Location Of Their Choice, 05/21/2023 16:19:05/21/2005/21/2023 COMPL ETE CBC WITH DIFF automated NRBC 0.0 #/100 _WBC' s Not Available [facility] (Centralized Electronic Ordering - All Locations) Patient Can Go To The Location Of Their Choice, 05/21/2023 16:19:21 05/21/2005/21/2023 COMPL ETE CBC WITH DIFF abs. NRBC 0.0 K/mm3 Not Available [facility] (Centralized Electronic Ordering - All Locations) Patient Can Go To The Location Of Their Choice, 05/21/2023 16:19:05/21/2005/21/2023 COMPL ETE CBC WITH DIFF neut # 5.1 K/mm3 (1.3-7 .0) Not Available [facility] (Centralized Electronic Ordering - All Locations) Patient Can Go To The Location Of Their Choice, 05/21/2023 16:19:21 05/21/2005/21/2023 COMPL ETE CBC WITH DIFF lymph # 1.4 K/mm3 (0.8-3 .1) Not Available [facility] (Centralized Electronic Ordering - All Locations) Patient Can Go To The Location Of Their Choice, 05/21/2023 16:19:21 05/21/2005/21/2023 COMPL ETE CBC WITH DIFF mono# 0.6 K/mm3 (0.4-1 .3) Not Available [facility] (Centralized Electronic Ordering - All Locations) Patient Can Go To The Location Of Their Choice, 05/21/2023 16:19:21 05/21/2005/21/2023 COMPL ETE CBC WITH DIFF eo # 0.3 K/mm3 (0.0-0 .4) Not Available [facility] (Centralized Electronic Ordering - All Locations) Patient Can Go To The Location Of Their Choice, 05/21/2023 16:19:21 05/21/2005/21/2023 COMPL ETE CBC WITH DIFF baso # 0.1 K/mm3 (0.0-0 .1) Not Available [facility] (Centralized Electronic Ordering - All Locations) Patient Can Go To The Location Of Their Choice, 05/21/2023 16:19:21 05/21/2005/21/2023 COMPL ETE CBC WITH DIFF abs. imm gran 0.0 K/mm3 Not Available [facility] (Centralized Electronic Ordering - All Locations) Patient Can Go To The Location Of Their Choice, 05/21/2023 16:19:05/21/2005/21/2023 COMPL ETE CBC WITH DIFF neut 68.1 % (44-76 ) Not Available [facility] (Centralized Electronic Ordering - All Locations) Patient Can Go To The Location Of Their Choice, 05/21/2023 16:19:05/21/2005/21/2023 COMPL ETE CBC WITH DIFF lymph 18.9 % (15-43 ) Not Available [facility] (Centralized Electronic Ordering - All Locations) Patient Can Go To The Location Of Their Choice, 05/21/2023 16:19:21 05/21/2005/21/2023 COMPL ETE CBC WITH DIFF monocyte 8.1 % (4.5-1 0.5) Not Available [facility] (Centralized Electronic Ordering - All Locations) Patient Can Go To The Location Of Their Choice, 05/21/2023 16:19:21 05/21/2005/21/2023 COMPL ETE CBC WITH DIFF eo 3.5 % (0-6) Not Available [facility] (Centralized Electronic Ordering - All Locations) Patient Can Go To The Location Of Their Choice, 05/21/2023 16:19:21 05/21/2005/21/2023 COMPL ETE CBC WITH DIFF baso 1.1 % (0-2) Not Available [facility] (Centralized Electronic Ordering - All Locations) Patient Can Go To The Location Of Their Choice, 05/21/2023 16:19:21 05/21/2005/21/2023 COMPL ETE CBC WITH DIFF imm gran 0.3 % Not Available [facility] (Centralized Electronic Ordering - All Locations) Patient Can Go To The Location Of Their Choice, 05/21/2023 16:19:21 05/21/2005/21/2023 HEMOG LOBIN A1C hemoglobin A1C 5.9 % [...] for devel oping diabe kim in the futyasir GOLDBEGR ON: False ly low HbA1c resul ts [...] of Clini magdalena and Appli ed Resea rc and Educa tion Volum e 43, Suppl ement 1 Not Available [facility] (Centralized Electronic Ordering - All Locations) Patient Can Go To The Location Of Their Choice, 05/21/2023 16:39:23 05/21/2005/21/2023 URINA RY MICRO ALBUM IN micro-albumi n 1618.0 mg/L (<20) high The urine micro album in test is desig lydia to monit or renal funct ion. When scree meghan for Bence Holland prote inuri a, urine elect elis daniele is recom cristian vazquez. Not Available [facility] (Centralized Electronic Ordering - All Locations) Patient Can Go To The Location Of Their Choice, 05/21/2023 19:38:57 05/21/2005/21/2023 URINA RY MICRO ALBUM IN malb/creat ratio 650.7 mg/gm (0-20) high Not Available [facility] (Centralized Electronic Ordering - All Locations) Patient Can Go To The Location Of Their Choice, 05/21/2023 19:38:57 05/21/2005/21/2023 URINA RY MICRO ALBUM IN urine creat for micro albumin 248.7 mg/dL Not Available [facility] (Centralized Electronic Ordering - All Locations) Patient Can Go To The Location Of Their Choice, 05/21/2023 19:38:57 05/21/2005/21/2023 HIGH SENSI TIVIT Y TROPO TOO T [...] EQ 53 ng/L) with posit stephanie delta marlon whyte is consi stent with myoca rdial injur [...] stephanie delta per the ED and In-pa rosa lorenzo g clini magdalena relev ance. Not Available [facility] (Centralized Electronic Ordering - All Locations) Patient Can Go To The Location Of Their Choice, 05/21/2023 19:53:36 05/21/2005/22/2023 COMPR EHENS STEPHANIE METAB OLIC PANL glucose 144 mg/dL (70-99 ) high Not Available [facility] (Centralized Electronic Ordering - All Locations) Patient Can Go To The Location Of Their Choice, 05/22/2023 00:43:35 05/21/2005/22/2023 COMPR EHENS STEPHANIE METAB OLIC PANL BUN 37 mg/dL (6-20) high Not Available [facility] (Centralized Electronic Ordering - All Locations) Patient Can Go To The Location Of Their Choice, 05/22/2023 00:43:35 05/21/2005/22/2023 COMPR EHENS STEPHANIE METAB OLIC PANL creatinine 2.0 mg/dL (0.7-1 .2) high Not Available [facility] (Centralized Electronic Ordering - All Locations) Patient Can Go To The Location Of Their Choice, 05/22/2023 00:43:35 05/21/2005/22/2023 COMPR EHENS STEPHANIE METAB OLIC PANL sodium 138 mmol/ L (133-1 45) Not Available [facility] (Centralized Electronic Ordering - All Locations) Patient Can Go To The Location Of Their Choice, 05/22/2023 00:43:35 05/21/2005/22/2023 COMPR EHENS STEPHANIE METAB OLIC PANL potassium 4.1 mmol/ L (3.6-5 .2) Not Available [facility] (Centralized Electronic Ordering - All Locations) Patient Can Go To The Location Of Their Choice, 05/22/2023 00:43:35 05/21/2005/22/2023 COMPR EHENS STEPHANIE METAB OLIC PANL chloride 101 mmol/ L (98-10 7) Not Available [facility] (Centralized Electronic Ordering - All Locations) Patient Can Go To The Location Of Their Choice, 05/22/2023 00:43:35 05/21/2005/22/2023 COMPR EHENS STEPHANIE METAB OLIC PANL bicarbonate 25 mmol/ L (22-29 ) Not Available [facility] (Centralized Electronic Ordering - All Locations) Patient Can Go To The Location Of Their Choice, 05/22/2023 00:43:35 05/21/2005/22/2023 COMPR EHENS STEPHANIE METAB OLIC PANL anion gap 12 (4-17) Not Available [facility] (Centralized Electronic Ordering - All Locations) Patient Can Go To The Location Of Their Choice, 05/22/2023 00:43:35 05/21/2005/22/2023 COMPR EHENS STEPHANIE METAB OLIC PANL albumin 4.5 gm/dL (3.4-4 .8) Not Available [facility] (Centralized Electronic Ordering - All Locations) Patient Can Go To The Location Of Their Choice, 05/22/2023 00:43:35 05/21/2005/22/2023 COMPR EHENS STEPHANIE METAB OLIC PANL calcium 9.3 mg/dL (8.6-1 0.5) Not Available [facility] (Centralized Electronic Ordering - All Locations) Patient Can Go To The Location Of Their Choice, 05/22/2023 00:43:35 05/21/2005/22/2023 COMPR EHENS STEPHANIE METAB OLIC PANL bilirubin,to radha 0.8 mg/dL (0-1.2 ) Not Available [facility] (Centralized Electronic Ordering - All Locations) Patient Can Go To The Location Of Their Choice, 05/22/2023 00:43:35 05/21/2005/22/2023 COMPR EHENS STEPHANIE METAB OLIC PANL total protein 6.8 gm/dL (6.2-8 .2) Not Available [facility] (Centralized Electronic Ordering - All Locations) Patient Can Go To The Location Of Their Choice, 05/22/2023 00:43:35 05/21/2005/22/2023 COMPR EHENS STEPHANIE METAB OLIC PANL Ag ratio 2.0 Not Available [facility] (Centralized Electronic Ordering - All Locations) Patient Can Go To The Location Of Their Choice, 05/22/2023 00:43:35 05/21/2005/22/2023 COMPR EHENS STEPHANIE METAB OLIC PANL AST 13 U/L (0-40) Not Available [facility] (Centralized Electronic Ordering - All Locations) Patient Can Go To The Location Of Their Choice, 05/22/2023 00:43:35 05/21/2005/22/2023 COMPR EHENS STEPHANIE METAB OLIC PANL alk phos 78 U/L (40-12 9) Not Available [facility] (Centralized Electronic Ordering - All Locations) Patient Can Go To The Location Of Their Choice, 05/22/2023 00:43:35 05/21/2005/22/2023 COMPR EHENS STEPHANIE METAB OLIC PANL ALT 12 U/L (0-41) Not Available [facility] (Centralized Electronic Ordering - All Locations) Patient Can Go To The Location Of Their Choice, 05/22/2023 00:43:35 05/21/2005/22/2023 COMPR EHENS STEPHANIE METAB OLIC PANL estimated GFR creatinine 40 mL/mi n/1.7 3_M2 Creat inine based estim ated glome rular filtr ation (eGFR ) in adult s is calcu lated using the Natio nal Kidne y Found ation recom cristian d 2020 CKD-E PI equat ion. Estim ates GFR from serum creat inine , age and sex. Not Available [facility] (Centralized Electronic Ordering - All Locations) Patient Can Go To The Location Of Their Choice, 05/22/2023 00:43:35 05/21/2005/22/2023 LIPID PANEL cholesterol, total 149 mg/dL (<200) Not Available [facility] (Centralized [facility] Ordering - All Locations) Patient Can Go To The Location Of Their Choice, 05/22/2023 00:43:36 05/21/2005/22/2023 LIPID PANEL triglyceride 136 mg/dL (<150) Not Available [facility] ([facility] Order[facility] - All Locations) Patient Can Go To The Location Of Their Choice, 05/22/2023 00:43:36 05/21/2005/22/2023 LIPID PANEL HDL chol 39 mg/dL (>39) low Not Available [facility] (Centralized Electronic Ordering - All Locations) Patient Can Go To The Location Of Their Choice, 05/22/2023 00:43:36 05/21/2005/22/2023 LIPID PANEL LDL cholesterol, calculated 83 mg/dL (0-130 ) Not Available [facility] (Centralized Electronic Ordering - All Locations) Patient Can Go To The Location Of Their Choice, 05/22/2023 00:43:36 05/21/2005/22/2023 LIPID PANEL non HDL cholesterol (calc) 110 mg/dL (<160) Not Available [facility] (Centralized Electronic Ordering - All Locations) Patient Can Go To The Location Of Their Choice, 05/22/2023 00:43:36 05/21/2005/22/2023 MAGNE SIUM magnesium 1.7 mg/dL (1.6-2 .3) Not Available [facility] (Centralized Electronic Ordering - All Locations) Patient Can Go To The Location Of Their Choice, 05/22/2023 00:43:37 05/21/2005/22/2023 VITAM IN B12 vitamin B12 442 pg/mL (232-1 245) Not Available [facility] (Centralized Electronic Ordering - All Locations) Patient Can Go To The Location Of Their Choice, 05/22/2023 01:08:24 05/21/2005/22/2023 TSH WITH REFLE X TO FT4 TSH 2.50 uIU/m L (0.4-4 .2) Not Available [facility] (Centralized Electronic Ordering - All Locations) Patient Can Go To The Location Of Their Choice, 05/22/2023 01:08:25 05/21/2005/23/2023 ANTI- HEPAT ITIS C anti-hepatit is C [...] perfo rmed by [facility], [address], [place] [address] Not Available [facility] (Centralized Electronic Ordering - All Locations) Patient Can Go To The Location Of Their Choice, [id number] 05/23/2023 12:07:34 05/21/20 23 05/21/2023 elect rocar diogr am No observ ation record ed. ckokar In-Office Order Internal Use Only DO Not Attach Compendium DO Not Attach Compendium, Do Not Delete/merge, [id number] 05/21/2023 17:15:39 05/21/20 elect rocar diogr am No observ ation record ed. ckokar In-Office Order Internal Use Only DO Not Attach Compendium DO Not Attach Compendium, Do Not Delete/merge, [id number] 05/21/2023 17:15:39 Result Notes None recorded. Problems Name Problem SNOMED Code Status Onset Date Resolution Date Notes Provider Name and Address Organization Details Recorded Time Type 2 diabetes mellitus 15445201 Active 2022 Wilda jiménez MA [facility], [facility] 3 10:13:28 Essential hypertension 00735135 Active 2022 Rajesh Trevino MD [address] [facility] [address] [facility] [address] [place], [address], [facility] 3 10:27:05 Hyperlipidemia 73780299 Active 2022 Rajesh Trevino MD [address] [facility] [address] [place], [address], [facility] 3 10:27:59 Body mass index 25-29 - overweight 541624366 Active 2022 Rajesh Trevino MD [address] [facility] [address] [place], [address], [facility] 3 10:54:17 Overweight 874688677 Active 2022 Rajesh Trevino MD [address], [facility] [place], [address], [facility] 3 10:54:18 Needle phobia 939049338 Active 2022 Rajesh Trevino MD [address], [facility] [place], [address], [facility] 3 12:06:55 Problem Notes None recorded. Procedures Surgical History Date Name Laterality Status Provider Name and Address Organization Details Recorded Time 05/21/20 Diabetic Foot Exam (Monofilament) completed Rajesh Trevino MD [address] [facility] [facility] [address], [place], [address], [facility] 05/21/2023 12:08:52 01/08/19 86 Tonsillectomy completed Wilda ng MA [facility] 05/21/2023 10:15:08 01/08/19 86 Adenoidectomy completed Wilda ng [facility] 05/21/2023 10:15:08 Imaging Results Imaging Date Name Status LastModified by Organization Details LastModified Time 05/21/2023 electrocardiogram completed qasim In-Offi ce Order Internal Use Only DO Not Attach Compendium DO Not Attach Compendium, Do Not Delete/merge, [id number] 05/21/2023 17:15:39 05/21/2023 electrocardiogram completed qasim In-Offi ce Order Internal Use Only DO Not Attach Compendium DO Not Attach Compendium, Do Not Delete/merge, [id number] 05/21/2023 17:15:39 Procedure Notes None recorded. Medical Equipment None Reported. Allergies Allergen ID Allergen Name Allergen Category Reaction Reaction Severity Criticality Documentation Date Start Date Code Code System Note Provider Name and Address Organization Details Recorded Time 53756 Penicilli n Not available hives Not available Not available 05/21/2023 38735 [facility] 10:[facility]06 Medications Name Sig Start Date [...] completed Not Available Not Available Not Available Healcerion G7 Sensor device USE TO TEST BLOOD [...] Address Organization Details Last Updated DateTime 3 69037.8 1 g 27.7 kg/m2 172.72 cm 109 /min 98 % 98 % 97.8 [degF] 182 mm[Hg] 123 mm[Hg] 152 mm[Hg] 98 mm[Hg] Wilda jiménez MA [facility] 3 11:01:25 Social History Question Answer Notes LastModified by Organizat ion Details LastModified Time Tobacco Smoking Status Never Smoker EFREN Mcneal [facility] 05/21/2023 10:15:08 What Is Your Level Of [...] not available 05/21/2023 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 not available 05/21/2023 Do You Take [...] Recorded Time Tdap 01/31/20 19 completed EFREN English, [facility] 05/21/2023 11:22:54 COVID-19 vaccine, vector-nr, rS-Ad26, PF, 0.5 mL 05/10/20 21 completed EFREN English, [facility] 05/21/2023 11:22:54 zoster recombinant 05/21/20 23 cancelled patient objection Rajesh Trevino MD [address] [address], [place], [address], [facility] 05/21/2023 12:14:49 Pneumococcal conjugate PCV20, polysaccharide SSZ186 conjugate, adjuvant, PF 05/21/20 23 cancelled patient objection Rajesh Trevino MD [address] [address], [place], [address], [facility] [place] 05/21/2023 12:14:49 Past Encounters Encounter ID Performer Location Encounter Start Date Encounter Closed Date Diagnosis/Indication Diagnosis SNOMED-CT Code Diagnosis ICD10 Code Diagnosis Note [id number] Gertrudis Morinvedo Main Office [address] [place] [address] 05/21/2023 09:53:27 05/21/2023 11:14:59 Fatigue 13047333 R53.83 Z00.00 Hyperlipidemia 42536256 E78.5 Z00.00 Hepatitis C screening 41 8717375 Z11.59 Type 2 sara betes mellitus without complication 785127843 E11.9 Will continue tx for now till a1c follow up 1 mo. Screening for malignant neoplasm of colon 609416117 Z12.11 Long-term drug therapy 622701660 Z79.84 Metformin Use Patient ne w to provider [id number] 31420 Z76.89 Vaccine de clined by patient 8390296456 02 Z28.20 Panic attack 952849836 F 41.0 Script for kierra leos. Essential hypertension 74658247 I10 Discussed the importance of a low-sodium [...] care at an emergency department . Tachycardia 1123463 R00. 0 The patient presented today with [...] status. I've requested his previous EKG from [facility] for comparison . If it aligns with [...] cuff. Body mass index 25-29 - overweight 142407660 Z68.27 Overweight 604201657 E66 .3 - Diet and exercise discussed- Encouraged to loose weight.- Avoid starchy and fatty food- Encouraged use of green vegetables and fruits Adult [facility] examination 925150334 Z00.00 Patient was counseled on healthy diet, exercise and nutrition due to Body mass index is 27.7 kg/m? ? ?. Last PSADate:Re sult:Plan: will screen per usptf Last Colonoscop y:Date:Res ult:Plan: due, order placed. Vaccines:T dAP: 01/30/19Zos ter rec: declined understand [id number]: declined understand riskInflue nza: yearly flu encouraged Covid: 05/10/2021 JOSE ALBERTO, then Pfizer Bivalent Routine labs today Immunizati [...] Licona Member ID Guarantor Name 05/21/2023 1 GONZALO (PPO) [id number] Michael Garsia [id number] Michael Garsia Notes Date Note Type Note Provider Name [...] charcot foot fracture on right side follow neowinsome. Gertrudis smith [facility] 05/23/2023 15:45:18
--- OUTSIDE RECORDS SUMMARY | 2024-12-07 17:48 | XMS_ITS | Patient Health Record ---
Author Organization [facility] Address [address] [place] [address] Support Name Relationship Address Phone Michael Garsia Guarantor Unknown Unavailable Allergies No Known Allergies Reason For Referral No Information Medications Medication SIG (Take, Route, Frequency, Duration) Notes Start Date End Date Status Furosemide 20 MG 1 tablet Orally Once a day Active Atorvastatin Calcium 20 MG 1 tablet Oral ly Once a day Active metFORMIN HCl ER 500 MG 1 tablet with ev ening meal Orally Once a day Active Januvia 100 MG 1 tablet Orally Once a day Active amLODIPine Besylate 10 MG 1 tablet Orall y Once a day Active Social History Tobacco Use: Social History Observation Description Date Details (start date - stop date) Never Smoker NA - NA Tobacco Use/Smoking Question Answer Notes Are you a nonsmoker Plan Of Treatment No Information Insurance Providers Payer Name Payer Address Payer Phone Subscriber Number Group Number Insured Name Patient Relationship to Insured Coverage Start Date Coverage End Date HVM Self Pay [id number] [place] [phone] Michael Garsia Self - patient is the insured Medical (General) History Medical History History ICD Code Type 2 diabetes
--- OUTSIDE RECORDS SUMMARY | 2024-12-07 17:48 | XMS_ITS | Clinical Summary ---
Author Organization [facility] Address [address] [place] [address] Care Team Providers Care Bail Bond Agent Name Role Phone Toribio Thacker MD Primary Care Provider Allergies Active Allergy Reactions Criticality Noted Date Comments Penicillins Unknown/Patient and Family Unable to Define Medium 01/08/2023 Medications Medication Sig Dispensed Refills Start Date End Date Status amLODIPine (NORVASC) 5 MG tabletIndications:Hyp ertension, unspecified type Take 1 tablet (5 mg total) by mouth daily. 30 tablet 01/11/2023 Active cephALEXin (KEFLEX) 500 MG capsuleIndications:Ul cer of right foot, unspecified ulcer stage (HCC) Take 1 capsule (500 mg total) by mouth every 8 (eight) hours around the clock. 9 capsule 01/11/2023 Active atorvastatin (LIPITOR) 20 MG tablet 02/13/2023 Active Blood Glucose Monitoring Suppl (FreeStyle Lite) w/Device Kit USE TO CHECK SUGARS TWICE A DAY 01/30/2023 Active Continuous Blood Gluc Sensor (FreeStyle Dulce 2 Sensor) [facility] APPLY SENSOR DIRECTED. REPLACE EVERY 14 DAYS 02/07/2023 Active FREESTYLE LITE strip CHECK SUGARS DAILY DAILY 01/30/2023 Active FreeStyle Lancets lancet USE TO CHECK SUGARS TWICE A DAY 01/30/2023 Active metFORMIN (GLUCOPHAGE-XR) 500 MG 24 hr tablet 02/13/2023 Active Januvia 100 MG tablet Take 1 tablet (100 mg total) by mouth daily. 01/30/2023 Active Active Problems Problem Noted Date Diagnosed Date Traumatic avulsion of nail plate of toe 03/07/20 23 Charcot's joint of right foot 01/30/2023 Ulcerated, foot, right, with fat layer exposed 0 01/30/2023 Diabetic peripheral neuropat hy associated with type 2 diabetes mellitus 01/17/2023 Gait difficulty 01/10/2023 Foot fracture, right, closed, initial encounter 01/09/2023 Social History Tobacco Use Types Packs/Day Years Used Date Smoking Tobacco: Never Assessed AUDIT-C Answer Date Recorded Q1: How often do you have a drink containing alcohol? Never 01/09/2023 Q2: How many drinks containi ng alcohol do you have on a typical day when you are drinking? Patient does not drink Q3: How often do you have si x or more drinks on one occasion? Never 01/09/2023 Overall Financial Resource Strain (CARDIA) Answe r Date Recorded How hard is it for you to pa y for the very basics like food, housing, medical care, and heating? Not hard at all 01/09/2023 Hunger Vital Sign Answer Date Recorded Within the past 12 months, y ou worried that your food would run out before you got the money to buy more. Never true 01/10/20 23 Within the past 12 months, t he food you bought just didn't last and you didn't have money to get more. Never true 01/09/2023 PRAPARE - Transportation Answer Date Re corded In the past 12 months, has l ack of transportation kept you from medical appointments or from getting medications? No 12/22 In the past 12 months, has l ack of transportation kept you from meetings, work, or from getting things needed for daily living? No 01/09/2023 Housing Stability Vital Sign Answer Deniz e Recorded In the last 12 months, was t here a time when you were not able to pay the mortgage or rent on time? No 01/09/2023 In the last 12 months, how many places have you lived? 1 01/09/2023 In the last 12 months, was t here a time when you did not have a steady place to sleep or slept in a residential (including now)? No 01/09/2023 Sex and Gender Information Value Date Recorded Sex Assigned at Male 01/08/2023 10:21 PM EDT Gender Identity Male 01/08/2023 10:19 PM EDT Sexual Orientation Heterosexual (straight) 01/08 10:21 PM EDT Last Filed Vital Signs Vital Sign Reading Time Taken Comments Blood Pressure 138/92 01/11/2023 5:14 AM EDT Pulse 97 03/14/2023 10:29 AM EDT Temperature 36.5 ??C (97.7 ??F) 01/10/2023 9:27 PM ED T Respiratory Rate 18 01/11/2023 5:14 AM EDT Oxygen Saturation 100% 03/14/2023 10:29 AM EDT Inhaled Oxygen Concentration - - Weight 101 kg (222 lb) 03/14/2023 10:29 AM EDT Height 172.7 cm (5' 8 ) 03/14/2023 10:29 AM EDT Body Mass Index 33.75 03/14/2023 10:29 AM EDT Plan of Treatment Health Maintenance Due Date Last Done Comments Hepatitis C Virus Screening 1973 Pneumococcal Vaccine: Pediat rachelle (0-5 Years) and At-Risk Patients (6 to 49 Years) (1 of 2 - PCV) 1979 Lipid Panel 1983 Ophthalmology Exam 1983 HIV Screening 1986 Microalbumin/Creatinine Rati o Urine 1991 DTaP/Tdap/Td Vaccines (1 - Tdap) 01/13/1992 Hepatitis B Vaccines (1 of 3 - 19+ 3-dose series) 01/13/1992 Pneumococcal Vaccines 50+ (1 of 2 - PCV) 01/13/1992 Colonoscopy 2018 Zoster (Shingles) Vaccine (1 of 2) 2023 Diabetic Self-Management Tra ining (DSMT) 01/15/2023 Hemoglobin A1C 04/10/2023 01/09/2023 Foot Exam 01/10/2024 01/09/2023, 12/22, 01/09/2023, Additional history exists Creatinine with GFR 2024 01/11/2023, 01/10/2023, 01/09/2023, Additional history exists Influenza Vaccine 04/23/2024 COVID-19 Vaccine (1 - 2023-2 5 season) 2024 Medical Nutrition Therapy (MNT) 09/23/2024 Procedures Procedure Name Priority Date/Time Associated Diagnosis Comments BASIC METABOLIC PANEL Routine 01/11/2023 8:45 AM EDT HEMOGLOBIN A1C WITH ESTIMATED AVERAGE GLUCOSE STAT 01/09/2023 2:50 AM EDT from Last 3 Months or Most Recently Relevant to Health Maintenance Results * (ABNORMAL) Basic Metabolic Panel (STAT) (01/11/2023 8:45 AM EDT) Glucose 129(H) 65 - 99 mg/dL 01/11/2023 9:38 AM [facility] Comment:Fasting: <100 mg/dL, Non-Fasting: <200 mg/dL (ADA 2004) Blood Urea Nitrogen (BUN) 65(H) 8 - 21 mg/dL 01/11/2023 9:38 AM [facility] Creatinine 2.1(H) 0.5 - 1.3 mg/dL 01/11/2023 9:38 AM [facility] eGFR 38(L) >59 01/11/2023 9:38 AM [facility] Comment: CKD-EPI (2020) in mL/min/1.73 sq meters. Reported eGFR is based on the CKD-EPI equation that does not use a race coefficient as of 11/27/2022 Sodium 136 136 - 145 mmol/L 01/11/2023 9:38 AM [facility] Potassium 4.5 3.4 - 5.3 mmol/L 01/11/2023 9:38 AM [facility] Chloride 103 98 - 107 mmol/L 01/11/2023 9:38 AM [facility] CO2 21(L) 22 - 33 mmol/L 01/11/2023 9:38 AM [facility] Anion Gap 12 7 - 17 01/11/2023 9:38 AM [facility] Calcium 9.1 8.7 - 10.5 mg/dL 01/11/2023 9:38 AM [facility] BUN/Creatinine Ratio 31(H) 10.0 - 25.0 Ratio 01/11/2023 9:38 AM [facility] Blood specimen (specimen) (Plasma/Serum) 01/11/2023 8:45 AM EDT 01/11/2023 9:16 AM EDT Alysia Sharp MD LAB BLOOD ORDERABLES HOSPITAL LAB See Below [address] [address] * (ABNORMAL) HEMOGLOBIN A1C WITH ESTIMATED AVERAGE GLUCOSE (01/09/2023 2:50 AM EDT) Hemoglobin A1C 10.9(H) <5.7 % 01/09/2023 4:59 AM EDT Comment: A1c% ? Interpretation 5.7 - 6.0 ?Increase risk of diabetes 6.1 - 6.4 ?Higher risk of diabetes > or = 6.5 ?? Consistent with diabetes Diabetes Care, 33(Supp 1):S1-S61, 2010 Estimated Average Glucose 266 mg/dL 01/09/2023 4:59 AM EDT Blood specimen / Unknown 01/09/2023 2:50 AM EDT 01/09/2023 3:09 AM EDT Prieto Amaya MD LAB BLOOD ORDERABLE S Performing Organization Address City/[facility]/ZIP Co de Phone Number HOSPITAL LAB See Below [address] [address] from Last 3 Months or Most Recently Relevant to Health Maintenance Advance Directives * Full Code (Latest Code Status on File) Date Activated Date Inactivated Comments 01/09/2023 4:22 AM Care Teams Bail Bond Agent Relationship Specialty Start Date End Date Toribio Thacker MD [address] [address] PCP - General 01/10/23
--- OUTSIDE RECORDS SUMMARY | 2024-12-07 17:48 | XMS_ITS | Encounter Summary ---
Author Organization [facility] Address [address] [place] [address] Care Team Providers Care Malware Analyst Name Role Phone Toribio Thacker MD Primary Care Provider Encounter Details Date Type Department Care Team (Late st Contact Info) Description 01/31/2023 Scanned Document [facility] Podiatric Surgery [address] [place] [address] Manoj Ambrose, ANNABELLE [address] [facility] [address] [place] [address] Social History Tobacco Use Types Packs/Day Years [...] place to sleep or slept in a senior living (including now)? No 01/09/2023 Sex and Gender Information Value Date Recorded Sex Assigned at Male 01/08/2023 10:21 PM EDT Gender Identity Male 01/08/2023 10:19 PM EDT Sexual Orientation Heterosexual (straight) 01/08 10:21 PM EDT COVID-19 Exposure Response Date Recorded In the last 10 days, have yo u been in contact with someone who was confirmed or suspected to have Coronavirus/COVID-19? No / Unsure 01/31/2023 10:34 AM EDT documented as of this encounter Plan of Treatment Not on file documented as of this encounter Visit Diagnoses Not on filedocumented in this encounter Care Teams Malware Analyst Relationship Specialty Start Date End Date Toribio Thacker MD [address] [address] PCP - General 01/10/23 documented as of this encounter
--- OUTSIDE RECORDS SUMMARY | 2024-12-07 17:49 | XMS_ITS | Encounter Summary ---
Author Organization [facility] Address [address] [place] [address] Care Team Providers Care Registration Specialist Name Role Phone Toribio Thacker MD Primary Care Provider Encounter Details Date Type Department Care Team (Late st Contact Info) Description 02/15/2023 Scanned Document [facility] Podiatric Surgery [address] [place] [address] Manoj Ambrose, ANNABELLE 201 [facility] [address] [place] [address] Social History Tobacco Use Types Packs/Day Years [...] place to sleep or slept in a custodial (including now)? No 01/09/2023 Sex and Gender Information Value Date Recorded Sex Assigned at Male 01/08/2023 10:21 PM EDT Gender Identity Male 01/08/2023 10:19 PM EDT Sexual Orientation Heterosexual (straight) 01/08 10:21 PM EDT COVID-19 Exposure Response Date Recorded In the last 10 days, have yo u been in contact with someone who was confirmed or suspected to have Coronavirus/COVID-19? No / Unsure 02/14/2023 10:15 AM EDT documented as of this encounter Plan of Treatment Not on file documented as of this encounter Visit Diagnoses Not on filedocumented in this encounter Care Teams Registration Specialist Relationship Specialty Start Date End Date Toribio Thacker MD [address] [address] PCP - General 01/10/23 documented as of this encounter
--- OUTSIDE RECORDS SUMMARY | 2024-12-07 17:49 | XMS_ITS ---
Author Organization [facility] Address [address] [place] [address] Care Team Providers Care Electronic Warfare Specialist Name Role Phone MATHEW AGGARWAL Unavailable [phone] Allergies No Known Allergies REASON FOR VISIT LS TO [facility] Prescription Refill, will need to be a f2f. not enough info and no answer on phone calls. Medications Medication SIG (Take, Route, Frequency, Duration) [...] Question Answer Notes Are you a nonsmoker Vital Signs Height 68 in 08/30/2023 Weight 190 lbs 08/30/2023 BMI 28.89 kg/m2 08/30/2023 as per pt BP High Temp Sima l Encounters Encounter Location Date Provider Diagnosis [facility] [address] [place] [address] 08/30/2023 MATHEW AGGARWAL Assessments Encounter Date Diagnosis (ICD Code) Assessment Notes Treatment Notes Treatment Clinical Notes Section Notes 08/30/2023 Other Follow the treatment plan as indicated by the provider. Take any medications as prescribed. If you have any questions about your prescription, ask the pharmacist or call our office. If your condition worsens, return to one of our local offices ([facility]), or go to the ER. Failure to seek timely care can result in , or disability. Risks, benefits, and side effects of medications (if any) discussed with patient. Patient agrees with treatment plan. Plan Of Treatment Treatment Notes Assessment Notes Other Follow the treatment plan as indicated by the provider. Take any medications as prescribed. If you have any questions about your prescription, ask the pharmacist or call our office. If your condition worsens, return to one of our local offices ([facility]), or go to the ER. Failure to seek timely care can result in , or disability. Next Appt Details Follow Up: PCP, Reason: Progress Notes * Michael GARSIADOB:[birth year] (49 yo M)Acc No.[id number]:08/30/2023 Patient:?Michael GARSIA Provider:?MATHEW AGGARWAL APRN :1975???Age:48 Y???Sex:Male Deniz e:08/30/2023 Phone: Address: [address], [phone] Subjective: * Chief Complaints: * ???1. LS TO [facility] Prescri ption Refill. 2. Will need to be a f2f. not enough info and no answer on phone calls.. * HPI: ???TeleHealth Complaint History:? Reason for visit: RX REFILL FUROSEMIDE , 20 mg, 14. * ROS:?All Other Systems:?Review of Systems (ROS)?See HPI for details.? * Medical History:?Type 2 diab etes. * Surgical History:?Denies Pas t Surgical History. * Hospitalization/Major Diagno stic Procedure:?Denies Past Hospitalization. * Family History:?Non-Contribu tory.? * Social History:?Tobacco Use:?Tobacco Use/Smoking?Are you a?nonsmoker ???Drugs/Alcohol:?Do you drink alcohol?: No. * Medications:?Taking Atorvast atin Calcium 20 MG Tablet 1 tablet Orally Once a day , Taking metFORMIN HCl ER 500 MG Tablet Extended Release 24 Hour 1 tablet with evening meal Orally Once a day , Taking Januvia 100 MG Tablet 1 tablet Orally Once a day , Taking amLODIPine Besylate 10 MG Tablet 1 tablet Orally Once a day , Taking Furosemide 20 MG Tablet 1 tablet Orally Once a day * Allergies:?N.K.D.A. Objective: * Vitals:?Ht: 68 in, Wt:190lbs , BMI:28.89Index. as per pt BP High Temp Normal. Assessment: Plan: * Treatment: * Procedure Codes:?18093 Offic e Visit, Est Pt., Level 2, delivered asynchronous, Modifiers: GQ * Follow Up:?PCP * Billing Information: * Visit Code:? * Procedure Codes:? 21554 Office Visit, Est Pt., Level 2, delivered asynchronous. Modifiers: GQ Images * 08-30-2023 Consent Form * Electronic signature of WALE AGGARWAL APRN on 12/07/2024 at 05:48 PM EDT Sign off status: Pending * Provider:BRIDGET AGGARWAL APRN Date:?04/2023 Generated for Jerry pennington/Dinesh/Thu on:?12/07/2024 05:48 PM EDT
--- OUTSIDE RECORDS SUMMARY | 2024-12-07 17:49 | XMS_ITS | Encounter Summary ---
Author Organization [facility] Address [address] [place] [address] Care Team Providers Care Avionics Systems Repairer Name Role Phone Toribio Thacker MD Primary Care Provider Encounter Details Date Type Department Care Team (Late st Contact Info) Description 02/08/2023 Scanned Document [facility] Podiatric Surgery [address] [place] [address] Manoj Ambrose, ANNABELLE [address] [facility] [address] [place] [address] Social History Tobacco Use Types Packs/Day Years [...] place to sleep or slept in a assisted (including now)? No 01/09/2023 Sex and Gender [...] on filedocumented in this encounter Care Teams Avionics Systems Repairer Relationship Specialty Start Date End Date Toribio Thacker MD [address] [address] PCP - General 01/10/23 documented as of this encounter
--- OUTSIDE RECORDS SUMMARY | 2024-12-07 17:49 | XMS_ITS | Clinical Summary ---
Author Organization [facility], Address [address] [place] [address] [place] [address] Phone Care Team Providers Care Human Resources Hr Representative Name Role Phone Veronica Steen MD Primary Care Provider Allergies No known active allergies Medications aspirin (ST ALIS) 81 MG EC tablet Take 81 mg by mouth 5 Active metoprolol succinate XL (TOPROL XL) 25 MG 24 hr tablet Take 25 mg by mouth 5 Active torsemide (DEMADEX) 20 MG tablet Take 40 mg by mouth 1 (one) time each day 5 Active SITagliptin (Januvia) 100 MG tablet Take 1 tablet by mouth 1 (one) time each day 3 Active Zituvio 100 MG tablet Take 1 tablet by mouth 1 (one) time each day 5 Active losartan (COZAAR) 50 MG tablet Take 50 mg by mouth 5 Active Jardiance 25 MG tablet Take by mouth 1 (one) time each day in the morning Active atorvastatin (LIPITOR) 40 MG tablet Take 40 mg by mouth 1 (one) time each day Active acetaminophen (TYLENOL) 500 MG tablet TAKE 2 TABLETS EVERY 8 HOURS BY ORAL ROUTE FOR 15 DAYS. 11/20/19 25 Discontinued acetaminophen (Tylenol) 325 MG tablet Take 975 mg by mouth 4 11/20/19 25 Discontinued valsartan (DIOVAN) 40 MG tablet TAKE 1 TABLET EVERY DAY BY MOUTH IN THE EVENING FOR 60 DAYS. 3 11/20/19 25 Discontinued metFORMIN (GLUCOPHAGE) 500 MG tablet Take 500 mg by mouth 3 11/20/19 25 Discontinued lisinopril 10 MG tablet Take 10 mg by mouth 5 11/20/19 25 Discontinued amLODIPine (NORVASC) 10 MG tablet Take 1 tablet by mouth 1 (one) time each day 3 11/20/19 25 Discontinued cholecalcifero l (VITAMIN D-3) 25 MCG (1000 UT) capsule Take 1,000 Units by mouth 1 (one) time each day 11/20/19 25 Discontinued Active Problems Problem Noted Date Diagnosed Date Chronic kidney disease stage 3 11/20/2024 Chronic systolic heart failure 11/20/2024 Essential hypertension 05/21/2023 Type 2 diabetes mellitus 12/22/2022 Encounters Date Type Department Care Team Description 11/20/2024 4:00 PM EST Office Visit [facility] [address] [place] [address] Venkat Hernandez DO Stage 3b chronic kidney disease (HCC) (Primary Dx); Type 2 diabetes mellitus with diabetic nephropathy (HCC); Essential hypertension; Chronic systolic heart failure (HCC) 11/20/2024 Documentation Only [facility] [address] [place] [address] Venkat Hernandez DO from Last 3 Months Social History Tobacco Use Types Packs/Day Years Used Date Smoking Tobacco: Never Assessed Sex and Gender Information Value Date Recorded Sex Assigned at Not on file Legal Sex Male 9:21 AM EDT Gender Identity Not on file Sexual Orientation Not on file Last Filed Vital Signs Vital Sign Reading Time Taken Comments Blood Pressure 120/74 11/20/2024 3:53 PM EST Pulse 68 11/20/2024 3:53 PM EST Temperature - - Respiratory Rate - - Oxygen Saturation - - Inhaled Oxygen Concentration - - Weight 76.7 kg (169 lb) 11/20/2024 3:53 PM EST Height - - Body Mass Index - - Plan of Treatment Upcoming Encounters Date Type Department Care Team (Late st Contact Info) Description 03/10/2025 4:00 PM EDT Office Visit [facility] [address] [place] [address] Venkat Hernandez DO [address] [place] [address] [place] [id number] Health Maintenance Due Date Last Done Comments Pneumococcal Vaccine: Pediat rics (0 to 5 Years) and At-Risk Patients (6 to 64 Years) (1 of 2 - PCV) 1979 Hepatitis B Vaccine (1 of 3 - 19+ 3-dose series) 01/12 Colorectal Cancer Screening: Annual FOBT 2022 Colorectal Cancer Screening: Colonoscopy 2022 Colorectal Cancer Screening: Sigmoidoscopy 2022 Influenza Vaccine (#1) 2024 Diabetes: Hemoglobin A1C 10/23/2024 Diabetes: Ophthalmology Exam 10/23/2024 Diabetes: Pedal Pulse Checked 10/23/2024 Diabetes: Sensory Foot Exam 10/23/2024 Diabetes: Visual Foot Exam 10/23/2024 Insurance [employer] [facility] [facility] [email or web address] ([id number]) [email or web address] ([id number]) [employer] Care Teams Human Resources Hr Representative Relationship Specialty Start Date End Date Veronica Steen MD [facility] [address] PCP - General Internal Medicine 10/23/24
--- OUTSIDE RECORDS SUMMARY | 2024-12-07 17:49 | XMS_ITS | Encounter Summary ---
Author Organization [facility] Address [address] [place] [address] Care Team Providers Care Engraver Apprentice Decorative Name Role Phone Rajesh Brenner MD Primary Care Provider [phone] Reason for Visit * Consultation (Routine) - Authorized Specialty Diagnoses / Procedures Referred By Contac t Referred To Contact Physical Therapy Diagnoses Below-knee amputation, unspecified laterality, sequela (CMS/HCC) Karena Eldridge [address] [facility] [place] [address] Phone: tel: [address] [address] Phone: tel: fax: Referral ID Status Reason Start Date Expiration Date Visits Requested Visits Authorized [id number] Authorized Specialty Services Required 03/22/2025 30 30 Encounter Details Date Type Department Care Team (Late st Contact Info) Description 11/17/2024 11:00 AM EST Treatment [address] [address] Yenifer Keita PT Below-knee amputation, unspecified laterality, sequela (CMS/HCC) (Primary Dx) Social History Tobacco Use Types Packs/Day Years Used Date Smoking Tobacco: Never Assessed Sex and Gender Information Value Date Recorded Sex Assigned at Not on file Legal Sex Male 8:23 PM EST Gender Identity Not on file Sexual Orientation Not on file documented as of this encounter Progress Notes * Yenifer Keita, PT - 11/17/2024 11:00 AM EST [facility] - Outpatient PHYSICAL THERAPY DAILY TREATMENT NOTE - OP Date: 11/17/2024 Visit Number: 9 Patient Name: Michael Garsia : 1975 Age: 49 y.o. Gender: male Diagnosis: ICD-10-CM ICD-9-CM 1. Below-knee amputation, unspecified laterality, sequela ([facility]) S88.119S 905.9 Date of Onset/Surgery: 09/11/2024 Referring Provider: Karena Eldridge PA Insurance: Payor: [employer] / Plan: [employer] / Product Type: *No Product type* / Patient Identified by: Yenifer Keita PT Language: Setswana Medications: Jardiance, Zitivio, Atorvastatin, Metformin, Losartan Potassium, Lisinopril, Metoprolol, Torsemide,low dose aspirin Allergies: has no allergies on file. Precautions: WBAT R LE Fall risk: Yes, Explain fall Risk Protocol to patient/family, Assist Patient to and from waiting room, and Assistive devices available to patient Patient/Caregiver Goals: SUBJECTIVE Subjective Report: Pt reported that he had a cast of his residual limb yesterday for a new socket. Chart Reviewed: Yes Pain No pain OBJECTIVE Pt had prosthesis donned on arrival ambulating with rolling walker TREATMENT INTERVENTION: Modalities: None performed Procedures: Therapeutic exs: Nu step, load 6, x 6 minutes, 284 steps Negotiated 4 steps x 1 using bilateral rails and [id number] gait Negotiated 4 steps x 1 reciprocally with bilateral rails and reciprocal gait, pt demonstrated difficulty with clearing prosthetic foot when advancing to the next step Marching in HL, 2 x 20 Resisted marching in HL, orange TB, x 20 Resisted hip ABD in HL, green TB, 3 x 10 Sit <-> stand from slightly elevated mat, x 15 HEP: bridging, resisted hip ABD in HL with green TB, resisted marching in HL with green TB, sit <-> stand ASSESSMENT/Response to Treatment Good: Pt tolerated therapy session well. Pt reported having adjustments made to current prosthesis,however, fit is still loose. Pt awaiting fabrication of new socket. Pt demonstrated increased tolerance to therex. Progress BLE strengthening as tolerated. Patient Education: Education provided: Yes, pt instructed to continue with current HEP Education Provided To: Patient utilizing Explanation mode(s) of education Response to Education: Verbal Understanding PLAN POC Development/Review: No Change in the Plan of Care; Participants: Patient Total Treatment Time: 30 Modalities: Therapeutic procedures: Therapeutic Exercise Time Entry: 30 Documentation completed by Yenifer Keita PT documented in this encounter Plan of Treatment Upcoming Encounters Date Type Department Care Team (Late st Contact Info) Description 12/09/2024 10:00 AM EDT Treatment [facility] [address] [address] Yenifer Keita, PT 12/17/2024 11:00 AM EDT Treatment [address] [address] Alejandro Holland, MATERIALS HANDLING COORDINATOR 12/18/2024 10:00 AM EDT Treatment [address] [address] Shahriar Narayan, MATERIALS HANDLING COORDINATOR 12/21/2024 11:00 AM EDT Treatment [address] [address] Yenifer Keita, PT 12/23/2024 10:00 AM EDT Treatment [facility] [address] [address], MATERIALS HANDLING COORDINATOR 12/28/2024 10:00 AM EDT Treatment [address] [address] Shahriar Narayan, MATERIALS HANDLING COORDINATOR 12/30/2024 10:00 AM EDT Treatment [facility] [address] [address] Shahriar Narayan, MATERIALS HANDLING COORDINATOR 01/04/2025 10:00 AM EDT Treatment [facility] [address] [phone] Yenifer Keita PT 01/06/2025 10:00 AM EDT Treatment [facility] - [address] [phone] Yenifer Keita PT documented as of this encounter Goals Goal Patient Goal Type Associated Problems Recent Progress Patient-Stated? Author STG (6 visits) General Yenifer Griffin PT Note: Pt will demonstrate compliance with HEP - MET Pt will be independent with donning and doffing prosthesis - MET Pt will perform skin checks independently - MET Pt will tolerate wearing prosthesis at least 10 hours/day - MET Pt will increase hip MMT to 3/5 - NOT ASSESSED Pt will ambulate with prosthesis and SPC for community mobility - NOT MET Pt will ambulate with prosthesis only for household mobility - NOT MET LTG (12 visits) No Yenifer Keita PT Note: Pt will demonstrate independence with HEP Pt will increase hip MMT to 4-/5 Pt will ambulate with prosthesis only for community mobility Pt will negotiate 4 steps x 3 reciprocally with bilateral rails and fair plus quadriceps strength documented as of this encounter Visit Diagnoses Diagnosis Below-knee amputation, unspecified laterality, sequela (CMS/HCC)- Primary documented in this encounter Care Teams Engraver Apprentice Decorative Relationship Specialty Start Date End Date Rajesh Brenner MD [address] [address] PCP - General 06/24/23 documented as of this encounter
--- OUTSIDE RECORDS SUMMARY | 2024-12-07 17:49 | XMS_ITS | Encounter Summary ---
Author Organization [facility] Address [address] [place] [address] Care Team Providers Care Drink Mixer Name Role Phone Rajesh Brenner MD Primary Care Provider [phone] Reason for Visit * Consultation (Routine) - Authorized Specialty Diagnoses / Procedures Referred By Contac mark Referred To Contact Physical Therapy Diagnoses Below-knee amputation, unspecified laterality, sequela (CMS/HCC) Karena Eldridge [address] [facility] [place] [address] Phone: tel: [address] [address] Phone: tel: fax: Referral ID Status Reason Start Date Expiration Date Visits Requested Visits Authorized [id number] Authorized Specialty Services Required 03/22/2025 30 30 Encounter Details Date Type Department Care Team (Late st Contact Info) Description 11/24/2024 10:00 AM EST Treatment [address] [address] Shahriar Narayan PTA Below-knee amputation, unspecified laterality, sequela (CMS/HCC) (Primary Dx) Social History Tobacco Use Types Packs/Day Years Used Date Smoking Tobacco: Never Assessed Sex and Gender Information Value Date Recorded Sex Assigned at Not on file Legal Sex Male 8:23 PM EST Gender Identity Not on file Sexual Orientation Not on file documented as of this encounter Progress Notes * Shahriar Narayan PTA - 11/24/2024 10:00 AM EST [facility] - Outpatient PHYSICAL THERAPY DAILY TREATMENT NOTE - OP Date: 11/24/2024 Visit Number: 11 Patient Name: Michael Garsia : 1975 Age: 49 y.o. Gender: male Diagnosis: ICD-10-CM ICD-9-CM 1. Below-knee amputation, unspecified laterality, sequela ([facility]) S88.119S 905.9 Date of Onset/Surgery: 09/11/2024 Referring Provider: Karena Eldridge PA Insurance: Payor: [employer] / Plan: [employer] / Product Type: *No Product type* / Patient Identified by: Shahriar Narayan PTA Language: Tamazight Medications: Jardiance, Zitivio, Atorvastatin, Metformin, Losartan Potassium, Lisinopril, Metoprolol, Torsemide,low dose aspirin Allergies: has no allergies on file. Precautions: WBAT R LE Fall risk: Yes, Explain fall Risk Protocol to patient/family, Assist Patient to and from waiting room, and Assistive devices available to patient Patient/Caregiver Goals: SUBJECTIVE Subjective Report: Pt reports he feels better with walking and less fatigued. Chart Reviewed: Yes Pain No pain OBJECTIVE Pt had prosthesis donned on arrival ambulating with rolling walker TREATMENT INTERVENTION: Modalities: None performed Procedures: Therapeutic exs: Nustep L5 x 5 mins Forward step ups onto 6 in step with R LE, using L hand rail, 2x15 reps Lateral stepping in // bars with purple band above knees x 10 feet x [address] R SLR x 10 Sidelying R hip abd x 10 Prone R and L hip ext x 10 ea Prone R knee flexion (assisted) with slow lowering x 10 Supine R knee flexion heel slide vs green tband x 10 HEP: bridging, resisted hip ABD in HL with green TB, resisted marching in HL with green TB, sit <-> stand SLR and sidelying hip abd ASSESSMENT/Response to Treatment Good: Pt tolerated exs well. Pt still waiting on new prosthesis Patient Education: Education provided: Yes, pt instructed to continue with current HEP Education Provided To: Patient utilizing Explanation mode(s) of education Response to Education: Verbal Understanding PLAN POC Development/Review: No Change in the Plan of Care; Participants: Patient Total Treatment Time: 30 Modalities: Therapeutic procedures: Therapeutic Exercise Time Entry: 30 Documentation completed by Shahriar Narayan PTA documented in this encounter Plan of Treatment Upcoming Encounters Date Type Department Care Team (Late st Contact Info) Description 12/09/2024 10:00 AM EDT Treatment [facility] [address] [phone] Yenifer Keita, PT 12/17/2024 11:00 AM EDT Treatment [address] [address] Alejandro Holland, PEACE OFFICER 12/18/2024 10:00 AM EDT Treatment [address] [address] Shahriar Narayan, PEACE OFFICER 12/21/2024 11:00 AM EDT Treatment [address] [address] Yenifer Keita, PT 12/23/2024 10:00 AM EDT Treatment [address] [address], PEACE OFFICER 12/28/2024 10:00 AM EDT Treatment [address] [phone] Shahriar Narayan, PEACE OFFICER 12/30/2024 10:00 AM EDT Treatment [address] [address] Shahriar Narayan, PEACE OFFICER 01/04/2025 10:00 AM EDT Treatment [address] [address] Yenifer Keita, PT 01/06/2025 10:00 AM EDT Treatment [facility] [address] [place] [address] Yenifer Keita PT documented as of this encounter Goals Goal Patient Goal Type Associated Problems Recent Progress Patient-Stated? Author STG (6 visits) Yenifer Michel, PT Note: Pt will demonstrate compliance with [...] mobility - NOT MET LTG (12 visits) Yenifer Michel, PT Note: Pt will demonstrate independence with HEP Pt will increase hip MMT to 4-/5 Pt will ambulate with prosthesis only for community mobility Pt will negotiate 4 steps x 3 reciprocally with bilateral rails and fair plus quadriceps strength documented as of this encounter Visit Diagnoses Diagnosis Below-knee amputation, unspecified laterality, sequela (CMS/HCC)- Primary documented in this encounter Care Teams Drink Mixer Relationship Specialty Start Date End Date Rajesh Brenner MD [address] [facility] [address] [place] [address] PCP - General 06/24/23 documented as of this encounter
--- OUTSIDE RECORDS SUMMARY | 2024-12-07 17:49 | XMS_ITS | Encounter Summary ---
Author Organization [facility], Address [address] [place] [address] Phone Care Team Providers Care Press And Blow Machine Tender Name Role Phone Veronica Steen MD Primary Care Provider [phone] Encounter Details Date Type Department Care Team (Late st Contact Info) Description 11/20/2024 4:00 PM EST Office Visit [facility], [address] [place] [phone] Venkat Hernandez DO [address] [facility] [place] [phone] Stage 3b chronic kidney disease (HCC) (Primary Dx); Type 2 diabetes mellitus with diabetic nephropathy (HCC); Essential hypertension; Chronic systolic heart failure (HCC) Social History Tobacco Use Types Packs/Day Years Used Date Smoking Tobacco: Never Assessed Sex and Gender Information Value Date Recorded Sex Assigned at Not on file Legal Sex Male 9:21 AM EDT Gender Identity Not on file Sexual Orientation Not on file documented as of this encounter Last Filed Vital Signs Vital Sign Reading Time Taken Comments Blood Pressure 120/74 11/20/2024 3:53 PM EST Pulse 68 11/20/2024 3:53 PM EST Temperature - - Respiratory Rate - - Oxygen Saturation - - Inhaled Oxygen Concentration - - Weight 76.7 kg (169 lb) 11/20/2024 3:53 PM EST Height - - Body Mass Index - - documented in this encounter Progress Notes * Venkat Hernandez DO - 11/20/2024 4:00 PM EST Images from the original note were not included. PATIENT: Michael Garsia : 1975 ENCOUNTER: 11/20/2024 PCP: Veronica Steen MD HPI: Michael Garsia is a 49 y.o. year old male with a history of Diabetes mellitus type 2 and right lower extremity Charcot joint which ultimately led to lower extremity amputation who I met at [facility] after transfer from [facility] with acute systolic decompensated heart failure new onset. He was aggressively diuresed to the point of nearly 60 pounds now and also underwent leftheart catheterization which showed nonobstructive coronary artery disease. Ejection fraction was around 30% and he since has been placed on goal- directed medical therapy. He has no further edema and his glycemic control is excellent. He has been taken off of metformin. He feels great. Still going to rehab. Current Medication List: Aspirin (aspirin 81 mg oral delayed release tablet) 81 Milligram By Mouth Daily Atorvastatin (atorvastatin 40 mg oral tablet) 40 Milligram By Mouth Daily for 30 Days empagliflozin (Jardiance 25 mg oral tablet) 1 tab(s) 25 Milligram By Mouth Daily in AM Losartan (losartan 50 mg oral tablet) 1 tab(s) 50 Milligram By Mouth Daily Metoprolol (metoprolol 25 mg oral tablet, extended release) 25 Milligram By Mouth Daily sitagliptin (Januvia 100 mg oral tablet) 100 Milligram By Mouth Daily torsemide (torsemide 20 mg oral tablet) 2 tab(s) 40 Milligram By Mouth Daily ROS: Constitutional: No fever. Respiratory: No shortness of breath. Cardiovascular: No chest pain. Gastrointestinal: No abdominal pain, nausea or vomiting. Genitourinary: No hematuria. All other systems reviewed and are negative. PAST MEDICAL HISTORY: Patient Active Problem List Diagnosis Date Noted Chronic kidney disease stage 3 (HCC) 11/20/2024 Chronic systolic heart failure (HCC) 11/20/2024 Essential hypertension 05/21/2023 Type 2 diabetes mellitus (HCC) 12/22/2022 PAST SURGICAL HISTORY: History reviewed. No pertinent surgical history. SOCIAL HISTORY: Social History Tobacco Use Smoking status: Not on file Smokeless tobacco: Not on file Substance Use Topics Alcohol use: Not on file FAMILY HISTORY: History reviewed. No pertinent family history. MEDICATIONS: Outpatient Encounter Medications as of 11/20/2024 Medication Sig Dispense Refill aspirin (ST ALIS) 81 MG EC tablet Take 81 mg by mouth losartan (COZAAR) 50 MG tablet Take 50 mg by mouth metoprolol succinate XL (TOPROL XL) 25 MG 24 hr tablet Take 25 mg by mouth SITagliptin (Januvia) 100 MG tablet Take 1 tablet by mouth 1 (one) time each day torsemide (DEMADEX) 20 MG tablet Take 40 mg by mouth 1 (one) time each day Zituvio 100 MG tablet Take 1 tablet by mouth 1 (one) time each day [DISCONTINUED] acetaminophen (Tylenol) 325 MG tablet Take 975 mg by mouth [DISCONTINUED] amLODIPine (NORVASC) 10 MG tablet Take 1 tablet by mouth 1 (one) time each day [DISCONTINUED] lisinopril 10 MG tablet Take 10 mg by mouth [DISCONTINUED] metFORMIN (GLUCOPHAGE) 500 MG tablet Take 500 mg by mouth [DISCONTINUED] valsartan (DIOVAN) 40 MG tablet TAKE 1 TABLET EVERY DAY BY MOUTH IN THE EVENING FOR 60 DAYS. atorvastatin (LIPITOR) 40 MG tablet Take 40 mg by mouth 1 (one) time each day Jardiance 25 MG tablet Take by mouth 1 (one) time each day in the morning [DISCONTINUED] acetaminophen (TYLENOL) 500 MG tablet TAKE 2 TABLETS EVERY 8 HOURS BY ORAL ROUTE FOR15 DAYS. [DISCONTINUED] cholecalciferol (VITAMIN D-3) 25 MCG (1000 UT) capsule Take 1,000 Units by mouth 1 (one) time each day No facility-administered encounter medications on file as of 11/20/2024. MEDICATION REVIEW: I have reviewed the patient's current medications. ALLERGIES: has no allergies on file. PHYSICAL EXAM: BP 120/74 Pulse 68 Wt 169 lb (76.7 kg) Constitutional: No apparent distress Cardiovascular: No friction rub. Pulmonary/Chest: No rales. Abdominal: Soft and non-tender. Extremities: Edema None; Right below the knee amputation with prosthesis. LABS: No lab exists for component: LABALBU No lab exists for component: PTHINTACT LABORATORY REVIEW: I have reviewed the labs noted above as well as in the chart, in CIS and in Care Everywhere. DOCUMENTATION REVIEW: I have reviewed the applicable outside notes located in the chart, in CIS and in Care Everywhere. ASSESSMENT: 1. Stage 3b chronic kidney disease (HCC) 2. Type 2 diabetes mellitus with diabetic nephropathy (HCC) 3. Essential hypertension 4. Chronic systolic heart failure (HCC) 1. CKD stage IIIb due to presumed diabetic nephropathy type II -Proteinuria under excellent control as is his glycemic management -Taken off of metformin due to impaired GFR now on Jardiance 25 mg daily as well as Januvia 2. Essential hypertension -well-controlled on current regimen with no changes recommended today other than decreased torsemide from 40 to 20 mg daily -Continue losartan 50 mg daily, metoprolol XL 25 mg daily, and Jardiance 25 mg daily. Can consider addition of nonsteroidal mineralocorticoid receptor antagonist in the future as well as conversion of losartan to Entresto as indicated. 3. Chronic systolic heart failure -Left heart catheterization October 2024 with nonobstructive coronary artery disease -Doing currently well on goal-directed medical therapy -Euvolemic on exam will decrease torsemide from 40 to 20 mg daily. Thank you very much for allowing participate in his care. With your permission I will see him back in the office in 3 to 4 months with new labs. Orders Placed This Encounter Renal Function Panel Hemoglobin A1c Urine Albumin / Creatinine Ratio documented in this encounter Plan of Treatment Upcoming Encounters Date Type Department Care Team (Late st Contact Info) Description 03/10/2025 4:00 PM EDT Office Visit [facility], [address] [place] [phone] Venkat Hernandez DO [address] [facility] [facility] [place] [phone] Scheduled Orders Name Type Priority Associated Diagnoses Orde r Schedule Renal Function Panel Lab Routine Stage 3b chronic kidney disease (HCC) Type 2 diabetes mellitus with diabetic nephropathy (HCC) Essential hypertension Chronic systolic heart failure (HCC) Expected: 11/20/2024, Expires: 12/18/2025 Hemoglobin A1c Lab Routine Stage 3b chronic kidney disease (HCC) Type 2 diabetes mellitus with diabetic nephropathy (HCC) Essential hypertension Chronic systolic heart failure (HCC) Expected: 11/20/2024, Expires: 12/18/2025 Urine Albumin / Creatinine Ratio Lab Routine Stage 3b chronic kidney disease (HCC) Type 2 diabetes mellitus with diabetic nephropathy (HCC) Essential hypertension Chronic systolic heart failure (HCC) Expected: 11/20/2024, Expires: 12/18/2025 documented as of this encounter Visit Diagnoses Diagnosis Stage 3b chronic kidney disease (HCC)- Primary Type 2 diabetes mellitus with diabetic nephropathy (HCC) Essential hypertension Chronic systolic heart failure (HCC) Chronic systolic heart failure documented in this encounter Care Teams Press And Blow Machine Tender Relationship Specialty Start Date End Date Veronica Steen MD [address] [place] [address] PCP - General Internal Medicine 10/23/24 documented as of this encounter
--- OUTSIDE RECORDS SUMMARY | 2024-12-07 17:49 | XMS_ITS | Encounter Summary ---
Author Organization [facility] Address [address] [place] [address] Care Team Providers Care Elementary Classroom Teacher Name Role Phone Rajesh Brenner MD Primary Care Provider [phone] Reason for Visit * Consultation (Routine) - Authorized Specialty Diagnoses / Procedures Referred By Contac mark Referred To Contact Physical Therapy Diagnoses Below-knee amputation, unspecified laterality, sequela (CMS/HCC) Karena Eldridge [address] [facility] [address] Phone: tel: [address] [address] Phone: tel: fax: Referral ID Status Reason Start Date Expiration Date Visits Requested Visits Authorized [id number] Authorized Specialty Services Required 03/22/2025 30 30 Encounter Details Date Type Department Care Team (Late st Contact Info) Description 11/19/2024 10:00 AM EST Treatment [facility] [address] [address] Shahriar Narayan PTA Below-knee amputation, [...] Progress Notes * Shahriar Narayan PTA - 11/19/2024 10:00 AM EST [facility] - Outpatient PHYSICAL THERAPY DAILY TREATMENT NOTE - OP Date: 11/19/2024 Visit Number: 10 Patient Name: Michael Garsia : 1975 Age: 49 y.o. Gender: male Diagnosis: ICD-10-CM ICD-9-CM 1. Below-knee amputation, unspecified laterality, sequela (CMS/[facility]) S88.119S 905.9 Date of Onset/Surgery: 09/11/2024 Referring Provider: Karena Eldridge PA Insurance: Payor: [employer] / Plan: [employer] / Product Type: *No Product type* / Patient Identified by: Shahriar Narayan PTA Language: Belarusian Medications: Jardiance, Zitivio, Atorvastatin, Metformin, Losartan Potassium, [...] Modalities: None performed Procedures: Therapeutic exs: Nustep L 6-5 x 5 mins Forward step ups onto 6 in step with R LE, using L hand rail, 2x10 reps Negotiated 4 steps x 3 using bilateral rails and [id number]-dl-[id number] gait Ambulated in // bars with no AD and supervision x 10 feet x 6 trials Practiced gait with SPC in L hand x 100 feet - pt feeling somewhat unsteady Marching in HL, x 20 B R SLR x 10 Sidelying R hip abd x 10 HEP: bridging, resisted hip ABD in HL with green TB, resisted marching in HL with green TB, sit <-> stand SLR and sidelying hip abd ASSESSMENT/Response to Treatment Good: Pt tolerated treatment with improved balance and endurance noted. Was able to perform SLR with some ext lag Patient Education: Education provided: Yes, pt instructed [...] Info) Description 12/09/2024 10:00 AM EDT Treatment [address] [address] Yenifer Keita, PT 12/17/2024 11:00 AM EDT Treatment [address] [address] Alejandro Holland, SCHEDULE CLERK 12/18/2024 10:00 AM EDT Treatment [address] [address] Shahriar Narayan, SCHEDULE CLERK 12/21/2024 11:00 AM EDT Treatment [address] [address] Yenifer Keita, PT 12/23/2024 10:00 AM EDT Treatment [address] [address], SCHEDULE CLERK 12/28/2024 10:00 AM EDT Treatment [address] [address] Shahriar Narayan, SCHEDULE CLERK 12/30/2024 10:00 AM EDT Treatment [address] [address] Shahriar Narayan, SCHEDULE CLERK 01/04/2025 10:00 AM EDT Treatment [address] [address] Yenifer Keita PT 01/06/2025 10:00 AM EDT Treatment [facility] 175 [facility] [address] [place] [address] Yenifer Keita PT documented as [...] - NOT MET LTG (12 visits) Yenifer Michel PT Note: Pt will demonstrate independence with HEP Pt will increase hip MMT to 4-/5 Pt will ambulate with prosthesis only for community mobility Pt will negotiate 4 steps x 3 reciprocally with bilateral rails and fair plus quadriceps strength documented as of this encounter Visit Diagnoses Diagnosis Below-knee amputation, unspecified laterality, sequela (CMS/HCC)- Primary documented in this encounter Care Teams Elementary Classroom Teacher Relationship Specialty Start Date End Date Rajesh Bernner MD [address] [facility] [address] [place] [phone] PCP - General 06/24/23 documented as of this encounter
--- OUTSIDE RECORDS SUMMARY | 2024-12-07 17:49 | XMS_ITS | Encounter Summary ---
Author Organization [facility] Address [address] [place] [address] Care Team Providers Care Asbestos Wire Finisher Name Role Phone Rajesh Brenner MD Primary Care Provider Reason for Visit * Consultation (Routine) - Authorized Specialty Diagnoses / Procedures Referred By Contac mark Referred To Contact Physical Therapy Diagnoses Below-knee amputation, unspecified laterality, sequela (CMS/HCC) Karena Eldridge [address] [facility] [place] [address] Phone: tel: [address] [address] Phone: tel: fax: Referral ID Status Reason Start Date Expiration Date Visits Requested Visits Authorized [id number] Authorized Specialty Services Required 03/22/2025 30 30 Encounter Details Date Type Department Care Team (Late st Contact Info) Description 11/26/2024 10:00 AM EST Treatment [address] [address] Shahriar Narayan PTA Below-knee amputation, [...] Progress Notes * Shahriar Narayan PTA - 11/26/2024 10:00 AM EST [facility] - Outpatient PHYSICAL THERAPY DAILY TREATMENT NOTE - OP Date: 11/26/2024 Visit Number: 12 Patient Name: Michael Garsia : 1975 Age: 49 y.o. Gender: male Diagnosis: ICD-10-CM ICD-9-CM 1. Below-knee amputation, unspecified laterality, sequela (CMS/[facility]) S88.119S 905.9 Date of Onset/Surgery: 09/11/2024 Referring Provider: Karena Eldridge PA Insurance: Payor: [employer] / Plan: [employer] / Product Type: *No Product type* / Patient Identified by: Shahriar Narayan PTA Language: Urdu Medications: Jardiance, Zitivio, Atorvastatin, Metformin, Losartan Potassium, [...] Modalities: None performed Procedures: Therapeutic exs: Nustep L5-6 x 5 mins Standing in // bars, L step touches to 4 in step with emphasis on keeping R knee extended, 2x10 (with and without UE assist) Standing in // bars SLS on R LE with light L hand support on rail, 10 x 10 secs ea Forward and backward walking in // bars with L hand rail, focusing on straightening R knee in stance x 10 feet x multiple trials ea direction Forward step ups onto 6 in step with R LE, using L hand rail, 2x15 reps Sidelying R hip abd, 2 x 10 HL marching with green tband x 15 B (gave purple band to progress home exercise program) HL hip add ball squeeze x 15 x 5 secs ea Bridging with miniball add squeeze x 10 x 5 secs ea HEP: bridging, resisted hip ABD in HL [...] Modalities: Therapeutic procedures: Therapeutic Exercise Time Entry: 35 Documentation completed by Shahriar Narayan PTA documented in this encounter Plan of Treatment Upcoming Encounters Date Type Department Care Team (Late st Contact Info) Description 12/09/2024 10:00 AM EDT Treatment [address] [address] Yenifer Keita, PT 12/17/2024 11:00 AM EDT Treatment [address] [address] Alejandro Holland, SCIENCE LIAISON 12/18/2024 10:00 AM EDT Treatment [address] [address] Shahriar Narayan, SCIENCE LIAISON 12/21/2024 11:00 AM EDT Treatment [address] [address] Yenifer Keita, PT 12/23/2024 10:00 AM EDT Treatment [facility] [address] [address], SCIENCE LIAISON 12/28/2024 10:00 AM EDT Treatment [address] [address] Shahriar Narayan, SCIENCE LIAISON 12/30/2024 10:00 AM EDT Treatment [address] [address] Shahriar Narayan, SCIENCE LIAISON 01/04/2025 10:00 AM EDT Treatment [facility] [address] [address] Yenifer Keita, LOKI 01/06/2025 10:00 AM EDT Treatment [facility] [address] [address] Yenifer Keita PT documented as of [...] Primary documented in this encounter Care Teams Asbestos Wire Finisher Relationship Specialty Start Date End Date Rajesh Brenner MD [address] [facility] [address] [place] [address] PCP - General 06/24/23 documented as of this encounter
--- OUTSIDE RECORDS SUMMARY | 2024-12-07 17:49 | XMS_ITS | Encounter Summary ---
Author Organization [facility] Address [address] [place] [address] Care Team Providers Care Rumper Name Role Phone Rajesh Brenner MD Primary Care Provider [phone] Reason for Visit * Consultation (Routine) - Authorized Specialty Diagnoses / Procedures Referred By Contac t Referred To Contact Physical Therapy Diagnoses Below-knee amputation, unspecified laterality, sequela (CMS/HCC) Karena Eldridge [address] [facility] [place] [address] Phone: tel: [address] [address] Phone: tel: fax: Referral ID Status Reason Start Date Expiration Date Visits Requested Visits Authorized [id number] Authorized Specialty Services Required 03/22/2025 30 30 Encounter Details Date Type Department Care Team (Late st Contact Info) Description 12/07/2024 10:00 AM EDT Treatment [address] [address] Yenifer Keita PT Below-knee amputation, [...] Progress Notes * Yenifer Keita, PT - 12/07/2024 10:00 AM EDT [facility] - Outpatient PHYSICAL THERAPY DAILY TREATMENT NOTE - OP Date: 12/07/2024 Visit Number: 15 Patient Name: Michael Garsia : 1975 Age: 49 y.o. Gender: male Diagnosis: ICD-10-CM ICD-9-CM 1. Below-knee amputation, unspecified laterality, sequela ([facility]) S88.119S 905.9 Date of Onset/Surgery: 09/11/2024 Referring Provider: Karena Eldridge PA Insurance: Payor: [employer] / Plan: [employer] / Product Type: *No Product type* / Patient Identified by: Yenifer Keita, PT Language: Turkish Medications: Jardiance, Zitivio, Atorvastatin, Metformin, Losartan Potassium, Lisinopril, Metoprolol, Torsemide,low dose aspirin Allergies: has no allergies on file. Precautions: WBAT R LE Fall risk: Yes, Explain fall Risk Protocol to patient/family, Assist Patient to and from waiting room, and Assistive devices available to patient Patient/Caregiver Goals: SUBJECTIVE Subjective Report: Pt reported that he walked a lot without the cane or walker over the weekend. Chart Reviewed: Yes Pain No pain OBJECTIVE Pt had prosthesis donned on arrival ambulating with rolling walker TREATMENT INTERVENTION: Modalities: None performed Procedures: Therapeutic exs: Nustep, BLE, load 6 x 2 minutes and load 5 x 4.5 minutes (427 steps) Forward stepping up and over 4 and 6-inch steps in parallel bars with RLE as support limb, BUE support, x 6 laps Lateral stepping up and over 4 and 6-inch steps in parallel bars, BUE support, x 4 in each direction, pt reported slight fatigue Ambulated 10 feet x 6 in parallel bars without use of UE support and feet positioned under hips BLE leg press on Shuttle 2000, 5 cords, 3 x 10 LLE leg press on Shuttle 2000, 5 cords, 3 x 10 RLE leg press on Shuttle 2000, 5 cords, 3 x 10 LLE heel raises on Shuttle 2000, 4 cords x 10 and 3 cords x 10, pt reported slight fatigue HEP: bridging, resisted hip ABD in HL with green TB, resisted marching in HL with green TB, sit <-> stand SLR and sidelying hip abd; seated R hip flexion AAROM, x 10; seated AA LAQ, x 10 on R ASSESSMENT/Response to Treatment Good: Pt tolerated therapy session well. Pt tolerated resisted therex without c/o pain, however, reported slight fatigue with resisted therex. Pt demonstrated improved gait (foot positioned under hip) when ambulating without use of AD. Re- eval at next session. Patient Education: Education provided: Yes, pt instructed [...] Info) Description 12/09/2024 10:00 AM EDT Treatment [address] [address] Yenifer Keita, PT 12/17/2024 11:00 AM EDT Treatment [address] [address] Alejandro Holland, MACHINIST FIRST CLASS 12/18/2024 10:00 AM EDT Treatment [facility] [address] [address] Shahriar Narayan, MACHINIST FIRST CLASS 12/21/2024 11:00 AM EDT Treatment [facility] [address] [address] Yenifer Keita, PT 12/23/2024 10:00 AM EDT Treatment [address] [address], MACHINIST FIRST CLASS 12/28/2024 10:00 AM EDT Treatment [address] [phone] Shahriar Narayan, MACHINIST FIRST CLASS 12/30/2024 10:00 AM EDT Treatment [facility] [address] [phone] Shahriar Narayan, MACHINIST FIRST CLASS 01/04/2025 10:00 AM EDT Treatment [facility] [address] [phone] Yenifer Keita, PT 01/06/2025 10:00 AM EDT Treatment [facility] [address] [phone] Yenifer Keita PT documented as of this [...] Primary documented in this encounter Care Teams Rumper Relationship Specialty Start Date End Date Rajesh Brenenr MD [address] [address] PCP - General 06/24/23 documented as of this encounter
--- OUTSIDE RECORDS SUMMARY | 2024-12-07 17:49 | XMS_ITS ---
Author Organization [facility] Address [address] [place] [address] Care Team Providers Care Business Development Engineer Name Role Phone Veronica Steen Primary Care Provider Unavailab Gary Liu [phone] Encounters Encounter Location Date Provider Diagnosis [facility] [address] [place] [address] 02/07/2024 Gary Ruggiero Plan Of Treatment No Information Progress Notes * DANIELA RUI[birth year]DOB:[birth year] (49 yo M)Acc No.[id number]:02/07/2024 Patient:?DANIELA RUIZ :1975???Age:49 Y???Sex:Male Address:[address] , [place], [place], [address] * true * Date:? Generated for Jerry pennington/Dinesh/eTranjitsmitting on:?12/07/2024 05:49 PM EDT
--- OUTSIDE RECORDS SUMMARY | 2024-12-07 17:49 | XMS_ITS | Clinical Summary ---
Author Organization [facility] Address [address] [place] [address] Phone Care Team Providers Care Glass Driller Name Role Phone Rajesh Brenner MD Primary Care Provider [phone] Encounters Date Type Department Care Team Description 12/07/2024 10:00 AM EDT Treatment [address] [phone] Lorenzo Keitaon, PT Below-knee amputation, unspecified laterality, sequela (CMS/HCC) (Primary Dx) 12/02/2024 10:00 AM EDT Treatment [address] [phone] [place], Yenifer, PT Below-knee amputation, unspecified laterality, sequela (CMS/HCC) (Primary Dx) 11/30/2024 10:00 AM EDT Treatment [address] [phone] Trembley, Yenifer, PT Below-knee amputation, unspecified laterality, sequela (CMS/HCC) (Primary Dx) 11/26/2024 10:00 AM EST Treatment [address] [phone] Shahriar Narayan, VIDEOGRAPHER Below-knee amputation, unspecified laterality, sequela (CMS/HCC) (Primary Dx) 11/24/2024 10:00 AM EST Treatment [address] [phone] Shahriar Narayan, VIDEOGRAPHER Below-knee amputation, unspecified laterality, sequela (CMS/HCC) (Primary Dx) 11/19/2024 10:00 AM EST Treatment [address] [phone] Shahriar Narayan, VIDEOGRAPHER Below-knee amputation, unspecified laterality, sequela (CMS/HCC) (Primary Dx) 11/17/2024 11:00 AM EST Treatment [address] [phone] TremYenifer barahona, PT Below-knee amputation, unspecified laterality, sequela (CMS/HCC) (Primary Dx) 11/06/2024 11:30 AM EST Treatment [address] [phone] Lorenzo Keitaon, PT Below-knee amputation, unspecified laterality, sequela (CMS/HCC) (Primary Dx) 10/07/2024 12:30 PM EST Treatment [address] [phone] Lorenzo Keitaon, PT Below-knee amputation, unspecified laterality, sequela (CMS/HCC) (Primary Dx) 10/05/2024 10:00 AM EST Treatment [address] [phone] Shahriar Narayan, VIDEOGRAPHER Below-knee amputation, unspecified laterality, sequela (CMS/HCC) (Primary Dx) 10/01/2024 10:00 AM EST Treatment [address] [phone] Shahriar Narayan, VIDEOGRAPHER Below-knee amputation, unspecified laterality, sequela (CMS/HCC) (Primary Dx) 09/29/2024 12:30 PM EST Treatment [address] [place] [phone] Yenifer Keita, PT Below-knee amputation, unspecified laterality, sequela (CMS/HCC) (Primary Dx) 09/25/2024 10:00 AM EST Treatment [address] [phone] Shahriar Narayan, VIDEOGRAPHER Below-knee amputation, unspecified laterality, sequela (CMS/HCC) (Primary Dx) 09/21/2024 10:00 AM EST Treatment [address] [phone] Shahriar Narayan, VIDEOGRAPHER Below-knee amputation, unspecified laterality, sequela (CMS/HCC) (Primary Dx) 09/11/2024 10:00 AM EST Evaluation [address] [phone] Yenifer Keita, PT Below-knee amputation, unspecified laterality, sequela (CMS/HCC) 09/11/2024 Plan of Care Documentation [address] [phone] from Last 3 Months Social History Tobacco Use Types Packs/Day Years Used Date Smoking Tobacco: Never Assessed Sex and Gender Information Value Date Recorded Sex Assigned at Not on file Legal Sex Male 8:23 PM EST Gender Identity Not on file Sexual Orientation Not on file Plan of Treatment Upcoming Encounters Date Type Department Care Team (Late st Contact Info) Description 12/09/2024 10:00 AM EDT Treatment [address] [phone] Yenifer Keita, PT 12/17/2024 11:00 AM EDT Treatment [address] [phone] Alejandro Holland, VIDEOGRAPHER 12/18/2024 10:00 AM EDT Treatment [address] [address] Shahriar Narayan, VIDEOGRAPHER 12/21/2024 11:00 AM EDT Treatment [address] [phone] Yenifer Keita, PT 12/23/2024 10:00 AM EDT Treatment [address] [address], VIDEOGRAPHER 12/28/2024 10:00 AM EDT Treatment [address] [address] Shahriar Narayan, VIDEOGRAPHER 12/30/2024 10:00 AM EDT Treatment [address] [address] Shahriar Narayan, VIDEOGRAPHER 01/04/2025 10:00 AM EDT Treatment [address] [address] Yenifer Keita, PT 01/06/2025 10:00 AM EDT Treatment [address] [address] Yenifer Keita, PT Health Maintenance Due Date Last Done Comments Diabetes: Annual Foot Exam 1983 Diabetes: Annual Retina Eye Exam 1983 Hepatitis B Vaccines (1 of 3 - 19+ 3-dose series) 01/13/1992 Pneumococcal Vaccine: 50+ Years (1 of 1 - PCV) 2023 Zoster Vaccines (1 of 2) 2023 Cholesterol Screening (Lipid Panel) 10/18/2023 Colorectal Cancer Screening: Colonoscopy 10/18/2023 Depression Screening 10/18/2023 HIV Screening 10/18/2023 Hepatitis C Screening 10/18/2023 Social Influencers of Health Screening 10/18/2023 Diabetes: Annual GFR (Glomerular Filtration Rate) 2024 01/11/2023, 01/11/2023, 01/10/2023, Additional history exists COVID-19 Vaccine (2 - season) 2024 05/10/2021 Influenza Vaccine (#1) 2024 Diabetes: Annual Urine Albumin-Creatinine Ratio (uACR) 09/11/2024 Diabetes: Blood Sugar Control Test (HGBA1C) 09/11/2024 Hypertension/CHF/CAD Annual BMP Blood Test 09/11/2024 01/11/2023, 01/11/2023, 01/10/2023, Additional history exists DTaP,Tdap,and Td Vaccines (2 - Td or Tdap) 01/30/2029 01/30/2019 HIB Vaccines Aged Out No longer eligi ble based on patient's age to complete this topic HPV Vaccines Aged Out No longer eligi ble based on patient's age to complete this topic Hepatitis A Vaccines Aged Out No long er eligible based on patient's age to complete this topic IPV Vaccines Aged Out No longer eligi ble based on patient's age to complete this topic MMR Vaccines Aged Out No longer eligi ble based on patient's age to complete this topic Meningococcal ACWY Vaccine Aged Out N o longer eligible based on patient's age to complete this topic Meningococcal B Vacine Aged Out No lo nger eligible based on patient's age to complete this topic Pneumococcal Vaccine: Pediatrics (0 to 5 Years) and At-Risk Patients (6 to 64 Years) Aged Out No longer eligible based on patient's age to complete this topic RSV Immunization Patients Under 20 months Aged Out No longer eligible based on patient's age to complete this topic Varicella Vaccines Aged Out No longer eligible based on patient's age to complete this topic Goals Goal Patient Goal Type Associated Problems Recent Progress Patient-Stated? Author STG (6 visits) General No Yenifer Keita, PT Note: Pt will demonstrate compliance with [...] mobility - NOT MET LTG (12 visits) General Yenifer Griffin, PT Note: Pt will demonstrate independence with HEP Pt will increase hip MMT to 4-/5 Pt will ambulate with prosthesis only for community mobility Pt will negotiate 4 steps x 3 reciprocally with bilateral rails and fair plus quadriceps strength Insurance [facility] [place] [id number] Care Teams Glass Driller Relationship Specialty Start Date End Date Rajesh Brenner MD [address] [address] PCP - General 06/24/23
--- OUTSIDE RECORDS SUMMARY | 2024-12-07 17:49 | XMS_ITS | Encounter Summary ---
Author Organization [facility] Address [address] [place] [address] Care Team Providers Care Milk House Worker Name Role Phone Rajesh Brenner MD Primary Care Provider [phone] Reason for Visit * Consultation (Routine) - Authorized Specialty Diagnoses / Procedures Referred By Contac t Referred To Contact Physical Therapy Diagnoses Below-knee amputation, unspecified laterality, sequela (CMS/HCC) Karena Eldridge [address] [facility] [place] [address] Phone: tel: [address] [address] Phone: tel: fax: Referral ID Status Reason Start Date Expiration Date Visits Requested Visits Authorized [id number] Authorized Specialty Services Required 03/22/2025 30 30 Encounter Details Date Type Department Care Team (Late st Contact Info) Description 12/02/2024 10:00 AM EDT Treatment [address] [address] Yenifer Keita PT Below-knee amputation, [...] Progress Notes * Yenifer Keita, PT - 12/02/2024 10:00 AM EDT [facility] - Outpatient PHYSICAL THERAPY DAILY TREATMENT NOTE - OP Date: 12/02/2024 Visit Number: 14 Patient Name: Michael Garsia : 1975 Age: 49 y.o. Gender: male Diagnosis: ICD-10-CM ICD-9-CM 1. Below-knee amputation, unspecified laterality, sequela ([facility]) S88.119S 905.9 Date of Onset/Surgery: 09/11/2024 Referring Provider: Karena Eldridge PA Insurance: Payor: [employer] / Plan: [employer] / Product Type: *No Product type* / Patient Identified by: Yenifer Keita, PT Language: Greenlandic Medications: Jardiance, Zitivio, Atorvastatin, Metformin, Losartan Potassium, Lisinopril, Metoprolol, Torsemide,low dose aspirin Allergies: has no allergies on file. Precautions: WBAT R LE Fall risk: Yes, Explain fall Risk Protocol to patient/family, Assist Patient to and from waiting room, and Assistive devices available to patient Patient/Caregiver Goals: SUBJECTIVE Subjective Report: Pt reported that he practiced with the new socket at his visit with No. Pt reported that it was much easier to walk with a better fitting prosthesis. Pt stated that he might get delivery of his new prosthesis next . Chart Reviewed: Yes Pain No pain OBJECTIVE Pt had prosthesis donned on arrival ambulating with rolling walker TREATMENT INTERVENTION: Modalities: None performed Procedures: Therapeutic exs: Nustep, L5, BLE, x 6.5 minutes (428 steps) Negotiated 4 steps x 3 using [id number] gait and L rail Negotiated 4 steps x 3 reciprocally with bilateral rails, pt demonstrated slight difficulty with R hip flexion in order to clear prosthetic foot when ascending Standing hip flexion AROM from 4-inch step in parallel bars, BUE support, x 10 (B) Resisted marching in HL, green TB, 2 x 20 Resisted hip ABD in HL, green TB, x 20 Bridging with resisted hip ABD, green TB, x 20 Seated R hip flexion AAROM, x 10 [HEP] Seated AA LAQ, x 10 on R [HEP] HEP: bridging, resisted hip ABD in HL with green TB, resisted marching in HL with green TB, sit <-> stand SLR and sidelying hip abd; seated R hip flexion AAROM, x 10; seated AA LAQ, x 10 on R ASSESSMENT/Response to Treatment Good: Pt tolerated therapy session well. Pt demonstrated insufficient hip flexion during reciprocalstair negotiation and demonstrated difficulty with clearing step with prosthetic foot. Pt would benefit from progressive hip flexor strengthening in order to allow for greater ease during stair negotiation. Pt demonstrated slight unstable gait with current prosthesis secondary to ill- fitting socket. Pt has an appointment next for modification of prosthesis with new socket. Patient Education: Education provided: Yes, pt instructed [...] Info) Description 12/09/2024 10:00 AM EDT Treatment [address] [phone] Yenifer Keita, PT 12/17/2024 11:00 AM EDT Treatment [address] [phone] Alejandro Holland, SCHOOL TEACHER 12/18/2024 10:00 AM EDT Treatment [facility] [address] [phone] Shahriar Narayan, SCHOOL TEACHER 12/21/2024 11:00 AM EDT Treatment [address] [phone] Yenifer Keita, PT 12/23/2024 10:00 AM EDT Treatment [address] [address], SCHOOL TEACHER 12/28/2024 10:00 AM EDT Treatment [facility] [address] [phone] Shahriar Narayan, SCHOOL TEACHER 12/30/2024 10:00 AM EDT Treatment [facility] [address] [phone] Shahriar Narayan, SCHOOL TEACHER 01/04/2025 10:00 AM EDT Treatment [facility] [address] [phone] Yenifer Keita, PT 01/06/2025 10:00 AM EDT Treatment [facility] [address] [phone] Yenifer Keita, PT documented as of this encounter Goals [...] - NOT MET LTG (12 visits) General No Yenifer Keita PT Note: Pt will [...] Primary documented in this encounter Care Teams Milk House Worker Relationship Specialty Start Date End Date Rajesh Brenner MD [address] [phone] PCP - General 06/24/23 documented as of this encounter
--- OUTSIDE RECORDS SUMMARY | 2024-12-07 17:49 | XMS_ITS | Encounter Summary ---
Author Organization [facility] Address [address] [place] [address] Phone Care Team Providers Care Pulp Grinder Feeder Name Role Phone Veronica Steen MD Primary Care Provider [phone] Encounter Details Date Type Department Care Team (Late st Contact Info) Description 11/20/2024 Documentation Only [facility] [address] [place] [address] Venkat Hernandez DO [address] [facility] [place] [address] Social History Tobacco Use Types Packs/Day Years Used Date Smoking Tobacco: Never Assessed Sex and Gender Information Value Date Recorded Sex Assigned at Not on file Legal Sex Male 9:21 AM EDT Gender Identity Not on file Sexual Orientation Not on file documented as of this encounter Plan of Treatment Upcoming Encounters Date Type Department Care Team (Late st Contact Info) Description 03/10/2025 4:00 PM EDT Office [facility] [address] [place] [address] Venkat Hernandez DO [address] [facility] [place] [address] documented as of this encounter Visit Diagnoses Not on filedocumented in this encounter Care Teams Pulp Grinder Feeder Relationship Specialty Start Date End Date Veronica Steen MD [address] [place] [address] [place] [address] PCP - General Internal Medicine 10/23/24 documented as of this encounter
--- OUTSIDE RECORDS SUMMARY | 2024-12-07 17:49 | XMS_ITS | Encounter Summary ---
Author Organization [facility] Address [address] [place] [address] Care Team Providers Care Aviation Support Equipment Repairer Name Role Phone Rajesh Brenner MD Primary Care Provider [phone] Reason for Visit * Consultation (Routine) - Authorized Specialty Diagnoses / Procedures Referred By Contac t Referred To Contact Physical Therapy Diagnoses Below-knee amputation, unspecified laterality, sequela (CMS/HCC) Karena Eldridge [address] [facility] [place] [address] Phone: tel: [address] [phone] Phone: tel: fax: Referral ID Status Reason Start Date Expiration Date Visits Requested Visits Authorized [id number] Authorized Specialty Services Required 03/22/2025 30 30 Encounter Details Date Type Department Care Team (Late st Contact Info) Description 11/30/2024 10:00 AM EDT Treatment [address] [phone] Yenifer Keita PT Below-knee amputation, [...] Progress Notes * Yenifer Keita, PT - 11/30/2024 10:00 AM EDT [facility] - Outpatient PHYSICAL THERAPY DAILY TREATMENT NOTE - OP Date: 11/30/2024 Visit Number: 13 Patient Name: Michael Garsia : 1975 Age: 49 y.o. Gender: male Diagnosis: ICD-10-CM ICD-9-CM 1. Below-knee amputation, unspecified laterality, sequela (CMS/[facility]) S88.119S 905.9 Date of Onset/Surgery: 09/11/2024 Referring Provider: Karena Eldridge PA Insurance: Payor: [employer] / Plan: [employer] / Product Type: *No Product type* / Patient Identified by: Yenifer Keita, PT Language: Bulgarian Medications: Jardiance, Zitivio, Atorvastatin, Metformin, Losartan Potassium, Lisinopril, Metoprolol, Torsemide,low dose aspirin Allergies: has no allergies on file. Precautions: WBAT R LE Fall risk: Yes, Explain fall Risk Protocol to patient/family, Assist Patient to and from waiting room, and Assistive devices available to patient Patient/Caregiver Goals: SUBJECTIVE Subjective Report: Pt reported that he was able to practice driving with the left accelerator at [employer]. Pt reported that his prosthesis is very loose and that he has an appointment with Service Desk Agent tomorrow. Chart Reviewed: Yes Pain No pain OBJECTIVE Pt had prosthesis donned on arrival ambulating with rolling walker TREATMENT INTERVENTION: Modalities: None performed Procedures: Therapeutic exs: Nustep, L5, BLE, x 6.5 minutes (400 steps) Resisted side stepping L/R in parallel bars, green TB around distal thighs, 10 feet x 3 in each direction Step-up/step-down, 6-inch step in parallel bars, BUE support, x 10 (B) Lateral step up and over 6-inch step in parallel bars, BUE support, x 5 in each direction Gait training in parallel bars: Ambulated 10 feet x 6 without use of UE support with focus on equal step length, pt unable to advance L foot beyond R forefoot Ambulated 10 feet x 8 with LUE support and focus on step-through gait with equal step length, pt able to advance L foot at least 3 inches beyond R foot (nearly equal step length bilaterally) Ambulated 10 feet x 6 without use of UE support, pt able to ambulate with swing through gait pattern and nearly equal step length (B) HEP: bridging, resisted hip ABD in HL with green TB, resisted marching in HL with green TB, sit <-> stand SLR and sidelying hip abd ASSESSMENT/Response to Treatment Good: Pt tolerated therapy session well. Pt demonstrated good carryover of gait pattern and equal step length after practicing with LUE support. Pt is having slight difficulty with use of current prosthesis secondary to looser fit following rapid weight loss. Pt has an appointment with No tomorrow. Progress BLE strengthening as tolerated. Patient Education: Education provided: Yes, pt instructed to continue with current HEP Education Provided To: Patient utilizing Explanation mode(s) of education Response to Education: Verbal Understanding PLAN POC Development/Review: No Change in the Plan of Care; Participants: Patient Total Treatment Time: 30 Modalities: Therapeutic procedures: Gait Training Time Entry: 10 Therapeutic Exercise Time Entry: 20 Documentation completed by Yenifer Keita PT documented in this encounter Plan of Treatment Upcoming Encounters Date Type Department Care Team (Late st Contact Info) Description 12/09/2024 10:00 AM EDT Treatment [facility] [address] [phone] Yenifer Keita, PT 12/17/2024 11:00 AM EDT Treatment [facility] [address] [phone] Alejandro Holland, TINNER AUTOMATIC 12/18/2024 10:00 AM EDT Treatment [facility] [address] [phone] Shahriar Narayan, CLAIRE 12/21/2024 11:00 AM EDT Treatment [facility] [address] [phone] Yenifer Keita, PT 12/23/2024 10:00 AM EDT Treatment [facility] [address] [phone], TINNER AUTOMATIC 12/28/2024 10:00 AM EDT Treatment [facility] [address] [phone] Shahriar Narayan, TINNER AUTOMATIC 12/30/2024 10:00 AM EDT Treatment [facility] [address] [phone] Shahriar Narayan, TINNER AUTOMATIC 01/04/2025 10:00 AM EDT Treatment [facility] [address] [phone] Yenifer Keita, PT 01/06/2025 10:00 AM EDT Treatment [facility] [address] [phone] Yenifer Keita, PT documented as of this [...] MET LTG (12 visits) General No Yenifer Keita, PT Note: Pt will demonstrate independence with HEP Pt will increase hip MMT to 4-/5 Pt will ambulate with prosthesis only for community mobility Pt will negotiate 4 steps x 3 reciprocally with bilateral rails and fair plus quadriceps strength documented as of this encounter Visit Diagnoses Diagnosis Below-knee amputation, unspecified laterality, sequela (CMS/HCC)- Primary documented in this encounter Care Teams Aviation Support Equipment Repairer Relationship Specialty Start Date End Date Rajesh Brenner MD [address] [address] PCP - General 06/24/23 documented as of this encounter
--- OUTSIDE RECORDS SUMMARY | 2024-12-07 17:49 | XMS_ITS | Patient Health Record ---
Author Organization [facility] Address [address] [place] [address] Care Team Providers Care Spray Gun Repairer Name Role Phone Veronica Steen Primary Care Provider Unavailab Gary Liu Unavailable [phone] Reason For Referral No Information Encounters Encounter Location Date Provider Diagnosis [facility] [address] [place] [phone] 02/07/2024 Gary Ruggiero Plan Of Treatment No Information Insurance Providers Payer Name Payer Address Payer Phone Subscriber Number Group Number Insured Name Patient Relationship to Insured Coverage Start Date Coverage End Date [facility] [address] [address] [place] [address] [id number] DANIELA RUIZ Self - patient is the insured
== END 2024-12-07 15:48 | disposition home or self-care (01) ==
LOC: HO.HCS 15:18
PROVIDERS: PCP Internal Medicine; Visit Provider Internal Medicine Cardiovascular Disease
DX: I50.20 Unspecified systolic (congestive) heart failure (principal); I25.10 Atherosclerotic heart disease of native coronary artery without angina pectoris
CPT/HCPCS: 99214

== ENCOUNTER → 2024-12-07 15:17 | Outpatient (BNVA) | payer OTHER, SELFPAY | PROVIDERS: PCP Internal Medicine; Visit Provider Internal Medicine Cardiovascular Disease ==

== ENCOUNTER 2024-12-17 08:59 | Outpatient (REF) | payer OTHER, SELFPAY ==
[2024-12-17 10:52] LABS: Anion Gap 12 (12-20); Blood Urea Nitrogen 73 mg/dL (9-16); Calcium 9.3 mg/dL (8.4-10.2); Carbon Dioxide 25 mmol/L (22-29); Chloride 105 mmol/L (96-108); Cholesterol 119 mg/dL (<200); Estimated Glomerular Filt Rate 21; Glucose Random 119 mg/dL (60-115); HDL Cholesterol 40 mg/dL (>40); LDL Cholesterol Calculated 60 mg/dL (<100); Potassium 4.9 mmol/L (3.3-5.1); Sodium 137 mmol/L (135-145); Triglycerides 99 mg/dL (<150)
[2024-12-17 11:14] LABS: B Type Natriuretic Peptide 317 pg/mL (<100)
== END 2024-12-17 09:00 | disposition home or self-care (01) ==
LOC: HO.10HDL 08:59
PROVIDERS: Visit Provider Internal Medicine Cardiovascular Disease
DX: I50.20 Unspecified systolic (congestive) heart failure (principal); I25.10 Atherosclerotic heart disease of native coronary artery without angina pectoris
CPT/HCPCS: 36415; 80048; 80061; 83880

== ENCOUNTER → 2025-01-12 08:50 | Outpatient (REF) | payer OTHER, SELFPAY ==
--- NOTE | 2025-01-12 08:53 | CA_ITS ---
Transthoracic Echocardiogram Patient (Last, First, Middle): Michael Garsia, Gender: Male Date of : 1975 Age: 50 Procedure Date: 01/12/2025 Procedure Type: Transthoracic Echocardiogram Location: OP Height: 172.72 cm Weight: 75.75 kg BSA: 1.89 m2 Heart Rate: bpm BP: 140 / 90 mmHg Construction Checker: TO Referring MD: Alejandro Puga MD Symptoms: I42.9 - Cardiomyopathy, unspecified Study Quality: Fair/declined contrast ECG Rhythm: Sinus Conclusions: - The left ventricular systolic function is severely decreased. The calculated ejection fraction is 23% by biplane method. Findings Procedure Information The patient declines contrast. Left Ventricle Normal left ventricular cavity size. There is mildly increased left ventricular wall thickness. The left ventricular systolic function is severely decreased. The calculated ejection fraction is 23% by biplane method. There is severe global hypokinesis. Cannot exclude apical thrombus (patient declined contrast). Venous The inferior vena cava is normal in size and collapses greater than 50% with inspiration. Pericardium/Pleural There is a small pericardial effusion. Prior Study Comparison No significant change compared to prior study dated: 10/14/2024. Measurements 2D Linear Measurements IVSd: 1.08 0.6-0.9/0.6-1.0 cm LVIDd: 5.34 3.9-5.3/4.2-5.9 cm LVIDd Index: 2.83 2.4-3.2/2.2-3.1 cm/m2 LVIDs: 4.95 2.0-3.6 cm LVPWd: 1.10 0.7-1.1 cm LV Mass: 283.91 67-162/88-224 g LV Mass Index: 150.21 43-95/49-115 g/m2 LVOT Diam: 2.30 3.0+(-)1.3 cm 2D Systolic Function EF 4C: 25.80 >55% EF 2C: 20.60 >55% EF BiP: 22.50 >55% LVOT LVOT Pk Bonilla: 0.51 LVOT Mn Bonilla: 0.36 LVOT VTI: 0.10 LVOT Pk Grad: 1.00 LVOT Mn Grad: 1.00 LVOT Diam: 2.30 LVOT Area: 4.15 Tricuspid Valve RA Press: 3.00 Updated in Other Vendor System with Status of Final Rneo Bernal MD electronically signed on 01/12/2025 10:35:15 AM with status of Final
--- OUTSIDE RECORDS SUMMARY | 2025-01-12 09:13 | XMS_ITS | Clinical Summary ---
Author Organization [facility] Address [address] [place] [address] Phone Care Team Providers Care Color Grinder Name Role Phone Rajesh Brenner MD Primary Care Provider [phone] Encounters Date Type Department Care Team Description 01/06/2025 10:00 AM EDT Treatment [address] [phone] Lorenzo Keitaon, PT Below-knee amputation, unspecified laterality, sequela (CMS/HCC V24) (Primary Dx) 01/04/2025 10:00 AM EDT Treatment [address] [phone] Lorenzo Keitaon, PT Below-knee amputation, unspecified laterality, sequela (CMS/HCC V24) (Primary Dx) 12/30/2024 10:00 AM EDT Treatment [address] [phone] Shahriar Narayan, FLORAL DECORATOR Below-knee amputation, unspecified laterality, sequela (CMS/HCC V24) (Primary Dx) 12/28/2024 10:00 AM EDT Treatment [address] [phone] Shahriar Narayan, FLORAL DECORATOR Below-knee amputation, unspecified laterality, sequela (CMS/HCC V24) (Primary Dx) 12/23/2024 10:00 AM EDT Treatment [address] [phone], FLORAL DECORATOR Below-knee amputation, unspecified laterality, sequela ([facility] V24) (Primary Dx) 12/21/2024 11:00 AM EDT Treatment [address] [phone] Yenifer Keita, PT Below-knee amputation, unspecified laterality, sequela (CMS/HCC V24) (Primary Dx) 12/18/2024 10:00 AM EDT Treatment [address] [phone] Shahriar Narayan, FLORAL DECORATOR Below-knee amputation, unspecified laterality, sequela (CMS/HCC V24) (Primary Dx) 12/17/2024 11:00 AM EDT Treatment [address] [phone] Alejandro Holland, FLORAL DECORATOR Below-knee amputation, unspecified laterality, sequela (CMS/HCC V24) (Primary Dx) 12/09/2024 10:00 AM EDT Treatment [address] [phone] Lorenzo Keitaon, PT Below-knee amputation, unspecified laterality, sequela (CMS/HCC V24) (Primary Dx) 12/07/2024 10:00 AM EDT Treatment [address] [phone] Lorenzo Keitaon, PT Below-knee amputation, unspecified laterality, sequela (CMS/HCC V24) (Primary Dx) 12/02/2024 10:00 AM EDT Treatment [address] [phone] Lorenzo Keitaon, PT Below-knee amputation, unspecified laterality, sequela (CMS/HCC V24) (Primary Dx) 11/30/2024 10:00 AM EDT Treatment [address] [phone] Lorenzo Keitaon, PT Below-knee amputation, unspecified laterality, sequela ([facility] V24) (Primary Dx) 11/26/2024 10:00 AM EST Treatment [address] [phone] Mathew Narayanew, FLORAL DECORATOR Below-knee amputation, unspecified laterality, sequela (CMS/[facility] V24) (Primary Dx) 11/24/2024 10:00 AM EST Treatment [address] [phone] BoMathew chowdaryew, FLORAL DECORATOR Below-knee amputation, unspecified laterality, sequela ([facility] V24) (Primary Dx) 11/19/2024 10:00 AM EST Treatment [address] [phone] BoMathew chowdaryew, FLORAL DECORATOR Below-knee amputation, unspecified laterality, sequela (CMS/[facility] V24) (Primary Dx) 11/17/2024 11:00 AM EST Treatment [address] [phone] Lorenzo Keitaon, PT Below-knee amputation, unspecified laterality, sequela ([facility]/HCC V24) (Primary Dx) 11/06/2024 11:30 AM EST Treatment [address] [phone] Lorenzo Keitaon, PT Below-knee amputation, unspecified laterality, sequela ([facility] V24) (Primary Dx) from Last 3 Months Social History Tobacco Use Types Packs/Day Years Used Date Smoking Tobacco: Never Assessed Sex and Gender Information Value Date Recorded Sex Assigned at Not on file Legal Sex Male 8:23 PM EST Gender Identity Not on file Sexual Orientation Not on file Plan of Treatment Health Maintenance Due Date [...] 01/11/2023, 01/10/2023, Additional history exists COVID-19 Vaccine ( - season) 2024 05/10/2021 Diabetes: Annual Urine Albumin-Creatinine Ratio (uACR) 09/11/2024 Diabetes: Blood Sugar Control Test (HGBA1C) 09/11/2024 Hypertension/CHF/CAD Annual BMP Blood Test 09/11/2024 01/11/2023, 01/11/2023, 01/10/2023, Additional history exists Influenza Vaccine (Season Ended) 2025 DTaP,Tdap,and Td Vaccines (2 - Td or [...] age to complete this topic Meningococcal B Vaccine Aged Out No l onger eligible based on patient's age to complete [...] on patient's age to complete this topic [place] [id number] Care Teams Color Grinder Relationship Specialty Start Date End Date Rajesh Brenner MD [address] [phone] PCP - General 06/24/23
--- OUTSIDE RECORDS SUMMARY | 2025-01-12 09:13 | XMS_ITS | Clinical Summary ---
Author Organization [facility], Address [address] [place] [address] Phone Care Team Providers Care Sql Consultant Name Role Phone Veronica Steen MD Primary Care Provider [phone] Allergies No known active allergies Medications aspirin (ST ALIS) 81 MG EC tablet Take 81 mg by mouth 10/27/2024 Active metoprolol succinate XL (TOPROL XL) 25 MG 24 hr tablet Take 25 mg by mouth 10/27/2024 Active torsemide (DEMADEX) 20 MG tablet Take 40 mg by mouth 1 (one) time each day 10/27/2024 Active SITagliptin (Januvia) 100 MG tablet Take 1 tablet by mouth 1 (one) time each day 01/30/2023 Active Zituvio 100 MG tablet Take 1 tablet by mouth 1 (one) time each day 10/09/2024 Active losartan (COZAAR) 50 MG tablet Take 50 mg by mouth 10/27/2024 Active Jardiance 25 MG tablet Take by mouth 1 (one) time each day in the morning Active atorvastatin (LIPITOR) 40 MG tablet Take 40 mg by mouth 1 (one) time each day Active Active Problems Problem Noted Date Diagnosed Date Chronic kidney disease stage 3 11/20/2024 Chronic systolic heart failure 11/20/2024 Essential hypertension 05/21/2023 Type 2 diabetes mellitus 12/22/2022 Encounters Date Type Department Care Team Description 11/20/2024 4:00 PM EST Office Visit [facility], [address] [place] [address] Venkat Hernandez DO Stage 3b chronic kidney disease (HCC) (Primary Dx); Type 2 diabetes mellitus with diabetic nephropathy (HCC); Essential hypertension; Chronic systolic heart failure (HCC) 11/20/2024 Documentation Only [facility] [address] [place] [address] Venkat Hernandez DO from Last 3 Months [...] Visit [facility] [address] [place] [phone] Venkat Hernandez DO [address] [place] [address] [place] [phone] Health Maintenance Due Date Last Done Comments Hepatitis B Vaccine (1 of 3 - 19+ 3-dose series) 01/12 Pneumococcal Vaccine: 50+ Years (1 of 2 - PCV) 992 Colorectal Cancer Screening: Annual FOBT 2022 Colorectal Cancer Screening: Colonoscopy 2022 Colorectal Cancer Screening: Sigmoidoscopy 2022 Diabetes: Hemoglobin A1C 10/23/2024 Diabetes: Ophthalmology Exam 10/23/2024 Diabetes: Pedal Pulse Checked 10/23/2024 Diabetes: Sensory Foot Exam 10/23/2024 Diabetes: Visual Foot Exam 10/23/2024 Influenza Vaccine (Season Ended) 2025 Insurance [facility] [facility] ([id number]) [employer]ocate [employer] [facility] [facility] Faustino Galindo ([id number]) [facility] Care Teams Sql Consultant Relationship Specialty Start Date End Date Veronica Steen MD [address] [place] [address] [place] [address] PCP - General Internal Medicine 10/23/24
--- OUTSIDE RECORDS SUMMARY | 2025-01-12 09:13 | XMS_ITS | Encounter Summary ---
Author Organization [facility] Address [address] [place] [address] Care Team Providers Care Travel Attendants Name Role Phone Toribio Thacker MD Primary Care Provider Encounter Details Date Type Department Care Team (Late st Contact Info) Description 02/08/2023 Scanned Document [facility] Podiatric Surgery [address] [place] [address] Manoj Ambrose, ANNABELLE [address] [facility] [address] [place] [address] Social History Tobacco Use Types Packs/Day Years [...] place to sleep or slept in a retirement (including now)? No 01/09/2023 Sex and Gender Information Value Date Recorded Sex Assigned at Male 01/08/2023 10:21 PM EDT Legal Sex Male 7:55 PM EDT Gender Identity Male 01/08/2023 10:19 [...] on filedocumented in this encounter Care Teams Travel Attendants Relationship Specialty Start Date End Date Toribio Thacker MD [address] [address] PCP - General 01/10/23 documented as of this encounter
--- OUTSIDE RECORDS SUMMARY | 2025-01-12 09:13 | XMS_ITS | Encounter Summary ---
Author Organization [facility] Address [address] [place] [address] Care Team Providers Care Radio Time Buyer Name Role Phone Toribio Thacker MD Primary Care Provider Encounter Details Date Type Department Care Team (Late st Contact Info) Description 01/31/2023 Scanned Document [facility] Podiatric Surgery [address] [place] [address] Manoj Ambrose, ANNABELLE 201 [facility] [address] [place] [address] Social History Tobacco Use Types Packs/Day Years [...] place to sleep or slept in a correction (including now)? No 01/09/2023 Sex and Gender [...] on filedocumented in this encounter Care Teams Radio Time Buyer Relationship Specialty Start Date End Date Toribio Thacker MD [address] [address] PCP - General 01/10/23 documented as of this encounter
--- OUTSIDE RECORDS SUMMARY | 2025-01-12 09:13 | XMS_ITS | Patient Health Record ---
Author Organization [facility] Address [address] [place] [address] Support Name Relationship Address Phone Michael Garsia [...] Self Pay [address] [place] [phone] Michael Garsia Self - patient is the insured Medical (General) History Medical History History ICD Code Type 2 diabetes
--- OUTSIDE RECORDS SUMMARY | 2025-01-12 09:13 | XMS_ITS | Clinical Summary ---
Author Organization [facility] Address [address] [place] [address] Care Team Providers Care Director Of Retail Analytics Name Role Phone Toribio Thacker MD Primary Care Provider Allergies Active Allergy Reactions Criticality Noted Date Comments Penicillins Unknown/Patient and Family Unable to Define Medium 01/08/2023 Medications amLODIPine (NORVASC) 5 MG tabletIndication s:Hypertension, unspecified type Take 1 tablet (5 mg total) by mouth daily. 30 tablet 01/11/2023 Active cephALEXin (KEFLEX) 500 MG capsuleIndicatio ns:Ulcer of right foot, unspecified ulcer stage (HCC) Take 1 capsule (500 mg total) by mouth every 8 (eight) hours around the clock. 9 capsule 01/11/2023 Active atorvastatin (LIPITOR) 20 MG tablet 02/13/2023 Active Blood Glucose Monitoring Suppl (FreeStyle Lite) w/Device Kit USE TO CHECK SUGARS TWICE A DAY 01/30/2023 Active Continuous Blood Gluc Sensor (FreeStyle Dulce 2 Sensor) [facility] APPLY SENSOR DIRECTED. REPLACE EVERY 14 DAYS [...] place to sleep or slept in a usp (including now)? No 01/09/2023 Sex and Gender [...] 65 - 99 mg/dL 01/11/2023 9:38 AM [facility] Comment:Fasting: <100 mg/dL, Non-Fasting: <200 mg/dL (ADA 2004) Blood Urea Nitrogen (BUN) 65(H) 8 - 21 mg/dL 01/11/2023 9:38 AM [facility] Creatinine 2.1(H) 0.5 - 1.3 mg/dL 01/11/2023 9:38 AM [facility] eGFR 38(L) >59 01/11/2023 9:38 AM [facility] Comment: CKD-EPI (2020) in mL/min/1.73 sq meters. Reported eGFR is based on the CKD-EPI equation that does not use a race coefficient as of 11/27/2022 Sodium 136 136 - 145 mmol/L 01/11/2023 9:38 AM [facility] Potassium 4.5 3.4 - 5.3 mmol/L 01/11/2023 9:38 AM [facility] Chloride 103 98 - 107 mmol/L 01/11/2023 9:38 AM [facility] CO2 21(L) 22 - 33 mmol/L 01/11/2023 9:38 AM [facility] Anion Gap 12 7 - 17 01/11/2023 9:38 AM [facility] Calcium 9.1 8.7 - 10.5 mg/dL 01/11/2023 9:38 AM [facility] BUN/Creatinine Ratio 31(H) 10.0 - 25.0 Ratio 01/11/2023 9:38 AM [facility] Blood specimen (specimen) (Plasma/Serum) 01/11/2023 8:45 AM EDT 01/11/2023 9:16 AM EDT us Alysia Sharp MD LAB BLOOD ORDERABLES Final Res ult Performing Organization Address [facility] Co de Phone Number [facility] [place] [address] * (ABNORMAL) HEMOGLOBIN A1C WITH ESTIMATED AVERAGE GLUCOSE (01/09/2023 2:50 AM EDT) Hemoglobin A1C 10.9(H) <5.7 % 01/09/2023 4:59 AM EDT [facility] Comment: A1c% ? Interpretation 5.7 - 6.0 ?Increase risk of diabetes 6.1 - 6.4 ?Higher risk of diabetes > or = 6.5 ?? Consistent with diabetes Diabetes Care, 33(Supp 1):S1-S61, 2010 Estimated Average Glucose 266 mg/dL 01/09/2023 4:59 AM EDT [facility] Blood specimen / Unknown 01/09/2023 2:50 AM EDT 01/09/2023 3:09 AM EDT us Prieto Amaya MD LAB BLOOD ORDERABLES Final Result Performing Organization Address [facility] Co de Phone Number [facility] [place] [address] from Last 3 Months or Most Recently Relevant to Health Maintenance Insurance [facility] [employer] [facility] [employer] Advance Directives * Full Code (Latest Code Status on File) Date Activated Date Inactivated Comments 01/09/2023 4:22 AM Care Teams Director Of Retail Analytics Relationship Specialty Start Date End Date Toribio Thacker MD [address] [address] PCP - General 01/10/23
--- OUTSIDE RECORDS SUMMARY | 2025-01-12 09:13 | XMS_ITS | Encounter Summary ---
Author Organization [facility] Address [address] [place] [address] Phone Care Team Providers Care Engineering Mgr Name Role Phone Veronica Steen MD Primary Care Provider [phone] Encounter Details Date Type Department Care Team (Late st Contact Info) Description 11/20/2024 Documentation Only [facility] [address] [place] [address] Venkat Hernandez DO [address] [facility] [place] [address] Social History Tobacco Use Types [...] Visit [facility] [address] [place] [address] Venkat Hernandez DO [address] [facility] [place] [address] documented as of this encounter Visit Diagnoses Not on filedocumented in this encounter Care Teams Engineering Mgr Relationship Specialty Start Date End Date Veronica Steen MD [address] [place] [address] [place] [address] PCP - General Internal Medicine 10/23/24 documented as of this encounter
--- OUTSIDE RECORDS SUMMARY | 2025-01-12 09:14 | XMS_ITS | Patient Health Record ---
Author Organization [facility] Address [address] [place] [address] Care Team Providers Care Railroad Track Inspector Name Role Phone Veronica Steen Primary Care Provider Unavailab Gary Liu Unavailable [phone] Reason For Referral No Information Encounters Encounter Location Date Provider Diagnosis [facility] [address] [place] [address] 02/07/2024 Gary Ruggiero Plan Of Treatment No Information Insurance Providers Payer Name Payer Address Payer Phone Subscriber Number Group Number Insured Name Patient Relationship to Insured Coverage Start Date Coverage End Date [facility] [address] [address] [place] [address] [id number] DANIELA RUIZ Self - patient is the insured
--- OUTSIDE RECORDS SUMMARY | 2025-01-12 09:14 | XMS_ITS ---
Author Organization [facility] Address [address] [place] [address] Care Team Providers Care Assistant Cook Name Role Phone Veronica Steen Primary Care Provider Unavailab Gary Liu [phone] Encounters Encounter Location Date Provider Diagnosis [facility] [address] [place] [address] 02/07/2024 Gary Ruggiero Plan Of Treatment No Information Progress Notes * DANIELA RUIZDOB:[birth year] (49 yo M)Acc No.[id number]:02/07/2024 Patient:?DANIELA RUIZ :1975???Age:49 Y???Sex:Male Address:[address] [facility] , [place], [place], [address] * true * Date:? Generated for Jerry pennington/Dinesh/eTranjitsmitting on:?2025 09:13 AM EDT
--- OUTSIDE RECORDS SUMMARY | 2025-01-12 09:14 | XMS_ITS | Encounter Summary ---
Author Organization [facility] Address [address] [place] [address] Care Team Providers Care Magneto Specialist Name Role Phone Toribio Thacker MD Primary Care Provider Encounter Details Date Type Department Care Team (Late st Contact Info) Description 02/15/2023 Scanned Document [facility] Podiatric Surgery [address] [place] [address] Manoj Ambrose, ANNABELLE [address] [facility] [address] [place] [address] Social History Tobacco Use Types Packs/Day Years [...] place to sleep or slept in a [facility] (including now)? No 01/09/2023 Sex and Gender [...] on filedocumented in this encounter Care Teams Magneto Specialist Relationship Specialty Start Date End Date Toribio Thacker MD [address] [address] PCP - General 01/10/23 documented as of this encounter
--- OUTSIDE RECORDS SUMMARY | 2025-01-12 09:14 | XMS_ITS ---
Author Organization [facility] Address [address] [place] [address] Care Team Providers Care Barrel Cutter Name Role Phone MATHEW AGGARWAL Unavailable [phone] Allergies No Known Allergies [facility] Prescription Refill, will need to be [...] l Encounters Encounter Location Date Provider Diagnosis [facility] [address] [place] [address] 08/30/2023 MATHEW AGGARWAL Assessments Encounter Date Diagnosis (ICD Code) Assessment Notes Treatment Notes Treatment Clinical Notes Section Notes 08/30/2023 Other Follow the treatment plan as indicated by the provider. Take any medications as prescribed. If you have any questions about your prescription, ask the pharmacist or call our office. If your condition worsens, return to one of our local offices ([facility]), or go to the ER. [...] Reason: Progress Notes * Michael GARSIADOB:[birth year] (50 yo M)Acc No.[id number]:08/30/2023 Patient:?Michael GARSIA Provider:?MATHEW AGGARWAL APRN :1975???Age:48 Y???Sex:Male Deniz e:08/30/2023 Phone: Address: [address], [phone] Subjective: * Chief Complaints: * ???1. LS [...] Normal. Assessment: Plan: * Treatment: * Procedure Codes:?06602 Offic e Visit, Est Pt., Level 2, delivered asynchronous, Modifiers: GQ * Follow Up:?PCP * Billing Information: * Visit Code:? * Procedure Codes:? 13954 Office Visit, Est Pt., Level 2, delivered asynchronous. Modifiers: GQ Images * 08-30-2023 Consent Form * Electronic signature of WALE AGGARWAL APRN on 2025 at 09:13 AM EDT Sign off status: Pending * Provider:BRIDGET AGGARWAL APRN Date:?04/2023 Generated for Jerry pennington/Dinesh/Thu on:?2025 09:13 AM EDT
== END ==
LOC: HO.CARD 08:50
PROVIDERS: PCP Internal Medicine; Visit Provider Internal Medicine Cardiovascular Disease
DX: I42.9 Cardiomyopathy, unspecified (principal); I50.20 Unspecified systolic (congestive) heart failure
CPT/HCPCS: 93308

== ENCOUNTER → 2025-01-12 08:53 | Outpatient (BNV) | payer OTHER, SELFPAY | PROVIDERS: PCP Internal Medicine; Visit Provider Internal Medicine | DX: I42.9 Cardiomyopathy, unspecified (principal) | CPT/HCPCS: 93308 ==